=== PATIENT | male | born 1955 | race Caucasian/White ===

== ENCOUNTER → 2016-09-19 | Outpatient (CLI) | payer OTHER ==
[~2016-09-19] MED LIST: CLR10 PO; DOCU100C31 PO; MELO7.5T5 PO; OXYC1TAB3 PO
--- NOTE | 2016-09-19 12:51 | DIAGNOSTIC IMAGING REPORT ---
(CHEST) THORAX WITHOUT CLINICAL HISTORY: LUNG NODULE COMPARISON STUDY: 09/04/2015 CT DOSE: 308.30 mGycm TECHNIQUE: CT of the thorax was performed from the thoracic inlet to the lung bases. Images are reviewed in the axial, sagittal, and coronal planes. IV contrast was not administered for this examination. FINDINGS: Thyroid: Imaged portions of the thyroid gland are normal in appearance. Thoracic aorta: There is mild dilatation of the a sitting thoracic aorta which measures 4 cm. Heart: The heart is normal in size. There is no significant pericardial effusion. There are mild coronary artery calcifications. Lungs and pleural spaces: There is pulmonary emphysema. There are no pleural effusions. There is a stable solid 5.5 mm right upper lobe pulmonary nodule as visualized in image #[id number]. There is a stable solid 4 mm right upper lobe pulmonary nodule as visualized in image #[id number]. There is a stable solid 3 mm right upper lobe perifissural nodule as visualized in image #[id number]. Mediastinum: There are mildly enlarged mediastinal lymph nodes measuring up to 12 mm in short axis. These remain similar to the preceding study. Linda: Borderline enlarged hilar lymph nodes remain stable. Axilla: There is no evidence of pathologic axillary lymphadenopathy Upper abdomen: There is a very small hiatal hernia Skeletal structures: There are no lytic or blastic osseous lesions. IMPRESSION: 1. The 3 solid subcentimeter right upper lobe pulmonary nodules remain stable. The largest measures 5.5 mm. In an average risk patient, no further follow-up is considered necessary. 2. Mildly enlarged mediastinal lymph nodes remain stable. Electronically signed by: Robin Sargent M.D. 09/19/2016 12:49 PM Dictated Date/Time: 09/19/2016 12:38 PM
== END | disposition home or self-care (01) ==
LOC: C.CTS 12:24
PROVIDERS: ATTEND Internal Medicine
DX: R91.1 Solitary pulmonary nodule (principal)

== ENCOUNTER 2022-04-21 01:06 | Observation (INO) ==
[2022-04-21] MEDS ORDERED: ALBUT/IPRATROP 3MG/0.5MG NEB 3 ML VIAL ONE (01:12)
[2022-04-21] MEDS ORDERED: methylPREDNISolone 125 MG/2 ML VIAL IV STA (01:23)
--- NOTE | 2022-04-21 01:30 | Emergency Department Note ---
History of Present Illness General Chief complaint: Shortness of Breath/Dyspnea Stated complaint: SOB Time Seen by Provider: 04/21/22 01:07 History of Present Illness 66-year-old smoker complains of shortness of breath that started approximately 2 hours ago. Patient denies cough cold congestion symptoms. Patient states he was at rest and had shortness of breath. Patient denies pleuritic chest pain denies substernal chest pressure denies fever. Patient was given a DuoNeb by EMS and states much improvement. Patient has no other current complaints. No other mitigating or alleviating factors Home Medications Medication Instructions Recorded Confirmed Type buprenorphine 8 mg-naloxone 2 mg 1 tab sublingual TID 04/21/22 04/21/22 History sublingual tablet naproxen 500 mg tablet 500 mg PO BID PRN Pain 04/21/22 04/21/22 History Allergies Allergy/AdvReac Type Severity Reaction Status Date / Time No Known Allergies Allergy Unknown Verified 04/21/22 01:45 Past Med/Surg History Medical History (Updated 04/21/22 @ 02:56 by Yovanny Rodriguez DO) Multiple rib fractures Surgical History H/O rotator cuff surgery Hx of lumbosacral spine surgery Social History Smoking Status: Current every day smoker Tobacco Type: Cigarettes Preferred Language: [place] Feels Safe at Home: Yes Review of Systems A total of 10 systems reviewed and were otherwise negative Respiratory: + dyspnea Physical Exam Vital Signs Vital Signs - 24 hr 04/21/22 01:57 04/21/22 01:57 04/21/22 02:13 Temperature 36.7 C Temperature Source Oral Pulse Rate 86 Pulse Rhythm Respiratory Rate 24 Respiratory Effort / Characteristics Short of Breath Spontaneous Labored Respiratory Depth Normal Respiratory Pattern Regular Blood Pressure 154/75 H Blood Pressure Mean 101 Pulse Oximetry 96 95 Oxygen Delivery Method Nasal Cannula Nasal Cannula Nasal Cannula Oxygen Flow Rate 2 2 2 Sepsis Recent Fever Within 48 Hours No Sepsis New/Unexplained Change in Mental Status N/A Sepsis Action Taken by Nursing No Action Required 04/21/22 02:13 Temperature Temperature Source Pulse Rate 101 H Pulse Rhythm Regular Respiratory Rate Respiratory Effort / Characteristics Respiratory Depth Respiratory Pattern Blood Pressure Blood Pressure Mean Pulse Oximetry 95 Oxygen Delivery Method Nasal Cannula Oxygen Flow Rate 2 Sepsis Recent Fever Within 48 Hours Sepsis New/Unexplained Change in Mental Status Sepsis Action Taken by Nursing GENERAL: Patient is awake alert in no acute distress patient is resting comfortably and showing no signs of anxiety EYES: The conjunctivae are clear. The pupils are round and reactive. EARS, NOSE, MOUTH AND THROAT: The nose is without any evidence of any deformity. Mucous membranes are moist. Tongue is midline. NECK: The neck is nontender and supple. RESPIRATORY: Normal respiratory effort is noted there is no evidence of wheezing rhonchi or rales CARDIOVASCULAR: Regular rate and rhythm noted there no murmurs rubs or gallops normal S1 normal S2. GASTROINTESTINAL: The abdomen is soft. Abdomen is nontender. BACK: No midline tenderness or or step-off noted range of motion in flexion extension as well as rotation no signs of muscle spasm noted MUSCULOSKELETAL/EXTREMITIES: There is no evidence of gross deformity full range of motion is noted in the hips and shoulders. Calves are nontender or swollen bilaterally SKIN: There is no obvious evidence of any rash. There are no petechiae, pallor or cyanosis noted. NEUROLOGIC: Patient is awake alert and oriented x3 strength is symmetric PSYCH: Normal affect Course Reevaluation(s) Reevaluation #1: Patient resting in no distress on repeat examination Time: 02:55 Consultations Consultation #1: The case was discussed with the [facility] hospitalist for admission. Patient will be admitted for COPD and dyspnea Time: 03:10 Administered Medications Discontinued Medications Methylprednisolone (Methylprednisolone 125 Mg/2 Ml Vial) 125 mg IV NOW STA Stop: 04/21/22 01:24 Last Admin: 04/21/22 01:50 Dose: 125 mg Documented By: Medical Decision Making Medical Records Attestation: I reviewed the patient's medical records. Home Medications Current Medication List: was personally reviewed by me Laboratory Data Attestation: I reviewed the patient's lab results. Patient's lab work is unremarkable 04/21/22 01:20 04/21/22 01:20 Lab Results 04/21/22 04/21/22 04/21/22 Range/Units 01:20 01:20 01:54 WBC 11.92 H (4.8-10.8) K/ul RBC 5.24 (4.70-6.10) M/uL Hgb 15.5 (14.0-18.0) g/dl Hct 46.5 (42.0-52.0) % MCV 88.7 (80.0-100.0) fL MCH 29.6 (25.0-34.0) pg MCHC 33.3 (32.0-36.0) g/dL RDW Std Deviation 48.9 H (36.4-46.3) fL RDW Coeff of Ml 15.0 H (11.5-14.5) % Plt Count 227 (130-400) K/uL MPV 11.0 (9.4-12.4) fL Immature Gran % (Auto) 0.3 % Neut % (Auto) 61.6 % Lymph % (Auto) 27.1 % [place] % (Auto) 9.4 % Eos % (Auto) 1.2 % Baso % (Auto) 0.4 % Neut # (Auto) 7.35 H (1.40-6.50) K/uL Lymph # (Auto) 3.23 (1.2-3.4) K/uL [place] # (Auto) 1.12 H (0.11-0.59) K/uL Eos # (Auto) 0.14 (0-0.50) K/uL Baso # (Auto) 0.05 (0-0.2) K/uL Immature Gran # (Auto) 0.03 (0.01-0.20) K/uL Sodium 141 (136-145) mmol/L Potassium 4.4 (3.5-5.1) mmol/L Chloride 105 (98-107) mmol/L Carbon Dioxide 30 (21-32) mmol/L Anion Gap 6 (3-11) BUN 13 (6-23) mg/dl Creatinine 0.80 (0.6-1.4) mg/dl Est Cr Clr Drug Dosing Not Reportable Est GFR ( Amer) 107.1 ml/min Est GFR (Non-Af Amer) 92.4 ml/min BUN/Creatinine Ratio 16.3 (10-20) Glucose 114 H (70-99(Fasting)) mg/dl Calcium 9.6 (8.5-10.1) mg/dl Total Bilirubin 0.5 (0.2-1.0) mg/dl AST 21 (13-39) U/L ALT 18 (7-52) U/L Alkaline Phosphatase 106 H (34-104) U/L Troponin I High Sens 7.8 (0-20) pg/ml Total Protein 8.4 H (6.0-8.3) gm/dl Albumin 4.6 (3.4-5.0) gm/dl Globulin 3.8 (2.5-4.0) gm/dl Albumin/Globulin Ratio 1.2 (0.9-2) SARS-CoV-2, RNA, NAAT NEGATIVE (NEGATIVE) Imaging Data Attestation: I personally reviewed and interpreted this imaging study as follows: My Impression: Chest x-ray interpreted by me COPD changes no obvious effusion no obvious infiltrate no pneumothorax ECG Data Attestation: I personally reviewed and interpreted this ECG as follows: Additional Comments: EKG interpreted by me sinus rhythm rate of 98 poor baseline no obvious ST segment elevation or depression normal intervals normal axis MDM Narrative Medical decision making differential diagnosis includes COPD exacerbation, pneumonia, CHF, anemia, cardiac dysrhythmia Plan is to check labs, EKG, chest x-ray, give IV Solu-Medrol, observe EMS records were reviewed by me Patient's chest x-ray shows COPD, no obvious pneumonia, patient's COVID testing is negative. Patient was improved after DuoNeb and Solu-Medrol I suspect the patient has a COPD exacerbation Impression & Plan Acute exacerbation of chronic obstructive airways disease Discharge Plan Visit Data Chief Complaint: Shortness of Breath/Dyspnea Stated Complaint: SOB ED Provider: Yovanny Rodriguez Discharge Problem: Acute exacerbation of chronic obstructive airways disease Patient Disposition: Admitted As Inpatient Forms Stand Alone Forms: [facility] Prescriptions Prescriptions: No Action naproxen 500 mg Tablet 500 mg PO BID PRN (Reason: Pain) buprenorphine-naloxone 8-2 mg tablet, sublingual 1 tab SUBLINGUAL TID Referrals Referrals: Nelly Pinzon DO [Primary Care Provider] -
[2022-04-21 01:39] LABS: Basophils # (auto) 0.05 K/uL (0-0.2); Basophils % (auto) 0.4 %; Eosinophils # (auto) 0.14 K/uL (0-0.50); Eosinophils % (auto) 1.2 %; Hematocrit (blood only) 46.5 % (42.0-52.0); Hemoglobin 15.5 g/dl (14.0-18.0); Immature Granulocytes # (auto) 0.03 K/uL (0.01-0.20); Immature Granulocytes % (auto) 0.3 %; Lymphocytes # (auto) 3.23 K/uL (1.2-3.4); Lymphocytes % (auto) 27.1 %; Mean Corpuscular Hemoglobin 29.6 pg (25.0-34.0); Mean Corpuscular Hgb Conc 33.3 g/dL (32.0-36.0); Mean Corpuscular Volume 88.7 fL (80.0-100.0); Monocytes # (auto) 1.12 K/uL (0.11-0.59); Monocytes % (auto) 9.4 %; Neutrophils # (auto) 7.35 K/uL (1.40-6.50); Neutrophils % (auto) 61.6 %; Platelet Count 227 K/uL (130-400); RDW Standard Deviation 48.9 fL (36.4-46.3); Red Blood Count 5.24 M/uL (4.70-6.10); White Blood Count 11.92 K/ul (4.8-10.8)
[2022-04-21 02:01] LABS: Alanine Aminotransferase 18 U/L (7-52); Albumin Globulin Ratio 1.2 (0.9-2); Albumin Level 4.6 gm/dl (3.4-5.0); Alkaline Phosphatase 106 U/L (34-104); Anion Gap 6 (3-11); Aspartate Aminotransferase 21 U/L (13-39); BUN Creatinine Ratio 16.3 (10-20); Bilirubin,Total 0.5 mg/dl (0.2-1.0); Blood Urea Nitrogen 13 mg/dl (6-23); Calcium 9.6 mg/dl (8.5-10.1); Carbon Dioxide 30 mmol/L (21-32); Chloride 105 mmol/L (98-107); Est GFR (African American) 107.1 ml/min; Est GFR (Non-African American) 92.4 ml/min; Globulin 3.8 gm/dl (2.5-4.0); Glucose 114 mg/dl (70-99(Fasting)); Potassium 4.4 mmol/L (3.5-5.1); Sodium 141 mmol/L (136-145); Total Protein 8.4 gm/dl (6.0-8.3)
[2022-04-21 02:08] LABS: Troponin I High Sensitivity 7.8 pg/ml (0-20)
[2022-04-21 02:49] LABS: Partial Thromboplastin Ratio 0.8; Partial Thromboplastin Time 22.2 Seconds (21.0-31.0); Prothrombin Time 10.2 Seconds (9.0-12.0)
[2022-04-21 02:51] LABS: D Dimer 990 ug/L FEU (0-500)
[2022-04-21] MEDS ORDERED: OPTIRAY 320 500ml IV ONE (04:03)
--- NOTE | 2022-04-21 04:06 | History & Physical Report ---
Date of Service April 21, 2022 Assessment & Plan (1) SOB (shortness of breath): Plan: Secondary to viral bronchitis Rule out PE given abnormal D-dimer chronic back pain on Suboxone history of opioid abuse as per records Hyperglycemia, likely from prediabetes with note of outpatient hemoglobin A1c of 5.9 from 2018 ongoing tobacco abuse OBS Medical telemetry Nebs RTC, prednisone course No indication for antibiotics for now Follow CT chest PE study result Update hemoglobin A1c Nicotine patch DVT prophylaxis. Lovenox subcu Full code Text document was generated using [employer] voice recognition software. It may contain grammatical or spelling errors. Kindly contact undersigned for clarification of any documentation item in question. History of Present Illness Chief Complaint: Cough, shortness of breath Primary Care Provider: Dr. Tobi Villanueva History obtained from patient and records. Medical history significant for chronic back pain status post surgery on Suboxone, history of opioid abuse as per records, hyperlipidemia as per records, ongoing tobacco abuse. Patient noted cough symptoms productive of clear sputum with increasing shortness of breath last night. No chest pain. Not sure about recent sick contacts. Was at PCPs office 2 weeks ago for routine visit. Has received COVID-19 vaccination. EMS called to patient's home. Improved symptoms with neb treatment. Solu-Medrol administered at the ER. 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 Allergies Allergy/AdvReac Type Severity Reaction Status Date / Time No Known Allergies Allergy Unknown Verified 04/21/22 01:45 Home Medications Medication Instructions Recorded Confirmed Type buprenorphine 8 mg-naloxone 2 mg 1 tab sublingual TID 04/21/22 04/21/22 History sublingual tablet naproxen 500 mg tablet 500 mg PO BID PRN Pain 04/21/22 04/21/22 History Past Med/Surg History Medical History (Updated 04/21/22 @ 09:53 by Shashank Morales MD) Multiple rib fractures Surgical History H/O rotator cuff surgery Hx of lumbosacral spine surgery Social History Smoking Status: Current every day smoker Tobacco Type: Cigarettes Second Hand Exposure: No; Do You Dip or Chew Tobacco: No; Tobacco Cessation Education Requested by Patient: Yes Hx Alcohol Use: No Hx Substance Use: No Preferred Language: [place] Communication Ability: Effective Mental Health Aides Teacher Required: No Beliefs That Will Affect Care: None Current Living Situation: Alone Other Information That Helps Us Care for You: No Feels Safe at Home: Yes Safety Concerns: Feels Safe At This Time Review of Systems Review of Systems: As per HPI, all other systems reviewed and negative Physical Exam Physical Exam: GENERAL: Comfortable, pleasant, no respiratory distress SKIN: Normal color, warm HEENT: Partial alopecia, [place] palpebral conjunctivae, no ptosis, dry buccal mucosa NECK : Supple, no tenderness CHEST : Decreased breath sounds, no tenderness HEART : RRR, no obvious murmurs ABDOMEN: Some distention, nontender EXTREMITIES : No LE swelling/tenderness, left wrist tenderness, no other conspicuous deformities noted NEUROLOGIC : Coherent, no facial asymmetry, no other gross focality Results & Data Results & Data ([facility]) Vital Signs (Past 12 Hours) Vital Signs Temp Pulse Resp BP Pulse Ox O2 Del Method O2 Flow Rate 04/21/22 02:30 79 18 96 Nasal Cannula 2 04/21/22 02:30 117/67 04/21/22 02:13 101 H 95 Nasal Cannula 2 04/21/22 02:13 95 Nasal Cannula 2 04/21/22 01:57 Nasal Cannula 2 04/21/22 01:57 36.7 C 86 24 154/75 H 96 Nasal Cannula 2 Laboratory Results Laboratory Results WBC 11.92 K/ul (4.8-10.8) H 04/21/22 01:20 RBC 5.24 M/uL (4.70-6.10) 04/21/22 01:20 Hgb 15.5 g/dl (14.0-18.0) 04/21/22 01:20 Hct 46.5 % (42.0-52.0) 04/21/22 01:20 MCV 88.7 fL (80.0-100.0) 04/21/22 01:20 MCH 29.6 pg (25.0-34.0) 04/21/22 01:20 MCHC 33.3 g/dL (32.0-36.0) 04/21/22 01:20 RDW Std Deviation 48.9 fL (36.4-46.3) H 04/21/22 01:20 RDW Coeff of Ml 15.0 % (11.5-14.5) H 04/21/22 01:20 Plt Count 227 K/uL (130-400) 04/21/22 01:20 MPV 11.0 fL (9.4-12.4) 04/21/22 01:20 Immature Gran % (Auto) 0.3 % 04/21/22 01:20 Neut % (Auto) 61.6 % 04/21/22 01:20 Lymph % (Auto) 27.1 % 04/21/22 01:20 [place] % (Auto) 9.4 % 04/21/22 01:20 Eos % (Auto) 1.2 % 04/21/22 01:20 Baso % (Auto) 0.4 % 04/21/22 01:20 Neut # (Auto) 7.35 K/uL (1.40-6.50) H 04/21/22 01:20 Lymph # (Auto) 3.23 K/uL (1.2-3.4) 04/21/22 01:20 [place] # (Auto) 1.12 K/uL (0.11-0.59) H 04/21/22 01:20 Eos # (Auto) 0.14 K/uL (0-0.50) 04/21/22 01:20 Baso # (Auto) 0.05 K/uL (0-0.2) 04/21/22 01:20 Immature Gran # (Auto) 0.03 K/uL (0.01-0.20) 04/21/22 01:20 PT 10.2 Seconds (9.0-12.0) 04/21/22 01:20 INR 1.0 (0.9-1.1) 04/21/22 01:20 APTT 22.2 Seconds (21.0-31.0) 04/21/22 01:20 PTT Ratio 0.8 04/21/22 01:20 D-Dimer 990 ug/L FEU (0-500) H* 04/21/22 01:20 Sodium 141 mmol/L (136-145) 04/21/22 01:20 Potassium 4.4 mmol/L (3.5-5.1) 04/21/22 01:20 Chloride 105 mmol/L (98-107) 04/21/22 01:20 Carbon Dioxide 30 mmol/L (21-32) 04/21/22 01:20 Anion Gap 6 (3-11) 04/21/22 01:20 BUN 13 mg/dl (6-23) 04/21/22 01:20 Creatinine 0.80 mg/dl (0.6-1.4) 04/21/22 01:20 Est Cr Clr Drug Dosing Not Reportable 04/21/22 01:20 Est GFR ( Amer) 107.1 ml/min 04/21/22 01:20 Est GFR (Non-Af Amer) 92.4 ml/min 04/21/22 01:20 BUN/Creatinine Ratio 16.3 (10-20) 04/21/22 01:20 Glucose 114 mg/dl (70-99(Fasting)) H 04/21/22 01:20 Calcium 9.6 mg/dl (8.5-10.1) 04/21/22 01:20 Total Bilirubin 0.5 mg/dl (0.2-1.0) 04/21/22 01:20 AST 21 U/L (13-39) 04/21/22 01:20 ALT 18 U/L (7-52) 04/21/22 01:20 Alkaline Phosphatase 106 U/L (34-104) H 04/21/22 01:20 Troponin I High Sens 7.8 pg/ml (0-20) 04/21/22 01:20 Total Protein 8.4 gm/dl (6.0-8.3) H 04/21/22 01:20 Albumin 4.6 gm/dl (3.4-5.0) 04/21/22 01:20 Globulin 3.8 gm/dl (2.5-4.0) 04/21/22 01:20 Albumin/Globulin Ratio 1.2 (0.9-2) 04/21/22 01:20 Procalcitonin < 0.05 ng/ml (0-0.5) 04/21/22 01:20 SARS-CoV-2, RNA, NAAT NEGATIVE (NEGATIVE) 04/21/22 01:54 Diagnostic Findings Chest x-ray as per my interpretation hyperinflation EKG as per my interpretation : Rate 90, NSR, normal axis, no ischemia Code Status & VTE Plan VTE Prophylaxis Plan VTE Prophylaxis will be ordered: Yes
[2022-04-21] MEDS ORDERED: SODIUM CHLORIDE 0.9% 1000ML 1,000 ML IV STA (04:11)
[2022-04-21] MEDS ORDERED: NICOTINE 21 MG/24 HR TDSY TD STA (04:11)
[2022-04-21 04:23] LABS: Magnesium 2.1 mg/dl (1.7-2.4)
[2022-04-21] MEDS ORDERED: NAPROXEN 250 MG TAB PO PRN (05:57)
[2022-04-21] MEDS ORDERED: ACETAMINOPHEN 325 MG TAB PO PRN (05:57)
[2022-04-21] MEDS ORDERED: PROMETHAZINE HCL 12.5 MG in SODIUM CHLORIDE 0.9% 50 ML IV PRN (05:57)
[2022-04-21] MEDS ORDERED: XOPENEX/ATROVENT 1.25mg/0.5MG NEB COMBO NEB SCH (07:00)
--- NOTE | 2022-04-21 07:00 | XRay Report ---
XR chest 1V portable HISTORY: Chest pain, nonspecific COMPARISON: Chest and left rib series 09/15/2019. FINDINGS: The lungs are hyperexpanded with apical predominant emphysematous changes. The heart is nor mal in size. No focal lung consolidations to suggest a pneumonia. No evidence for pulmonary edema. Th ere are old, healed left-sided rib fractures. IMPRESSION: Emphysema. Otherwise, no acute process within the chest. ACT 112: Negative or not required by law. Electronically signed by: Alex Dumas M.D. 04/21/2022 6:59 AM
[2022-04-21] MEDS: LEVALBUTEROL 1.25MG/0.5ML NEB INH SCH ×3 (07:36→18:54)
[2022-04-21] MEDS: IPRATROPIUM BROMIDE NEB SOLN 0.02% 2.5 ML VIAL INH SCH ×3 (07:36→18:54)
--- NOTE | 2022-04-21 08:05 | CT Scan Report ---
CT ANGIOGRAPHY OF THE CHEST, PULMONARY EMBOLUS PROTOCOL CLINICAL HISTORY: Respiratory difficulty. Evaluate for pulmonary embolus. COMPARISON STUDY: Chest CT September 19, 2016 and chest radiograph April 21, 2022. TECHNIQUE: Following IV administration of 113 mL of Optiray, helical axial images of the chest were o btained utilizing the pulmonary embolus protocol. Maximal intensity projections and sagittal and cor onal reformats were viewed on an independent 3D workstation. IV contrast was administered without co mplication. Automated exposure control was utilized for the study. A dose lowering technique was ut ilized adhering to the principles of ALARA. CT DOSE: 366.18 mGy.cm FINDINGS: No pulmonary emboli identified. There is no thoracic aortic dissection. The size of the he art is normal. There is no pericardial effusion. Prominent mediastinal and bilateral hilar lymph node s are unchanged since CT of September 04, 2015. Severe emphysema is present. There is no consolidation to suggest pneumonia. There is a small amount of mucus within the trachea. No central obstructing mass i s present. Several small right upper lobe pulmonary nodules measuring up to 4 mm are unchanged since CT of September 04, 2015. There are no new pulmonary nodules. There are no fractures within the bony thora x. No suspicious osseous lesions are identified within the bony thorax. Visualized portions of the up per abdomen are unremarkable. IMPRESSION: 1. No pulmonary emboli identified. 2. No acute intrathoracic findings. 3. Severe emphysema. 4. No change in multiple pulmonary nodules since chest CT of September 04, 2015. These are benign given st ability. 5. Stable prominent mediastinal and bilateral hilar lymph nodes which also benign. ACT 112: Negative or not required by law. Electronically signed by: Taiwo Carl M.D. 04/21/2022 8:04 AM
[2022-04-21] MEDS ORDERED: PNEUMOCOCCAL POLYSACCHARIDES 25 MCG/0.5 ML VIAL/SYR IM ONE (09:00)
[2022-04-21 09:52] LABS: Estimated Average Glucose 126 mg/dl
[2022-04-21] MEDS: BUPRENORPHINE/NALOXONE 8/2 MG TAB SL SCH ×3 (10:01→19:52)
[2022-04-21] MEDS: ENOXAPARIN INJ 40 MG/0.4 ML SYR SQ SCH (10:01)
[2022-04-21] MEDS: NICOTINE 21 MG/24 HR TDSY TD SCH (10:02)
--- NOTE | 2022-04-21 14:08 | Communication Note ---
Date of Service: April 21, 2022 66-year-old gentleman with PMH of chronic back pain status post surgery on Suboxone, opiate abuse, HLD, ongoing tobacco abuse was seen and evaluated at bedside for acute shortness of breath likely secondary to viral bronchitis. Given elevated D-dimer, CTA chest was done which was negative for PE. Patient was lying in bed, on room air, heart/lung/abdomen examination fairly WNL. Patient does not have any shortness of breath now. Patient has minimal cough. For detailed information on the patient, refer to today's H&P note. Patient is being monitored off antibiotic and with prednisone course and nebs. Patient would like to see how his breathing does today and would like to go home tomorrow.
[2022-04-22] MEDS: LEVALBUTEROL 1.25MG/0.5ML NEB INH SCH ×3 (00:20→13:56)
[2022-04-22] MEDS: IPRATROPIUM BROMIDE NEB SOLN 0.02% 2.5 ML VIAL INH SCH ×3 (00:20→13:56)
--- NOTE | 2022-04-22 06:03 | Electrocardiogram Report ---
Test Reason : Blood Pressure : / mmHG Vent. Rate : 090 BPM Atrial Rate : 090 BPM P-R Int : 142 ms QRS Dur : 100 ms QT Int : 360 ms P-R-T Axes : 087 050 069 degrees QTc Int : 440 ms Poor data quality, interpretation may be adversely affected Sinus rhythm with Premature supraventricular complexes When compared with ECG of 02-JAN-2004 17:38, Premature supraventricular complexes are now Present Vent. rate has increased BY 30 BPM Confirmed by Siddhartha Goode ([id number]) on 04/22/2022 6:03:03 AM Referred By: REFERRED SELF Confirmed By:Siddhartha Goode
[2022-04-22 06:28] LABS: Basophils # (auto) 0.03 K/uL (0-0.2); Basophils % (auto) 0.2 %; Eosinophils # (auto) 0.05 K/uL (0-0.50); Eosinophils % (auto) 0.4 %; Hematocrit (blood only) 39.7 % (42.0-52.0); Hemoglobin 13.5 g/dl (14.0-18.0); Immature Granulocytes # (auto) 0.04 K/uL (0.01-0.20); Immature Granulocytes % (auto) 0.3 %; Lymphocytes # (auto) 2.46 K/uL (1.2-3.4); Lymphocytes % (auto) 17.3 %; Mean Corpuscular Hemoglobin 29.6 pg (25.0-34.0); Mean Corpuscular Volume 87.1 fL (80.0-100.0); Mean Platelet Volume 11.2 fL (9.4-12.4); Monocytes # (auto) 1.19 K/uL (0.11-0.59); Monocytes % (auto) 8.4 %; Neutrophils # (auto) 10.44 K/uL (1.40-6.50); Neutrophils % (auto) 73.4 %; Platelet Count 227 K/uL (130-400); RDW Coefficient of Variation 15.2 % (11.5-14.5); RDW Standard Deviation 48.7 fL (36.4-46.3); Red Blood Count 4.56 M/uL (4.70-6.10); White Blood Count 14.21 K/ul (4.8-10.8)
[2022-04-22 06:41] LABS: BUN Creatinine Ratio 20.8 (10-20); Calcium 9.1 mg/dl (8.5-10.1); Creatinine Clr Calc Pharmacy 99.6 ml/min; Est GFR (African American) 111.9 ml/min; Est GFR (Non-African American) 96.5 ml/min; Potassium 3.9 mmol/L (3.5-5.1)
[2022-04-22] MEDS ORDERED: predniSONE 20 MG TAB PO SCH (09:00)
[2022-04-22] MEDS: ENOXAPARIN INJ 40 MG/0.4 ML SYR SQ SCH (09:09)
[2022-04-22] MEDS: NICOTINE 21 MG/24 HR TDSY TD SCH (09:09)
[2022-04-22] MEDS: BUPRENORPHINE/NALOXONE 8/2 MG TAB SL SCH ×2 (09:11→13:01)
[2022-04-22] MEDS ORDERED: IPRATROPIUM BROMIDE/ALBUTEROL respimat INH INH PRN (10:30)
--- NOTE | 2022-04-22 10:51 | Hospitalist Progress Note ---
Date of Service April 22, 2022 Assessment & Plan (1) SOB (shortness of breath): Plan: Secondary to viral bronchitis Rule out PE given abnormal D-dimer-CAT scan is negative for any pulmonary embolism Remains stable and has been ambulating without any difficulties Will be discharged home this afternoon (2) Acute exacerbation of chronic obstructive airways disease: Plan: Likely secondary to viral infection Is been on and oral prednisone Will need inhalers and nebulizers as an outpatient Clinically much better to be discharged today (3) Emphysema lung: Plan: Ongoing tobacco abuse We will continue nicotine patch (4) Hx of lumbosacral spine surgery: Plan: history of opioid abuse as per records chronic back pain on Suboxone Plan Hyperglycemia, likely from prediabetes with note of outpatient hemoglobin A1c of 5.9 from 2018 Admission and Anticipated Discharge Date Admission Date: April 21, 2022 Subjective 04/22/2022 The patient was seen and examined in telemetry unit He has significant emphysema and has been smoking Had not been on any inhalers as an outpatient Admitted with viral bronchitis and has been feeling much better to be discharged He definitely wants to go home Review of Systems Review of Systems: All systems reviewed and are unremarkable except as noted below Respiratory: No shortness of breath at rest Physical Exam Physical Exam: Lying in bed comfortably Constitutional: average body habitus; not ill appearing Eyes: PERRL, conjunctivae normal, anicteric sclerae ENMT: external ear and nose normal, oropharynx normal Neck: trachea midline, no thyromegaly Respiratory: no respiratory distress Auscultation: + diminished lung sound s; no crackles and no wheezes Cardiovascular: Rate/Rhythm: regular rate and regular rhythm; not tachycardic Heart Sounds: normal S1 and normal S2; no murmur Extremities: no edema Gastrointestinal (Abdomen): Inspection/Auscultation: normal bowel sounds; abdomen not distended Percussion/Palpation: abdomen soft; abdomen nontender Musculoskeletal: No acute arthritis involving any joint Neurologic: Alert, awake and oriented x3. No focal sensory or motor deficit appreciated Psychiatric: A+Ox3, euthymic affect Lymphatic: no cervical or axillary lymphadenopathy Results & Data Results & Data ([facility]) Vital Signs (Past 12 Hours) Vital Signs Temp Pulse Pulse Resp BP Pulse Ox O2 Del Method 04/22/22 07:15 36.4 C L 69 99/65 L 99 Room Air 04/22/22 07:00 74 18 93 Room Air 04/22/22 00:00 81 04/22/22 03:49 36.3 C L 64 18 99/61 L 92 Room Air 04/22/22 00:23 70 18 93 Room Air 04/21/22 23:32 36.4 C L 73 18 142/78 H 95 Room Air Laboratory Results Short CBC 04/22/22 Range/Units 05:35 WBC 14.21 H (4.8-10.8) K/ul Hgb 13.5 L (14.0-18.0) g/dl Hct 39.7 L (42.0-52.0) % Plt Count 227 (130-400) K/uL BMP 04/22/22 05:35 Sodium 138 Potassium 3.9 Chloride 103 Carbon Dioxide 29 BUN 15 Creatinine 0.72 Glucose 109 H Calcium 9.1 Medications Administered Current Inpatient Medications Acetaminophen (Acetaminophen 325 Mg Tab) 650 mg PO Q4H PRN PRN Reason: Pain or Fever Stop: 05/21/22 05:56 Albuterol (Albuterol Hfa 8 Gm Inhaler (Combivent Respimat P&T Subs)) 1 puffs INH QIDR FABIOLA; Protocol Stop: 05/22/22 10:59 Buprenorphine/Naloxone (Buprenorphine/Naloxone 8/2 Mg Tab) 1 tab SL TID [facility] Stop: 05/21/22 08:59 Last Admin: 04/22/22 09:11 Dose: 1 tab Enoxaparin Sodium (Enoxaparin Inj 40 Mg/0.4 Ml Syr) 40 mg SQ QAM FABIOLA Stop: 05/21/22 08:59 Last Admin: 04/22/22 09:09 Dose: 40 mg Promethazine HCl 12.5 mg/ (Sodium Chloride) 50.5 mls @ 202 mls/hr IV Q6H PRN PRN Reason: Nausea And Vomiting Stop: 05/21/22 05:56 Ipratropium [place] (Ipratropium [place] Neb Soln 0.02% 2.5 Ml Vial) 0.5 mg INH Q6R FABIOLA Stop: 05/21/22 06:59 Last Admin: 04/22/22 06:59 Dose: 0.5 mg Ipratropium [place] (Ipratropium Hfa Inhaler (Combivent Respimat P&T Subs)) 1 puffs INH QIDR FABIOLA; Protocol Stop: 05/22/22 10:59 Levalbuterol HCl (Levalbuterol 1.25mg/0.5ml Neb) 1.25 mg INH Q6R [facility] Stop: 05/21/22 06:59 Last Admin: 04/22/22 06:59 Dose: 1.25 mg Miscellaneous (Remove Nicoderm Patch) 1 each N/A DAILY@0859 [facility] Stop: 05/21/22 08:58 Last Admin: 04/22/22 09:09 Dose: 1 each Naproxen (Naproxen 250 Mg Tab) 500 mg PO BID PRN PRN Reason: Pain Stop: 05/21/22 05:56 Last Admin: 04/21/22 10:02 Dose: 500 mg Nicotine (Nicotine 21 Mg/24 Hr Tdsy) 21 mg TD QAM [facility] Stop: 05/21/22 08:59 Last Admin: 04/22/22 09:09 Dose: 21 mg Prednisone (Prednisone 20 Mg Tab) 40 mg PO DAILY [facility] Stop: 04/26/22 08:59 Last Admin: 04/22/22 09:09 Dose: 40 mg
[2022-04-22] MEDS ORDERED: Ipratropium HFA Inhaler (Combivent Respimat P&T Subs) INH SCH (11:00)
[2022-04-22] MEDS ORDERED: Albuterol HFA 8 GM Inhaler (Combivent Respimat P&T Subs) INH SCH (11:00)
[2022-04-22] MEDS ORDERED: IPRATROPIUM BROMIDE NEB SOLN 0.02% 2.5 ML VIAL INH PRN (13:01)
[2022-04-22] MEDS ORDERED: LEVALBUTEROL 1.25MG/0.5ML NEB INH PRN (13:02)
--- NOTE | 2022-04-23 07:24 | Discharge Summary ---
Date of Service April 22, 2022 Admission HPI Per Admitting Provider History obtained from patient and records. Medical history significant for chronic back pain status post surgery on Suboxone, history of opioid abuse as per records, hyperlipidemia as per records, ongoing tobacco abuse. Patient noted cough symptoms productive of clear sputum with increasing shortness of breath last night. No chest pain. Not sure about recent sick contacts. Was at PCPs office 2 weeks ago for routine visit. Has received COVID-19 vaccination. EMS called to patient's home. Improved symptoms with neb treatment. Solu-Medrol administered at the ER. 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 Admission Exam Per Admitting Provider Physical Exam: GENERAL: Comfortable, pleasant, no respiratory distress SKIN: Normal color, warm HEENT: Partial alopecia, [place] palpebral conjunctivae, no ptosis, dry buccal mucosa NECK : Supple, no tenderness CHEST : Decreased breath sounds, no tenderness HEART : RRR, no obvious murmurs ABDOMEN: Some distention, nontender EXTREMITIES : No LE swelling/tenderness, left wrist tenderness, no other conspicuous deformities noted NEUROLOGIC : Coherent, no facial asymmetry, no other gross focality Principal Diagnosis COPD exacerbation likely viral, emphysema, chronic back pain Discharge Exam Lying in bed comfortably Constitutional average body habitus; not ill appearing Eyes PERRL, conjunctivae normal, anicteric sclerae ENMT external ear and nose normal, oropharynx normal Neck trachea midline, no thyromegaly Respiratory no respiratory distress Auscultation: + diminished lung sounds; no crackles and no wheezes Cardiovascular Rate/Rhythm: regular rate and regular rhythm; not tachycardic Heart Sounds: normal S1 and normal S2; no murmur Extremities: no edema Gastrointestinal (Abdomen) Inspection/Auscultation: normal bowel sounds; abdomen not distended Percussion/Palpation: abdomen soft; abdomen nontender Psychiatric A+Ox3, euthymic affect Lymphatic no cervical or axillary lymphadenopathy Discharge Data Allergies Allergy/AdvReac Type Severity Reaction Status Date / Time No Known Allergies Allergy Unknown Verified 04/21/22 01:45 Consultations 04/21/22 03:10 ED Decision to Admit Stat Ordered Studies 04/21/22 03:32 CT angio chest PE protocol Urgent Hospital Course (1) SOB (shortness of breath): Secondary to viral bronchitis Rule out PE given abnormal D-dimer-CAT scan is negative for any pulmonary embolism Remains stable and has been ambulating without any difficulties Will be discharged home this afternoon (2) Acute exacerbation of chronic obstructive airways disease: Likely secondary to viral infection Is been on and oral prednisone Will need inhalers and nebulizers as an outpatient Clinically much better to be discharged today (3) Emphysema lung: Ongoing tobacco abuse We will continue nicotine patch (4) Hx of lumbosacral spine surgery: history of opioid abuse as per records chronic back pain on Suboxone Plan Hyperglycemia, likely from prediabetes with note of outpatient hemoglobin A1c of 5.9 from 2018 Total Time Total Time Spent Total Time Spent (In Minutes): 35 minutes Discharge Plan Discharge Items Patient Disposition: Home - Self-Care Reason For Visit: SOB Discharge Diagnosis: COPD exacerbation likely viral, emphysema, chronic back pain Condition on Discharge: Good Activity: Resume your previous activity Non-emergency contact: Primary Care Provider Call non-emergency contact if: you have any medication questions and your symptoms worsen Follow-up/Referrals: Tobi Villanueva MD [Outside Practitioners] - (Date & Time 04/26/2022 8:40 AM Provider Tobi Villanueva MD Department [facility] ) Diet: Regular Addtl Attending Provider Instructions: Please take precautions to avoid falls Take your medications as advised Quit smoking Please give appointments with your healthcare provider Pending Studies at Discharge: No Stand-Alone Forms: My [facility] [employer], Smoking Cessation Medications and DC Order Prescriptions: New albuterol sulfate [Ventolin HFA] 90 mcg/actuation Hfa Aerosol Inhaler 2 puff inhalation QIDR PRN (Reason: shortness of breath or wheezing) Qty: 8.5 0RF levalbuterol HCl 1.25 mg/0.5 mL Solution For Nebulization 1.25 mg inhalation Q8H PRN (Reason: shortness of breath or wheezing) Qty: 30 0RF Rx Instructions: For moderate to severe shortness of breath and wheezing nicotine [Nicoderm CQ] 21 mg/24 hr Patch 24 Hour 21 mg transdermal QAM Qty: 28 0RF prednisone 20 mg Tablet 40 mg PO DAILY 4 Days Qty: 8 0RF Continued naproxen 500 mg Tablet 500 mg PO BID PRN (Reason: Pain) buprenorphine-naloxone 8-2 mg tablet, sublingual 1 tab SUBLINGUAL TID Discharge Orders: Discharge Order (Routine); Ordered 04/22/22 Ordered By: German Allen/Other Patient Handouts: Prediabetes Admission Data Admit Date/Time: 04/21/22 04:02 Attending Provider: German White Admit Provider: Shashank Morales Primary Care Provider: Nelly Pinzon Other Providers: Shashank Morales ; Phil Chery Other Interventions: Discharge Summary Assessment (RN) Last Done: 04/22/22 13:11
== END 2022-04-22 14:42 | disposition home or self-care (01) ==
LOC: 4W 01:06 → ED 01:06 → SUATTDRO 04:02 → 4W 05:30

== ENCOUNTER 2023-09-29 15:46 | Inpatient (IN) ==
[2023-09-29] MEDS: KETOROLAC TROMETHAMINE 15 MG/ML VIAL IV ONE (16:26)
--- NOTE | 2023-09-29 16:39 | XRay Report ---
XR hip LT 2V w pelvis HISTORY: 68 years-old Male Left hip pain after fall acute left hip pain status post fall COMPARISON: 07/31/2015 TECHNIQUE: AP view of the pelvis with 2 views of the left hip FINDINGS: Mild osteoarthritis of the hips. No acute fracture or dislocation. Unremarkable soft tissues. IMPRESSION: No acute fracture or dislocation ACT 112: Negative or not required by law. The above report was generated using voice recognition software. It may contain grammatical, syntax o r spelling errors. Electronically signed by: Robin Salas M.D. 09/29/2023 4:37 PM
[2023-09-29 16:47] LABS: Basophils # (auto) 0.04 K/uL (0.00-0.20); Basophils % (auto) 0.4 %; Eosinophils % (auto) 1.1 %; Hematocrit (blood only) 47.3 % (42.0-52.0); Hemoglobin 15.3 g/dl (14.0-18.0); Immature Granulocytes # (auto) 0.03 K/uL (0.01-0.20); Immature Granulocytes % (auto) 0.3 %; Lymphocytes # (auto) 2.17 K/uL (1.20-3.40); Mean Corpuscular Hgb Conc 32.3 g/dL (32.0-36.0); Mean Corpuscular Volume 86.6 fL (80.0-100.0); Mean Platelet Volume 11.1 fL (9.4-12.4); Monocytes # (auto) 0.85 K/uL (0.11-0.59); Monocytes % (auto) 9.4 %; Neutrophils # (auto) 5.84 K/uL (1.40-6.50); Neutrophils % (auto) 64.8 %; Platelet Count 247 K/uL (130-400); RDW Coefficient of Variation 14.4 % (11.5-14.5); RDW Standard Deviation 45.1 fL (36.4-46.3); Red Blood Count 5.46 M/uL (4.70-6.10); White Blood Count 9.03 K/ul (4.8-10.8)
--- NOTE | 2023-09-29 16:54 | Emergency Department Note ---
Impression & Plan Closed left hip fracture, Fall ED Provider Note NAME: KAVITHA HUDSON AGE: 68 SEX: M : 1955 ARRIVES VIA: Walk-In INFORMANT: Patient, ED PROVIDER(S): Gary Birmingham MD CHIEF COMPLAINT: Fall, left hip pain HPI: This is a 68-year-old male presenting for left hip pain. Patient states that he was pulling a crispin down the driveway. He fell on the pavement and fell down. He notes significant left-sided hip pain. He is unable to move the left hip due to significant pain. He notes pain is left groin/hip. 735 to 40 minutes ago. No current nausea, vomiting. Denies any LOC or head trauma. ROS: See above HPI for pertinent positives & negatives. A total of 10 systems reviewed and were otherwise negative. PHYSICAL EXAMINATION: General: resting comfortably in no acute distress Head: Normocephalic and atraumatic Eyes: Normal inspection, extraocular muscles intact Ear, nose, throat: Normal external exam Neck: Normal range of motion Respiratory: lungs clear to auscultation bilaterally Cardiovascular: Regular rate/rhythm, no murmur GI: soft, nontender, no guarding or rebound Extremities: Left hip pain without obvious deformity, unable to range hip due to pain, 2+ pulses Neuro: The patient awake and alert, appropriately conversive, no focal deficits, symmetric faces Skin: Warm, dry, and intact MEDICAL DECISION MAKING: This is a 68-year-old male presents for left hip pain. X-ray as implanter by me reveals no osseous fracture or dislocation. Patient is extremely tender to palpation and with range of motion. Will do CT of the pelvis to help elucidate underlying hip fracture such as hip versus pubic rami fracture. -CT of the pelvis does reveal a left femoral neck transcervical fracture. 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 Macedo, who states that this is nonemergent and can get current orthopedic care as necessary. -Discussed with orthopedic surgery, Dr. Barnes who states that they will see the patient tomorrow for likely operative repair -Patient is excepted to hospitalist service under Dr. Ojewve Differential diagnosis: Hip fracture, knee fracture pelvic fracture ER treatment provided: See below Diagnostics interpreted by me: ECG: ECG independently interpreted by me with normal sinus rhythm, rate of 71, normal axis, normal MT, normal QRS, normal QTc, no ST segment elevations consistent with STEMI criteria Cardiac Monitoring: An order was placed for continuous cardiac monitoring. The monitor shows a rate of 73 with sinus rhythm Laboratory studies: As stated above and show below. Imaging studies: See below. Past Med/Surg History Problem List (Updated 09/29/23 @ 22:31 by Gary Birmingham MD) Tobacco use Fall (Acute) Closed left hip fracture (Acute) Medical History Opioid dependence COPD (chronic obstructive pulmonary disease) Multiple rib fractures Surgical History Hx of lumbosacral spine surgery H/O rotator cuff surgery Family History (Updated 09/29/23 @ 19:30 by Jessica Denise PA-C) Other Diabetes Heart disease Social History Smoking Status: Current every day smoker Tobacco Type: Cigarettes Second Hand Exposure: No; Do You Dip or Chew Tobacco: No; Hx Alcohol Use: No Hx Substance Use: No Preferred Language: Icelandic Communication Ability: Effective [employer] Paralegal Required: No Beliefs That Will Affect Care: None Current Living Situation: Alone Feels Safe at Home: Yes Assistive Devices: None Allergies Allergies Allergy/AdvReac Type Severity Reaction Status Date / Time No Known Allergies Allergy Unknown Verified 04/21/22 01:45 Home Meds Home Medications Medication Instructions Recorded Confirmed buprenorphine 8 mg-naloxone 2 mg 1 tab sublingual TID 04/21/22 09/29/23 sublingual tablet naproxen 500 mg tablet 500 mg PO BID PRN Pain 04/21/22 09/29/23 fluticasone fur. 200 mcg-umeclid 1 inh inhalation QAM 09/29/23 09/29/23 62.5 mcg-vilant 25 mcg inhalat.powder (Trelegy Ellipta) Previous Rx's Medication Instructions Recorded albuterol sulfate 90 mcg/actuation 2 puff inhalation QIDR PRN 04/22/22 aerosol inhaler (Ventolin HFA) shortness of breath or wheezing #8.5 grams levalbuterol HCl 1.25 mg/0.5 mL 1.25 mg (0.5 mL) inhalation Q8H 04/22/22 solution for nebulization PRN shortness of breath or wheezing #30 ea Results & Data (ED) Vital Signs Vital Signs - 24 hr 09/29/23 15:50 09/29/23 16:04 09/29/23 16:20 Temperature 36.9 C Temperature Source Temporal Artery Scan Pulse Rate 79 79 Pulse Rate [Apical] 78 Pulse Rhythm Regular Pulse Strength Normal Respiratory Rate 18 15 Respiratory Effort / Characteristics Non-Labored Respiratory Depth Normal Respiratory Pattern Regular Blood Pressure 150/92 H Blood Pressure [Left Arm] 132/76 Blood Pressure Mean 111 Blood Pressure Mean [Left Arm] 94 Blood Pressure Position Sitting Pulse Oximetry 94 96 Oxygen Delivery Method Room Air Room Air Sepsis Recent Fever Within 48 Hours No Sepsis New/Unexplained Change in Mental Status No Sepsis Action Taken by Nursing No Action Required 09/29/23 18:03 Temperature Temperature Source Pulse Rate Pulse Rate [Apical] 63 Pulse Rhythm Pulse Strength Respiratory Rate 23 Respiratory Effort / Characteristics Respiratory Depth Respiratory Pattern Blood Pressure Blood Pressure [Left Arm] 137/103 H Blood Pressure Mean Blood Pressure Mean [Left Arm] 114 Blood Pressure Position Pulse Oximetry 95 Oxygen Delivery Method Room Air Sepsis Recent Fever Within 48 Hours Sepsis New/Unexplained Change in Mental Status Sepsis Action Taken by Nursing Laboratory Data 09/29/23 16:05 09/29/23 16:05 Lab Results 09/29/23 Range/Units 16:05 WBC 9.03 (4.8-10.8) K/ul RBC 5.46 (4.70-6.10) M/uL Hgb 15.3 (14.0-18.0) g/dl Hct 47.3 (42.0-52.0) % MCV 86.6 (80.0-100.0) fL MCH 28.0 (25.0-34.0) pg MCHC 32.3 (32.0-36.0) g/dL RDW Std Deviation 45.1 (36.4-46.3) fL RDW Coeff of Ml 14.4 (11.5-14.5) % Plt Count 247 (130-400) K/uL MPV 11.1 (9.4-12.4) fL Immature Gran % (Auto) 0.3 % Neut % (Auto) 64.8 % Lymph % (Auto) 24.0 % Gates % (Auto) 9.4 % Eos % (Auto) 1.1 % Baso % (Auto) 0.4 % Neut # (Auto) 5.84 (1.40-6.50) K/uL Lymph # (Auto) 2.17 (1.20-3.40) K/uL Gates # (Auto) 0.85 H (0.11-0.59) K/uL Eos # (Auto) 0.10 (0.00-0.50) K/uL Baso # (Auto) 0.04 (0.00-0.20) K/uL Immature Gran # (Auto) 0.03 (0.01-0.20) K/uL Sodium 136 (136-145) mmol/L Potassium 4.0 (3.5-5.1) mmol/L Chloride 101 (98-107) mmol/L Carbon Dioxide 27 (21-32) mmol/L Anion Gap 8 (3-11) BUN 13 (6-23) mg/dl Creatinine 0.93 (0.6-1.4) mg/dl Est Cr Clr Drug Dosing 75.0 ml/min Est GFR ( Amer) 96.7 ml/min Est GFR (Non-Af Amer) 83.5 ml/min BUN/Creatinine Ratio 14.0 (10-20) Glucose 119 H (70-99(Fasting)) mg/dl Calcium 10.0 (8.6-10.3) mg/dl Administered Medications Acetaminophen (Acetaminophen 500 Mg Tab) 1,000 mg PO Q8 [facility] Stop: 10/29/23 21:59 Last Admin: 09/29/23 22:01 Dose: 1,000 mg Documented By: JAZMIN Buprenorphine/Naloxone (Buprenorphine/Naloxone 8/2 Mg Tab) 1 tab SL TID [facility] Stop: 10/29/23 21:16 Last Admin: 09/29/23 21:55 Dose: Not Given Documented By: JAZMIN Hydromorphone HCl (Hydromorphone Inj 0.5 Mg/0.5 Ml Syr) 0.5 mg IV Q3H PRN PRN Reason: Severe Pain (Scale 7, 8, 9,10) Stop: 10/13/23 21:38 Last Admin: 09/29/23 22:01 Dose: 0.5 mg Documented By: JAZMIN Sodium Chloride (Nss) 1,000 mls @ 80 mls/hr IV .[id number] [facility] Stop: 10/29/23 21:16 Last Admin: 09/29/23 22:04 Dose: 80 mls/hr Documented By: JAZMIN Discontinued Medications Buprenorphine/Naloxone (Buprenorphine/Naloxone 8/2 Mg Tab) 1 tab SL TID FABIOLA Stop: 10/29/23 20:59 Last Admin: 09/29/23 20:48 Dose: 1 tab Documented By: LORENZO Hydromorphone HCl (Hydromorphone Inj 0.5 Mg/0.5 Ml Syr) 0.5 mg IV NOW STA Stop: 09/29/23 18:42 Last Admin: 09/29/23 18:45 Dose: 0.5 mg Documented By: LORENZO Ioversol (Optiray 320 100ml) 93 ml IV ONCE ONE Stop: 09/29/23 17:39 Last Admin: 09/29/23 17:38 Dose: 93 ml Documented By: BOOM Ketorolac Tromethamine (Ketorolac Tromethamine 15 Mg/Ml Vial) 15 mg IV NOW ONE Stop: 09/29/23 16:22 Last Admin: 09/29/23 16:26 Dose: 15 mg Documented By: LORENZO Imaging Data Radiologist's Impression: Hip/Pelvis X-Ray 09/29/23 15:56 XR hip LT 2V w pelvis HISTORY: 68 years-old Male Left hip pain after fall acute left hip pain status post fall COMPARISON: 07/31/2015 TECHNIQUE: AP view of the pelvis with 2 views of the left hip FINDINGS: Mild osteoarthritis of the hips. No acute fracture or dislocation. Unremarkable soft tissues. IMPRESSION: No acute fracture or dislocation ACT 112: Negative or not required by law. The above report was generated using voice recognition software. It may contain grammatical, syntax or spelling errors. Electronically signed by: Robin Salas M.D. 09/29/2023 4:[address] 09/29/23 16:21 CT pelvis w/IV con only HISTORY: 68 years-old Male Hip/pubic rami fx, L hip pain acute left-sided hip pain COMPARISON: Radiographs of same day, pelvis radiographs 07/31/2015 TECHNIQUE: Multiple axial CT images of the pelvis were obtained with IV contrast. A dose lowering technique was used consistent with the principals of KARINA. . FINDINGS: There is severe atherosclerosis of the aorta and iliac arteries. There is a 3 cm segment of high-grade stenosis/occlusion involving the proximal to mid aspect of the right common iliac artery which demonstrates fusiform dilation measuring up to 1.8 cm. There is distal reconstitution of flow within the iliac bifurcation. Prostatomegaly. Urinary bladder wall thickening with partial distention. Colonic diverticulosis. Moderate fecal retention. Normal appendix. No free fluid. Demineralized appearance of the bones. Moderate to severe lower lumbar facet arthrosis. Mild to moderate degeneration of the SI joints. Mild osteoarthritis of the femoral acetabular joints. No acute displaced fracture, dislocation or avascular necrosis. There is however acute nondisplaced left femoral neck fracture remaining which is predominantly transcervical and best seen on the coronal images. IMPRESSION: 1. Radiographically occult subtle acute nondisplaced transcervical left femoral fracture. 2. No additional acute fracture or dislocation. 3. 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 ACT 112: Negative or not required by law. The above report was generated using voice recognition software. It may contain grammatical, syntax or spelling errors. Electronically signed by: Robin Salas M.D. 09/29/2023 5:50 PM Discharge Plan Visit Data Chief Complaint: Hip Pain Stated Complaint: BROKEN HIP ED Provider: Gary Birmingham Discharge Problem: Closed left hip fracture, Fall Patient Disposition: Admitted As Inpatient Discharge Instructions Interventions: ED Discharge Assessment Last Done: 09/29/23 20:55
[2023-09-29 17:05] LABS: Est GFR (African American) 96.7 ml/min; Est GFR (Non-African American) 83.5 ml/min
[2023-09-29] MEDS: OPTIRAY 320 100ml IV ONE (17:38)
--- NOTE | 2023-09-29 17:52 | CT Scan Report ---
CT pelvis w/IV con only HISTORY: 68 years-old Male Hip/pubic rami fx, L hip pain acute left-sided hip pain COMPARISON: Radiographs of same day, pelvis radiographs 07/31/2015 TECHNIQUE: Multiple axial CT images of the pelvis were obtained with IV contrast. A dose lowering crystal hnique was used consistent with the principals of KARINA. . FINDINGS: There is severe atherosclerosis of the aorta and iliac arteries. There is a 3 cm segment of high-grad e stenosis/occlusion involving the proximal to mid aspect of the right common iliac artery which demo nstrates fusiform dilation measuring up to 1.8 cm. There is distal reconstitution of flow within the iliac bifurcation. Prostatomegaly. Urinary bladder wall thickening with partial distention. Colonic d iverticulosis. Moderate fecal retention. Normal appendix. No free fluid. Demineralized appearance of the bones. Moderate to severe lower lumbar facet arthrosis. Mild to moder ate degeneration of the SI joints. Mild osteoarthritis of the femoral acetabular joints. No acute dis placed fracture, dislocation or avascular necrosis. There is however acute nondisplaced left femoral neck fracture remaining which is predominantly transcervical and best seen on the coronal images. IMPRESSION: 1. Radiographically occult subtle acute nondisplaced transcervical left femoral fracture. 2. No additional acute fracture or dislocation. 3. Fusiform aneurysmal dilation of the right common iliac artery measures 1.8 cm with associated high -grade stenosis/occlusion with distal reconstitution of flow at the iliac bifurcation. ACT 112: Negative or not required by law. The above report was generated using voice recognition software. It may contain grammatical, syntax o r spelling errors. Electronically signed by: Robin Salas M.D. 09/29/2023 5:50 PM
[2023-09-29] MEDS: HYDROmorphone INJ 0.5 MG/0.5 ML SYR IV STA (18:45)
--- NOTE | 2023-09-29 19:32 | History & Physical Report ---
Date of Service September 29, 2023 Assessment & Plan (1) Fall: (2) Closed left hip fracture: Plan: This is a 68-year-old male with PMH of COPD, ongoing tobacco use, history of opioid dependence on Suboxone and other medical problems listed below who presents to ED for left hip pain after fall and found to have left hip fracture. Pelvis CT with : 1. Radiographically occult subtle acute nondisplaced transcervical left femoral fracture. 2. No additional acute fracture or dislocation. 3. 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 Discussed case with Dr. Macedo and Dr. Barnes given incidental vascular abnormality -okay with proceeding to OR here Admitted with geriatric hip fracture protocol - abx, IV fluids, NWB LLE, SCD/teds RLE per Dr. Barnes Scheduled tylenol, continue home Suboxone regimen of 8.2 tab TID Pre-op CXR and EKG added NPO @ [place] (3) Opioid dependence: Plan: Continue Suboxone as above, limit narcotics as able (4) COPD (chronic obstructive pulmonary disease): Plan: At baseline. Continue Trelegy inhaler, albuterol PRN SOB or wheezing. O2 saturation 95% on room air (5) Tobacco use: Plan: Smokes 8-10 cigarettes daily. Declined nicotine patch DVT Ppx: SCDs/teds Code status: FULL PCP: Dr. Villanueva Dispo: admitted to med/surg Patient seen in collaboration with Dr. Floyd. Please see addendum. I spent a total of 75 minutes coordinating, documenting, and providing care for this patient excluding time spent in the performance of separately billed services. History of Present Illness Chief Complaint: Hip pain Primary Care Provider: NO PCP This is a 68-year-old male with PMH of COPD, ongoing tobacco use, history of opioid dependence on Suboxone and other medical problems listed below who presents to ED for left hip pain after fall. Was helping a friend do outdoor work and was walking down her driveway with a steep incline and tripped when he got to the bottom, landing on his left side. Denies any head trauma or loss of consciousness. Persistent left-sided hip pain on the anterior side. History of opioid abuse years ago but has been maintained on Suboxone. Follows with [facility] for this. Denies any recent illness. No fever, chills, lightheadedness, chest pain, shortness of breath, nausea, vomiting, abdominal pain, dysuria, diarrhea or constipation. Allergies Allergy/AdvReac Type Severity Reaction Status Date / Time No Known Allergies Allergy Unknown Verified 04/21/22 01:45 Home Medications Medication Instructions Recorded Confirmed Type buprenorphine 8 mg-naloxone 2 mg 1 tab sublingual TID 04/21/22 09/29/23 History sublingual tablet naproxen 500 mg tablet 500 mg PO BID PRN Pain 04/21/22 09/29/23 History albuterol sulfate 90 mcg/actuation 2 puff inhalation QIDR PRN 04/22/22 09/29/23 Rx aerosol inhaler (Ventolin HFA) shortness of breath or wheezing #8.5 grams levalbuterol HCl 1.25 mg/0.5 mL 1.25 mg (0.5 mL) inhalation Q8H 04/22/22 09/29/23 Rx solution for nebulization PRN shortness of breath or wheezing #30 ea fluticasone fur. 200 mcg-umeclid 1 inh inhalation QAM 09/29/23 09/29/23 History 62.5 mcg-vilant 25 mcg inhalat.powder (Trelegy Ellipta) Past Med/Surg History Problem List (Updated 09/29/23 @ 22:31 by Gary Birmingham MD) Tobacco use Fall (Acute) Closed left hip fracture (Acute) Medical History Opioid dependence COPD (chronic obstructive pulmonary disease) Multiple rib fractures Surgical History Hx of lumbosacral spine surgery H/O rotator cuff surgery Family History (Updated 09/29/23 @ 19:30 by Jessica Denise PA-C) Other Diabetes Heart disease Social History Smoking Status: Current every day smoker Tobacco Type: Cigarettes Second Hand Exposure: No; Do You Dip or Chew Tobacco: No; Hx Alcohol Use: No Hx Substance Use: No Preferred Language: Amharic Communication Ability: Effective Belt Operator Required: No Beliefs That Will Affect Care: None Current Living Situation: Alone Feels Safe at Home: Yes Safety Concerns: Feels Safe At This Time Assistive Devices: Denture - Upper, Denture - Lower and Glasses Review of Systems Review of Systems: At least ten systems reviewed and negative except as noted in the HPI. Physical Exam Physical Exam: General Appearance: WD/WN, vitals as above, NAD, sitting up in bed, pleasant, conversing easily Head: normocephalic, atraumatic Eyes: normal inspection, PERRL, conjunctivae normal, anicteric sclerae ENT: external ear and nose normal, oropharynx normal Neck: normal visual inspection, trachea midline, no thyromegaly Respiratory: normal respiratory effort, lungs clear to auscultation, no wheeze, rales, rhonchi. No accessory muscle use Cardiovascular: regular rate, rhythm, normal peripheral pulses, no BLE edema. Vessels: no JVD Chest: normal inspection of chest Abdomen/GI: normal bowel sounds, soft, nontender, no hepatosplenomegaly Extremities/Musculoskeletal: LLE shortened. TTP on anterior aspect of L hip extending laterally. NVI distally on LLE. No cyanosis or clubbing, extremities motor strength 5/5 Neurologic: PERRL, EOMI, accommodation nl, no face palsy, no dysarthria, CN's II-XI intact bilaterally and moves all extremities Psychiatric: A+Ox3, euthymic affect Skin: no rashes, normal color, warm/dry Results & Data Results & Data Vital Signs (Past 12 Hours) Vital Signs Temp Pulse Pulse Resp BP BP Pulse Ox 09/29/23 18:03 63 23 137/103 H 95 09/29/23 16:20 79 09/29/23 16:04 78 15 132/76 96 09/29/23 15:50 36.9 C 79 18 150/92 H 94 O2 Del Method 09/29/23 18:03 Room Air 09/29/23 16:20 09/29/23 16:04 Room Air 09/29/23 15:50 Room Air Laboratory Results Short CBC 09/29/23 Range/Units 16:05 WBC 9.03 (4.8-10.8) K/ul Hgb 15.3 (14.0-18.0) g/dl Hct 47.3 (42.0-52.0) % Plt Count 247 (130-400) K/uL BMP 09/29/23 16:05 Sodium 136 Potassium 4.0 Chloride 101 Carbon Dioxide 27 BUN 13 Creatinine 0.93 Glucose 119 H Calcium 10.0 Diagnostic Findings Hip/Pelvis X-Ray 09/29/23 15:56 XR hip LT 2V w pelvis HISTORY: 68 years-old Male Left hip pain after fall acute left hip pain status post fall COMPARISON: 07/31/2015 TECHNIQUE: AP view of the pelvis with 2 views of the left hip FINDINGS: Mild osteoarthritis of the hips. No acute fracture or dislocation. Unremarkable soft tissues. IMPRESSION: No acute fracture or dislocation ACT 112: Negative or not required by law. The above report was generated using voice recognition software. It may contain grammatical, syntax or spelling errors. Electronically signed by: Robin Salas M.D. 09/29/2023 4:[address] 09/29/23 16:21 CT pelvis w/IV con only HISTORY: 68 years-old Male Hip/pubic rami fx, L hip pain acute left-sided hip pain COMPARISON: Radiographs of same day, pelvis radiographs 07/31/2015 TECHNIQUE: Multiple axial CT images of the pelvis were obtained with IV contrast. A dose lowering technique was used consistent with the principals of KARINA. . FINDINGS: There is severe atherosclerosis of the aorta and iliac arteries. There is a 3 cm segment of high-grade stenosis/occlusion involving the proximal to mid aspect of the right common iliac artery which demonstrates fusiform dilation measuring up to 1.8 cm. There is distal reconstitution of flow within the iliac bifurcation. Prostatomegaly. Urinary bladder wall thickening with partial distention. Colonic diverticulosis. Moderate fecal retention. Normal appendix. No free fluid. Demineralized appearance of the bones. Moderate to severe lower lumbar facet arthrosis. Mild to moderate degeneration of the SI joints. Mild osteoarthritis of the femoral acetabular joints. No acute displaced fracture, dislocation or avascular necrosis. There is however acute nondisplaced left femoral neck fracture remaining which is predominantly transcervical and best seen on the coronal images. IMPRESSION: 1. Radiographically occult subtle acute nondisplaced transcervical left femoral fracture. 2. No additional acute fracture or dislocation. 3. 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 ACT 112: Negative or not required by law. The above report was generated using voice recognition software. It may contain grammatical, syntax or spelling errors. Electronically signed by: Robin Salas M.D. 09/29/2023 5:50 PM Code Status & VTE Plan VTE Prophylaxis Plan VTE Prophylaxis will be ordered: Yes Supervising Physician Co-Signing Physician Notes Pt was seen and examined by myself, Allison Floyd MD on the day of service. Care was coordinated with Jessica Denise PA-C. 68yo with left femoral fracture with incidental aneurysm on right iliac. Ortho consult, Vascular also reviewed case- both ok to proceed at ID. Pain control- noted pt also on suboxone. Otherwise as above. I spent a total [id number] coordinating, documenting, and providing care for this patient excluding time spent in the performance of separately billed services
[2023-09-29] MEDS: BUPRENORPHINE/NALOXONE 8/2 MG TAB SL SCH ×2 (20:48→21:55)
[2023-09-29] MEDS ORDERED: bisacodyL 10 MG SUPP PR PRN (21:17)
[2023-09-29] MEDS ORDERED: NALOXONE HCL 0.4 MG/1 ML VIAL/CARP IV PRN (21:17)
[2023-09-29] MEDS ORDERED: MAGNESIUM HYDROXIDE SUSP 30 ML UDC PO PRN (21:17)
[2023-09-29] MEDS ORDERED: POLYETHYLENE (MIRALAX) 17 GM PACK PO PRN (21:17)
[2023-09-29] MEDS ORDERED: ONDANSETRON INJ 2 MG/ML 2 ML VIAL IV PRN (21:17)
[2023-09-29] MEDS ORDERED: LEVALBUTEROL 1.25 MG/3 ML NEB INH PRN (21:20)
[2023-09-29] MEDS: HYDROmorphone INJ 0.5 MG/0.5 ML SYR IV PRN (22:01)
[2023-09-29] MEDS: ACETAMINOPHEN 500 MG TAB PO SCH (22:01)
[2023-09-29] MEDS: SODIUM CHLORIDE 0.9% 1,000 ML IV SCH (22:04)
--- OUTSIDE RECORDS SUMMARY | 2023-09-30 03:17 | External Medical Summary | Summary of Care ---
Author Name Unknown Organization [facility] Address [address] [place] [address] Phone [phone] Care Team Providers Care Barrel Dedenting Machine Operator Name Role Phone Tobi Villanueva MD Primary Care Provider [phone] Reason for Visit * Reason Comments eRx-Medication Refill Encounter Details Date Type Department Care Team ([facility] st Contact Info) Description 09/15/2023 Refill [facility] [address] [place] [address] Tobi Villanueva MD [address], [place] [id number] Allergies No known active allergiesdocumented as of this encounter (statuses as of 09/16/2023) Medications Medication Sig Dispensed Refills Start Date End Date Status Vitamin D (Cholecalciferol) 25 MCG (1000 UT) Oral Tablet Take by mouth. 4 tablets daily Active Vitamin C 500 MG Oral Capsule Take by mouth 2 times a day. Active Hair Skin & Nails Advanced Oral Tablet Take by mouth. Active Buprenorphine HCl-Naloxone HCl 8-2 MG Sublingual Film (Suboxone) Place under the tongue 8.2 Film in the morning. Active Trelegy Ellipta 200-62.5-25 MCG/ACT Aerosol Powder Breath Activated (Fluticasone-Umecli dinium-Vilanterol) Inhale 1 Puff by mouth in the morning. 60 Blister Dosing Unit 5 11/02/2022 Active Levalbuterol HCl 1.25 MG/3ML Inhalation Nebulization Solution (Xopenex) Inhale 1 Ampule via nebulizer every 6 hours as needed for Wheezing. 90 mL 11 01/03/2023 Active Albuterol Sulfate HFA 108 (90 Base) MCG/ACT Inhalation Aerosol Solution INHALE 2 PUFFS BY MOUTH EVERY 6 HOURS NEEDED FOR SHORTNESS OF BREATH, COUGH 54 g 3 08/30/2023 Active Varenicline Tartrate(Continue) 1 MG Oral Tablet Take 1 mg by mouth in the morning and 1 mg in the evening. Take as directed on continue pacl=k. 180 Tablet 1 09/09/2023 Active documented as of this encounter (statuses as of 09/16/2023) Active Problems Problem Noted Date Diagnosed Date Smoking 01/03/2023 COPD, group A, by GOLD 2017 classification 05/20 Overview: Per COPD GOLD Classification Opioid dependence with opioid-induced disorder 0 03/29/2022 Degeneration of lumbar intervertebral disc 09/15 Lumbar canal stenosis 09/15/2017 Chronic seasonal allergic rhinitis due to pollen 06/04/2017 GENERAL OSTEOARTHROSIS 09/23/2001 Lumbar herniated disc documented as of this encounter (statuses as of 09/16/2023) Resolved Problems Problem Noted Date Diagnosed Date Resolved Date Hyperlipidemia 05/06/2022 05/06/2022 Chronic obstructive pulmonar y disease with (acute) exacerbation 05/06/2022 07/03/2023 Overview: acute Food insecurity 04/22/2022 02/20/2023 Overview: Per [facility] Protocol Opioid abuse 06/28/2020 03/29/2022 Chronic rhinitis 09/23/2001 06/04/2017 documented as of this encounter (statuses as of 09/16/2023) Immunizations Name Administration Dates Next Due COVID-19 mRNA, LNP-s, No Pre serve, 2-Dose Series (Moderna) 08/05/2020,07/08/2020 COVID-19, mRNA, LNP-s, PF, B ooster, 100mcg/0.5mg (Moderna) 02/23/2021 Pneumococcal Conjugate Vacc, 13 Valent (Prevnar) 09/21/2019 Pneumococcal Conjugate Vaccine, 20-valent (Prevn ar20) 12/05/2022 Pneumococcal Polysaccharide PPV23 (Pneumovax) Seasonal Influenza, PF, 6 M & above, IM , (FluLaval or Fluzone) 01/01/2018 Seasonal Influenza, Quadrivalent Hd (Fluzone Hd) 12/05/2022,12/23/2021 Seasonal Influenza, Quadrivalent, No Preserve, I M 12/17/2019,12/26/2018 TDAP (age 10 and older)(Boostrix) 08/07/2017 Zoster Vaccine Recombinant (Shingrix) 05/08/2020 ,03/13/2020 documented as of this encounter Social History Tobacco Use Types Packs/Day Years Used Date Smoking Tobacco: Some Days Cigarettes 0.3 40 Passive Smoke Exposure: Past Smokeless Tobacco: Never Comments:Now only 3 cigarett es per day Alcohol Use Standard Drinks/Week Comments No 0 (1 standard drink = 0.6 oz pur e alcohol) PHQ-2 Answer Date Recorded PHQ Adult Total Score 0 05/08/2023 Hunger Vital Sign Answer Date Recorded Within the past 12 months, y ou worried that your food would run out before you got the money to buy more. Patient declined Within the past 12 months, t he food you bought just didn't last and you didn't have money to get more. Patient declined Childcare Answer Date Recorded Do you feel overwhelmed with taking care of a child, family member or friend? No 05/08/2023 Does your family need help f inding childcare? (Household - for ages 0-17 years) Not on file 05/08/2023 Clothing Answer Date Recorded Have you been unable to get clothing when it was really needed? No 05/08/2023 Is your family able to get c lothes or diapers when needed? (Household - for ages 0-17 years) Not on file 05/08/2023 Personal Safety Answer Date Recorded Do you feel unsafe or have concerns for your saf ety? No 05/08/2023 Do you have concerns for you r family's safety? (Household - for ages 0-17 years) Not on file 05/08/2023 Utilities Answer Date Recorded Do you have trouble paying y our heating, water, or electric bill? No 05/08/2023 Is your family able to pay t he heat, water, or electric bill? (Household - for ages 0-17 years) Not on file 05/08/2023 Does your family have access to good internet? (Household - for ages 0-17 years) Not on file 05/08/2023 Employment Status Answer Date Recorded Are you unemployed or without regular income? No 05/08/2023 Does the household have a re gular source of income? (Household - for ages 0-17 years) Not on file 05/08/2023 Social Connections Answer Date Recorded How often do you feel lonely or isolated from th ose around you? Never 05/08/2023 Financial Resource Strain Answer Date R ecorded Do you have any trouble payi ng for your medications, or do you think you might in the future? No 05/08/2023 Does your family have troubl e paying for medicine? (Household - for ages 0-17 years) Not on file 05/08/2023 Transportation Needs Answer Date Record ed READ ONLY Do you have troubl e getting a ride to medical visits or work? Never True 05/08/2023 Does your family have a hard time getting a ride to doctors visits? (Household - for ages 0-17 years) Not on file 05/08/2023 Has lack of transportation k ept you from medical appointments, meetings, work, or from getting things needed for daily living? Check all that apply. (Adult - for ages 18 years and over) Not on file 05/08/2023 Do you (or your family) have trouble finding or paying for a ride (transportation)? (Household - for ages 0-17 years) Not on file 05/08/2023 Housing Stability Answer Date Recorded Do you currently live in a s helter or have no steady place to sleep at night? No 05/08/2023 READ ONLY Do you think you a re at risk of becoming homeless? No 05/08/2023 Does your family worry about paying for your home or becoming homeless? (Household - for ages 0-17 years) Not on file 0 05/08/2023 Are you homeless or worried that you might be in the future? (Adult - for ages 18 years and over) Not on file Are you (or your family) melonie eless or worried that you might be in the future? (Household - for ages 0-17 years) Not on file Food Insecurity Answer Date Recorded Do you need food for this week? No 05/08/2023 Are you able to get enough f ood for your family? (Household - for ages 0-17 years) Not on file 05/08/2023 Does your family need food t his week? (Household - for ages 0-17 years) Not on file 05/08/2023 Do you always have enough fo od for your family? (Household - for ages 0-17 years) Not on file 05/08/2023 Sex and Gender Information Value Date Recorded Sex Assigned at Male 10/20/2018 12:28 PM EDT Gender Identity Male 10/20/2018 12:28 PM EDT Sexual Orientation Straight 10/20/2018 12 :28 PM EDT Job Start Date Occupation Industry Not on file Not on file Not on file documented as of this encounter Miscellaneous Notes * Telephone Encounter - Mehreen Tierney [facility] - 09/16/2023 4:21 PM EDTRefused Prescriptions: Disp Refills Varenicline Tartrate 0.5 MG Oral Tablet (C*49 Tab*0 Sig: TAKE 1TABLET BY MOUTH DAILY FOR 7 DAYS, THEN 1 TABLET 2 TIMES A DAY FOR 21 DAYS.Refused By: MEHREEN TIERNEY for Refusal: Refill Not Appropriate documented in this encounter Plan of Treatment Upcoming Encounters Date Type Department Care Team (Late st Contact Info) Description 01/06/2024 2:40 PM EDT Office Visit [facility] [address] [place] [id number] Tobi Villanueva MD [address] [facility] [place] [address] 05/12/2024 1:00 PM EST Nurse Only Ancillary Department, [place] [address] [place] [address] [place], Nurse [facility] [address] [place] [address] Scheduled Procedures Name Priority Associated Diagnoses Date/Ti me COLONOSCOPY FLEXIBLE PROXIMA L DIAGNOSTIC Recall Special screening for malignant neoplasms, colon Health Maintenance Due Date Last Done Comments DISCUSS TOBACCO CESSATION (REFER TO SMARTSET #8125) 1955 Alpha-1 Antitrypsin 1972 Hepatitis C Screening 1972 Fecal Occult Blood Test 07/06/1999 Sigmoidoscopy 07/06/1999 *COPD SEVERITY VERIFIED BY PFT 05/09/2022 COVID-19 Vaccine ( season) 2022 02/23/2021, 08/05/2020, 07/08/2020 Colonoscopy 07/29/2023 07/28/2013, 07/28/2013 Influenza Vaccine (FLU shot) (#1) 2023 12/05/2022, 12/23/2021, 12/17/2019, Additional history exists Depression Screening 05/07/2024 05/08/2023 O2 ASSESSMENT COMPLETED IN PAST YEAR FOR COPD 07/06/2024 07/07/2023 Cologuard 07/22/2026 07/23/2023, 05/0 10/2023, 07/16/2023 Colorectal Cancer Screening 07/22/2026 Lipid Panel 04/23/2027 04/23/2022, 09/08/2017 DTaP,Tdap,and Td Vaccines (2 - Td or Tdap) 08/08/2027 08/07/2017 Zoster Vaccines Completed 05/08/2020, 03/13/2020 AAA Screening Completed 04/23/2022 Pneumococcal Vaccine: 65+ Years Completed 12/05/2022, 04/21/2022, 09/21/2019 HPV (Gardasil) Vaccine Aged Out No lo nger eligible based on patient's age to complete this topic Hepatitis B Vaccine Aged Out No longe r eligible based on patient's age to complete this topic MENINGOCOCCAL (MENACTRA/MENVEO) Aged Out No longer eligible based on patient's age to complete this topic documented as of this encounter Medical Devices Implanted Type Area Able Bodied Seaman Device Identifier Shelf Expiration Date Model / Serial / Lot [employer] Biocomposite Swivelocl Suture Oolitic Double Loaded Implanted:Qty: 1 on 09/14/2018 by Nisha Delgado DO at OR [facility] Right: Shoulder [employer] 07/07/2020 [id number] / / [id number] Prox Tenodesis Implant Syst - [id number] Implanted:Qty: 1 on 09/14/2018 by Nisha Delgado DO at OR [facility] Right: Shoulder [employer] 05/08/2023 [id number] / / [id number] Lens Intraoc 19.5 - [id number] - [id number] Implanted:Qty: 1 on 11/16/2020 by Papito Barrera MD at OR [facility] Right: Eye [employer] 06/07/2025 [id number] / [id number] / [id number] Lens Intraoc 19.5 - [id number] - [id number] Implanted:Qty: 1 on 11/30/2020 by Papito Barrera MD at OR [facility] Left: Eye [employer] 07/07/2025 [id number] / [id number] / [id number] documented as of this encounter Advance Directives * Full Code (Latest Code Status on File) Date Activated Date Inactivated Comments 09/14/2018 3:09 PM 09/14/2018 9:08 PM This order ref lects the patients wishes and were consensually agreed upon. * Full Code Date Activated Date Inactivated Comments 09/23/2017 9:51 AM 09/24/2017 7:08 PM This order r eflects the patients wishes and were consensually agreed upon. Care Teams Barrel Dedenting Machine Operator Relationship Specialty Start Date End Date Tobi Villanueva MD [address] [place] [address] PCP - General Internal Medicine 03/29/22 documented as of this encounter
--- OUTSIDE RECORDS SUMMARY | 2023-09-30 03:18 | External Medical Summary | Summary of Care ---
Author Name Unknown Organization [facility] Address [address] [place] [address] Phone [phone] Care Team Providers Care Hammer Mill Operator Name Role Phone Tobi Villanueva MD Primary Care Provider [phone] Reason for Visit * Reason Onset Date Comments Referral 05/09/2023 Encounter Details Date Type Department Care Team (Late st Contact Info) Description 05/09/2023 Telephone [facility] [address] [place] [address] Tobi Villanueva MD [address] [place] [address] Referral Allergies No known active allergiesdocumented as of this encounter (statuses as of 05/13/2023) Medications Medication Sig Dispensed Refills Start Date End Date Status Vitamin D (Cholecalciferol) 25 MCG (1000 UT) Oral Tablet Take by mouth. 4 tablets daily 0 Active Vitamin C 500 MG Oral Capsule Take by mouth 2 times a day. 0 Active Hair Skin & Nails Advanced Oral Tablet Take by mouth. 0 Active Buprenorphine HCl-Naloxone HCl 8-2 MG Sublingual Film (Suboxone) Place under the tongue 8.2 Film in the morning. 0 Active Trelegy Ellipta 200-62.5-25 MCG/ACT Aerosol Powder Breath Activated (Fluticasone-Umecl idinium-Vilanterol ) Inhale 1 Puff by mouth in the morning. 60 Blister Dosing Unit 5 11/02/2022 Active Nicotine 14 MG/24HR Transdermal Patch 24 Hour (Nicoderm CQ) Place 1 Patch over 24 hours topically on the skin in the morning. On upper body/outer arm, change once a day for two weeks.. 28 Patch 3 01/03/2023 Active Additional Information Patient not taking.Reported on 05/08/2023 Levalbuterol HCl 1.25 MG/3ML Inhalation Nebulization Solution (Xopenex) Inhale 1 Ampule via nebulizer every 6 hours as needed for Wheezing. 90 mL 11 01/03/2023 Active Albuterol Sulfate HFA 108 (90 Base) MCG/ACT Inhalation Aerosol Solution INHALE 2 PUFFS BY MOUTH EVERY 6 HOURS NEEDED FOR SHORTNESS OF BREATH, COUGH 18 g 3 05/05/2023 Active documented as of this encounter (statuses as of 05/13/2023) Active Problems Problem Noted Date Diagnosed Date Smoking 01/03/2023 COPD, group A, by GOLD 2017 classification 05/20 Overview: Per COPD GOLD Classification Chronic obstructive pulmonar y disease with (acute) exacerbation 05/06/2022 Opioid dependence with opioid-induced disorder 0 03/29/2022 Degeneration of lumbar intervertebral disc 09/15 Lumbar canal stenosis 09/15/2017 Chronic seasonal allergic rhinitis due to pollen 06/04/2017 GENERAL OSTEOARTHROSIS 09/23/2001 Lumbar herniated disc documented as of this encounter (statuses as of 05/13/2023) Resolved Problems Problem Noted Date Diagnosed Date Resolved Date Hyperlipidemia 05/06/2022 05/06/2022 Food insecurity 04/22/2022 02/20/2023 Overview: Per [facility] Protocol Opioid abuse 06/28/2020 03/29/2022 Chronic rhinitis 09/23/2001 06/04/2017 documented as of this encounter (statuses as of 05/13/2023) Immunizations Name Administration Dates Next Due COVID-19 [...] have money to get more. Patient declined Sex and Gender Information Value Date Recorded Sex Assigned at Male 10/20/2018 12:28 PM EDT Gender Identity Male 10/20/2018 12:28 PM EDT Sexual Orientation Straight 10/20/2018 12 :28 PM EDT Job Start Date Occupation Industry Not on file Not on file Not on file documented as of this encounter Miscellaneous Notes * Telephone Encounter - Dee Hubbard LPN - 05/13/2023 10:52 AM EST DME sent to [facility] in [employer] * Telephone Encounter - Tobi Villanueva MD - 05/09/2023 9:41 AM EST Noted * Telephone Encounter - Yue Gramajo, RN - 05/09/2023 9:22 AM EST Reason for Call: Patient seen for AWV 05/08/2023. Requesting more tubing for nebulizer. He uses [facility]. Referral for DME placed Contact: In Clinic Contact Type: Referral(s) Placed Outcome: See above Face to face time spent with Patient (minutes): 10 Total Time including non face to face (minutes): 10 documented in this encounter Plan of Treatment Upcoming Encounters Date Type Department Care Team (Late st Contact Info) Description 07/07/2023 1:20 PM EDT Office Visit [facility], [place] [address] [place] [address] Tobi Villanueva MD [address] [place] [address] 05/12/2024 1:00 PM EST Nurse Only Ancillary Department, [place] [address] [place] [address] [place], Nurse [facility] [address] [place] [address] Scheduled Procedures Name Priority Associated Diagnoses Date/Ti me COLONOSCOPY FLEXIBLE PROXIMA L DIAGNOSTIC Recall Special screening for malignant neoplasms, colon Health Maintenance Due Date Last Done Comments DISCUSS TOBACCO CESSATION (REFER TO SMARTSET #8839) 1955 Alpha-1 Antitrypsin 1972 Hepatitis C Screening 1972 Cologuard 07/06/1999 Fecal Occult Blood Test 07/06/1999 Sigmoidoscopy 07/06/1999 *COPD SEVERITY VERIFIED BY PFT 05/09/2022 COVID-19 Vaccine ( season) 2022 02/23/2021, 08/05/2020, 07/08/2020 Colonoscopy 07/29/2023 07/28/2013, 07/28/2013 Colorectal Cancer Screening 07/29/2023 Depression Screening 05/07/2024 05/08/2023 O2 ASSESSMENT COMPLETED IN PAST YEAR FOR COPD 05/07/2024 05/08/2023 Lipid Panel 04/23/2027 04/23/2022, 09/08/2017 DTaP,Tdap,and Td Vaccines (2 - Td or Tdap) 08/08/2027 08/07/2017 Zoster Vaccines Completed 05/08/2020, 03/13/2020 AAA Screening Completed 04/23/2022 Influenza Vaccine (FLU shot) Completed , 12/23/2021, 12/17/2019, Additional history exists Pneumococcal Vaccine: 65+ Years Completed 12/05/2022, 04/21/2022, 09/21/2019 GARDASIL-HPV IMMUNIZATION SERIES Aged Out No longer eligible based on patient's age to complete this topic Hepatitis B Aged Out No longer eligi ble based on patient's age to complete this topic MENINGOCOCCAL (MENACTRA/MENVEO) Aged Out No longer eligible based on patient's age to complete this topic documented as of this encounter Medical Devices Implanted Type Area Pony Edger Device Identifier Shelf Expiration Date Model / Serial / Lot Arthrex Biocomposite Swivelocl Suture [place] Double Loaded Implanted:Qty: 1 on 09/14/2018 by Nisha Delgado DO at OR [facility] Right: Shoulder [employer] 07/07/2020 AR-2324BCT -2 / / [id number] Prox Tenodesis Implant Syst - [id number] Implanted:Qty: 1 on 09/14/2018 by Nisha Delgado DO at OR [facility] Right: Shoulder [employer] 05/08/2023 [id number] / / [id number] Lens Intraoc 19.5 - [id number] - [id number] Implanted:Qty: 1 on 11/16/2020 by Papito Barrera MD at OR [facility] Right: Eye [employer] 06/07/2025 [id number] / [id number] / [id number] Lens Intraoc 19.5 - [id number] - [id number] Implanted:Qty: 1 on 11/30/2020 by Papito Barrera MD at OR [facility] Left: Eye BAUSCH [employer] LOMB 07/07/2025 [id number] / [id number] / [id number] documented as of this encounter Visit Diagnoses Diagnosis COPD, group A, by GOLD 2017 classification (HCC)- Primary documented in this encounter Advance Directives Latest Code Status on File Code Status Date Activated Date Inactivated Comments Full Code 09/14/2018 3:09 PM 09/14/2018 9:08 PM This or raj reflects the patients wishes and were consensually agreed upon. Code Status History Code Status Date Activated Date Inactivated Comments Full Code 09/23/2017 9:51 AM 09/24/2017 7:08 PM This order reflects the patients wishes and were consensually agreed upon. Care Teams Hammer Mill Operator Relationship Specialty Start Date End Date Tobi Villanueva MD [address] [place] [facility] [place] [id number] PCP - General Internal Medicine 03/29/22 documented as of this encounter
--- OUTSIDE RECORDS SUMMARY | 2023-09-30 03:18 | External Medical Summary | Summary of Care ---
Author Name Unknown Organization [facility] Address [address] [place] [address] Phone [phone] Care Team Providers Care Contracting Engineer Name Role Phone Tobi Villanueva MD Primary Care Provider [phone] Encounter Details Date Type Department Care Team (Late st Contact Info) Description 07/24/2023 Telephone [facility] [address] [place] [address] Tobi Villanueva MD [address] [place] [address] Allergies No known active allergiesdocumented as of this encounter (statuses as of 07/24/2023) Medications Medication Sig Dispensed Refills Start Date [...] BREATH, COUGH 18 g 3 05/05/2023 Active Varenicline Tartrate 0.5 MG Oral Tablet (Chantix) Take 1 Tablet by mouth daily for 7 days, THEN 1 Tablet 2 times a day for 21 days. 49 Tablet 0 07/07/2023 08/04/2023 Active documented as of this encounter (statuses as of 07/24/2023) Active Problems Problem Noted Date Diagnosed Date Smoking 01/03/2023 COPD, group A, by GOLD 2017 classification 05/20 Overview: Per COPD GOLD Classification Opioid dependence with opioid-induced disorder 0 03/29/2022 Degeneration of lumbar intervertebral disc 09/15 Lumbar canal stenosis 09/15/2017 Chronic seasonal allergic rhinitis due to pollen 06/04/2017 GENERAL OSTEOARTHROSIS 09/23/2001 Lumbar herniated disc documented as of this encounter (statuses as of 07/24/2023) Resolved Problems Problem Noted Date Diagnosed Date Resolved Date Hyperlipidemia 05/06/2022 05/06/2022 Chronic obstructive pulmonar y disease with (acute) exacerbation 05/06/2022 07/03/2023 Overview: acute Food insecurity 04/22/2022 02/20/2023 Overview: Per [facility] Protocol Opioid abuse 06/28/2020 03/29/2022 Chronic rhinitis 09/23/2001 06/04/2017 documented as of this encounter (statuses as of 07/24/2023) Immunizations Name Administration Dates Next Due COVID-19 [...] encounter Miscellaneous Notes * Telephone Encounter - Tobi Villanueva MD - 07/24/2023 12:18 PM EDT Negative cologuard test 3 yrs f/u please documented in this encounter Plan of Treatment Upcoming Encounters Date Type Department Care Team ([facility] st Contact Info) Description 01/06/2024 2:40 PM EDT Office Visit [address] [address] Tobi Villanueva MD [address] [place] [address] 05/12/2024 1:00 PM EST Nurse Only Ancillary Department, [place] [address] [facility] [place] [id number] [place], Nurse [facility] [address] [place] [address] Scheduled Procedures Name Priority Associated Diagnoses Date/Ti me COLONOSCOPY FLEXIBLE PROXIMA L DIAGNOSTIC Recall Special screening for malignant neoplasms, colon Health Maintenance Due Date Last Done Comments DISCUSS TOBACCO CESSATION (REFER TO SMARTSET #6211) 1955 Alpha-1 Antitrypsin 1972 Hepatitis C Screening 1972 Fecal Occult Blood Test 07/06/1999 Sigmoidoscopy 07/06/1999 *COPD SEVERITY VERIFIED BY PFT 05/09/2022 COVID-19 Vaccine ( season) 2022 02/23/2021, 08/05/2020, 07/08/2020 Colonoscopy 07/29/2023 07/28/2013, 07/28/2013 Depression Screening 05/07/2024 05/08/2023 O2 ASSESSMENT COMPLETED IN PAST YEAR FOR COPD 07/06/2024 07/07/2023 Cologuard 07/15/2026 07/16/2023 Colorectal Cancer Screening 07/15/2026 Lipid Panel 04/23/2027 04/23/2022, 09/08/2017 DTaP,Tdap,and Td [...] this encounter Medical Devices Implanted Type Area Heater Room Helper Device Identifier Shelf Expiration Date Model / Serial / Lot Arthrex Biocomposite Swivelocl Suture [place] Double Loaded Implanted:Qty: 1 on 09/14/2018 by Nisha Delgado DO at OR [facility] Right: Shoulder [employer] 07/07/2020 AR-2324BCT -2 / / [id number] Prox Tenodesis Implant Syst - [id number] Implanted:Qty: 1 on 09/14/2018 by Nisha Delgado DO at OR [facility] Right: Shoulder [employer] 05/08/2023 AR-2290 / / [id number] Lens Intraoc 19.5 - [id number] - [id number] Implanted:Qty: 1 on 11/16/2020 by Papito Barrera MD at OR [facility] Right: Eye [employer]OM[employer] 06/07/2025 [id number] / [id number] / [id number] Lens Intraoc 19.5 - [id number] - [id number] Implanted:Qty: 1 on 11/30/2020 by Papito Barrera MD at OR [facility] Left: Eye [employer]CH [employer]OMB 07/07/2025 [id number] / [id number] / [id number] documented as of this encounter Advance Directives Latest Code Status [...] and were consensually agreed upon. Care Teams Contracting Engineer Relationship Specialty Start Date End Date Tobi Villanueva MD [address] [place] [id number] PCP - General Internal Medicine 03/29/22 documented as of this encounter
--- OUTSIDE RECORDS SUMMARY | 2023-09-30 03:18 | External Medical Summary | Summary of Care ---
Author Name Unknown Organization [facility] Address [address] [place] [address] Phone [phone] Care Team Providers Care Senior Tech Manufacturing Engineering Name Role Phone Tobi Villanueva MD Primary Care Provider [phone] Encounter Details Date Type Department Care Team (Late st Contact Info) Description 09/09/2023 Telephone [facility] [address] [place] [address] Tobi Villanueva MD [address] [place] [address] Allergies No known active allergiesdocumented as of this encounter (statuses as of 09/09/2023) Medications Medication Sig Dispensed Refills Start Date [...] continue pacl=k. 180 Tablet 1 09/09/2023 Active Varenicline Tartrate(Continue) 1 MG Oral Tablet Take as directed on continue pacl=k 180 Tablet 1 09/05/2023 Discontinue d(Refill) documented as of this encounter (statuses as of 09/09/2023) Active Problems Problem Noted Date Diagnosed Date Smoking 01/03/2023 COPD, group A, by GOLD 2017 classification 05/20 Overview: Per COPD GOLD Classification Opioid dependence with opioid-induced disorder 0 03/29/2022 Degeneration of lumbar intervertebral disc 09/15 Lumbar canal stenosis 09/15/2017 Chronic seasonal allergic rhinitis due to pollen 06/04/2017 GENERAL OSTEOARTHROSIS 09/23/2001 Lumbar herniated disc documented as of this encounter (statuses as of 09/09/2023) Resolved Problems Problem Noted Date Diagnosed Date Resolved Date Hyperlipidemia 05/06/2022 05/06/2022 Chronic obstructive pulmonar y disease with (acute) exacerbation 05/06/2022 07/03/2023 Overview: acute Food insecurity 04/22/2022 02/20/2023 Overview: Per [facility] Protocol Opioid abuse 06/28/2020 03/29/2022 Chronic rhinitis 09/23/2001 06/04/2017 documented as of this encounter (statuses as of 09/09/2023) Immunizations Name Administration Dates Next Due COVID-19 [...] Telephone Encounter - Tobi Villanueva MD - 09/09/2023 8:00 AM EDT Resent * Telephone Encounter - Jeanne Alonzo LPN - 09/09/2023 7:10 AM EDT Pharmacy needs clarification on Varenicline tartrate. The starter pack is 56 tablets. The 1 mg are stock bottles no pack instructions. Please send new RX for varenicline with Sig on how to take. Thanks documented in this encounter Plan of Treatment Upcoming Encounters Date Type Department Care Team (Late st Contact Info) Description 01/06/2024 2:40 PM EDT [facility] [address] [facility] [address] Tobi Villanueva MD [address] [place] [facility] [place] [address] 05/12/2024 1:00 PM EST Nurse Only Ancillary Department, [place] [address] [place] [address] [place], Nurse [facility] [address] [place] [address] Scheduled Procedures Name Priority Associated Diagnoses Date/Ti me COLONOSCOPY FLEXIBLE PROXIMA L DIAGNOSTIC Recall Special screening for malignant neoplasms, colon Health Maintenance Due Date Last Done Comments DISCUSS TOBACCO CESSATION (REFER TO SMARTSET #2324) 1955 Alpha-1 Antitrypsin 1972 Hepatitis C Screening [...] this encounter Medical Devices Implanted Type Area Dressmaker Garment Fitter Device Identifier Shelf Expiration Date Model / Serial / Lot Arthrex Biocomposite Swivelocl Suture [place] Double Loaded Implanted:Qty: 1 on 09/14/2018 by Nisha Delgado DO at OR [facility] Right: Shoulder [employer] 07/07/2020 AR-2324BCT -2 / / [id number] Prox Tenodesis Implant Syst - [id number] Implanted:Qty: 1 on 09/14/2018 by Nisha Delgado DO at OR [facility] Right: Shoulder [employer] 05/08/2023 AR-2290 / / [id number] Lens Intraoc 19.5 - [id number] - [id number] Implanted:Qty: 1 on 11/16/2020 by Papito Barrera MD at OR [facility] Right: Eye [employer]CH [employer]OMB 06/07/2025 [id number] / [id number] / [id number] Lens Intraoc 19.5 - [id number] - [id number] Implanted:Qty: 1 on 11/30/2020 by Papito Barrera MD at OR [facility] Left: Eye [employer]CH [employer]OMB 07/07/2025 [id number] / [id number] / [id number] documented as of this encounter Advance Directives [...] and were consensually agreed upon. Care Teams Senior Tech Manufacturing Engineering Relationship Specialty Start Date End Date Tobi Villanueva MD [address] [place] [address] PCP - General Internal Medicine 03/29/22 documented as of this encounter
--- OUTSIDE RECORDS SUMMARY | 2023-09-30 03:18 | External Medical Summary | Summary of Care ---
Author Name Unknown Organization [facility] Address [address] [place] [address] Phone [phone] Care Team Providers Care Automotive Service Assistant Name Role Phone Tobi Villanueva MD Primary Care Provider [phone] Reason for Visit * Reason Comments Adult Annual Wellness Visit, Subsequent Visit Encounter Details Date Type Department Care Team ([facility] st Contact Info) Description 05/08/2023 2:00 PM EST Nurse Only Ancillary Department, [place] [address] [place] [address] [place], Nurse Annual Wellness [address] [place] [address] Adult Annual Wellness Visit, Subsequent Visit Allergies No known active allergiesdocumented as of this encounter (statuses as of 05/08/2023) Medications Medication Sig Dispensed Refills Start Date [...] as of this encounter (statuses as of 05/08/2023) Active Problems Problem Noted Date Diagnosed Date [...] as of this encounter (statuses as of 05/08/2023) Resolved Problems Problem Noted Date Diagnosed Date Resolved Date Hyperlipidemia 05/06/2022 05/06/2022 Food insecurity 04/22/2022 02/20/2023 Overview: Per [facility] Protocol Opioid abuse 06/28/2020 03/29/2022 Chronic rhinitis 09/23/2001 06/04/2017 documented as of this encounter (statuses as of 05/08/2023) Immunizations Name Administration Dates Next Due COVID-19 [...] Passive Smoke Exposure: Past Smokeless Tobacco: Never Tobacco Cessation:Ready to Q uit: Not Asked; Counseling Given: Not Answered Comments:Now only 3 cigarettes per day Alcohol Use Standard Drinks/Week Comments No 0 (1 standard drink = 0.6 oz pur e alcohol) PHQ-2 Answer Date Recorded PHQ Adult Total Score 0 04/10/2023 Hunger Vital Sign Answer Date Recorded Within the past 12 months, y ou worried that your food would run out before you got the money to buy more. Never true 04/10/19 24 Within the past 12 months, t he food you bought just didn't last and you didn't have money to get more. Never true 04/10/2023 Sex and Gender Information Value Date Recorded Sex Assigned at Male 10/20/2018 12:28 PM EDT Gender Identity Male 10/20/2018 12:28 PM EDT Sexual Orientation Straight 10/20/2018 12 :28 PM EDT Job Start Date Occupation Industry Not on file Not on file Not on file documented as of this encounter Last Filed Vital Signs Vital Sign Reading Time Taken Comments Blood Pressure 110/60 05/08/2023 2:06 PM EST Pulse 73 05/08/2023 2:06 PM EST Temperature 36.2 C (97.1 F) 05/08/2023 2:06 PM ES T Respiratory Rate - - Oxygen Saturation 94% 05/08/2023 2:06 PM EST Inhaled Oxygen Concentration - - Weight 73.2 kg (161 lb 6.4 oz) 05/08/2023 2:06 P M EST Height 174 cm (5' 8.5") 05/08/2023 2:06 PM EST Body Mass Index 24.18 05/08/2023 2:06 PM EST documented in this encounter Patient Instructions * Patient Instructions* Yue Gramajo RN - 05/08/2023 2:30 PM EST Patient Instructions - Fall Prevention (This education is for all patients over 65 regardless of symptoms) Remember to take your current medications as prescribed. In order to prevent falls, you are encouraged to: Exercise Utilize assistive/adaptive devices Avoid multifocal lenses when walking Avoid hazards in home Maintain a regular toileting schedule Any questions please contact our office. Preventing Falls in the Home (This education is for all patients over 65 regardless of symptoms) As you get older, falls are more likely. Thats because your reaction time slows. Your muscles and joints may also get stiffer, making them less flexible. Illness, medications, and vision changes can also affect your balance. A fall could leave you unable to live on your own. To make your home safer, follow these tips: Floors Put nonskid pads under area rugs Remove throw rugs Replace worn floor coverings Tack carpets firmly to each step on carpeted stairs. Put nonskid strips on the edges of uncarpeted stairs Keep floors and stairs free of clutter and cords Arrange furniture so there are clear pathways Clean up any spills right away Bathrooms Install grab bars in the tub or shower Apply nonskid strips or put a nonskid rubber mat in the tub or shower Sit on a bath chair to bathe Use bathmats with nonskid backing Lighting Keep a flashlight in each room Put a nightlight along the pathway between the bedroom and the bathroom [employer] Patient Education Copyright 2008 - 2010 [employer] except where otherwise noted Preventing Falls: Exercises to Improve Balance, Flexibility, Strength, and Staying Power (This education is for all patients over 65 regardless of symptoms) Certain types of exercises may help make you less likely to fall. Try the ones below. Or do other exercises that your healthcare provider suggests. Depending on your health, you may need to start slowly. Dont let that stop you. Even small amounts of exercise can help you. Be sure to talk to yourhealthcare provider before starting any exercise program. Improve Balance Many types of exercise can help improve balance. Jm chi and yoga are good examples. Heres another one to try. You can do it anytime and almost anywhere. Stand next to a counter or solid support. Push yourself up onto your tiptoes. Hold for 5 seconds. If you start to lose your balance, hold on to the counter. Rest and repeat 5 times. Work up to holding for 20 to 30 seconds, if you can. Increase Flexibility Being more flexible makes it easier for you to move around safely. Try exercises like the seated hamstring stretch. Sit in a chair and put one foot on a stool. Straighten your leg and reach with both hands down either side of your leg. Reach as far down your leg as you can. Hold for about 20 seconds. Go back to the starting position. Then repeat 5 times. Switch legs. Build Strength Resistance exercises help build strength. You can do them without equipment. Or you can use weights, elastic bands, or special machines. One such exercise is called the biceps curl. You can hold a 1 pound weight or even a can of soup. Do this exercise at least 3 times a week. Strive for everyday. Sit up straight in a chair. Keep your elbow close to your body and your wrist straight. Bend your arm, moving your hand up to your shoulder. Then slowly lower your arm. Repeat 5 times. Switch to the other arm. Build Your Staying Power Aerobic exercises make your heart and lungs stronger so you can keep moving longer. Walking and swimming are two of the best types of exercises you can do. Using a stationary bike is great, too. Find an aerobic exercise that you enjoy. Start slowly and build up. Even 5 minutes is helpful. Aimfor a goal of 30 minutes, at least 3 times a week. You dont have to do 30 minutes in one session. Break it up and walk a little throughout the day. More Helpful Tips Start easy. Slowly work up to doing more. Talk with your healthcare provider about the best exercises for you. Call senior centers or health clubs about exercise programs. If needed, have a family member watch you walk every so often to check your stability. Exercise with a friend. Choose an activity you both enjoy. Try exercises that you can do anytime, anywhere. Here are two examples. Have someone with you when you first try these: Practice walking by placing one foot right in front of the other. Stand up and sit down 10 times. Repeat this throughout the day. [employer] Patient Education Copyright 2008 [employer] except where otherwise noted. Preventing Falls: Moving Safely Using a Cane or Walker (This education is for all patients over 65 regardless of symptoms) Keep the cane away from your feet so you dont trip. A walking aid, such as a cane or walker, can help you stay more independent and avoid falls. Remember to keep your walking aid within easy reach when youre in a chair or in bed. And learn how to use it safely so you dont injure yourself. Using a Cane If you have a stronger side, hold the cane on that side. Get your balance. Move the cane and your weaker leg forward. Support your weight on both the cane and your weaker side. Step with your stronger leg. Start again from step 1. If youre using a folding walker, be sure you know how to lock it open. Check that its locked open before each use. Using a Walker Roll the walker (or lift it, if youre using one without wheels) forward about 12 inches. Step forward with your weaker leg first. Use the walker to help keep your balance. Bring your other foot forward to the center of the walker. Start again from step 1. Helpful Tips Check with your healthcare provider about the right walking aid to use. Ask about a walker with a seat attached. Check the tips of your cane or walker to make sure they have nonskid covers. Move slowly from room to room. Dont [place]. Sit down to get dressed. Use a sd pack or backpack to keep your hands free. Get help for jobs that mean climbing, even on a stepstool. [employer] Patient Education Copyright 2008 - 2010 [employer] except where otherwise noted. Treating Urinary Incontinence in Men (This education is for all patients over 65 regardless of symptoms) You can't always control the release of urine. You may leak urine. Or you may not be able to hold your urine until you can get to a bathroom. This is called urinary incontinence. The problem can be managed. Talk to your doctor about your treatment options. Taking Medications Prescription medications may help you. They may: Help the sphincter to work better. (This is the muscle that closes to keep urine from leaking out of the bladder.) Help stop the bladder from gracie too often to push urine out. Help the bladder muscles contract with more force. Help relax the sphincter muscle and allow urine to flow more freely. Making Changes to Your Routine Certain changes in your daily routine may help. These include: Avoiding caffeine and alcohol. Using timed voiding. This is following a schedule for drinking fluids and urinating. Doing Kegel exercises daily. These exercises involve tightening the muscles in your sphincter and around your bladder to help strengthen them. Your doctor can explain how to do them. Using a Catheter A catheter is a narrow tube that is inserted through the urethra into the bladder. It drains urine.A condom catheter covers the penis. It channels urine into a collection bag. It is worn most of thetime. Intermittent catheterization means inserting a catheter to drain the bladder, then removing it. This is done on a regular schedule. Having Surgery If other options don't work, surgery may be recommended. If surgery is an option, your healthcare provider can discuss it with you and explain its risks and benefits. Healing After Prostate Surgery Surgery on the prostate gland can cause incontinence. Most often, the incontinence is only for a short time. It clears up when healing is complete. Very rarely, prostate surgery can result in permanent incontinence. Hi Mr. Presotn, As your primary care physician, I know that regular visits with my patients who have several chronic conditions can go a long way in helping you stay healthy. Many times, the clinic team and I are in touch with you and/or other care team members between office visits to adjust medications, discuss any changes in your health, and review our care plan to make sure it is still meeting your needs. I am dedicated to helping you take a more active role in your overall care. It is important that there are resources available to you, so I created a personalized plan of care with a Health Calendar for you, which is included on the next page of this letter. Below is a list that summarizes your electronic health record: Health Maintenance Due: Health Maintenance Due Topic Date Due DISCUSS TOBACCO CESSATION (REFER TO SMARTSET #2748) Never done Alpha-1 Antitrypsin Never done Hepatitis C Screening Never done *COPD SEVERITY VERIFIED BY PFT Never done Influenza Vaccine (FLU shot) (1) 11/08/2022 COVID-19 Vaccine ( season) 2022 Colorectal Cancer Screening 07/29/2023 Current Medication List: (as of Visit date not found (in office), Visit date not found (telemedicine) ) Current Outpatient Medications Medication Sig Dispense Refill Vitamin D (Cholecalciferol) 25 MCG (1000 UT) Oral Tablet Take by mouth. 4 tablets daily Vitamin C 500 MG Oral Capsule Take by mouth 2 times a day. Hair Skin & Nails Advanced Oral Tablet Take by mouth. Buprenorphine HCl-Naloxone HCl 8-2 MG Sublingual Film (Suboxone) Place under the tongue 8.2 Film in the morning. Trelegy Ellipta 200-62.5-25 MCG/ACT Aerosol Powder Breath Activated (Lytxuswyntq-Jqiihlgfjwoy-Bvhqnmiazo) Inhale 1 Puff by mouth in the morning. 60 Blister Dosing Unit 5 Levalbuterol HCl 1.25 MG/3ML Inhalation Nebulization Solution (Xopenex) Inhale 1 Ampule via nebulizer every 6 hours as needed for Wheezing. 90 mL 11 Albuterol Sulfate HFA 108 (90 Base) MCG/ACT Inhalation Aerosol Solution INHALE 2 PUFFS BY MOUTHEVERY 6 HOURS NEEDED FOR SHORTNESS OF BREATH, COUGH 18 g 3 Nicotine 14 MG/24HR Transdermal Patch 24 Hour (Nicoderm CQ) Place 1 Patch over 24 hours topically on the skin in the morning. On upper body/outer arm, change once a day for two weeks.. (Patient not taking: Reported on 05/08/2023) 28 Patch 3 No current facility-administered medications for this visit. Current List of Allergies: (as of Visit date not found (in office), Visit date not found (telemedicine) ) Review of patient's allergies indicates: No Known Allergies Most Recent Lab Results: Results for orders placed or performed in visit on 04/23/22 LIPID PANEL WITH DIRECT LDL IF TG IS HIGH Result Value Ref Range Triglycerides 103 <=174 mg/dL Cholesterol 190 <200 mg/dL HDL Cholesterol 57 >39 mg/dL Non-HDL Cholesterol 133 <=159 mg/dL LDL Cholesterol 112 <=129 mg/dL BASIC METABOLIC PANEL Result Value Ref Range BUN 16 6 - 20 mg/dL Creatinine 0.8 0.6 - 1.2 mg/dL Estimated Glomerular Filtration Rate >90 >=60 mL/min Sodium 140 135 - 146 mmol/L Potassium 4.0 3.5 - 5.1 mmol/L Chloride 102 98 - 107 mmol/L CO2 30 22 - 32 mmol/L Anion Gap 8 7 - 15 mmol/L Glucose 87 70 - 120 mg/dL Calcium 9.1 8.4 - 10.2 mg/dL HEPATIC FUNCTION PANEL Result Value Ref Range Albumin 4.1 3.8 - 5.0 g/dL AST 15 10 - 50 U/L Alkaline Phosphatase 106 35 - 130 U/L ALT 19 10 - 50 U/L Bilirubin, Total 0.3 <=1.2 mg/dL Bilirubin, Direct <0.2 0.0 - 0.3 mg/dL Protein 6.8 6.0 - 8.3 g/dL Sincerely, Tobi Villanueva MD 05/08/2023 [facility] Calendar (as of Visit date not found (in office), Visit date not found (telemedicine) ) Care needs Care needs Last completed Due next Discuss quitting tobacco use --- Never done Alpha-1 Antitrypsin --- Never done Hepatitis C screening --- Never done COPD breathing assessment --- Never done Flu vaccine (recommended) (1) 12/23/2021 11/08/2022 COVID-19 Vaccine ( season) 2021 11/08/2022 Colorectal cancer screening (colonoscopy 10 years, sigmoidoscopy 5 years, Cologuard 3 years, stool sample 1 year) 07/28/2013 07/29/2023 Yearly COPD oxygen test 05/08/2023 05/07/2024 Lipid (cholesterol) disorder screening 04/23/2022 04/23/2027 Diphtheria, tetanus & pertussis vaccines (2 - Td or Tdap) 08/07/2017 08/08/2027 As you look over the recommended services, be sure to check with your insurance company to determine what's covered. [facility] is a great tool that helps you review your medical record online, including test results, doctor notes and your health summary. You can also schedule appointments with me and other members of your care team, request prescription refills and ask for advice related to your medical conditions at [email or web address]. documented in this encounter Progress Notes * Yue Gramajo RN - 05/08/2023 2:11 PM EST AD8 Dementia Screening Interview Person answering questions: patient Remember, "Yes, a change" indicates that there has been a change in the last several years caused by cognitive (thinking and memory) problems 1. Problems with judgement (eg: problems making decisions, bad financial decisions, problems with thinking). No (0) 2. Less interest in hobbies/activities. No (0) 3. Repeats the same things over and over (questions, stories, or statements). No (0) 4. Trouble learning how to use a tool, appliance, or gadget (eg: VCR, computer, microwave, remote control). No (0) 5. Forgets correct month or year. No (0) 6. Trouble handling complicated financial affairs (eg: balancing checkbook, income taxes, paying bills). No (0) 7. Trouble remembering appointments. No (0) 8. Daily problems with thinking and/or memory. No (0) TOTAL AD8: 0 - AD8 Dementia Screening Score The final score is a sum of the number items marked "Yes, A Change". 0 - 1: Normal cognition; 2 or greater: Cognitive impairments is likely to be present - further testing required Adult Annual Wellness Visit: Dean Preston is a 67 year old male who presents for an Adult Annual Wellness Visit. Depression Screening: Did the patient complete the screening questionnaire for Depression? Yes Is the patient's total score for Depression 15 or greater? No, no further intervention needed, unless requested by patient. Did the patient answer positively to the suicide question? No, no further intervention needed, unless requested by patient. In general, compared to other people your age, what would you say that your health is? Very Good Ht Readings from Last 1 Encounters: 05/08/23 1.74 m (5' 8.5") Wt Readings from Last 1 Encounters: 05/08/23 73.2 kg (161 lb 6.4 oz) Body Mass Index: BMI Less than 30 Body mass index is 24.18 kg/m. BP Readings from Last 1 Encounters: 05/08/23 110/60 Medical/Surgical/Family History Reviewed: Yes Past Medical History: Diagnosis Date HLD (hyperlipidemia) Lumbar herniated disc Past Surgical History: Procedure Laterality Date ARTHO,SHOUL,W/ROTATOR CUFF Right 09/14/2018 ARTHROSCOPY SHOULDER ROTATOR CUFF performed by Nisha Delgado DO at OR [facility] COLONOSCOPY, DIAGNOSTIC (RECTUM) 07/28/2013 normal, repeat 10 yr recall/COLONOSCOPY FLEXIBLE PROXIMAL DIAGNOSTIC performed by Yanni Stewart DO at ENDOSCOPY [facility] L-/S-SPINE PARAVERTEBRAL FACET INJ,1 LEVEL 03/26/2018 L-/S-SPINE PARAVERTEBRAL FACET INJ, 1 LEVEL performed by Rashad Akhtar DO at OR [facility] L-/S-SPINE PARAVERTEBRL FACET INJ,2 LEVELS 03/26/2018 L-/S-SPINE PARAVERTEBRAL FACET INJ, 2 LEVELS performed by Rashad Akhtar DO at OR [facility] LUMBAR HEMILAMINECTOMY Right 09/23/2017 LAMINOTOMY DECOMPRESSION NERVE ROOT LUMBAR performed by Danish Santos MD at OR [facility] REMOVE CATARACT, INSERT LENS PROSTH Right 11/16/2020 right EXTRACAPSULAR CATARACT REMOVAL WITH INTRAOCULAR LENS performed by Papito Barrera MD at OR [facility] REMOVE CATARACT, INSERT LENS PROSTH Left 11/30/2020 left EXTRACAPSULAR CATARACT REMOVAL WITH INTRAOCULAR LENS performed by Papito Barrera MD at OR [facility] SACROILIAC JOINT INJECT W/GUIDANCE 02/09/2018 INJECTION SACROILIAC JOINT performed by Rashad Akhtar DO at OR [facility] SHOULDER ARTHROSCOPY, BICEPS TENODESIS Right 09/14/2018 ARTHROSCOPY SHOULDER BICEP TENODESIS performed by Nisha Delgado DO at OR [facility] SHOULDER ARTHROSCOPY/DECOMPRESSION Right 09/14/2018 ARTHROSCOPY SHOULDER SUBACROMIAL DECOMPRESSION performed by Nisha Delgado DO at OR [facility] SHOULDER SURGERY PROCEDURE NEC Bilateral No family history on file. Has patient ever had cancer? No Social History Tobacco Use Smoking status: Some Days Current packs/day: 0.25 Average packs/day: 0.3 packs/day for 40.0 years (10.0 ttl pk-yrs) Types: Cigarettes Passive exposure: Past Smokeless tobacco: Never Tobacco comments: Now only 3 cigarettes per day Substance Use Topics Alcohol use: No Vaping/E-Cigarette Use Vaping/E-Cigarette Use Never User Vaping/E-Cigarette Substances Vaping/E-Cigarette Devices Tobacco/Alcohol screening completed today? Yes Hospital Care: Admissions (within the last year): Hospital, Location: [facility], 04/2022 ER within 30 days: No Does the patient have an Advance Directives/Living Will? Yes Advance Care Planning is important for all adults. Discussed the process of thinking and talking about future healthcare decisions. Asked patient to bring in a copy of his Living Will so we can scan it into his chart. Last Physical Exam: Last physical exam: 12/2022 Does patient see primary provider regularly? Yes Does patient see other providers? Yes, Specialist Patient Care Team updated? Yes Review of patient's allergies indicates: No Known Allergies Immunization History Administered Date(s) Administered COVID-19 mRNA, LNP-s, No Preserve, 2-Dose Series (Moderna) 07/08/2020, 08/05/2020 COVID-19, mRNA, LNP-s, PF, Booster, 100mcg/0.5mg (Moderna) 02/23/2021 Pneumococcal Conjugate Vacc, 13 Valent (Prevnar) 09/21/2019 Pneumococcal Conjugate Vaccine, 20-valent (Fgdathu23) 12/05/2022 Pneumococcal Polysaccharide PPV23 (Pneumovax) 04/21/2022 Seasonal Influenza, PF, 6 M & above, IM , (FluLaval or Fluzone) 01/01/2018 Seasonal Influenza, Quadrivalent Hd (Fluzone Hd) 12/23/2021, 12/05/2022 Seasonal Influenza, Quadrivalent, No Preserve, IM 12/26/2018, 12/17/2019 TDAP (age 10 and older)(Boostrix) 08/07/2017 Zoster Vaccine Recombinant (Shingrix) 03/13/2020, 05/08/2020 Current Outpatient Medications Medication Sig Dispense Refill Vitamin D (Cholecalciferol) 25 MCG (1000 UT) Oral Tablet Take by mouth. 4 tablets daily Vitamin C 500 MG Oral Capsule Take by mouth 2 times a day. Hair Skin & Nails Advanced Oral Tablet Take by mouth. Buprenorphine HCl-Naloxone HCl 8-2 MG Sublingual Film (Suboxone) Place under the tongue 8.2 Film inthe morning. Trelegy Ellipta 200-62.5-25 MCG/ACT Aerosol Powder Breath Activated (Sypmvthretc-Cdugqbjtclcj-Uyoedyrnqu) Inhale 1 Puff by mouth in the morning. 60 Blister Dosing Unit 5 Levalbuterol HCl 1.25 MG/3ML Inhalation Nebulization Solution (Xopenex) Inhale 1 Ampule via nebulizer every 6 hours as needed for Wheezing. 90 mL 11 Albuterol Sulfate HFA 108 (90 Base) MCG/ACT Inhalation Aerosol Solution INHALE 2 PUFFS BY MOUTH EVERY 6 HOURS NEEDED FOR SHORTNESS OF BREATH, COUGH 18 g 3 Nicotine 14 MG/24HR Transdermal Patch 24 Hour (Nicoderm CQ) Place 1 Patch over 24 hours topically on the skin in the morning. On upper body/outer arm, change once a day for two weeks.. (Patient not taking: Reported on 05/08/2023) 28 Patch 3 No current facility-administered medications for this visit. Patient Active Problem List Diagnosis Code GENERAL OSTEOARTHROSIS M15.9 Lumbar herniated disc M51.26 Chronic seasonal allergic rhinitis due to pollen J30.1 Degeneration of lumbar intervertebral disc M51.36 Lumbar canal stenosis M48.061 Opioid dependence with opioid-induced disorder (HCC) F11.29 Chronic obstructive pulmonary disease with (acute) exacerbation ([facility]) J44.1 COPD, group A, by GOLD 2017 classification (HCC) J44.9 Smoking F17.200 Medication Compliance: Patient is able to obtain all of his medications? Yes Patient takes medications as prescribed? Yes Patient manages own medications: Yes Patient uses a pill box? No Dental Exam: No Dentures Eye Screening: Yes: Every year Are you having trouble with hearing? No Do you use an assistive device to help your hearing? No Exercise Screening: does not exercise regularly Nutrition Assessment: Eats a balanced diet and Eats three meals a day Pain Screening: Are you having any pain? Yes. Pain Scale: 5 out of 10; Location: low back, When: years, Duration: constant, Aggravating Factors: sitting too long, walking, Relieved by: Medicine Sleep Screening Tool 'STOP': Do you snore? No Do you feel fatigued during the day? No Do you wake up feeling like you haven't slept? No Have you been told you stop breathing at night? No Do you gasp for air or choke while sleeping? No Have you been told you have Sleep Apnea? No Do you have high blood pressure or are on medication(s) to control high blood pressure? No SCORE: If you check YES to two or more questions, make a referral for Obstructive Sleep Apnea Patient and Caregiver Support System: Patient lives alone Means of Transportation: [facility] transportation Patient lives in [place] Resources: Not Applicable Functional Status and ADL Skills: Has patient ever had an amputation? No Functional Assessment: 100- Normal, no complaints, no evidence of disease Ambulation: Patient ambulates without assistive device. Independent Dressing: Gets clothes and dresses without any assistance: Independent Able to move freely in chair or bed including turning over: Independent Repositioning (bed or chair): Not applicable Transfers: Independent Toileting: Goes to bathroom, uses toilet, arranges clothes and returns without any assistance: Independent Toileting: continent of bladder and continent of bowel Feeding: Self Bathing: Self; tub, grab bars no, mat to step out onto Requires none assistance with ADLs. Instrumental ADL's: Shopping: Independent Housekeeping: Independent Handling Finances: Independent DME Vendor Name: [email or web address] Fall Risk Assessment: Can the patient demonstrate that he can stand from a sitting position? Yes Has the patient had a fall within the last 6 months? No Does the patient have a problem with his gait or balance? No Does the patient take 4 or more prescription medicines? Yes Does the patient use sedatives or narcotics? Yes Fall Risk Factors Present: Uses more than 4 medications, Uses sedatives or narcotics Bcz-Ov-yzu-Go Test: Time began at 1400. Patient stood from sitting position and walked approximately 10 feet, returned and sat down. Total time for txi-ej-fid-go test was 13 seconds. Ych-Pn-ihf-Go Test completed? Yes Gender Specific Preventative Plan: Health Maintenance Topic Date Due DISCUSS TOBACCO CESSATION (REFER TO SMARTSET #7894) Never done Alpha-1 Antitrypsin Never done Hepatitis C Screening Never done *COPD SEVERITY VERIFIED BY PFT Never done COVID-19 Vaccine ( season) 2022 Colorectal Cancer Screening 07/29/2023 Depression Screening 05/07/2024 O2 ASSESSMENT COMPLETED IN PAST YEAR FOR COPD 05/07/2024 Lipid Panel 04/23/2027 DTaP,Tdap,and Td Vaccines (2 - Td or Tdap) 08/08/2027 Influenza Vaccine (FLU shot) Completed AAA Screening Completed Zoster Vaccines Completed Pneumococcal Vaccine: 65+ Years Completed Hepatitis B Aged Out MENINGOCOCCAL (MENACTRA/MENVEO) Aged Out GARDASIL-HPV IMMUNIZATION SERIES Aged Out Follow Up/ Referrals/Handouts: Depression screening - Completed Functional assessment - Completed Falls Risk screening - Completed, handout given Exercise screening - Encouraged to be as active as able Nutrition assessment -. Education Provided and Handouts Provided Pain screening - Chronic back pain, no new concerns Incontinence screening - No concerns Routine general medical examination at a health care facility (Primary) Risk and functional assessment COPD, group A, by GOLD 2017 classification (HCC) -Med reconciliation completed and compliance discussed. - pt to continue present medications. Continue to monitor and follow with PCP Lumbar herniated disc Continue to monitor and follow with PCP Smoking Encouraged to stop smoking Smoking Quitline number given to patient Opioid dependence with opioid-induced disorder (HCC) Continue to monitor and follow with PCP Patient has been verbally educated on the need or importance of Hepatitis C and Immunizations: Influenza Patient has received Influenza vaccine. Pharmacy called and date verified. Immunization record updated. Hepatitis C - defer to PCP Discussed importance of Covid Vaccine: pt has received the vaccine Yes, Patient has received Covid vaccine. He does not want further doses of vaccine. Follow Up: Return in 1 year (on 05/07/2024) for 12 month Subsequent Adult Wellness Visit. | For: 12 month Subsequent Adult Wellness Visit | Check-out note: 12 month Subsequent Adult Wellness Visit Would patient like to schedule next AWV visit? Yes Yue Gramajo RN documented in this encounter Miscellaneous Notes * Pt Handout (not on AVS) - Yue Gramajo RN - 05/08/2023 2:34 PM EST [id number] Fall Prevention Falls often take place due to slipping, tripping, or losing your balance. Millions of people fall every year and injure themselves. Among older adults in the [place] falls are the most common cause of traumatic brain injuries. Every 20 minutes, an older adult dies from a fall. Here are ways to reduceyour risk of falling again: Think about your fall. Was there anything that caused your fall that can be fixed, removed, or replaced? Make your home safe by keeping walkways clear of objects you may trip over, such as electrical cords. Use nonslip pads under rugs. Don't use area rugs or small throw rugs. Use nonslip mats in bathtubs and showers. Hang grab rails by the toilet and inside and outside the shower. Install handrails and lights on staircases. The handrails should be on both sides of the stairs. Use night lights. Don't walk in poorly lit areas. Don't stand on chairs or wobbly ladders. Use care when reaching overhead or looking up. This position can cause a loss of balance. Be sure your shoes fit well, are in good condition, and have nonslip bottoms. Wear shoes both inside and outside of your home. Don't go barefoot or wear slippers. Be cautious when going up and down stairs, curbs, and when walking on uneven sidewalks. If your balance is poor, consider using a cane or walker. Talk with your healthcare provider about having a balance assessment. If your fall was related to alcohol use, stop or limit alcohol intake. Ask your provider for help if you think you may overuse alcohol and can't stop. If your fall was related to use of sleeping medicines, talk with your provider about this. You may need to reduce your dosage at bedtime if you wake up during the night to go to the bathroom. To reduce the need for nighttime bathroom trips: o Don't drink fluids for several hours before going to bed o Empty your bladder before going to bed o Men can keep a urinal at the bedside Stay as active as you can. Balance, flexibility, strength, and endurance all come from exercise.They all play a role in preventing falls. Ask your provider which types of activity are right for you. Try to do some type of exercise every day. Get your eyes checked once a year or more often if your vision changes If you have pets, know where they are before you stand up or walk so you don't trip over them. Go over all your medicines with a pharmacist or other provider. This is to see if any of them could make you more likely to fall. Have this type of medicine review at least once every year. If your provider advises a new medicine, ask if the side effects will affect your balance. Don't move quickly from one position to another. For instance, don't stand up fast from sitting.This can cause dizziness and may lead to a fall. Sit down when putting on pants, socks, and shoes. This will make you less likely to lose your balance and fall. Always let your provider know if you have fallen since your last visit. Contact your provider right away if you're having balance problems or falling more often. Last Reviewed Date: 03/10/202119996684-3870 [employer]. All rights reserved. This information is not intended as a substitute for professional medical care. Always follow your healthcare professional's instructions. * Pt Handout (not on AVS) - Yue Gramajo RN - 05/08/2023 2:34 PM EST Images from the original note were not included. [id number] Steps for Eating Healthier Changing the way you eat can improve your health. It can lower your cholesterol and blood pressure,and help you stay at a healthy weight. Your diet doesn?t have to be bland and boring to be healthy.Just watch your calories and follow these steps: Step 1. Eat fewer unhealthy fats Choose more fish and lean meats instead of fatty cuts of meat. Skip butter and lard, and use less margarine. Replace these with healthier fats, such as olive, canola, or avocado oils. Pass on foods that have palm, coconut, or partially hydrogenated oils. Eat fewer high-fat dairy foods like cheese, ice cream, and whole milk. Get a heart-healthy cookbook and try some new recipes. Step 2. Go light on salt Keep the saltshaker off the table. Limit high-salt ingredients, such as soy sauce, bouillon, and garlic salt. Instead of adding salt when cooking, season your food with herbs, spices, and other flavorings. Try lemon, garlic, onion, vinegar, or salt-free herb seasonings. Limit convenience foods, such as boxed or canned foods and restaurant food. Read food labels and choose lower-sodium options. Buy fresh, frozen, or canned vegetables that don't have added salt. Step 3. Limit sugar Pause before you add sugars to pancakes, cereal, coffee, or tea. This includes white and brown table sugar, syrup, honey, and molasses. Cut your usual amount by half. Swap out sugar-filled soda and other drinks. Buy sugar-free or low-calorie beverages. Remember, water is always the best choice. Try adding lemon juice to water for extra flavor. Read labels and choose foods with less added sugar. Keep in mind that dairy foods and foods withfruit will have some natural sugar. Cut the sugar in recipes by 1/3 to 1/2. Boost the flavor with extracts like almond, vanilla, or orange. Or add spices such as cinnamon or nutmeg. Step 4. Eat more fiber Eat fresh fruits and vegetables every day. Boost your diet with whole grains. Go for oats, whole-grain rice, and bran. Add beans and lentils to your meals. Drink more water to match your fiber increase to help prevent constipation. Step 5. Pay attention to serving sizes Remember that a serving size is a standard measurement. It will let you track the amount of fat,calories, and other nutrients in the food you eat. Read the Nutrition Facts label on packaged foods to learn their serving sizes. Use serving sizes to assess how much food you put on your plate. Pay attention to your portions.How many servings are you eating? Keep in mind that your needs may change if you?re more active or less active, or if you have other factors that change your calorie needs. Use your hand to help you measure serving sizes. For example: o 1 teaspoon: This is about the size of the first joint of your thumb. o 1 tablespoon: This is about the size of the first 2 joints of your thumb. o 1 ounce: This is about what you can fit in your cupped hand. o 2 to 3 ounces: This is about the size of the palm of your hand. o cup: This is also about what you can fit in your cupped hand. o 1 cup: This is about the size of your fist. Last Reviewed Date: 02/07/202219990061-7153 [employer]. All rights reserved. This information is not intended as a substitute for professional medical care. Always follow your healthcare professional's instructions. documented in this encounter Plan of Treatment Upcoming Encounters Date Type Department Care Team (Late st Contact Info) Description 07/07/2023 1:20 PM EDT [facility] [place] [address] [facility] [phone] Tobi Villanueva MD [address] [place] [place] [address] 05/12/2024 1:00 PM EST Nurse Only [facility]illary Department, [place] [address] [facility] [id number] [place], Nurse Annual Wellness [address] [facility] [place] [id number] Scheduled Procedures Name Priority Associated Diagnoses Date/Ti me COLONOSCOPY FLEXIBLE PROXIMA L DIAGNOSTIC Recall Special screening for malignant neoplasms, colon Health Maintenance Due Date Last Done Comments DISCUSS TOBACCO CESSATION (REFER TO SMARTSET #8301) 1955 Alpha-1 Antitrypsin 1972 Hepatitis C Screening [...] this encounter Medical Devices Implanted Type Area Offset Printing Pressmen Device Identifier Shelf Expiration Date Model / Serial / Lot Arthrex Biocomposite Swivelocl Suture [place] Double Loaded Implanted:Qty: 1 on 09/14/2018 by Nisha Delgado DO at OR [facility] Right: Shoulder [employer] 07/07/2020 AR-2324BCT -2 / / [id number] Prox Tenodesis Implant Syst - [id number] Implanted:Qty: 1 on 09/14/2018 by Nisha Delgado DO at OR [facility] Right: Shoulder [employer] 05/08/2023 [id number] / / [id number] Lens Intraoc 19.5 - [id number] - [id number] Implanted:Qty: 1 on 11/16/2020 by Papito Barrera MD at OR [facility] Right: Eye [employer] 06/07/2025 [id number] / [id number] / [id number] Lens Intraoc 19.5 - [id number] - [id number] Implanted:Qty: 1 on 11/30/2020 by Papito Barrera MD at OR [facility] Left: Eye [employer]OM[employer] 07/07/2025 [id number] / [id number] / [id number] documented as of this encounter Visit Diagnoses Diagnosis Routine general medical examination at a health care facility- Primary Risk and functional assessment Screening for unspecified condition COPD, group A, by GOLD 2017 classification (HCC) Lumbar herniated disc Displacement of lumbar intervertebral disc without myelopathy Smoking Tobacco use disorder documented in this encounter Advance Directives Latest [...] and were consensually agreed upon. Care Teams Automotive Service Assistant Relationship Specialty Start Date End Date Tobi Villanueva MD [address] [place] [address] PCP - General Internal Medicine 03/29/22 documented as of this encounter
--- OUTSIDE RECORDS SUMMARY | 2023-09-30 03:18 | External Medical Summary | Summary of Care ---
Author Name Unknown Organization [facility] Address [address] [place] [address] Phone [phone] Care Team Providers Care Operations Welder Name Role Phone Tobi Villanueva MD Primary Care Provider Reason for Visit * Reason Comments eRx-Medication Refill Encounter Details Date Type Department Care Team ([facility] st Contact Info) Description 08/30/2023 Refill [facility] [address] [place] [address] Tobi Villanueva MD [address] [place] [address], [place] [id number] Allergies No known active allergiesdocumented as of this encounter (statuses as of 08/30/2023) Medications Medication Sig Dispensed Refills Start Date [...] Ellipta 200-62.5-25 MCG/ACT Aerosol Powder Breath Activated (Fluticasone-Umec lidinium-Vilanter ol) Inhale 1 Puff by mouth in the morning. 60 Blister Dosing Unit 5 11/02/2022 Active Levalbuterol HCl 1.25 MG/3ML Inhalation Nebulization Solution (Xopenex) Inhale 1 Ampule via nebulizer every 6 hours as needed for Wheezing. 90 mL 11 01/03/2023 Active Varenicline Tartrate(Continue ) 1 MG Oral Tablet Take as directed on continue pacl=k 60 Tablet 2 07/31/2023 Active Albuterol Sulfate HFA 108 (90 Base) MCG/ACT Inhalation Aerosol Solution INHALE 2 PUFFS BY MOUTH EVERY 6 HOURS NEEDED FOR SHORTNESS OF BREATH, COUGH 54 g 3 08/30/2023 Active Albuterol Sulfate HFA 108 (90 Base) MCG/ACT Inhalation Aerosol Solution INHALE 2 PUFFS BY MOUTH EVERY 6 HOURS NEEDED FOR SHORTNESS OF BREATH, COUGH 18 g 3 05/05/2023 Discontinued documented as of this encounter (statuses as of 08/30/2023) Active Problems Problem Noted Date Diagnosed Date Smoking 01/03/2023 COPD, group A, by GOLD 2017 classification 05/20 Overview: Per COPD GOLD Classification Opioid dependence with opioid-induced disorder 0 03/29/2022 Degeneration of lumbar intervertebral disc 09/15 Lumbar canal stenosis 09/15/2017 Chronic seasonal allergic rhinitis due to pollen 06/04/2017 GENERAL OSTEOARTHROSIS 09/23/2001 Lumbar herniated disc documented as of this encounter (statuses as of 08/30/2023) Resolved Problems Problem Noted Date Diagnosed Date Resolved Date Hyperlipidemia 05/06/2022 05/06/2022 Chronic obstructive pulmonar y disease with (acute) exacerbation 05/06/2022 07/03/2023 Overview: acute Food insecurity 04/22/2022 02/20/2023 Overview: Per [facility] Protocol Opioid abuse 06/28/2020 03/29/2022 Chronic rhinitis 09/23/2001 06/04/2017 documented as of this encounter (statuses as of 08/30/2023) Immunizations Name Administration Dates Next Due COVID-19 [...] 18 years and over) Not on file 4 Are you (or your family) melonie eless [...] encounter Miscellaneous Notes * Telephone Encounter - Brandon Simon RPh - 08/30/2023 2:48 PM EDT Signed Prescriptions: Disp Refills Albuterol Sulfate HFA 108 (90 Base) MCG/AC*54 g 3 Sig: INHALE 2 PUFFS BY MOUTH EVERY 6 HOURS NEEDED FOR SHORTNESS OF BREATH, COUGHAuthorizing Provider: Jez VILLANUEVA User: BRANDON SIMON documented in this encounter Plan of Treatment Upcoming Encounters Date Type Department Care Team (Late st Contact Info) Description 01/06/2024 2:40 PM EDT Office Visit [address] [address] Tobi Villanueva MD [address] [place] [facility] [place] [address] 05/12/2024 1:00 PM EST Nurse Only Ancillary Department, [place] [address] [place] [facility] [place] [address] [place], Nurse [facility] [address] [place] [facility] [place] [address] Scheduled Procedures Name Priority Associated Diagnoses Date/Ti me COLONOSCOPY FLEXIBLE PROXIMA L DIAGNOSTIC Recall Special screening for malignant neoplasms, colon Health Maintenance Due Date Last Done Comments DISCUSS TOBACCO CESSATION (REFER TO SMARTSET #6950) 1955 Alpha-1 Antitrypsin 1972 Hepatitis C Screening 1972 Fecal Occult Blood Test 07/06/1999 Sigmoidoscopy 07/06/1999 *COPD SEVERITY VERIFIED BY PFT 05/09/2022 COVID-19 Vaccine ( season) 2022 02/23/2021, 08/05/2020, 07/08/2020 Colonoscopy 07/29/2023 07/28/2013, 07/28/2013 Depression Screening 05/07/2024 05/08/2023 O2 ASSESSMENT COMPLETED IN PAST YEAR FOR COPD 07/06/2024 07/07/2023 Cologuard 07/22/2026 07/23/2023, 0510/2023, 07/16/2023 Colorectal Cancer Screening 07/22/2026 Lipid Panel [...] this encounter Medical Devices Implanted Type Area Talent Sourcer Device Identifier Shelf Expiration Date Model / Serial / Lot Arthrex Biocomposite Swivelocl Suture [place] Double Loaded Implanted:Qty: 1 on 09/14/2018 by Nisha Delgado DO at OR [facility] Right: Shoulder [employer] 07/07/2020 AR-2324BCT -2 / / [id number] Prox Tenodesis Implant Syst - [id number] Implanted:Qty: 1 on 09/14/2018 by Nisha Delgado DO at OR [facility] Right: Shoulder [employer] 05/08/2023 AR-2290 / / [id number] Lens Intraoc 19.5 - [id number] - [id number] Implanted:Qty: 1 on 11/16/2020 by Papito Barrera MD at OR [facility] Right: Eye [employer]OM[employer] 06/07/2025 [id number] / [id number] / [id number] Lens Intraoc 19.5 - [id number] - [id number] Implanted:Qty: 1 on 11/30/2020 by Papito Barrera MD at OR [facility] Left: Eye [employer]CH [employer] LOMB 07/07/2025 [id number] / [id number] / [id number] documented as of this encounter Advance Directives [...] and were consensually agreed upon. Care Teams Operations Welder Relationship Specialty Start Date End Date Tobi Villanueva MD [address] [place] [id number] PCP - General Internal Medicine 03/29/22 documented as of this encounter
--- OUTSIDE RECORDS SUMMARY | 2023-09-30 03:18 | External Medical Summary | Summary of Care ---
Author Name Unknown Organization [facility] Address [address] [place] [address] Phone [phone] Care Team Providers Care Ends Down Checker Name Role Phone Tobi Villanueva MD Primary Care Provider [phone] Reason for Visit * Reason Onset Date Comments Referral 05/09/2023 Encounter Details Date Type Department Care Team (Late st Contact Info) Description 05/09/2023 Telephone [facility] [address] [place] [address] Tobi Villanueva MD [address] [place] [address] Referral Allergies No known active allergiesdocumented as of this encounter (statuses as of 05/26/2023) Medications Medication Sig Dispensed Refills Start Date [...] as of this encounter (statuses as of 05/26/2023) Active Problems Problem Noted Date Diagnosed Date [...] as of this encounter (statuses as of 05/26/2023) Resolved Problems Problem Noted Date Diagnosed Date Resolved Date Hyperlipidemia 05/06/2022 05/06/2022 Food insecurity 04/22/2022 02/20/2023 Overview: Per [facility] Protocol Opioid abuse 06/28/2020 03/29/2022 Chronic rhinitis 09/23/2001 06/04/2017 documented as of this encounter (statuses as of 05/26/2023) Immunizations Name Administration Dates Next Due COVID-19 [...] encounter Miscellaneous Notes * Telephone Encounter - Zora Mojica CPhT - 05/26/2023 8:56 AM EDT Pt calling to request tubing for Nebulizer. Informed pt that RX is available at their pharmacy. Pt verbalized understanding and stated they will check with their pharmacy regarding this medication. Thank you, Zora Mojica, Fermentologist [facility] 05/26/2023, 8:56 AM * Telephone Encounter - Dee Hubbard LPN - 05/13/2023 10:52 AM EST DME sent to [facility] [place] * Telephone Encounter - Tobi Villanueva MD - 05/09/2023 9:41 AM EST Noted * Telephone Encounter - Yue Gramajo, JENNIFER - 05/09/2023 9:22 AM EST Reason for [...] Description 07/07/2023 1:20 PM EDT Office Visit [facility] [place] [address] [place] [address] Tobi Villanueva MD [address] [place] [address] 05/12/2024 1:00 PM EST Nurse Only Ancillary Department, [place] [address] [place] [address] [place] Nurse [facility] [address] [place] [facility] [place] [address] Scheduled Procedures Name Priority Associated Diagnoses Date/Ti me COLONOSCOPY FLEXIBLE PROXIMA L DIAGNOSTIC Recall Special screening for malignant neoplasms, colon Health Maintenance Due Date Last Done Comments DISCUSS TOBACCO CESSATION (REFER TO SMARTSET #3928) 1955 Alpha-1 Antitrypsin 1972 Hepatitis C Screening [...] this encounter Medical Devices Implanted Type Area Forestry Hunter Device Identifier Shelf Expiration Date Model / Serial / Lot Arthrex Biocomposite Swivelocl Suture [place] Double Loaded Implanted:Qty: 1 on 09/14/2018 by Nisha Delgado DO at OR [facility] Right: Shoulder [employer] 07/07/2020 AR-2324BCT -2 / / [id number] Prox Tenodesis Implant Syst - [id number] Implanted:Qty: 1 on 09/14/2018 by Nisha Delgado DO at OR [facility] Right: Shoulder [employer] 05/08/2023 AR-2290 / / [id number] Lens Intraoc 19.5 - [id number] - [id number] Implanted:Qty: 1 on 11/16/2020 by Papito Barrera MD at OR [facility] Right: Eye [employer]OM[employer] 06/07/2025 [id number] / [id number] / [id number] Lens Intraoc 19.5 - [id number] - [id number] Implanted:Qty: 1 on 11/30/2020 by Papito Barrera MD at OR [facility] Left: Eye [employer]CH [employer] LOMB 07/07/2025 [id number] / [id number] / [id number] documented as of this encounter Visit Diagnoses [...] and were consensually agreed upon. Care Teams Ends Down Checker Relationship Specialty Start Date End Date Tobi Villanueva MD [address] [place] [address] PCP - General Internal Medicine 03/29/22 documented as of this encounter
--- OUTSIDE RECORDS SUMMARY | 2023-09-30 03:18 | External Medical Summary | Summary of Care ---
Author Name Unknown Organization [facility] Address [address] [place] [address] Phone [phone] Care Team Providers Care Specialty Transformer Assembler Name Role Phone Tobi Villanueva MD Primary Care Provider [phone] Reason for Visit * Reason Comments eRx-Medication Refill Encounter Details Date Type Department Care Team ([facility] st Contact Info) Description 07/28/2023 Refill [facility] [address] [place] [address] Tobi Villanueva MD [address], [place] [id number] Allergies No known active allergiesdocumented as of this encounter (statuses as of 07/31/2023) Medications Medication Sig Dispensed Refills Start Date [...] a day for 21 days. 49 Tablet 07/07/2023 08/04/2023 Active Varenicline Tartrate(Continue) 1 MG Oral Tablet Take as directed on continue pacl=k 60 Tablet 2 07/31/2023 Active documented as of this encounter (statuses as of 07/31/2023) Active Problems Problem Noted Date Diagnosed Date Smoking 01/03/2023 COPD, group A, by GOLD 2017 classification 05/20 Overview: Per COPD GOLD Classification Opioid dependence with opioid-induced disorder 0 03/29/2022 Degeneration of lumbar intervertebral disc 09/15 Lumbar canal stenosis 09/15/2017 Chronic seasonal allergic rhinitis due to pollen 06/04/2017 GENERAL OSTEOARTHROSIS 09/23/2001 Lumbar herniated disc documented as of this encounter (statuses as of 07/31/2023) Resolved Problems Problem Noted Date Diagnosed Date Resolved Date Hyperlipidemia 05/06/2022 05/06/2022 Chronic obstructive pulmonar y disease with (acute) exacerbation 05/06/2022 07/03/2023 Overview: acute Food insecurity 04/22/2022 02/20/2023 Overview: Per [facility] Protocol Opioid abuse 06/28/2020 03/29/2022 Chronic rhinitis 09/23/2001 06/04/2017 documented as of this encounter (statuses as of 07/31/2023) Immunizations Name Administration Dates Next Due COVID-19 [...] Telephone Encounter - Tobi Villanueva MD - 07/31/2023 9:15 AM EDTSigned Prescriptions: Disp Refills Varenicline Tartrate(Continue) 1 MG Oral T*60 Tab*2 Sig: Take as directed on continue pacl=k Authorizing Provider: TOBI VILLANUEVA Refused Prescriptions: Disp Refills Varenicline Tartrate 0.5 MG Oral Tablet (C*49 Tab*0 Sig: TAKE 1 TABLET BY MOUTH DAILY FOR 7 DAYS, THEN 1 TABLET 2 TIMES A DAY FOR 21 DAYS. R efused By: ALEKSANDRA LIVE Reason for Refusal: Course of treatment complete * Telephone Encounter - Aleksandra Live [facility] - 07/29/2023 9:46 PM EDTPending Prescriptions: Disp Refills Varenicline Tartrate(Continue) 1 MG Oral T*60 Tab*2 Sig: Take as directed on continue pacl=k Refused Prescriptions: Disp Refills Varenicline Tartrate 0.5 MG Oral Tablet (C*49 Tab*0 Sig: TAKE 1 TABLET BY MOUTH DAILY FOR 7 DAYS, THEN 1 TABLET 2 TIMES A DAY FOR 21 DAYS. Refused By: ALEKSANDRA LIVE Reason for Refusal: Course of treatment complete * Telephone Encounter - Aleksandra Live [facility] - 07/29/2023 9:42 PM EDT Patient completed started pack and would start continuing pack next. Pending Prescriptions: Disp Refills Varenicline Tartrate(Continue) 1 MG Oral *60 Tab*2 Sig: Take as directed on continue pacl=k Refused Prescriptions: Disp Refills Varenicline Tartrate 0.5 MG Oral Tablet [P*49 Tab*0 Sig: Take 1 Tablet by mouth daily for 7 days, THEN 1 Tablet 2 times a day for 21 days. Thank you, Aleksandra Live [facility] Clinical Pharmacist [facility] ([facility] (formerly Telepharmacy) 07/29/23 9:46 PM [phone]\ documented in this encounter Plan of Treatment Upcoming Encounters Date Type Department Care Team (Late st Contact Info) Description 01/06/2024 2:40 PM EDT Office Visit Family [facility], [place] [address] [place] [facility] [place] [address] Tobi Villanueva MD [address] [place] [address] 05/12/2024 1:00 PM EST Nurse Only Ancillary Department, [place] [address] [place] [facility] [place] [facility] [place] [address] [place], Nurse [facility] [address] [place] [address] Scheduled Procedures Name Priority Associated Diagnoses Date/Ti me COLONOSCOPY FLEXIBLE PROXIMA L DIAGNOSTIC Recall Special screening for malignant neoplasms, colon Health Maintenance Due Date Last Done Comments DISCUSS TOBACCO CESSATION (REFER TO SMARTSET #6330) 1955 Alpha-1 Antitrypsin 1972 Hepatitis C Screening [...] this encounter Medical Devices Implanted Type Area Classroom Instructional Aide Device Identifier Shelf Expiration Date Model / Serial / Lot Arthrex Biocomposite Swivelocl Suture [place] Double Loaded Implanted:Qty: 1 on 09/14/2018 by Nisha Delgado DO at OR [facility] Right: Shoulder [employer] 07/07/2020 AR-2324BCT -2 / / [id number] Prox Tenodesis Implant Syst - [id number] Implanted:Qty: 1 on 09/14/2018 by Nisha Delgado DO at OR [facility] Right: Shoulder [employer] 05/08/2023 [id number] / / [id number] Lens Intraoc 19.5 - [id number] - [id number] Implanted:Qty: 1 on 11/16/2020 by Papito Barrera MD at OR [facility] Right: Eye [employer]OM[employer] 06/07/2025 [id number] / [id number] / [id number] Lens Intraoc 19.5 - [id number] - [id number] Implanted:Qty: 1 on 11/30/2020 by Papito Barrera MD at OR [facility] Left: Eye [employer] LOMB 07/07/2025 [id number] / [id number] / [id number] documented as of this encounter Advance Directives [...] and were consensually agreed upon. Care Teams Specialty Transformer Assembler Relationship Specialty Start Date End Date Tobi Villanueva MD [address] [place] [facility] [place] [address] PCP - General Internal Medicine 03/29/22 documented as of this encounter
--- OUTSIDE RECORDS SUMMARY | 2023-09-30 03:18 | External Medical Summary | Summary of Care ---
Author Name Unknown Organization [facility] Address [address] [place] [address] Phone [phone] Care Team Providers Care Basket Sorter Name Role Phone Unavailable Primary Care Provider Unavailabl e Encounter Details Date Type Department Care Team (Latest Contact Info) Description 08/12/2012 3:40 PM EDT - 08/12/2012 11:59 PM EDT Hospital Encounter Radiology Film File [address] [place] [address] Discharge Disposition: Home - Self Care Allergies No known active allergiesdocumented as of this encounter (statuses as of 05/09/2023) Medications No known medicationsdocumented as of this encounter (statuses as of 05/09/2023) Active Problems Problem Noted Date Diagnosed Date [...] as of this encounter (statuses as of 05/09/2023) Resolved Problems Problem Noted Date Diagnosed Date Resolved Date Hyperlipidemia 05/06/2022 05/06/2022 Food insecurity 04/22/2022 02/20/2023 Overview: Per [facility] Protocol Opioid abuse 06/28/2020 03/29/2022 Chronic rhinitis 09/23/2001 06/04/2017 documented as of this encounter (statuses as of 05/09/2023) Immunizations No known immunizationsdocumented as of this encounter Social History Tobacco Use Types Packs/Day Years Used Date Smoking Tobacco: Every Day Alcohol Use Standard Drinks/Week Comments Not Asked 0 (1 standard drink = 0.6 oz [...] file Not on file Not on file COVID-19 Exposure Response Date Recorded In the last month, have you been in contact with someone who was confirmed or suspected to have Coronavirus / COVID-19? No / Unsure 09/21/2019 2:16 PM EDT documented as of this encounter Plan of Treatment Upcoming Encounters Date Type Department Care Team (Late st Contact Info) Description 07/07/2023 1:20 PM EDT Office Visit [facility], [place] [address] [facility] [address] Tobi Villanueva MD [address] [facility] [address] 05/12/2024 1:00 PM EST Nurse Only Ancillary [facility] [place] [address] [facility] [address] [place] Nurse [facility] [address] [place] [facility] [place] [address] Scheduled Procedures Name Priority Associated Diagnoses Date/Ti me COLONOSCOPY FLEXIBLE PROXIMA L DIAGNOSTIC Recall Special screening for malignant neoplasms, colon Health Maintenance Due Date Last Done Comments DISCUSS TOBACCO CESSATION (REFER TO SMARTSET #4581) 1955 Alpha-1 Antitrypsin 1972 Hepatitis C Screening [...] this encounter Medical Devices Implanted Type Area Intervention Specialist Device Identifier Shelf Expiration Date Model / Serial / Lot Arthrex Biocomposite Swivelocl Suture [place] Double Loaded Implanted:Qty: 1 on 09/14/2018 by Nisha Delgado DO at OR [facility] Right: Shoulder [employer] 07/07/2020 AR-2324BCT -2 / / [id number] Prox Tenodesis Implant Syst - [id number] Implanted:Qty: 1 on 09/14/2018 by Nisha Delgado DO at OR [facility] Right: Shoulder [employer] 05/08/2023 AR-2290 / / [id number] Lens Intraoc 19.5 - [id number] - [id number] Implanted:Qty: 1 on 11/16/2020 by Papito Barrera MD at OR [facility] Right: Eye [employer] LOMB 06/07/2025 [id number] / [id number] / [id number] Lens Intraoc 19.5 - [id number] - [id number] Implanted:Qty: 1 on 11/30/2020 by Papito Barrera MD at OR [facility] Left: Eye [employer] LOMB 07/07/2025 [id number] / [id number] / [id number] documented as of this encounter Procedures Procedure Name Priority Date/Time Associated Diagnosis Comments RADIOLOGY EXAM - MRI (IMAGES ONLY, NO REPORT) Routine 08/12/2012 3:40 PM EDT documented in this encounter Results * RADIOLOGY EXAM - MRI (IMAGES ONLY, NO REPORT) (08/12/2012 3:40 PM EDT) 08/12/2012 3:40 PM EDT Narrative Scheduling, Silent - 05/08/2023 12:48 PM EST This is an imaging study not interpreted or resulted by a [facility] or [facility] contracted radiologist. Miguel Massey MD RAD MRI-MRA documented in this encounter Advance Directives Latest [...]
--- OUTSIDE RECORDS SUMMARY | 2023-09-30 03:18 | External Medical Summary | Summary of Care ---
Author Name Unknown Organization [facility] Address [address] [place] [address] Phone [phone] Care Team Providers Care Road Boss Name Role Phone Tobi Villanueva MD Primary Care Provider [phone] Encounter Details Date Type Department Care Team (Late st Contact Info) Description 07/24/2023 Telephone [facility] [address] [place] [address] Tobi Villanueva MD [address] [place] [address] Allergies No known active allergiesdocumented [...] acute Food insecurity 04/22/2022 02/20/2023 Overview: Per [facility] Protocol Opioid abuse 06/28/2020 03/29/2022 [...] encounter Miscellaneous Notes * Telephone Encounter - Hyacinth Rueda LPN - 07/24/2023 2:17 PM EDT Called patient. Left message on answering machine that cologuard test was negative and to schedule for 3 years f/u, and to call back with any questions, * Telephone Encounter - Tobi Villanueva MD - 07/24/2023 12:18 PM EDT Negative cologuard test 3 yrs f/u please documented in this encounter Plan of Treatment Upcoming Encounters Date Type Department Care Team (Late st Contact Info) Description 01/06/2024 2:40 PM EDT Office Visit [facility], [place] [address] [place] [id number] Tobi Villanueva MD [address] [place] [address] 05/12/2024 1:00 PM EST Nurse Only Ancillary Department, [place] [address] [facility] [place] [id number] [facility] [address] [place] [address] Scheduled Procedures Name Priority Associated Diagnoses Date/Ti me COLONOSCOPY FLEXIBLE PROXIMA L DIAGNOSTIC Recall Special screening for malignant neoplasms, colon Health Maintenance Due Date Last Done Comments DISCUSS TOBACCO CESSATION (REFER TO SMARTSET #0821) 1955 Alpha-1 Antitrypsin 1972 Hepatitis C Screening [...] this encounter Medical Devices Implanted Type Area Auto Roller Device Identifier Shelf Expiration Date Model / Serial / Lot Arthrex Biocomposite Swivelocl Suture [place] Double Loaded Implanted:Qty: 1 on 09/14/2018 by Nisha Delgado DO at OR [facility] Right: Shoulder [employer] 07/07/2020 AR-2324BCT -2 / / [id number] Prox Tenodesis Implant Syst - [id number] Implanted:Qty: 1 on 09/14/2018 by Nisha Delgado DO at OR [facility] Right: Shoulder [employer] 05/08/2023 AR-2290 / / [id number] Lens Intraoc 19.5 - [id number] - [id number] Implanted:Qty: 1 on 11/16/2020 by Papito Barrera MD at OR [facility] Right: Eye [employer]USCH [employer] LOMB 06/07/2025 [id number] / [id number] / [id number] Lens Intraoc 19.5 - [id number] - [id number] Implanted:Qty: 1 on 11/30/2020 by Papito Barrera MD at OR [facility] Left: Eye BAUSCH & LOMB 07/07/2025 [id number] / [id number] / [id number] documented as of this encounter Advance Directives [...] and were consensually agreed upon. Care Teams Road Boss Relationship Specialty Start Date End Date oTbi Villanueva MD [address] [place] [address] PCP - General Internal Medicine 03/29/22 documented as of this encounter
--- OUTSIDE RECORDS SUMMARY | 2023-09-30 03:18 | External Medical Summary | Summary of Care ---
Author Name Unknown Organization [facility] Address [address] [place] [address] Phone [phone] Care Team Providers Care Cost Accounting Analyst Name Role Phone Tobi Villanueva MD Primary Care Provider [phone] Reason for Visit * Reason Comments Follow Up 6 month return Encounter Details Date Type Department Care Team (Latest Contact Info) Description 07/07/2023 1:20 PM EDT Office Visit [facility] [address] [place] [address] Tobi Villanueva MD [address] [place] [address] COPD, group A, by GOLD 2017 classification (HCC)*; Smoking; GENERAL OSTEOARTHROSIS; Spinal stenosis of lumbar region, unspecified whether neurogenic claudication present; Lumbar herniated disc; Opioid dependence with opioid-induced disorder (HCC); Gait difficulty; Screen for colon cancer Allergies No known active allergiesdocumented as of this encounter (statuses as of 07/07/2023) Medications Medication Sig Dispensed Refills Start Date [...] for 21 days. 49 Tablet 0 07/07/2023 Active Nicotine 14 MG/24HR Transdermal Patch 24 Hour (Nicoderm CQ) Place 1 Patch over 24 hours topically on the skin in the morning. On upper body/outer arm, change once a day for two weeks.. 28 Patch 3 01/03/2023 4 Discontinued documented as of this encounter (statuses as of 07/07/2023) Active Problems Problem Noted Date Diagnosed Date Smoking 01/03/2023 COPD, group A, by GOLD 2017 classification 05/20 Overview: Per COPD GOLD Classification Opioid dependence with opioid-induced disorder 0 03/29/2022 Degeneration of lumbar intervertebral disc 09/15 Lumbar canal stenosis 09/15/2017 Chronic seasonal allergic rhinitis due to pollen 06/04/2017 GENERAL OSTEOARTHROSIS 09/23/2001 Lumbar herniated disc documented as of this encounter (statuses as of 07/07/2023) Resolved Problems Problem Noted Date Diagnosed Date Resolved Date Hyperlipidemia 05/06/2022 05/06/2022 Chronic obstructive pulmonar y disease with (acute) exacerbation 05/06/2022 07/03/2023 Overview: acute Food insecurity 04/22/2022 02/20/2023 Overview: Per [facility] Protocol Opioid abuse 06/28/2020 03/29/2022 Chronic rhinitis 09/23/2001 06/04/2017 documented as of this encounter (statuses as of 07/07/2023) Immunizations Name Administration Dates Next Due COVID-19 [...] Sign Reading Time Taken Comments Blood Pressure 122/70 07/07/2023 1:29 PM EDT Pulse 82 07/07/2023 1:29 PM EDT Temperature 35.9 C (96.6 F) 07/07/2023 1:29 PM ED T Respiratory Rate 16 07/07/2023 1:29 PM EDT Oxygen Saturation 90% 07/07/2023 1:29 PM EDT Inhaled Oxygen Concentration - - Weight 73.4 kg (161 lb 12.8 oz) 07/07/2023 1:29 PM EDT Height 172.7 cm (5' 8") 07/07/2023 1:29 PM EDT Body Mass Index 24.6 07/07/2023 1:29 PM EDT documented in this encounter Patient Instructions * Patient Instructions* Tobi Villanueva MD - 07/07/2023 1:44 PM EDT Will fax electric scooter order to [facility] And trial chantix 0.5 mg daily for one week and then 0.5 mg twice daily for a few wks And update me in 3 wks to get more medication Cut down smoking documented in this encounter Progress Notes * Tobi Villanueva MD - 07/07/2023 1:36 PM EDT Subjective Dean Preston is a 68 year old male. Chief Complaint Patient presents with Follow Up 6 month return HPI: Here for routine check up Agreed with raymond COPD - taking trelegy Still smoking half pack Emphasized smoking cessation - will try chantix Low O2 level Denies CP, leg swelling, palpitation Occ cough, SOB on exertion Chronic pain, gait difficulty , known back issue Unstable on walking, severe pain persistent Asking for electric scooter - will fax order to [facility] Opioid dependence On suboxone PMH: Patient Active Problem List Diagnosis Code GENERAL OSTEOARTHROSIS M15.9 Lumbar herniated disc M51.26 Chronic seasonal allergic rhinitis due to pollen J30.1 Degeneration of lumbar intervertebral disc M51.36 Lumbar canal stenosis M48.061 Opioid dependence with opioid-induced disorder ([facility]) F11.29 COPD, group A, by GOLD 2017 classification (HCC) J44.9 Smoking F17.200 Current Outpatient Medications Medication Sig Dispense Refill [...] Ellipta 200-62.5-25 MCG/ACT Aerosol Powder Breath Activated (Rrozltgeadd-Buicfcagiqdx-Ozffewevyx) Inhale 1 Puff by mouth in the morning. 60 Blister Dosing Unit 5 Levalbuterol HCl 1.25 MG/3ML Inhalation Nebulization Solution (Xopenex) Inhale 1 Ampule via nebulizer every 6 hours as needed for Wheezing. 90 mL 11 Albuterol Sulfate HFA 108 (90 Base) MCG/ACT Inhalation Aerosol Solution INHALE 2 PUFFS BY MOUTH EVERY 6 HOURS NEEDED FOR SHORTNESS OF BREATH, COUGH 18 g 3 Varenicline Tartrate 0.5 MG Oral Tablet (Chantix) Take 1 Tablet by mouth daily for 7 days, THEN 1 Tablet 2 times a day for 21 days. 49 Tablet 0 No current facility-administered medications for this visit. Past Medical History: Diagnosis Date Chronic obstructive pulmonary disease with (acute) exacerbation (HCC) acute HLD (hyperlipidemia) Lumbar herniated disc Past Surgical History: Procedure Laterality Date ARTHO,LINDSEY,W/ROTATOR CUFF Right 09/14/2018 ARTHROSCOPY SHOULDER ROTATOR CUFF performed by Nisha Delgado DO at OR [facility] COLONOSCOPY, DIAGNOSTIC (RECTUM) 07/28/2013 normal, repeat 10 yr recall/COLONOSCOPY FLEXIBLE PROXIMAL DIAGNOSTIC performed by Yanni Stewart DO at ENDOSCOPY [facility] L-/S-SPINE PARAVERTEBRAL FACET INJ,1 LEVEL 03/26/2018 L-/S-SPINE PARAVERTEBRAL FACET INJ, 1 LEVEL performed by Rashad Akhtar DO at OR [facility] L-/S-SPINE PARAVERTEBRL FACET INJ,2 LEVELS 03/26/2018 L-/S-SPINE PARAVERTEBRAL FACET INJ, 2 LEVELS performed by Rashad Akhtar DO at OR [facility] LUMBAR HEMILAMINECTOMY Right 09/23/2017 LAMINOTOMY DECOMPRESSION NERVE ROOT LUMBAR performed by Danish Santos MD at OR [facility] REMOVE CATARACT, INSERT LENS PROSTH Right 11/16/2020 right EXTRACAPSULAR CATARACT REMOVAL WITH INTRAOCULAR LENS performed by Papito Barrera MD at OR [facility] REMOVE CATARACT, INSERT LENS PROSTH Left 11/30/2020 left EXTRACAPSULAR CATARACT REMOVAL WITH INTRAOCULAR LENS performed by Papito Barrera MD at OR [facility] SACROILIAC JOINT INJECT W/GUIDANCE 02/09/2018 INJECTION SACROILIAC JOINT performed by Rashad Akhtar DO at OR [facility] SHOULDER ARTHROSCOPY, BICEPS TENODESIS Right 09/14/2018 ARTHROSCOPY SHOULDER BICEP TENODESIS performed by Nisha Delgado DO at OR [facility] SHOULDER ARTHROSCOPY/DECOMPRESSION Right 09/14/2018 ARTHROSCOPY SHOULDER SUBACROMIAL DECOMPRESSION performed by Nisha Delgado DO at OR [facility] SHOULDER SURGERY PROCEDURE NEC Bilateral Review of patient's allergies indicates: No Known Allergies No family history on file. No family status information on file. Social History Socioeconomic History Marital status: Spouse name: Not on file Number of children: Not on file Years of education: Not on file Highest education level: Not on file Occupational History Not on file Tobacco Use Smoking status: Some Days Current packs/day: 0.25 Average packs/day: 0.3 packs/day for 40.0 years (10.0 ttl pk-yrs) Types: Cigarettes Passive exposure: Past Smokeless tobacco: Never Tobacco comments: Now only 3 cigarettes per day Vaping Use Vaping Use: Never used Substance and Sexual Activity Alcohol use: No Drug use: No Sexual activity: Not on file Other Topics Concern Not on file Social History Narrative Not on file Social Determinants of Health Financial Resource Strain: Not on file Food Insecurity: Patient Declined (05/08/2023) Hunger Vital Sign Worried About Running Out of Food in the Last Year: Patient declined Ran Out of Food in the Last Year: Patient declined Transportation Needs: Not on file Physical Activity: Not on file Stress: Not on file Social Connections: Not on file Intimate Partner Violence: Not on file Housing Stability: Not on file Review of Systems Constitutional: Positive for activity change (declining , legs weakness, pain back, knee pain) and fatigue. Negative for appetite change, chills, diaphoresis, fever and unexpected weight change. HENT: Negative for congestion. Eyes: Negative for visual disturbance (last week visit with eye doctor). Respiratory: Positive for cough and shortness of breath (on exertion). Negative for chest tightnessand wheezing. Cardiovascular: Negative for chest pain, palpitations and leg swelling. Gastrointestinal: Negative for abdominal distention and abdominal pain. Genitourinary: Negative for frequency. Musculoskeletal: Positive for arthralgias, back pain, gait problem, myalgias and neck pain. Negative for joint swelling. Allergic/Immunologic: Negative for environmental allergies. Neurological: Positive for weakness (legs) and numbness (legs). Psychiatric/Behavioral: Positive for dysphoric mood and sleep disturbance. Negative for agitation and behavioral problems. The patient is nervous/anxious. Objective BP 122/70 | Pulse 82 | Temp 35.9 C (96.6 F) (Temporal Artery) | Resp 16 | Ht 1.727 m (5' 8") | Wt 73.4 kg (161 lb 12.8 oz) | SpO2 90% | BMI 24.60 kg/m | BSA 1.88 m Physical Exam Constitutional: General: He is not in acute distress. Appearance: Normal appearance. He is not ill-appearing, toxic-appearing or diaphoretic. HENT: Head: Normocephalic and atraumatic. Nose: Nose normal. Eyes: Extraocular Movements: Extraocular movements intact. Cardiovascular: Rate and Rhythm: Normal rate and regular rhythm. Pulmonary: Effort: Pulmonary effort is normal. No respiratory distress. Breath sounds: No stridor. Rhonchi (B/L) present. No wheezing or rales. Comments: B/L decreased BS Chest: Chest wall: No tenderness. Musculoskeletal: General: Tenderness present. Cervical back: Tenderness present. Right lower leg: No edema. Left lower leg: No edema. Neurological: General: No focal deficit present. Mental Status: He is alert and oriented to person, place, and time. Cranial Nerves: No cranial nerve deficit. Psychiatric: Mood and Affect: Mood normal. Behavior: Behavior normal. ASSESSMENT/PLAN: COPD, group A, by GOLD 2017 classification (HCC) (Primary) Smoking GENERAL OSTEOARTHROSIS - DURABLE MEDICAL EQUIPMENT Spinal stenosis of lumbar region, unspecified whether neurogenic claudication present - DURABLE MEDICAL EQUIPMENT Lumbar herniated disc - DURABLE MEDICAL EQUIPMENT Opioid dependence with opioid-induced disorder (HCC) Gait difficulty - DURABLE MEDICAL EQUIPMENT Screen for colon cancer - COLOGUARD Other orders - Varenicline Tartrate 0.5 MG Oral Tablet (Chantix); Take 1 Tablet by mouth daily for 7 days, THEN 1 Tablet 2 times a day for 21 days. Follow-up: Return in about 6 months (around 01/06/2024). | Check-out note: DME order to [facility] Patient Instructions Will fax electric scooter order to [facility] And trial chantix 0.5 mg daily for one week and then 0.5 mg twice daily for a few wks And update me in 3 wks to get more medication Cut down smoking Tobi Villanueva MD documented in this encounter Nursing Notes * Hyacinth Rueda LPN - 07/07/2023 1:29 PM EDT Dean Preston is a 68 year old male who presents today for Chief Complaint Patient presents with Follow Up 6 month return documented in this encounter Plan of Treatment Upcoming Encounters Date Type Department Care Team (Late st Contact Info) Description 01/06/2024 2:40 PM EDT Office Visit [facility] [address] [place] [address] Tobi Villanueva MD [address] [place] [address] 05/12/2024 1:00 PM EST Nurse Only Ancillary Department, [place] [address] [place] [address] [place] [facility] [address] [place] [address] Scheduled Orders Name Type Priority Associated Diagnoses Orde r Schedule COLOGUARD Lab Unrestricted Lab Screen for colon cancer Ordered: 07/07/2023 Scheduled Procedures Name Priority Associated Diagnoses Date/Ti me COLONOSCOPY FLEXIBLE PROXIMA L DIAGNOSTIC Recall Special screening for malignant neoplasms, colon Health Maintenance Due Date Last Done Comments DISCUSS TOBACCO CESSATION (REFER TO SMARTSET #9881) 1955 Alpha-1 Antitrypsin 1972 Hepatitis C Screening 1972 Cologuard 07/06/1999 Fecal Occult Blood Test 07/06/1999 Sigmoidoscopy 07/06/1999 *COPD SEVERITY VERIFIED BY PFT 05/09/2022 COVID-19 Vaccine ( season) 2022 02/23/2021, 08/05/2020, 07/08/2020 Colonoscopy 07/29/2023 07/28/2013, 07/28/2013 Colorectal Cancer Screening 07/29/2023 Depression Screening 05/07/2024 05/08/2023 O2 ASSESSMENT COMPLETED IN PAST YEAR FOR COPD 07/06/2024 07/07/2023 Lipid Panel 04/23/2027 04/23/2022, 09/08/2017 DTaP,Tdap,and Td [...] this encounter Medical Devices Implanted Type Area In Store Banker Device Identifier Shelf Expiration Date Model / Serial / Lot Arthrex Biocomposite Swivelocl Suture [place] Double Loaded Implanted:Qty: 1 on 09/14/2018 by Nisha Delgado, at OR [facility] Right: Shoulder [employer] 07/07/2020 AR-2324BCT -2 / / [id number] Prox Tenodesis Implant Syst - [id number] Implanted:Qty: 1 on 09/14/2018 by Nisha Delgado DO at OR [facility] Right: Shoulder [employer] 05/08/2023 AR-[id number] / / [id number] Lens Intraoc 19.5 - [id number] - [id number] Implanted:Qty: 1 on 11/16/2020 by Papito Barrera MD at OR [facility] Right: Eye [employer] 06/07/2025 [id number] / [id number] / [id number] Lens Intraoc 19.5 - [id number] - [id number] Implanted:Qty: 1 on 11/30/2020 by Papito Barrera MD at OR [facility] Left: Eye [employer]OM[employer] 07/07/2025 [id number] / [id number] / [id number] documented as of this encounter Visit Diagnoses Diagnosis COPD, group A, by GOLD 2017 classification (HCC)- Primary Smoking Tobacco use disorder GENERAL OSTEOARTHROSIS Generalized osteoarthrosis, unspecified site Spinal stenosis of lumbar region, unspecified whether neurogenic claudication present Lumbar herniated disc Displacement of lumbar intervertebral disc without myelopathy Opioid dependence with opioid-induced disorder (HCC) Unspecified drug-induced mental disorder Gait difficulty Abnormality of gait Screen for colon cancer Special screening for malignant neoplasms, colon documented in this encounter Advance Directives Latest [...] and were consensually agreed upon. Care Teams Cost Accounting Analyst Relationship Specialty Start Date End Date Tobi Villanueva MD [address] [place] [id number] PCP - General Internal Medicine 03/29/22 documented as of this encounter
--- OUTSIDE RECORDS SUMMARY | 2023-09-30 03:18 | External Medical Summary | Summary of Care ---
Author Name Unknown Organization [facility] Address [address] [place] [address] Phone [phone] Care Team Providers Care Data Coordinator Name Role Phone Tobi Villanueva MD Primary Care Provider [phone] Encounter Details Date Type Department Care Team (Late st Contact Info) Description 09/02/2023 Refill [facility] [address] [place] [address] Tobi Villanueva MD [address] [place] [address] Allergies No known active allergiesdocumented as of this encounter (statuses as of 09/04/2023) Medications Medication Sig Dispensed Refills Start Date [...] directed on continue pacl=k 180 Tablet 1 09/04/2023 Active Varenicline Tartrate(Continue) 1 MG Oral Tablet Take as directed on continue pacl=k 60 Tablet 2 07/31/2023 Discontinue d(Refill) documented as of this encounter (statuses as of 09/04/2023) Active Problems Problem Noted Date Diagnosed Date Smoking 01/03/2023 COPD, group A, by GOLD 2017 classification 05/20 Overview: Per COPD GOLD Classification Opioid dependence with opioid-induced disorder 0 03/29/2022 Degeneration of lumbar intervertebral disc 09/15 Lumbar canal stenosis 09/15/2017 Chronic seasonal allergic rhinitis due to pollen 06/04/2017 GENERAL OSTEOARTHROSIS 09/23/2001 Lumbar herniated disc documented as of this encounter (statuses as of 09/04/2023) Resolved Problems Problem Noted Date Diagnosed Date Resolved Date Hyperlipidemia 05/06/2022 05/06/2022 Chronic obstructive pulmonar y disease with (acute) exacerbation 05/06/2022 07/03/2023 Overview: acute Food insecurity 04/22/2022 02/20/2023 Overview: Per [facility] Protocol Opioid abuse 06/28/2020 03/29/2022 Chronic rhinitis 09/23/2001 06/04/2017 documented as of this encounter (statuses as of 09/04/2023) Immunizations Name Administration Dates Next Due COVID-19 [...] 18 years and over) Not on file 02/29/202 4 Are you (or your family) melonie [...] Telephone Encounter - Tobi Villanueva MD - 09/04/2023 6:35 AM EDTSigned Prescriptions: Disp Refills Varenicline Tartrate(Continue) 1 MG Oral T*180 Ta*1 Sig: Take as directed on continue pacl=kAuthorizing Provider: TOBI VILLANUEVA documented in this encounter Plan of Treatment Upcoming Encounters Date Type Department Care Team (Late st Contact Info) Description 01/06/2024 2:40 PM EDT Office Visit [place] [address] [facility] [place] [address] [facility] [address] [facility] [address] 05/12/2024 1:00 PM EST Nurse Only Ancillary Department, [place] [address] [place] [address] [place], [facility] [address] [place] [facility] [place] [address] Scheduled Procedures Name Priority Associated Diagnoses Date/Ti me COLONOSCOPY FLEXIBLE PROXIMA L DIAGNOSTIC Recall Special screening for malignant neoplasms, colon Health Maintenance Due Date Last Done Comments DISCUSS TOBACCO CESSATION (REFER TO SMARTSET #4036) 1955 Alpha-1 Antitrypsin 1972 Hepatitis C Screening [...] this encounter Medical Devices Implanted Type Area Laminating Press Operator Device Identifier Shelf Expiration Date Model / Serial / Lot Arthrex Biocomposite Swivelocl Suture [place] Double Loaded Implanted:Qty: 1 on 09/14/2018 by Nisha Delgado DO at OR [facility] Right: Shoulder [employer] 07/07/2020 AR-2324BCT -2 / / [id number] Prox Tenodesis Implant Syst - [id number] Implanted:Qty: 1 on 09/14/2018 by Nisha Delgado DO at OR [facility] Right: Shoulder [employer] 05/08/2023 AR-2290 / / [id number] Lens Intraoc 19.5 - [id number] - [id number] Implanted:Qty: 1 on 11/16/2020 by Papito Barrera MD at OR [facility] Right: Eye [employer] 06/07/2025 [id number] / [id number] / [id number] Lens Intraoc 19.5 - [id number] - [id number] Implanted:Qty: 1 on 11/30/2020 by Papito Barrera MD at OR [facility] Left: Eye [employer] 07/07/2025 [id number] / [id number] / [id number] documented as of this encounter Advance Directives [...] and were consensually agreed upon. Care Teams Data Coordinator Relationship Specialty Start Date End Date Tobi Villanueva MD [address] [place] [phone] PCP - General Internal Medicine 03/29/22 documented as of this encounter
--- OUTSIDE RECORDS SUMMARY | 2023-09-30 03:18 | External Medical Summary | Summary of Care ---
Author Name Unknown Organization [facility] Address [address] [place] [address] Phone [phone] Care Team Providers Care Surgical Nurse Practitioner Name Role Phone Tobi Villanueva MD Primary Care Provider [phone] Reason for Visit * Reason Onset Date Comments Referral 05/09/2023 Encounter Details Date Type Department Care Team (Late st Contact Info) Description 05/09/2023 Telephone [facility] [address] [place] [address] Tobi Villanueva MD [address] [place] [address] Referral Allergies No known active allergiesdocumented as of this encounter (statuses as of 05/09/2023) Medications Medication Sig Dispensed Refills Start Date [...] this encounter (statuses as of 05/09/2023) Immunizations Name Administration Dates Next Due COVID-19 [...] EST Noted * Telephone Encounter - Yue Gramajo RN - 05/09/2023 9:22 AM EST Reason for Call: Patient seen for AWV 05/08/2023. Requesting more tubing for nebulizer. He uses [facility]. Referral for DME placed Contact: In Clinic Contact Type: Referral(s) Placed Outcome: See above Face to face time spent with Patient (minutes): 10 Total Time including non face to face (minutes): 10 documented in this encounter Plan of Treatment Upcoming Encounters Date Type Department Care Team (Late st Contact Info) Description 07/07/2023 1:20 PM EDT Office Visit [facility] [place] [address] [place] [facility] [place] [id number] Tobi Villanueva MD [address] [place] [address] 05/12/2024 1:00 PM EST Nurse Only Ancillary Department, [place] [address] [facility] [place] [phone] [place] [facility] [address] [place], [place] [phone] Scheduled Procedures Name Priority Associated Diagnoses Date/Ti me COLONOSCOPY FLEXIBLE PROXIMA L DIAGNOSTIC Recall Special screening for malignant neoplasms, colon Health Maintenance Due Date Last Done Comments DISCUSS TOBACCO CESSATION (REFER TO SMARTSET #0310) 1955 Alpha-1 Antitrypsin 1972 Hepatitis C Screening [...] this encounter Medical Devices Implanted Type Area Hostess Host Device Identifier Shelf Expiration Date Model / Serial / Lot Arthrex Biocomposite Swivelocl Suture [place] Double Loaded Implanted:Qty: 1 on 09/14/2018 by Nisha Delgado DO at OR [facility] Right: Shoulder [employer] 07/07/2020 AR-2324BCT -2 / / [id number] Prox Tenodesis Implant Syst - [id number] Implanted:Qty: 1 on 09/14/2018 by Nisha Delgado DO at OR [facility] Right: Shoulder [employer] 05/08/2023 AR-2290 / / [id number] Lens Intraoc 19.5 - [id number] - [id number] Implanted:Qty: 1 on 11/16/2020 by Papito Barrera MD at OR [facility] Right: Eye [employer] 06/07/2025 [id number] / [id number] / [id number] Lens Intraoc 19.5 - [id number] - [id number] Implanted:Qty: 1 on 11/30/2020 by Papito Barrera MD at OR [facility] Left: Eye [employer]OM[employer] 07/07/2025 [id number] / [id number] / [id number] documented as of this encounter Visit Diagnoses [...] and were consensually agreed upon. Care Teams Surgical Nurse Practitioner Relationship Specialty Start Date End Date Tobi Villanueva MD [address] [facility] [place] [address] PCP - General Internal Medicine 03/29/22 documented as of this encounter
--- OUTSIDE RECORDS SUMMARY | 2023-09-30 03:18 | External Medical Summary | Summary of Care ---
Author Name Unknown Organization [facility] Address [address] [place] [address] Phone [phone] Care Team Providers Care Venetian Blind Washer Name Role Phone Tobi Villanueva MD Primary Care Provider Reason for Visit * Reason Comments eRx-Medication Refill Encounter Details Date Type Department Care Team ([facility] st Contact Info) Description 05/05/2023 Refill [facility] [address] [place] [address] Tobi Villanueva MD [address] [place] [address] Allergies No known active allergiesdocumented as of this encounter (statuses as of 05/05/2023) Medications Medication Sig Dispensed Refills Start Date [...] two weeks.. 28 Patch 3 01/03/2023 Active Levalbuterol HCl 1.25 MG/3ML Inhalation Nebulization Solution (Xopenex) Inhale 1 Ampule via nebulizer every 6 hours as needed for Wheezing. 90 mL 11 01/03/2023 Active Albuterol Sulfate HFA 108 (90 Base) MCG/ACT Inhalation Aerosol Solution INHALE 2 PUFFS BY MOUTH EVERY 6 HOURS NEEDED FOR SHORTNESS OF BREATH, COUGH 18 g 3 05/05/2023 Active Albuterol Sulfate HFA 108 (90 Base) MCG/ACT Inhalation Aerosol Solution INHALE 2 PUFFS BY MOUTH EVERY 6 HOURS NEEDED (SOB COUGH). 18 g 3 12/27/2022 Discontinued documented as of this encounter (statuses as of 05/05/2023) Active Problems Problem Noted Date Diagnosed Date [...] as of this encounter (statuses as of 05/05/2023) Resolved Problems Problem Noted Date Diagnosed Date Resolved Date Hyperlipidemia 05/06/2022 05/06/2022 Food insecurity 04/22/2022 02/20/2023 Overview: Per [facility] Protocol Opioid abuse 06/28/2020 03/29/2022 Chronic rhinitis 09/23/2001 06/04/2017 documented as of this encounter (statuses as of 05/05/2023) Immunizations Name Administration Dates Next Due COVID-19 mRNA, LNP-s, No Pre serve, 2-Dose Series (Moderna) 08/05/2020,07/08/2020 COVID-19, mRNA, LNP-s, PF, B ooster, 100mcg/0.5mg (Moderna) 02/23/2021 Pneumococcal Conjugate Vacc, 13 Valent (Prevnar) 09/21/2019 Pneumococcal Polysaccharide PPV23 (Pneumovax) Seasonal Influenza, PF, 6 M & above, IM , (FluLaval or Fluzone) 01/01/2018 Seasonal Influenza, Quadrivalent Hd (Fluzone Hd) 12/23/2021 Seasonal Influenza, Quadrivalent, No Preserve, I M [...] encounter Miscellaneous Notes * Telephone Encounter - Robin Zendejas [facility] - 05/05/2023 4:14 PM ESTSigned Prescriptions: Disp Refills Albuterol Sulfate HFA 108 (90 Base) MCG/AC*18 g 3 Sig: INHALE 2 PUFFS BY MOUTH EVERY 6 HOURS NEEDED FOR SHORTNESS OF BREATH, COUGHAuthorizing Provider: Jez VILLANUEVA User: ROBIN ZENDEJAS Electronically signed by Robin Zendejas [facility] at 05/05/2023 4:14 PM EST documented in this encounter Plan of Treatment Upcoming Encounters Date Type Department Care Team (Late st Contact Info) Description 05/08/2023 2:00 PM EST Nurse Only Ancillary Department, [place] [address] [place] [place] [address] [place], Nurse [facility] [address] [facility] [place] [id number] 07/07/2023 1:20 PM EDT Office [facility] [place] [address] [facility] [phone] Tobi Villanueva MD [address] [facility] [place] [id number] Scheduled Procedures Name Priority Associated Diagnoses Date/Ti me COLONOSCOPY FLEXIBLE PROXIMA L DIAGNOSTIC Recall Special screening for malignant neoplasms, colon Health Maintenance Due Date Last Done Comments DISCUSS TOBACCO CESSATION (REFER TO SMARTSET #9913) 1955 Alpha-1 Antitrypsin 1972 Hepatitis C Screening 1972 Cologuard 07/06/1999 Fecal Occult Blood Test 07/06/1999 Sigmoidoscopy 07/06/1999 *COPD SEVERITY VERIFIED BY PFT 05/09/2022 COVID-19 Vaccine ( season) 2022 02/23/2021, 08/05/2020, 07/08/2020 Influenza Vaccine (FLU shot) (#1) 2022 12/23/2021, 12/17/2019, 12/26/2018, Additional history exists Colonoscopy 07/29/2023 07/28/2013, 07/28/2013 Colorectal Cancer Screening 07/29/2023 O2 ASSESSMENT COMPLETED IN PAST YEAR FOR COPD 01/04/2024 01/03/2023 Depression Screening 04/10/2024 04/10/2023 Diabetes Screening 04/23/2025 04/23/2022, 0 06/28/2020, 09/14/2018, Additional history exists Lipid Panel 04/23/2027 04/23/2022, 09/08/2017 DTaP,Tdap,and Td [...] this encounter Medical Devices Implanted Type Area Oil Field Tester Device Identifier Shelf Expiration Date Model / Serial / Lot Arthrex Biocomposite Swivelocl Suture [place] Double Loaded Implanted:Qty: 1 on 09/14/2018 by Nisha Delgado DO at OR [facility] Right: Shoulder [employer] 07/07/2020 AR-2324BCT -2 / / [id number] Prox Tenodesis Implant Syst - [id number] Implanted:Qty: 1 on 09/14/2018 by Nisha Delgado DO at OR [facility] Right: Shoulder [employer] 05/08/2023 [id number] / / [id number] Lens Intraoc 19.5 - [id number] - [id number] Implanted:Qty: 1 on 11/16/2020 by Papito Barrera MD at OR [facility] Right: Eye [employer] 06/07/2025 [id number] / [id number] / [id number] Lens Intraoc 19.5 - [id number] - [id number] Implanted:Qty: 1 on 11/30/2020 by Papito Barrera MD at OR [facility] Left: Eye [employer]OMB 07/07/2025 [id number] / [id number] / [id number] documented as of this encounter Advance Directives [...] and were consensually agreed upon. Care Teams Venetian Blind Washer Relationship Specialty Start Date End Date Tobi Villanueva MD [address] [place] [facility] [place] [address] PCP - General Internal Medicine 03/29/22 documented as of this encounter
--- OUTSIDE RECORDS SUMMARY | 2023-09-30 03:18 | External Medical Summary | Summary of Care ---
Author Name Unknown Organization [facility] Address [address] [place] [address] Phone [phone] Care Team Providers Care Harness Builder Name Role Phone Tobi Villanueva MD Primary Care Provider [phone] Reason for Visit * Reason Onset Date Comments Referral 05/09/2023 Encounter Details Date Type Department Care Team (Late st Contact Info) Description 05/09/2023 Telephone [facility] [address] [place] [address] Tobi Villanueva MD [address] [place] [address] Referral Allergies No known active [...] Requesting more tubing for nebulizer. He uses [facility]. Referral for DME placed Contact: In Clinic Contact Type: Referral(s) Placed Outcome: See above Face to face time spent with Patient (minutes): 10 Total Time including non face to face (minutes): 10 documented in this encounter Plan of Treatment Upcoming Encounters Date Type Department Care Team (Late st Contact Info) Description 07/07/2023 1:20 PM EDT Office Visit [facility], [place] [address] [place] [facility] [place] [id number] Tobi Villanueva MD [address] [place] [address] 05/12/2024 1:00 PM EST Nurse Only Ancillary Department, [place] [address] [facility] [place] [id number] [place] Nurse [facility] [address] [place], [place] [phone] Scheduled Procedures Name Priority Associated Diagnoses Date/Ti me COLONOSCOPY FLEXIBLE PROXIMA L DIAGNOSTIC Recall Special screening for malignant neoplasms, colon Health Maintenance Due Date Last Done Comments DISCUSS TOBACCO CESSATION (REFER TO SMARTSET #0779) 1955 Alpha-1 Antitrypsin 1972 Hepatitis C Screening [...] this encounter Medical Devices Implanted Type Area Shot Blast Equipment Operator Device Identifier Shelf Expiration Date Model / Serial / Lot Arthrex Biocomposite Swivelocl Suture [place] Double Loaded Implanted:Qty: 1 on 09/14/2018 by Nisha Delgado DO at OR [facility] Right: Shoulder [employer] 07/07/2020 AR-2324BCT -2 / / [id number] Prox Tenodesis Implant Syst - [id number] Implanted:Qty: 1 on 09/14/2018 by Nisha Delgado DO at OR [facility] Right: Shoulder [employer] 05/08/2023 AR-2290 / / [id number] Lens Intraoc 19.5 - [id number] - [id number] Implanted:Qty: 1 on 11/16/2020 by Papito Barrera MD at OR [facility] Right: Eye [employer]OM[employer] 06/07/2025 [id number] / [id number] / [id number] Lens Intraoc 19.5 - [id number] - [id number] Implanted:Qty: 1 on 11/30/2020 by Papito Barrera MD at OR [facility] Left: Eye [employer]OM[employer] 07/07/2025 [id number] / [id number] / [id number] documented as of this encounter Visit Diagnoses [...] and were consensually agreed upon. Care Teams Harness Builder Relationship Specialty Start Date End Date Tobi Villanueva MD [address] [facility] [place] [phone] PCP - General Internal Medicine 03/29/22 documented as of this encounter
--- OUTSIDE RECORDS SUMMARY | 2023-09-30 03:18 | External Medical Summary | Summary of Care ---
Author Name Unknown Organization [facility] Address [address] [place] [address] Phone [phone] Care Team Providers Care Manager Of Business Name Role Phone Tobi Villanueva MD Primary Care Provider [phone] Reason for Visit * Reason Onset Date Comments Medication Problem 09/05/2023 Varenicline Encounter Details Date Type Department Care Team ([facility] st Contact Info) Description 09/05/2023 Telephone [facility] [address] [place] [address] Tobi Villanueva MD [address] [place] [address] Medication Problem (Varenicline) Allergies No known active allergiesdocumented as of this encounter (statuses as of 09/05/2023) Medications Medication Sig Dispensed Refills Start Date [...] on continue pacl=k 180 Tablet 1 09/05/2023 Active Varenicline Tartrate(Continue) 1 MG Oral Tablet Take as directed on continue pacl=k 180 Tablet 1 09/04/2023 Discontinue d(Refill) documented as of this encounter (statuses as of 09/05/2023) Active Problems Problem Noted Date Diagnosed Date Smoking 01/03/2023 COPD, group A, by GOLD 2017 classification 05/20 Overview: Per COPD GOLD Classification Opioid dependence with opioid-induced disorder 0 03/29/2022 Degeneration of lumbar intervertebral disc 09/15 Lumbar canal stenosis 09/15/2017 Chronic seasonal allergic rhinitis due to pollen 06/04/2017 GENERAL OSTEOARTHROSIS 09/23/2001 Lumbar herniated disc documented as of this encounter (statuses as of 09/05/2023) Resolved Problems Problem Noted Date Diagnosed Date Resolved Date Hyperlipidemia 05/06/2022 05/06/2022 Chronic obstructive pulmonar y disease with (acute) exacerbation 05/06/2022 07/03/2023 Overview: acute Food insecurity 04/22/2022 02/20/2023 Overview: Per [facility] Protocol Opioid abuse 06/28/2020 03/29/2022 Chronic rhinitis 09/23/2001 06/04/2017 documented as of this encounter (statuses as of 09/05/2023) Immunizations Name Administration Dates Next Due COVID-19 [...] Telephone Encounter - Tobi Villanueva MD - 09/05/2023 3:45 PM EDT Sent out * Telephone Encounter - Jeanne Alonzo LPN - 09/05/2023 3:31 PM EDT Varenicline tartrate order needs clarified on how it's to be taken. Insurance won't except "as continuous pack" Thanks than resend RX to [facility] Justin. Did you pend patient's preferred pharmacy and medication before forwarding?yes Pharmacy: [id number] Pending Prescriptions: Disp Refills Varenicline Tartrate(Continue) 1 MG Oral *180 Ta*1 Sig: Take as directed on continue pacl=k Last Visit: 07/07/2023 (in office), Visit date not found (telemedicine) Next Visit: 01/06/2024 If no future appointments scheduled, and last appointment is greater than a year ago, please schedule patient for a follow-up appointment Last date the medication was ordered: 09/04/2023 Is this request for a controlled substance?No Urine Drug Screen:No results found for this or any previous visit. Patient Phone Numbers Labs: Lab Results Component Value Date/Time CREAT 0.8 04/23/2022 09:56 AM CREAT 0.9 09/07/2018 01:06 PM POTASSIUM 4.0 04/23/2022 09:56 AM POTASSIUM 3.9 09/07/2018 01:06 PM LDLCALC 112 04/23/2022 09:56 AM LDLCALC 147 (H) 09/08/2017 01:59 PM ALT 19 04/23/2022 09:56 AM ALT 24 09/07/2018 01:06 PM HGBA1C 5.9 09/17/2017 01:04 PM documented in this encounter Plan of Treatment Upcoming Encounters Date Type Department Care Team (Late st Contact Info) Description 01/06/2024 2:40 PM EDT Office Visit [facility], [place] [address] [place] [phone] Tobi Villanueva MD [address] [place] [address] 05/12/2024 1:00 PM EST Nurse Only Ancillary Department, [place] [address] [place] [address] [place], Nurse [facility] [address] [place] [address] Scheduled Procedures Name Priority Associated Diagnoses Date/Ti me COLONOSCOPY FLEXIBLE PROXIMA L DIAGNOSTIC Recall Special screening for malignant neoplasms, colon Health Maintenance Due Date Last Done Comments DISCUSS TOBACCO CESSATION (REFER TO SMARTSET #9658) 1955 Alpha-1 Antitrypsin 1972 Hepatitis C Screening [...] this encounter Medical Devices Implanted Type Area Cpr Instructor Device Identifier Shelf Expiration Date Model / Serial / Lot Arthrex Biocomposite Swivelocl Suture [place] Double Loaded Implanted:Qty: 1 on 09/14/2018 by Nisha Delgado DO at OR [facility] Right: Shoulder [employer] 07/07/2020 AR-2324BCT -2 / / [id number] Prox Tenodesis Implant Syst - [id number] Implanted:Qty: 1 on 09/14/2018 by Nisha Delgado DO at OR [facility] Right: Shoulder [employer] 05/08/2023 AR-2290 / / [id number] Lens Intraoc 19.5 - [id number] - [id number] Implanted:Qty: 1 on 11/16/2020 by Papito Barrera MD at OR [facility] Right: Eye [employer]OMB 06/07/2025 [id number] / [id number] / [id number] Lens Intraoc 19.5 - [id number] - [id number] Implanted:Qty: 1 on 11/30/2020 by Papito Barrera MD at OR [facility] Left: Eye [employer]OM[employer] 07/07/2025 [id number] / [id number] / [id number] documented as of this encounter Advance Directives [...] and were consensually agreed upon. Care Teams Manager Of Business Relationship Specialty Start Date End Date Tobi Villanueva MD [address] [place] [address] PCP - General Internal Medicine 03/29/22 documented as of this encounter
--- NOTE | 2023-09-30 07:00 | Orthopedic Consultation ---
Date of Consultation September 30, 2023 Assessment & Plan (1) Closed left hip fracture: The patient is a 68 year old male who sustained a left hip fracture from a ground level fall. The patients treatment options of conservative versus surgical intervention were discussed. Since the patient was an ambulatory prior to the injury and to avoid the risks of bed sores, pulmonary complications, and to give the best chance for ambulation, I recommended surgery. The patient understands the risks of surgery, which include but are not limited to: bleeding, infection, re-operation, damage to nerves and arteries, continued pain, failure of the hardware, mal-union, non-union, DVT, and . In addition the patient is aware of the 20-30% morbidity associated with hip fracture for up to 1 year following a hip fracture. The patient has elected to proceed with surgery and the informed consent was signed. The patient understands all of these instructions and explanations, all of their questions have been satisfactorily addressed. Placed on the add-on schedule for later today. Patient has been NPO after midnight. The patient will be NWB. TEDs and foot pumps to RLE. Antibiotics s iron worker to OR. Present on Admission?: Yes History of Present Illness Reason for Consultation: L hip fracture Requesting Physician: Naresh Barnes MD Attending Physician: Allison Floyd MD History of Present Illness 68 year old male tripped while walking injuring his left hip. Rates his pain 10/10. Went to the ER and x-rays and CT preformed and found to have left hip fracture. He was admitted to the hospitalist service. I was consulted for further evaluation and treatment of the left hip fracture. Allergies Allergy/AdvReac Type Severity Reaction Status Date / Time No Known Allergies Allergy Unknown Verified 04/21/22 01:45 Home Medications Medication Instructions Recorded Confirmed Type buprenorphine 8 mg-naloxone 2 mg 1 tab sublingual TID 04/21/22 09/29/23 History sublingual tablet naproxen 500 mg tablet 500 mg PO BID PRN Pain 04/21/22 09/29/23 History albuterol sulfate 90 mcg/actuation 2 puff inhalation QIDR PRN 04/22/22 09/29/23 Rx aerosol inhaler (Ventolin HFA) shortness of breath or wheezing #8.5 grams levalbuterol HCl 1.25 mg/0.5 mL 1.25 mg (0.5 mL) inhalation Q8H 04/22/22 09/29/23 Rx solution for nebulization PRN shortness of breath or wheezing #30 ea fluticasone fur. 200 mcg-umeclid 1 inh inhalation QAM 09/29/23 09/29/23 History 62.5 mcg-vilant 25 mcg inhalat.powder (Trelegy Ellipta) Patient History Medical History Opioid dependence COPD (chronic obstructive pulmonary disease) Multiple rib fractures Surgical History Hx of lumbosacral spine surgery H/O rotator cuff surgery Family History (Updated 09/29/23 @ 19:30 by Jessica Denise PA-C) Other Diabetes Heart disease Social History Smoking Status: Current every day smoker Tobacco Type: Cigarettes Second Hand Exposure: No; Do You Dip or Chew Tobacco: No; Hx Alcohol Use: No Hx Substance Use: No Preferred Language: Kosovan Communication Ability: Effective Mold Cooler Required: No Beliefs That Will Affect Care: None Current Living Situation: Alone Feels Safe at Home: Yes Safety Concerns: Feels Safe At This Time Assistive Devices: Denture - Upper, Denture - Lower and Glasses Review of Systems Review of Systems: All systems reviewed & are unremarkable except as noted in HPI & below Physical Exam Physical Exam: LLE: 2+ DP pulse, sensation to Light touch intact distally, Motor gastroc soleus, Tib ant, EHL 5/5. Calf soft & non-tender. + log roll. Results & Data Vital Signs (Past 12 Hours) Vital Signs Temp Pulse Pulse Pulse Resp BP Pulse Ox 09/30/23 05:00 09/30/23 01:17 09/29/23 21:20 36.8 C 82 18 130/79 92 09/29/23 21:17 09/29/23 20:15 73 09/29/23 19:49 72 18 134/66 95 Pulse Ox O2 Del Method O2 Del Method 09/30/23 05:00 92 Room Air 09/30/23 01:17 93 Room Air 09/29/23 21:20 Room Air 09/29/23 21:17 92 Room Air 09/29/23 20:15 09/29/23 19:49 Laboratory Results Laboratory Results WBC 9.03 K/ul (4.8-10.8) 09/29/23 16:05 RBC 5.46 M/uL (4.70-6.10) 09/29/23 16:05 Hgb 15.3 g/dl (14.0-18.0) 09/29/23 16:05 Hct 47.3 % (42.0-52.0) 09/29/23 16:05 MCV 86.6 fL (80.0-100.0) 09/29/23 16:05 MCH 28.0 pg (25.0-34.0) 09/29/23 16:05 MCHC 32.3 g/dL (32.0-36.0) 09/29/23 16:05 RDW Std Deviation 45.1 fL (36.4-46.3) 09/29/23 16:05 RDW Coeff of Ml 14.4 % (11.5-14.5) 09/29/23 16:05 Plt Count 247 K/uL (130-400) 09/29/23 16:05 MPV 11.1 fL (9.4-12.4) 09/29/23 16:05 Immature Gran % (Auto) 0.3 % 09/29/23 16:05 Neut % (Auto) 64.8 % 09/29/23 16:05 Lymph % (Auto) 24.0 % 09/29/23 16:05 [place] % (Auto) 9.4 % 09/29/23 16:05 Eos % (Auto) 1.1 % 09/29/23 16:05 Baso % (Auto) 0.4 % 09/29/23 16:05 Neut # (Auto) 5.84 K/uL (1.40-6.50) 09/29/23 16:05 Lymph # (Auto) 2.17 K/uL (1.20-3.40) 09/29/23 16:05 [place] # (Auto) 0.85 K/uL (0.11-0.59) H 09/29/23 16:05 Eos # (Auto) 0.10 K/uL (0.00-0.50) 09/29/23 16:05 Baso # (Auto) 0.04 K/uL (0.00-0.20) 09/29/23 16:05 Immature Gran # (Auto) 0.03 K/uL (0.01-0.20) 09/29/23 16:05 Sodium 136 mmol/L (136-145) 09/29/23 16:05 Potassium 4.0 mmol/L (3.5-5.1) 09/29/23 16:05 Chloride 101 mmol/L (98-107) 09/29/23 16:05 Carbon Dioxide 27 mmol/L (21-32) 09/29/23 16:05 Anion Gap 8 (3-11) 09/29/23 16:05 BUN 13 mg/dl (6-23) 09/29/23 16:05 Creatinine 0.93 mg/dl (0.6-1.4) 09/29/23 16:05 Est Cr Clr Drug Dosing 75.0 ml/min 09/29/23 16:05 Est GFR ( Amer) 96.7 ml/min 09/29/23 16:05 Est GFR (Non-Af Amer) 83.5 ml/min 09/29/23 16:05 BUN/Creatinine Ratio 14.0 (10-20) 09/29/23 16:05 Glucose 119 mg/dl (70-99(Fasting)) H 09/29/23 16:05 Calcium 10.0 mg/dl (8.6-10.3) 09/29/23 16:05 Impressions Hip/Pelvis X-Ray 09/29/23 15:56 XR hip LT 2V w pelvis HISTORY: 68 years-old Male Left hip pain after fall acute left hip pain status post fall COMPARISON: 07/31/2015 TECHNIQUE: AP view of the pelvis with 2 views of the left hip FINDINGS: Mild osteoarthritis of the hips. No acute fracture or dislocation. Unremarkable soft tissues. IMPRESSION: No acute fracture or dislocation ACT 112: Negative or not required by law. The above report was generated using voice recognition software. It may contain grammatical, syntax or spelling errors. Electronically signed by: Robin Salas M.D. 09/29/2023 4:[address] 09/29/23 16:21 CT pelvis w/IV con only HISTORY: 68 years-old Male Hip/pubic rami fx, L hip pain acute left-sided hip pain COMPARISON: Radiographs of same day, pelvis radiographs 07/31/2015 TECHNIQUE: Multiple axial CT images of the pelvis were obtained with IV contrast. A dose lowering technique was used consistent with the principals of KARINA. . FINDINGS: There is severe atherosclerosis of the aorta and iliac arteries. There is a 3 cm segment of high-grade stenosis/occlusion involving the proximal to mid aspect of the right common iliac artery which demonstrates fusiform dilation measuring up to 1.8 cm. There is distal reconstitution of flow within the iliac bifurcation. Prostatomegaly. Urinary bladder wall thickening with partial distention. Colonic diverticulosis. Moderate fecal retention. Normal appendix. No free fluid. Demineralized appearance of the bones. Moderate to severe lower lumbar facet arthrosis. Mild to moderate degeneration of the SI joints. Mild osteoarthritis of the femoral acetabular joints. No acute displaced fracture, dislocation or avascular necrosis. There is however acute nondisplaced left femoral neck fracture remaining which is predominantly transcervical and best seen on the coronal images. IMPRESSION: 1. Radiographically occult subtle acute nondisplaced transcervical left femoral fracture. 2. No additional acute fracture or dislocation. 3. 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 ACT 112: Negative or not required by law. The above report was generated using voice recognition software. It may contain grammatical, syntax or spelling errors. Electronically signed by: Robin Salas M.D. 09/29/2023 5:50 PM
--- NOTE | 2023-09-30 07:14 | XRay Report ---
XR chest 1V portable HISTORY: 68 years-old Male pre-op eval preoperative exam COMPARISON: 04/21/2022 TECHNIQUE: AP view of the chest FINDINGS: Cardiomediastinal and hilar silhouettes are within normal limits. Atherosclerosis of the aorta. No pn eumothorax or pleural effusion. Chronic coarsening of the interstitium with severe emphysema. Bones a ppear grossly intact. IMPRESSION: Emphysema without acute process. ACT 112: Negative or not required by law. The above report was generated using voice recognition software. It may contain grammatical, syntax o r spelling errors. Electronically signed by: Robin Salas M.D. 09/30/2023 7:13 AM
[2023-09-30] MEDS: UMECLIDINIUM/VILANTEROL 62.5/25MCG 7 PUFFS/INHALER INH SCH (08:02)
[2023-09-30] MEDS: FLUTICASONE FUROATE 200MCG 14 PUFFS/INHALER INH SCH (08:02)
[2023-09-30 08:48] LABS: Hematocrit (blood only) 40.1 % (42.0-52.0); Hemoglobin 13.5 g/dl (14.0-18.0); Mean Corpuscular Hemoglobin 28.6 pg (25.0-34.0); Mean Corpuscular Hgb Conc 33.7 g/dL (32.0-36.0); Mean Platelet Volume 11.2 fL (9.4-12.4); Platelet Count 196 K/uL (130-400); RDW Coefficient of Variation 14.3 % (11.5-14.5); RDW Standard Deviation 44.4 fL (36.4-46.3); Red Blood Count 4.72 M/uL (4.70-6.10); White Blood Count 8.39 K/ul (4.8-10.8)
[2023-09-30] MEDS ORDERED: NON-FORMULARY MEDICATION (Fluticasone-Umeclidin-Vilanter [Trelegy Ellipta] 200-62.5-25 mcg INH SCH (09:00)
[2023-09-30 09:13] LABS: BUN Creatinine Ratio 16.5 (10-20); Est GFR (Non-African American) 88.9 ml/min; Potassium 3.7 mmol/L (3.5-5.1)
[2023-09-30] MEDS: oxyCODONE HCL IR 5 MG TAB (IMMEDIATE RELEASE) PO PRN (09:39)
--- NOTE | 2023-09-30 11:47 | Electrocardiogram Report ---
Test Reason : Blood Pressure : / mmHG Vent. Rate : 071 BPM Atrial Rate : 071 BPM P-R Int : 166 ms QRS Dur : 096 ms QT Int : 378 ms P-R-T Axes : 055 046 064 degrees QTc Int : 410 ms Normal sinus rhythm Normal ECG When compared with ECG of 21-APR-2022 01:12, Premature supraventricular complexes are no longer Present Confirmed by Malcolm Sanchez ([id number]) on 09/30/2023 11:47:16 AM Referred By: NO PCP Confirmed By:Malcolm Sanchez
--- NOTE | 2023-09-30 11:55 | Anesthesiology Consultation ---
Date of Service September 30, 2023 Assessment & Plan Chart Review Chart Review: Acceptable Risk for Surgery and Patient NOT seen in Pre Admission Testing ASA ASA2 Proposed Anesthesia Anesthesia Type: General Risk / Benefits Reviewed With: PT / POA / Parent / Guardian, Accepts Plan and Informed Consent Obtained History Surgery Operation Date: 09/30/23 07:55 Proposed Procedures p Left Hip Open Reduction Internal Fixation - Guillermo Dusty Barnes MD Height/Weight Height: 5 ft 9 in Weight: 71.5 kg Allergies Allergy/AdvReac Type Severity Reaction Status Date / Time No Known Allergies Allergy Unknown Verified 04/21/22 01:45 Medications Home Medications Medication Instructions Recorded Confirmed Last Taken buprenorphine 8 mg-naloxone 2 mg 1 tab sublingual TID 04/21/22 09/29/23 04/20/22 sublingual tablet naproxen 500 mg tablet 500 mg PO BID PRN Pain 04/21/22 09/29/23 Unknown albuterol sulfate 90 mcg/actuation 2 puff inhalation QIDR PRN 04/22/22 09/29/23 Unknown aerosol inhaler (Ventolin HFA) shortness of breath or wheezing #8.5 grams levalbuterol HCl 1.25 mg/0.5 mL 1.25 mg (0.5 mL) inhalation Q8H 04/22/22 09/29/23 Unknown solution for nebulization PRN shortness of breath or wheezing #30 ea fluticasone fur. 200 mcg-umeclid 1 inh inhalation QAM 09/29/23 09/29/23 Unknown 62.5 mcg-vilant 25 mcg inhalat.powder (Trelegy Ellipta) Active Medications Generic Name Dose Route Start Last Admin Trade Name Freq PRN Reason Stop Dose Admin Acetaminophen 1,000 mg 09/29/23 22:00 09/30/23 05:25 Acetaminophen 500 Mg Tab PO 10/29/23 21:59 1,000 mg Q8 FABIOLA Administration Buprenorphine/Naloxone 1 tab 09/29/23 21:17 09/30/23 08:01 Buprenorphine/Naloxone 8/2 Mg Tab SL 10/29/23 21:16 1 tab TID FABIOLA Administration Fluticasone Furoate 1 puffs 09/30/23 09:00 09/30/23 08:02 Fluticasone Furoate 200mcg 14 Puffs/Inhaler INH 10/30/23 08:59 1 puffs DAILY FABIOLA Administration Hydromorphone HCl 0.5 mg 09/29/23 21:39 09/30/23 07:09 Hydromorphone Inj 0.5 Mg/0.5 Ml Syr IV 10/13/23 21:38 0.5 mg Q3H PRN Administration Severe Pain (Scale 7, 8, 9,10) Sodium Chloride 1,000 mls @ 80 mls/hr 09/29/23 21:17 09/30/23 11:44 Nss IV 10/29/23 21:16 0 mls/hr .[id number] FABIOLA Infusion Oxycodone HCl 5 - 10 mg 09/30/23 09:31 09/30/23 09:39 Oxycodone Hcl Ir 5 Mg Tab (Immediate Release) PO 10/14/23 09:30 10 mg Q4H PRN Administration Pain Umeclidinium/Vilanterol 1 puffs 09/30/23 09:00 09/30/23 08:02 Umeclidinium/Vilanterol 62.5/25mcg 7 Puffs/Inhaler INH 10/30/23 08:59 1 puffs DAILY FABIOLA Administration NPO Date Last Intake of Fluids: 09/29/23 Time Last Intake of Fluids: 23:59 Date Last Intake of Solids: 09/29/23 Time Last Intake of Solids: 23:59 Past Medical History Medical History Opioid dependence COPD (chronic obstructive pulmonary disease) Multiple rib fractures Exercise / Class Metabolic Activity II 4-5 Yardwork/Stairs/Walk up hill Past Family History Family History Other Diabetes Heart disease Past Surgical History Surgical History Hx of lumbosacral spine surgery H/O rotator cuff surgery Past Anesthesia History No Hx of Anesthesia Complications and No Family Hx of Anesthesia Complications History of PONV No Hx of PONV and No Hx of Motion Sickness Social History Smoking Status: Current every day smoker tobacco type: cigarettes Do You Dip or Chew Tobacco: No Hx Alcohol Use: No Hx Substance Use: No substance use type: does not use Review of Systems denies fever/cough/ colds/ chest pain/ SOB/ SALOMON denies SALOMON Physical Exam Vital Signs Last Vital Signs Temp 36.3 C L 09/30/23 07:03 Pulse 58 L 09/30/23 07:03 Resp 16 09/30/23 07:03 BP 115/63 09/30/23 07:03 Pulse Ox 91 09/30/23 07:03 O2 Del Method Room Air 09/30/23 07:23 ENMT Mouth: no TMJ abnormality and no dentition abnormality Thyromental Distance: > or= 3.5 Finger Breadths Mallampati Class: II Neck neck extension not limited Respiratory normal respiratory effort; no respiratory distress Auscultation: lungs clear to auscultation bilaterally Cardiovascular Rate/Rhythm: regular rate and regular rhythm Neurologic moves all extremities Psychiatric Orientation: alert and oriented x 3 Testing Laboratory Results 09/30/23 07:16 09/30/23 07:16
[2023-09-30] MEDS ORDERED: ONDANSETRON INJ 2 MG/ML 2 ML VIAL IV PRN ×2 (12:10→15:37)
[2023-09-30] MEDS ORDERED: ePHEDrine sulfate 50 MG/ML AMP IV PRN (12:10)
[2023-09-30] MEDS ORDERED: ATROPINE SULFATE 0.1 MG/ML 10ML SYR IV PRN (12:10)
[2023-09-30] MEDS ORDERED: ONDANSETRON INJ 2 MG/ML 2 ML VIAL ONE (12:12)
[2023-09-30] MEDS ORDERED: DEXAMETHASONE SOD INJ 4 MG/ML VIAL ONE (12:12)
[2023-09-30] MEDS ORDERED: PROPOFOL IV EMULSION 10 MG/ML 20 ML VIAL IV ONE (12:12)
[2023-09-30] MEDS ORDERED: LIDOCAINE 2% 2 ML VIAL/AMP(20MG/ML) INFIL ONE (12:12)
[2023-09-30] MEDS ORDERED: MIDAZOLAM HCL 1 MG/ML 2ML VIAL ONE (12:13)
[2023-09-30] MEDS ORDERED: fentaNYL citrate PF 100 MCG/2 ML VIAL ONE ×2 (12:13→14:11)
[2023-09-30] MEDS ORDERED: ACETAMINOPHEN 1000 MG/100 ML IV IV ONE (12:35)
--- NOTE | 2023-09-30 12:52 | Hospitalist Progress Note ---
Date of Service September 30, 2023 Assessment & Plan (1) Fall: (2) Closed left hip fracture: (3) Opioid dependence: (4) COPD (chronic obstructive pulmonary disease): (5) Tobacco use: Plan 68 year old male who sustained left hip fracture after a mechanical fall and planned for OR today by ortho. CT as below. CT pelvis 1. Radiographically occult subtle acute nondisplaced transcervical left femoral fracture. 2. No additional acute fracture or dislocation. 3. 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 Closed left hip fracture- seen by ortho. Plan for left hip ORIF for today noted. DVT ppx on hold. NPO for the same. Continue pain regiment, bowel regimen Opioid dependence- on suboxone COPD- no exacerbation. Not on oxygen. On trelegy Tobacco abuse- smokes 8-10 cigarettes/day. recommended quitting. Declined nicoderm patch Right common iliac artery aneurysmal dilatation- seen in CT- details above. Admitting team spoke with vascular and cleared for surgery. OP follow up with vascular surgery. DVT ppx- SCD. chemoppx on hold for OR today. Resume from tomorrow Dispo- OR today. Time spent- approx 35 mins Admission and Anticipated Discharge Date Admission Date: September 29, 2023 Subjective Patient was seen and examined at bedside. States he is in severe pain and iv dilaudid does not seem to be helping at all. He states his suboxone works better than the iv dilaudid. He is agreeable to trial of oxy. He is awaiting OR today. No N/V/CP, SOB, fever or chills. Review of Systems Review of Systems: All systems reviewed & are unremarkable except as noted in Subjective Physical Exam Physical Exam: General: Lying comfortably in bed, not in acute distress, on room air HEENT: KEMAL, MMM Chest: Clear breath sounds bilaterally, no wheezes or crackles CVS: Regular rate and rhythm, normal heart sounds, no murmur Abdomen: Soft, non tender, not distended, normal bowel sounds Neuro: Awake, alert, oriented, conversing well Extremities: LLE shortended. No edema Results & Data Results & Data Vital Signs (Past 12 Hours) Vital Signs Temp Pulse Resp BP Pulse Ox Pulse Ox O2 Del Method 09/30/23 11:56 36.9 C 62 18 121/65 90 Room Air 09/30/23 07:23 Room Air 09/30/23 07:03 36.3 C L 58 L 16 115/63 91 Room Air 09/30/23 05:00 92 09/30/23 01:17 93 O2 Del Method 09/30/23 11:56 09/30/23 07:23 09/30/23 07:03 09/30/23 05:00 Room Air 09/30/23 01:17 Room Air Laboratory Results Short CBC 09/29/23 09/30/23 Range/Units 16:05 07:16 WBC 9.03 8.39 (4.8-10.8) K/ul Hgb 15.3 13.5 L (14.0-18.0) g/dl Hct 47.3 40.1 L (42.0-52.0) % Plt Count 247 196 (130-400) K/uL BMP 09/29/23 09/30/23 16:05 07:16 Sodium 136 138 Potassium 4.0 3.7 Chloride 101 105 Carbon Dioxide 27 28 BUN 13 14 Creatinine 0.93 0.85 Glucose 119 H 94 Calcium 10.0 9.0
[2023-09-30] MEDS: ceFAZolin 2000MG 2,000 MG/15 ML SYR IV SCH (13:07)
[2023-09-30] MEDS ORDERED: PHENYLEPHRINE 100MCG/ML 10ML SYR IV ONE (13:18)
[2023-09-30] MEDS ORDERED: ROCURONIUM BROMIDE 10 MG/ML 5 ML VIAL IV ONE (13:19)
[2023-09-30] MEDS ORDERED: SUGAMMADEX SODIUM 200 MG/2 ML VIAL IV ONE (13:32)
[2023-09-30] MEDS ORDERED: KETAMINE HCL 10MG/ML SYR ONE (13:32)
[2023-09-30] MEDS: BUPIVACAINE 0.5 % 5 MG/1 ML MPF 30ML VIAL INFIL ONE (13:41)
[2023-09-30] MEDS ORDERED: TRANEXAMIC ACID / 0.7% NACL 1000MG/100ML BAG IV ONE (13:42)
[2023-09-30] MEDS: TRANEXAMIC ACID 100 MG/ML 10 ML VIAL IV ONE (13:44)
[2023-09-30] MEDS: LIDOCAINE 1%/EPINEPHRINE 1:100,000 50 ML VIAL ONE (14:29)
--- NOTE | 2023-09-30 14:37 | Post Operative Brief Note ---
Immediate Post Op Note Date of Surgery September 30, 2023 Pre & Post Diagnosis Operation Date: 09/30/23 07:55 Pre-Op Diagnosis: Closed Left Hip Fracture Post-Op Diagnosis: Closed Left Hip Fracture I identified the patient and participated in the time-out.: Yes Procedure Operation Date: 09/30/23 07:55 Actual Procedures p Left Hip Open Reduction Internal Fixation(Left) - Guillermo Barnes MD Surgeon Guillermo Barnes MD Car Sweeper A MD Armin Estimated Blood Loss 50 Findings Consistent with Post-Op Diagnosis Fluids 1000 cc Anesthesia Type General Complications none
--- NOTE | 2023-09-30 14:37 | Operative Report ---
Post Operative Report Pre & Post Diagnosis Operation Date: 09/30/23 07:55 Pre-Op Diagnosis: Closed Left Hip Fracture Post-Op Diagnosis: Closed Left Hip Fracture I identified the patient and participated in the time-out.: Yes Procedure Operation Date: 09/30/23 07:55 Actual Procedures p Left Hip Open Reduction Internal Fixation(Left) - Guillermo Barnes MD Surgeon Guillermo Barnes MD Pipe Line Repairer Dusty Funez MD Estimated Blood Loss 50 Findings See Below Non-displaced left femoral neck fracture Fluids 1000 cc Specimens n/a Anesthesia Type General Complications none Indications The patient is a 68 year old male who sustained a left hip fracture from a ground level fall. The patients treatment options of conservative versus surgical intervention were discussed. Since the patient was an ambulatory prior to the injury and to avoid the risks of bed sores, pulmonary complications, and to give the best chance for ambulation, I recommended surgery. The patient understands the risks of surgery, which include but are not limited to: bleeding, infection, re-operation, damage to nerves and arteries, continued pain, failure of the hardware, mal-union, non-union, DVT, and . In addition the patient is aware of the 20-30% morbidity associated with hip fracture for up to 1 year following a hip fracture. The patient understands all of these instructions and explanations, all of their questions have been satisfactorily addressed. The patient has elected to proceed with surgery and the informed consent was signed. Description of Procedure IMPLANTS: 1) FNS Plate 1 hole (SYNTHES). 2) [place] FNS 90 mm (SYNTHES) 3) Anti-rotation screw 90 mm (SYNTHES) 4) 5.0 Ti Locking screw 42 mm (SYNTHES) Procedure The patient was taken to the Operating Room and placed in the supine position on the fracture table after general anesthesia was administered. A multidisciplinary time-out was performed identifying my initials on the left lower limb as the correct and operative limb. Prior to the incision being made, 2 g intravenous Ancef was given. Fluoroscopy was brought in to ensure adequate x-rays images could be obtained. No reduction was necessary as the femoral neck fracture was non-displaced and remained in its alignment with placement of the patient on the fracture table. Once this was confirmed with Fluro, the left lower extremity was prepped in the standard fashion. The trochanter was marked as was the planned incision. The incision was injected with a 50:50 mixture of 1% Lidocaine with epinephrine and 0.5% Marcaine plain for a total of 15cc. The planned incision was carried down through the Tensor Fascia Melinda to expose the greater trochanter and the starting position. Using Fluro a starting guide wire was placed proximal to the lesser trochanter and centered along the femoral neck. This was measured and the cannulated was used in the standard fashion. The [place] and plate were then inserted over the guide wire in the standard fashion. The anti-rotation screw was prepped with the aiming guide using the appropriate drill in the standard fashion followed by placement of the anti-rotation screw. Then using the aiming guide the distal locking screw was prepped with the aiming guide using the appropriate drill in the standard fashion followed by placement of the locking screw. Final x-rays were obtained showing anatomic alignment with fracture and hardware in good position, TAD less than 25 mm. The wounds were copiously irrigated. The Tensor Fascia Melinda was closed with 0 Vicryl. The subcutaneous tissue was closed with 3-0 Vicryl. The skin was closed with ZipLine and shield. The incision was covered with 4x4s, ABD, and foam tape. The patient was transfer to their hospital bed and taken to the PACU in stable condition. The sponge and needle counts were correct. Post-op Instructions: The patient was re-admitted to Hospitalist service on the Med/Surg floor. The patient will be WBAT with a walker. The patient will be seen by PT/OT. Their labs will be checked in the am. DVT prophylaxis will include 81 mg ASA BID for 6 weeks, Teds for 3 weeks, SCDs while in the hospital. I attest to the content of the Intraoperative Record and any orders documented therein. Any exceptions are noted below.
--- NOTE | 2023-09-30 14:46 | Fluoroscopy Report ---
FL hip LT 2-3V CLINICAL HISTORY: LEFT HIP ORIF COMPARISON STUDY: None. FLUOROSCOPY TIME: 50 seconds. FLUOROSCOPY IMAGES: 2 Ka,r: 5.6 mGy FINDINGS: Status post internal fixation of the left femoral neck fracture with a dynamic hip screw. T he hardware appears intact. The alignment is anatomic. IMPRESSION: Fluoroscopic assistance as above. ACT 112: Negative or not required by law. Electronically signed by: Alex Dumas M.D. 09/30/2023 2:45 PM
[2023-09-30] MEDS: HYDROmorphone INJ 2 MG/ML SYR/VIAL IV PRN (14:54)
--- NOTE | 2023-09-30 14:56 | Operative Report ---
Post Operative Report Pre & Post Diagnosis Operation Date: 09/30/23 07:55 Pre-Op Diagnosis: Closed Left Hip Fracture Post-Op Diagnosis: Closed Left Hip Fracture I identified the patient and participated in the time-out.: Yes Procedure Operation Date: 09/30/23 07:55 Actual Procedures p Left Hip Open Reduction Internal Fixation(Left) - Guillermo Barnes MD Surgeon Guillermo Barnes MD Road Machine Runner A MD Armin Estimated Blood Loss 50 Findings Consistent with Post-Op Diagnosis Same as postoperative diagnosis. Specimens None Description of Procedure Please see detailed operative note. I attest to the content of the Intraoperative Record and any orders documented therein. Any exceptions are noted below.
--- NOTE | 2023-09-30 15:32 | Anesthesiology Progress Note ---
Date of Service September 30, 2023 Anesthesia Post Procedure Vital Signs Vital Signs: Temp Pulse Pulse Pulse Resp BP BP 09/30/23 15:30 97.5 F L 84 21 145/79 H 09/30/23 15:20 86 15 144/64 H 09/30/23 15:10 82 14 144/73 H 09/30/23 15:00 86 22 158/91 H 09/30/23 14:54 97.2 F L 83 20 163/78 H 09/30/23 11:56 98.4 F 62 18 121/65 09/30/23 07:23 09/30/23 07:03 97.3 F L 58 L 16 115/63 09/30/23 05:00 09/30/23 01:17 09/29/23 21:20 98.2 F 82 18 130/79 09/29/23 21:17 09/29/23 20:15 73 09/29/23 19:49 72 18 134/66 09/29/23 18:03 63 23 137/103 H 09/29/23 16:20 79 09/29/23 16:04 78 15 132/76 09/29/23 15:50 98.4 F 79 18 150/92 H Pulse Ox Pulse Ox O2 Del Method O2 Del Method O2 Flow Rate 09/30/23 15:30 94 Nasal Cannula 2 09/30/23 15:20 95 Nasal Cannula 2 09/30/23 15:10 92 Nasal Cannula 2 09/30/23 15:00 94 Nasal Cannula 3 09/30/23 14:54 94 Nasal Cannula 4 09/30/23 11:56 90 Room Air 09/30/23 07:23 Room Air 09/30/23 07:03 91 Room Air 09/30/23 05:00 92 Room Air 09/30/23 01:17 93 Room Air 09/29/23 21:20 92 Room Air 09/29/23 21:17 92 Room Air 09/29/23 20:15 09/29/23 19:49 95 09/29/23 18:03 95 Room Air 09/29/23 16:20 09/29/23 16:04 96 Room Air 09/29/23 15:50 94 Room Air Pain Intensity Left Hip: Pain Intensity: 8 Transfer of Care Handoff Completed per policy Notes Mental Status: alert / awake / arousable and participated in evaluation Patient Amnestic to Procedure: Yes Nausea / Vomiting: adequately controlled Pain: adequately controlled Airway Patency, RR, SpO2: stable & adequate BP & HR: stable & adequate Hydration State: stable & adequate Anesthetic Complications: no major complications apparent and Pt Satisfied with anesthetic care
[2023-09-30] MEDS ORDERED: bisacodyL 10 MG SUPP PR PRN (15:37)
[2023-09-30] MEDS ORDERED: NALOXONE HCL 0.4 MG/1 ML VIAL/CARP IV PRN (15:37)
[2023-09-30] MEDS ORDERED: METOCLOPRAMIDE HCL INJ 5 MG/ML 2 ML VIAL IV PRN (15:37)
[2023-09-30] MEDS ORDERED: MAGNESIUM HYDROXIDE SUSP 30 ML UDC PO PRN (15:37)
[2023-09-30] MEDS: SODIUM CHLORIDE 0.9% 1,000 ML IV SCH (15:51)
[2023-09-30] MEDS: DOCUSATE SODIUM 100 MG CAP PO SCH (20:20)
[2023-09-30] MEDS: SENNA 8.6 MG TAB PO SCH (20:21)
[2023-10-01] MEDS: MULTIVITAMIN TAB PO SCH (07:56)
[2023-10-01 08:03] LABS: Hematocrit (blood only) 36.4 % (42.0-52.0); Hemoglobin 11.9 g/dl (14.0-18.0); Mean Corpuscular Hemoglobin 28.7 pg (25.0-34.0); Mean Corpuscular Hgb Conc 32.7 g/dL (32.0-36.0); Mean Corpuscular Volume 87.7 fL (80.0-100.0); Mean Platelet Volume 11.3 fL (9.4-12.4); Platelet Count 163 K/uL (130-400); RDW Coefficient of Variation 14.5 % (11.5-14.5); RDW Standard Deviation 46.5 fL (36.4-46.3); Red Blood Count 4.15 M/uL (4.70-6.10); White Blood Count 12.51 K/ul (4.8-10.8)
[2023-10-01 08:15] LABS: BUN Creatinine Ratio 17.7 (10-20); Calcium 8.5 mg/dl (8.6-10.3); Creatinine Clr Calc Pharmacy 88.3 ml/min; Est GFR (African American) 106.2 ml/min; Est GFR (Non-African American) 91.6 ml/min; Potassium 3.9 mmol/L (3.5-5.1)
--- NOTE | 2023-10-01 08:17 | Orthopedic Progress Note ---
Date of Service October 01, 2023 Assessment & Plan (1) Closed left hip fracture: Plan: POD #1 s/p ORIF left hip fracture, doing as well as expected. Resume diet. WBAT with walker. OOB to chair. Continue pain control. Check labs tomorrow. DVT prophylaxis: TEDs 3 weeks, foot pumps while in hospital, ASA 81 mg BID for 6 weeks. PT/OT. D/C planning. Continue care per primary service Admission and Anticipated Discharge Date Admission Date: September 29, 2023 Subjective Feeling much better. Was able to get up and use walker overnight. Physical Exam Physical Exam: LLE: 2+ DP pulse, sensation to Light touch intact distally, Motor gastroc s oleus, Tib ant, EHL 5/5. Calf soft & non-tender. Dressing clean, dry, intact. Results & Data Vital Signs (Past 12 Hours) Vital Signs Temp Pulse Pulse Resp BP Pulse Ox Pulse Ox 10/01/23 07:58 36.5 C 58 L 20 128/54 L 92 10/01/23 04:29 93 10/01/23 04:28 94 10/01/23 03:33 36.3 C L 66 16 121/55 L 95 09/30/23 22:11 94 09/30/23 22:10 36.8 C 74 18 125/64 90 O2 Del Method O2 Del Method O2 Flow Rate 10/01/23 07:58 Room Air 10/01/23 04:29 Room Air 10/01/23 04:28 Room Air 10/01/23 03:33 Nasal Cannula 1 09/30/23 22:11 Nasal Cannula 1 09/30/23 22:10 Room Air Laboratory Results Laboratory Results WBC 12.51 K/ul (4.8-10.8) H 10/01/23 07:20 RBC 4.15 M/uL (4.70-6.10) L 10/01/23 07:20 Hgb 11.9 g/dl (14.0-18.0) L 10/01/23 07:20 Hct 36.4 % (42.0-52.0) L 10/01/23 07:20 MCV 87.7 fL (80.0-100.0) 10/01/23 07:20 MCH 28.7 pg (25.0-34.0) 10/01/23 07:20 MCHC 32.7 g/dL (32.0-36.0) 10/01/23 07:20 RDW Std Deviation 46.5 fL (36.4-46.3) H 10/01/23 07:20 RDW Coeff of Ml 14.5 % (11.5-14.5) 10/01/23 07:20 Plt Count 163 K/uL (130-400) 10/01/23 07:20 MPV 11.3 fL (9.4-12.4) 10/01/23 07:20 Immature Gran % (Auto) 0.3 % 09/29/23 16:05 Neut % (Auto) 64.8 % 09/29/23 16:05 Lymph % (Auto) 24.0 % 09/29/23 16:05 [place] % (Auto) 9.4 % 09/29/23 16:05 Eos % (Auto) 1.1 % 09/29/23 16:05 Baso % (Auto) 0.4 % 09/29/23 16:05 Neut # (Auto) 5.84 K/uL (1.40-6.50) 09/29/23 16:05 Lymph # (Auto) 2.17 K/uL (1.20-3.40) 09/29/23 16:05 [place] # (Auto) 0.85 K/uL (0.11-0.59) H 09/29/23 16:05 Eos # (Auto) 0.10 K/uL (0.00-0.50) 09/29/23 16:05 Baso # (Auto) 0.04 K/uL (0.00-0.20) 09/29/23 16:05 Immature Gran # (Auto) 0.03 K/uL (0.01-0.20) 09/29/23 16:05 Sodium 139 mmol/L (136-145) 10/01/23 07:20 Potassium 3.9 mmol/L (3.5-5.1) 10/01/23 07:20 Chloride 107 mmol/L (98-107) 10/01/23 07:20 Carbon Dioxide 28 mmol/L (21-32) 10/01/23 07:20 Anion Gap 4 (3-11) 10/01/23 07:20 BUN 14 mg/dl (6-23) 10/01/23 07:20 Creatinine 0.79 mg/dl (0.6-1.4) 10/01/23 07:20 Est Cr Clr Drug Dosing 88.3 ml/min 10/01/23 07:20 Est GFR ( Amer) 106.2 ml/min 10/01/23 07:20 Est GFR (Non-Af Amer) 91.6 ml/min 10/01/23 07:20 BUN/Creatinine Ratio 17.7 (10-20) 10/01/23 07:20 Glucose 124 mg/dl (70-99(Fasting)) H 10/01/23 07:20 Calcium 8.5 mg/dl (8.6-10.3) L 10/01/23 07:20 Impressions Hip/Pelvis X-Ray 09/29/23 15:56 XR hip LT 2V w pelvis HISTORY: 68 years-old Male Left hip pain after fall acute left hip pain status post fall COMPARISON: 07/31/2015 TECHNIQUE: AP view of the pelvis with 2 views of the left hip FINDINGS: Mild osteoarthritis of the hips. No acute fracture or dislocation. Unremarkable soft tissues. IMPRESSION: No acute fracture or dislocation ACT 112: Negative or not required by law. The above report was generated using voice recognition software. It may contain grammatical, syntax or spelling errors. Electronically signed by: Robin Salas M.D. 09/29/2023 4:[address] 09/29/23 16:21 CT pelvis w/IV con only HISTORY: 68 years-old Male Hip/pubic rami fx, L hip pain acute left-sided hip pain COMPARISON: Radiographs of same day, pelvis radiographs 07/31/2015 TECHNIQUE: Multiple axial CT images of the pelvis were obtained with IV contrast. A dose lowering technique was used consistent with the principals of KARINA. . FINDINGS: There is severe atherosclerosis of the aorta and iliac arteries. There is a 3 cm segment of high-grade stenosis/occlusion involving the proximal to mid aspect of the right common iliac artery which demonstrates fusiform dilation measuring up to 1.8 cm. There is distal reconstitution of flow within the iliac bifurcation. Prostatomegaly. Urinary bladder wall thickening with partial distention. Colonic diverticulosis. Moderate fecal retention. Normal appendix. No free fluid. Demineralized appearance of the bones. Moderate to severe lower lumbar facet arthrosis. Mild to moderate degeneration of the SI joints. Mild osteoarthritis of the femoral acetabular joints. No acute displaced fracture, dislocation or avascular necrosis. There is however acute nondisplaced left femoral neck fracture remaining which is predominantly transcervical and best seen on the coronal images. IMPRESSION: 1. Radiographically occult subtle acute nondisplaced transcervical left femoral fracture. 2. No additional acute fracture or dislocation. 3. 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 ACT 112: Negative or not required by law. The above report was generated using voice recognition software. It may contain grammatical, syntax or spelling errors. Hip X-Ray 09/30/23 00:00 FL hip LT 2-3V CLINICAL HISTORY: LEFT HIP ORIF COMPARISON STUDY: None. FLUOROSCOPY TIME: 50 seconds. FLUOROSCOPY IMAGES: 2 Ka,r: 5.6 mGy FINDINGS: Status post internal fixation of the left femoral neck fracture with a dynamic hip screw. The hardware appears intact. The alignment is anatomic. IMPRESSION: Fluoroscopic assistance as above. ACT 112: Negative or not required by law. Electronically signed by: Alex Dumas M.D. 09/30/2023 2:45 PM
[2023-10-01] MEDS: ALBUTEROL HFA 8 GM INHALER INH PRN (12:57)
--- NOTE | 2023-10-01 14:35 | Hospitalist Progress Note ---
Date of Service October 01, 2023 Assessment & Plan (1) Fall: (2) Closed left hip fracture: (3) Opioid dependence: (4) COPD (chronic obstructive pulmonary disease): (5) Tobacco use: Plan 68 year old male who sustained left hip fracture after a mechanical fall and planned for OR today by ortho. CT as below. CT pelvis 1. Radiographically occult subtle acute nondisplaced transcervical left femoral fracture. 2. No additional acute fracture or dislocation. 3. 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 Closed left hip fracture s/p ORIF left hip by Dr Barnes 09/29- seen by ortho. Recommendations noted. Started on sc lovenox inhouse for DVT ppx. Continue pain regiment, bowel regimen Opioid dependence- on suboxone COPD- no exacerbation. Not on oxygen. On trelegy Tobacco abuse- smokes 8-10 cigarettes/day. recommended quitting. Declined nicoderm patch Right common iliac artery aneurysmal dilatation- seen in CT- details above. Admitting team spoke with vascular and cleared for surgery. OP follow up with vascular surgery. DVT ppx- sc lovenox Dispo- PT OT eval. Will need rehab. Stable. Time spent- approx 35 mins Admission and Anticipated Discharge Date Admission Date: September 29, 2023 Subjective Patient was seen and examined at bedside. He states still with significant pain but better than yesterday. Worked with physical therapy and it was painful. He is looking forward to going to [facility] tomorrow. No fever, chills, CP, SOB, N/V. Review of Systems Review of Systems: All systems reviewed & are unremarkable except as noted in Subjective Physical Exam Physical Exam: General: Lying comfortably in bed, not in acute distress, on room air HEENT: KEMAL, MMM Chest: Clear breath sounds bilaterally, no wheezes or crackles CVS: Regular rate and rhythm, normal heart sounds, no murmur Abdomen: Soft, non tender, not distended, normal bowel sounds Neuro: Awake, alert, oriented, conversing well Extremities: Left hip incision site covered with dressing Results & Data Results & Data Vital Signs (Past 12 Hours) Vital Signs Temp Pulse Pulse Resp BP Pulse Ox Pulse Ox 10/01/23 12:59 70 16 93 10/01/23 11:45 36.5 C 66 20 122/68 92 10/01/23 08:40 10/01/23 08:40 92 10/01/23 07:58 36.5 C 58 L 20 128/54 L 92 10/01/23 04:29 93 10/01/23 04:28 94 10/01/23 03:33 36.3 C L 66 16 121/55 L 95 O2 Del Method O2 Del Method O2 Flow Rate 10/01/23 12:59 Room Air 10/01/23 11:45 Room Air 10/01/23 08:40 Room Air 10/01/23 08:40 Room Air 10/01/23 07:58 Room Air 10/01/23 04:29 Room Air 10/01/23 04:28 Room Air 10/01/23 03:33 Nasal Cannula 1 Laboratory Results Short CBC 10/01/23 Range/Units 07:20 WBC 12.51 H (4.8-10.8) K/ul Hgb 11.9 L (14.0-18.0) g/dl Hct 36.4 L (42.0-52.0) % Plt Count 163 (130-400) K/uL BMP 10/01/23 07:20 Sodium 139 Potassium 3.9 Chloride 107 Carbon Dioxide 28 BUN 14 Creatinine 0.79 Glucose 124 H Calcium 8.5 L
[2023-10-01] MEDS ORDERED: ENOXAPARIN INJ 40 MG/0.4 ML SYR SQ SCH (14:45)
[2023-10-01] MEDS: ENOXAPARIN INJ 40 MG/0.4 ML SYR SQ SCH (15:14)
[2023-10-02 06:58] LABS: Hematocrit (blood only) 34.8 % (42.0-52.0); Hemoglobin 11.4 g/dl (14.0-18.0); Mean Corpuscular Hemoglobin 28.3 pg (25.0-34.0); Mean Corpuscular Hgb Conc 32.8 g/dL (32.0-36.0); Mean Corpuscular Volume 86.4 fL (80.0-100.0); Mean Platelet Volume 11.7 fL (9.4-12.4); Platelet Count 182 K/uL (130-400); RDW Coefficient of Variation 14.7 % (11.5-14.5); Red Blood Count 4.03 M/uL (4.70-6.10); White Blood Count 10.11 K/ul (4.8-10.8)
[2023-10-02 07:29] LABS: BUN Creatinine Ratio 13.8 (10-20); Calcium 8.3 mg/dl (8.6-10.3); Creatinine Clr Calc Pharmacy 87.1 ml/min; Est GFR (African American) 105.6 ml/min; Est GFR (Non-African American) 91.1 ml/min; Potassium 3.7 mmol/L (3.5-5.1)
--- NOTE | 2023-10-02 08:29 | Orthopedic Progress Note ---
Date of Service October 02, 2023 Assessment & Plan (1) Closed left hip fracture: Plan: The patient was educated regarding today's findings. His left hip dressing was changed today. Continue PT. Weight-bear as tolerated. Continue Lovenox for anticoagulation. Awaiting determination from his [facility] Continue ice application for pain control. Admission and Anticipated Discharge Date Admission Date: September 29, 2023 Subjective This 68-year-old male is seen today in his room. He is 2 days status post left hip ORIF. He is doing well this morning. He states his pain is controlled. He is currently eating breakfast. He denies any chest pain, shortness of breath, nausea, vomiting, or abdominal pain. No numbness or tingling. He has been out of bed to go to the bathroom as well as walk to the hallway. Physical Exam Physical Exam: General: Well-developed, well-nourished, middle-aged male, in no acute distress. Laying in bed. Alert and oriented. Skin: Warm and dry with good turgor. No rashes. Postsurgical dressing is in place on the left hip. Upon removal, his Zipline is in place. Wound edges are well-approximated. There is scant dried blood on his inner dressings. No active bleeding. Expected postoperative edema. Minimal ecchymosis. Musculoskeletal: Left hip evaluation reveals no obvious deformity. He has minimal discomfort with logrolling of the hip as well as passive flexion and extension of the hip. He has active flexion and extension of the knee and ankle without discomfort. Neurologic: Gross sensation is intact across the left leg by soft touch. Peripheral pulses are 2+. Results & Data Vital Signs (Past 12 Hours) Vital Signs Temp Pulse Resp BP Pulse Ox O2 Del Method 10/02/23 07:18 36.6 C 59 L 16 106/59 L 96 Room Air 10/01/23 20:34 72 19 93 Room Air Laboratory Results CBC obtained today shows a white count of 10.1. H&H of 11.4 and 34.8. Platelets 182,000. Sodium 140, potassium 3.7, chloride 106. BUN 11 and creatinine 0.8. Glucose this morning is 94. (1) Closed left hip fracture Encounter type: subsequent encounter Fracture healing: with routine healing Qualified Code(s): S72.002D - Fracture of unspecified part of neck of left femur, subsequent encounter for closed fracture with routine healing
[2023-10-02] MEDS: bisacodyL 10 MG SUPP PR STA (11:45)
[2023-10-02] MEDS: POLYETHYLENE (MIRALAX) 17 GM PACK PO ONE (12:45)
--- NOTE | 2023-10-02 15:56 | Hospitalist Progress Note ---
Date of Service October 02, 2023 Assessment & Plan (1) Fall: (2) Closed left hip fracture: (3) Opioid dependence: (4) COPD (chronic obstructive pulmonary disease): (5) Tobacco use: Plan 68 year old male who sustained left hip fracture after a mechanical fall and planned for OR today by ortho. CT as below. CT pelvis 1. Radiographically occult subtle acute nondisplaced transcervical left femoral fracture. 2. No additional acute fracture or dislocation. 3. 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 Closed left hip fracture s/p ORIF left hip by Dr Barnes 09/29- seen by ortho. Recommendations noted. Started on sc lovenox inhouse for DVT ppx. Continue pain regiment, bowel regimen. ASA 81 mg bid to complete 6 weeks dvt px on discharge. TEDs for DVT Px. P2P declined, pt agreeable to other options, CM aware, working on placement. Opioid dependence- on suboxone COPD- no exacerbation. Not on oxygen. On trelegy Tobacco abuse- smokes 8-10 cigarettes/day. recommended quitting. Declined nicoderm patch Right common iliac artery aneurysmal dilatation- seen in CT- details above. Admitting team spoke with vascular and cleared for surgery. OP follow up with vascular surgery. DVT ppx- sc lovenox Dispo- PT OT eval. Will need rehab. Stable. Time spent- approx 55 mins Admission and Anticipated Discharge Date Admission Date: September 29, 2023 Subjective Patient was seen and examined at bedside. Patient was lying in bed, on room air, NAD. He reports ongoing pain at operative site but fairly under control with pain medication. Reports working with physical therapy is painful. He denies any fever or chills or shortness of breath or chest pain or nausea or vomiting. He reports eating okay and moving bowels 3 days ago. Bowel regimen added. Physical Exam Physical Exam: General: Lying comfortably in bed, not in acute distress, on room air HEENT: KEMAL, MMM Chest: Clear breath sounds bilaterally, no wheezes or crackles CVS: Regular rate and rhythm, normal heart sounds, no murmur Abdomen: Soft, non tender, not distended, normal bowel sounds Neuro: Awake, alert, oriented, conversing well Extremities: Left hip incision site covered with dressing Results & Data Results & Data Vital Signs (Past 12 Hours) Vital Signs Temp Pulse Resp BP BP Pulse Ox O2 Del Method 10/02/23 15:23 36.7 C 74 18 120/60 94 Room Air 10/02/23 12:50 77 16 92 Room Air 10/02/23 08:45 Room Air 10/02/23 07:18 36.6 C 59 L 16 106/59 L 96 Room Air (2) Closed left hip fracture Encounter type: subsequent encounter Fracture healing: with routine healing Qualified Code(s): S72.002D - Fracture of unspecified part of neck of left femur, subsequent encounter for closed fracture with routine healing
--- NOTE | 2023-10-03 09:50 | Orthopedic Progress Note ---
Date of Service October 03, 2023 Assessment & Plan (1) Closed left hip fracture: Plan: The patient was educated regarding today's findings. His hip dressing was changed to a Silverlon dressing by me. This can stay in place until he is seen in the office in 2 weeks. He may shower over top of the Silverlon. Continue with ice, participation in PT, and Lovenox for anticoagulation. Awaiting insurance authorization for placement. We will continue to follow through the weekend until he receives placement. Admission and Anticipated Discharge Date Admission Date: September 29, 2023 Supervising Physician Co-Signing Physician Notes I, Dr. Barnes, saw and examined the patient. I discussed the management with my PA. I reviewed my PAs note and agree with the documented findings and attest to completing the substantive portion of medical decision making and plan of care I developed. Subjective This 68-year-old male is seen today in his room. He is 3 days status post ORIF of the left hip. He states the hip is still painful. He is currently laying in bed and has finished his breakfast. He denies any shortness of breath, chest pain, nausea, or vomiting. He has been out of bed and participated in physical therapy. He is hoping to be discharged to a rehab facility today. Physical Exam Physical Exam: General: Well-developed, well-nourished, middle-aged male, in no acute distress. Laying in bed. Alert and oriented. Skin: Warm and dry with good turgor. No rashes. Postsurgical dressing is in place on the left hip. Upon removal, his Zipline is in place. Wound edges are well-approximated. There is no blood on his inner dressings. No active bleeding. Expected postoperative edema. Minimal ecchymosis. Musculoskeletal: Left hip evaluation reveals no obvious deformity. He has considerable discomfort with logrolling of the hip as well as passive flexion and extension of the hip. He has active flexion and extension of the knee and ankle with hip discomfort. Neurologic: Gross sensation is intact across the left leg by soft touch. Peripheral pulses are 2+. Results & Data Vital Signs (Past 12 Hours) Vital Signs Temp Pulse Resp BP Pulse Ox O2 Del Method 10/03/23 07:46 36.8 C 64 17 112/68 92 Room Air (1) Closed left hip fracture Encounter type: subsequent encounter Fracture healing: with routine healing Qualified Code(s): S72.002D - Fracture of unspecified part of neck of left femur, subsequent encounter for closed fracture with routine healing
--- NOTE | 2023-10-03 16:27 | Hospitalist Progress Note ---
Date of Service October 03, 2023 Assessment & Plan (1) Fall: (2) Closed left hip fracture: (3) Opioid dependence: (4) COPD (chronic obstructive pulmonary disease): (5) Tobacco use: Plan 68 year old male who sustained left hip fracture after a mechanical fall and planned for OR today by ortho. CT as below. CT pelvis 1. Radiographically occult subtle acute nondisplaced transcervical left femoral fracture. 2. No additional acute fracture or dislocation. 3. 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 Closed left hip fracture s/p ORIF left hip by Dr Barnes 09/29- seen by ortho. Recommendations noted. Started on sc lovenox inhouse for DVT ppx. Continue pain regiment, bowel regimen. ASA 81 mg bid to complete 6 weeks dvt px on discharge. TEDs for DVT Px. Pt would like to be dc'd [facility]. Opioid dependence- on suboxone COPD- no exacerbation. Not on oxygen. On trelegy Tobacco abuse- smokes 8-10 cigarettes/day. recommended quitting. Declined nicoderm patch Right common iliac artery aneurysmal dilatation- seen in CT- details above. Admitting team spoke with vascular and cleared for surgery. OP follow up with vascular surgery. DVT ppx- sc lovenox Dispo- PT OT eval. to [facility]. Time spent- approx 50 mins Admission and Anticipated Discharge Date Admission Date: September 29, 2023 Subjective Patient was seen and examined at bedside. Patient was lying in bed, on room air, NAD. He reports ongoing pain at operative site but fairly under control with pain medication. Reports working with physical therapy is painful. He denies any fever or chills or shortness of breath or chest pain or nausea or vomiting. He reports eating okay and moving bowels ok. cw Bowel regimen. Physical Exam Physical Exam: General: Lying comfortably in bed, not in acute distress, on room air HEENT: KEMAL, MMM Chest: Clear breath sounds bilaterally, no wheezes or crackles CVS: Regular rate and rhythm, normal heart sounds, no murmur Abdomen: Soft, non tender, not distended, normal bowel sounds Neuro: Awake, alert, oriented, conversing well Extremities: Left hip incision site covered with dressing Results & Data Results & Data Vital Signs (Past 12 Hours) Vital Signs Temp Pulse Pulse Resp BP BP Pulse Ox 10/03/23 15:23 36.7 C 63 18 147/71 H 94 10/03/23 11:36 36.6 C 75 18 136/62 96 10/03/23 07:46 36.8 C 64 17 112/68 92 O2 Del Method 10/03/23 15:23 Room Air 10/03/23 11:36 Room Air 10/03/23 07:46 Room Air (2) Closed left hip fracture Encounter type: subsequent encounter Fracture healing: with routine healing Qualified Code(s): S72.002D - Fracture of unspecified part of neck of left femur, subsequent encounter for closed fracture with routine healing
[2023-10-03] MEDS: DICLOFENAC SOD 1% GEL 100 GM TUBE EXT PRN (21:56)
--- NOTE | 2023-10-04 10:37 | Discharge Summary ---
Date of Service October 04, 2023 Admission HPI Per Admitting Provider This is a 68-year-old male with PMH of COPD, ongoing tobacco use, history of opioid dependence on Suboxone and other medical problems listed below who presents to ED for left hip pain after fall. Was helping a friend do outdoor work and was walking down her driveway with a steep incline and tripped when he got to the bottom, landing on his left side. Denies any head trauma or loss of consciousness. Persistent left-sided hip pain on the anterior side. History of opioid abuse years ago but has been maintained on Suboxone. Follows with [facility] for this. Denies any recent illness. No fever, chills, lightheadedness, chest pain, shortness of breath, nausea, vomiting, abdominal pain, dysuria, diarrhea or constipation. Admission Exam Per Admitting Provider General Appearance: WD/WN, vitals as above, NAD, sitting up in bed, pleasant, conversing easily Head: normocephalic, atraumatic Eyes: normal inspection, PERRL, conjunctivae normal, anicteric sclerae ENT: external ear and nose normal, oropharynx normal Neck: normal visual inspection, trachea midline, no thyromegaly Respiratory: normal respiratory effort, lungs clear to auscultation, no wheeze, rales, rhonchi. No accessory muscle use Cardiovascular: regular rate, rhythm, normal peripheral pulses, no BLE edema. Vessels: no JVD Chest: normal inspection of chest Abdomen/GI: normal bowel sounds, soft, nontender, no hepatosplenomegaly Extremities/Musculoskeletal: LLE shortened. TTP on anterior aspect of L hip extending laterally. NVI distally on LLE. No cyanosis or clubbing, extremities motor strength 5/5 Neurologic: PERRL, EOMI, accommodation nl, no face palsy, no dysarthria, CN's II-XI intact bilaterally and moves all extremities Psychiatric: A+Ox3, euthymic affect Skin: no rashes, normal color, warm/dry Principal Diagnosis Left hip s/p ORIF Discharge Exam General: Lying comfortably in bed, not in acute distress, on room air HEENT: KEMAL, MMM Chest: Clear breath sounds bilaterally, no wheezes or crackles CVS: Regular rate and rhythm, normal heart sounds, no murmur Abdomen: Soft, non tender, not distended, normal bowel sounds Neuro: Awake, alert, oriented, conversing well Extremities: Left hip incision site covered with dressing Discharge Data Allergies Allergy/AdvReac Type Severity Reaction Status Date / Time No Known Allergies Allergy Unknown Verified 04/21/22 01:45 Consultations 09/29/23 19:11 ED Decision to Admit Stat 09/29/23 19:24 Consult Orthopedic Surgery Routine 09/29/23 21:17 Consult Anesthesiology Routine Procedures Performed Operation Date: 09/30/23 07:55 Actual Procedures p Left Hip Open Reduction Internal Fixation(Left) - Guillermo Dusty Barnes MD Ordered Studies 09/29/23 16:21 CT pelvis w/IV con only Urgent 09/30/23 FL hip LT 2-3V Routine Hospital Course (1) Fall: (2) Closed left hip fracture: (3) Opioid dependence: (4) COPD (chronic obstructive pulmonary disease): (5) Tobacco use: Plan 68 year old male who sustained left hip fracture after a mechanical fall and planned for OR today by ortho. CT as below. CT pelvis 1. Radiographically occult subtle acute nondisplaced transcervical left femoral fracture. 2. No additional acute fracture or dislocation. 3. 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 Closed left hip fracture s/p ORIF left hip by Dr Barnes 09/29- seen by ortho. Recommendations noted. Started on sc lovenox inhouse for DVT ppx. Continue pain regiment, bowel regimen. ASA 81 mg bid to complete 6 weeks dvt px on discharge. TEDs for DVT Px. Pt to f/u w ortho in 1-2 weeks of discharge. Opioid dependence- on suboxone COPD- no exacerbation. Not on oxygen. On trelegy Tobacco abuse- smokes 8-10 cigarettes/day. recommended quitting. Declined nicoderm patch Right common iliac artery aneurysmal dilatation- seen in CT- details above. Admitting team spoke with vascular and cleared for surgery. OP follow up with vascular surgery. Pt has been made aware. DVT ppx- sc lovenox Dispo- PT OT eval. to [facility]. Following instructions were communicated to the patient at the point of discharge: Follow-up with your primary care physician within a week time and likely you will need labs CBC/CMP/magnesium/phosphorus. Follow-up with orthopedics in about 1 to 2 weeks upon discharge. you are being discharged on baby aspirin twice a day for total of 6 weeks after the surgery. Also utilize LETI stockings for total of 3 weeks after surgery. Continue with incentive spirometer until your mobility gets better. Recommend that you quit tobacco and alcohol use. It is very important for your bone health. For your right common iliac artery aneurysmal dilatation, you will need outpatient vascular surgery follow-up. Coordinate with the PCP office to set up the referral. Take your medications as prescribed. Please make sure that you are able to get your medications today by calling your pharmacy before you leave the hospital so that your treatment continuity is not broken. Home Health Attestation I certify that this patient is under my care and that I, or a physicians operations administrative assistant working with me, had a face to-face encounter that meets the home health maol-lc-syol encounter requirements with this patient. The encounter with the patient was in whole, or in part, for the following medical condition, which is the primary reason for home health care (list medical condition): I certify that, based on my findings, the following services are medically necessary home health services: My clinical findings support the need for the above services because: Further, I certify that my clinical findings support that this patient is homebound (i.e. absences from home require considerable and taxing effort and are for medical reasons or scientology services or infrequently or of short duration when for other reasons) because: Certification for Home Health Services: Based on the above findings, I certify that this patient is confined to the home and needs intermittent intermediate care, physical therapy and/or speech therapy or continues to need occupational therapy. The patient is under my care, and I have initiated the establishment of the plan of care. This patient will be followed by a physician who will periodically review the plan of care. Total Time Total Time Spent Total Time Spent (In Minutes): 45 Discharge Plan Discharge Items Patient Disposition: Transfer [facility] Reason For Visit: L HIP FRACTURE Discharge Diagnosis: Left hip s/p ORIF Condition on Discharge: Good Activity: Per Instructions section Lifting: Wait until after follow-up appointment Bathing: Keep incision dry Bathing Comment: may shower over the Silverlon dressing Sexual Activity: Wait until after follow-up appointment Exercise/Sports: Wait until after follow-up appointment Weightbearing: Full weightbearing Weightbearing Comment: with walker Non-emergency contact: Surgeon Call non-emergency contact if: you have any medication questions, your symptoms worsen, your pain is not controlled, your temperature is above 101, your wound has increased redness and your wound has increased drainage Follow-up/Referrals: Petros Sauceda PA-C [Physician Men'S Designer] - 10/14/23 2:00 pm PCP,NO [Primary Care Provider] - Diet: Regular Addtl Attending Provider Instructions: Follow-up with your primary care physician within a week time and likely you will need labs CBC/CMP/magnesium/phosphorus. Follow-up with orthopedics in about 1 to 2 weeks upon discharge. you are being discharged on baby aspirin twice a day for total of 6 weeks after the surgery. Also utilize LETI stockings for total of 3 weeks after surgery. Continue with incentive spirometer until your mobility gets better. Recommend that you quit tobacco and alcohol use. It is very important for your bone health. For your right common iliac artery aneurysmal dilatation, you will need outpatient vascular surgery follow-up. Coordinate with the PCP office to set up the referral. Take your medications as prescribed. Please make sure that you are able to get your medications today by calling your pharmacy before you leave the hospital so that your treatment continuity is not broken. Addtl Wood Molder Provider Instructions: Orthopedic Instructions: - You may weight-bear as tolerated on your left leg with the assistance of a walker at all times. - No hip precautions are necessary. - May do full range of motion of all lower extremity joints in his left lower extremity. - Physical therapy and/or occupational therapy. - Keep Silverlon dressing in place. Keep it clean and dry until your first postoperative appointment at 2 weeks. - LETI stockings on during the day, off at night for 3 weeks after surgery. - Aspirin 81 mg twice daily for 6 weeks after surgery. This is for DVT prophylaxis. - Ice to left hip as needed for pain and swelling. - Elevate left lower extremity as needed for pain and swelling. - Follow-up with Dr. Barnes/[facility] orthopedics at 2 weeks postop for staple removal and dressing change. - Pain medication as prescribed. You may use Tylenol for mild pain 1000 mg every 8 hours. Narcotic pain medication as needed. - If constipated may need Colace 100 mg twice daily ([id number]) while on pain medication. This is a stool softener. If unable to go may need something like Senokot or Dulcolax. Both are [id number]. - Call [phone] with any increased pain, swelling, fevers, chills or drainage from your incision. Pending Studies at Discharge: No Stand-Alone Forms: My [facility] Skilled Items Patient informed of condition?: Yes DNR: No Discharge Level of Care: Skilled Communicable Disease: No Discharge Prognosis: Stable Lines: None Urinary Catheter: No Medications and DC Order Prescriptions: New oxycodone 5 mg tablet 5 mg PO Q6H PRN (Reason: pain) Qty: 12 0RF Rx Instructions: initial script diclofenac sodium [Voltaren Arthritis Pain] 1 % Gel 2 g EXT Q6H PRN (Reason: joint pain) Qty: 100 0RF aspirin 81 mg tablet,delayed release (DR/EC) 81 mg PO BID 38 Days Qty: 76 0RF Continued buprenorphine-naloxone 8-2 mg tablet, sublingual 1 tab SUBLINGUAL TID albuterol sulfate [Ventolin HFA] 90 mcg/actuation Hfa Aerosol Inhaler 2 puff inhalation QIDR PRN (Reason: shortness of breath or wheezing) Qty: 8.5 0RF levalbuterol HCl 1.25 mg/0.5 mL Solution For Nebulization 1.25 mg inhalation Q8H PRN (Reason: shortness of breath or wheezing) Qty: 30 0RF Rx Instructions: For moderate to severe shortness of breath and wheezing Trelegy Ellipta 200-62.5-25 mcg blister with device 1 inh INHALATION QAM Held naproxen 500 mg Tablet 500 mg PO BID PRN (Reason: Pain) Hold Instructions: Resume on 10/25/23. Discharge Orders: Discharge Order (Routine); Ordered 10/04/23 Ordered By: Phil Chery Admission Data Admit Date/Time: 09/29/23 19:24 Attending Provider: Phil Chery Admit Provider: Allison Floyd Primary Care Provider: PCP,NO Other Providers: Allison Floyd; Guillermo Barnes; Nino Kohli; [facility]; [place] Other Interventions: Discharge Summary Assessment (RN) Last Done: 10/04/23 10:06
--- NOTE | 2023-10-04 12:28 | Orthopedic Progress Note ---
Date of Service October 04, 2023 Assessment & Plan (1) Closed left hip fracture: Plan: The patient was educated regarding today's findings. He can leave the Silverlon dressing in place. He may shower over it. Continue with physical therapy. Follow-up in the office with me on October 13 for Zipline removal. He was reassured that his hip pain should get better with time, especially over the next few days. I find no evidence for infection. Continue with his aspirin twice daily for DVT prophylaxis. Call the [facility] orthopedics and sports medicine office with any other concerns. Admission and Anticipated Discharge Date Admission Date: September 29, 2023 Subjective This 68-year-old male seen today in his room. He is 4 days status post left hip ORIF. The patient will be departing for center care later this morning. He is currently eating breakfast. He denies any current hip pain at this time. He states the pain does increase with attempts at motion of the hip. No new complaints. Physical Exam Physical Exam: General: Well-developed, well-nourished, middle-aged male, in no acute distress. Eating his breakfast. Alert and oriented. Skin: Warm and dry with good turgor. No significant edema or ecchymosis present at the left hip. His Silverlon dressing is in place and is dry. Musculoskeletal: The patient has intact motor function of his left knee, ankle, and toes. Passive and active motion of his left hip causes increased pain. He is also tender with palpation around the surgical site. Neurologic: Gross sensation is intact across the left leg by soft touch. Peripheral pulses are 2+. Results & Data Vital Signs (Past 12 Hours) Vital Signs Temp Pulse Resp BP Pulse Ox O2 Del Method 10/04/23 07:05 36.6 C 62 14 127/70 94 Room Air (1) Closed left hip fracture Encounter type: subsequent encounter Fracture healing: with routine healing Qualified Code(s): S72.002D - Fracture of unspecified part of neck of left femur, subsequent encounter for closed fracture with routine healing
== END 2023-10-04 11:32 | DRG 481 ==
LOC: ED 15:46 → SUATTDRO 19:24 → 3W 19:24

== ENCOUNTER 2024-10-22 13:53 | Inpatient (IN) ==
[2024-10-22] MEDS: DIPHTHER/TETAN/PERTUS Vaccine (Tdap, Adol/Adult) 0.5mL IM ONE (14:51)
[2024-10-22] MEDS: SODIUM CHLORIDE 0.9% 1,000 ML IV SCH ×2 (14:51→17:56)
[2024-10-22] MEDS: ACETAMINOPHEN 1,000 MG/100 ML VIAL IV STA (14:51)
[2024-10-22 14:56] LABS: Hematocrit (blood only) 41.8 % (42.0-52.0); Hemoglobin 13.5 g/dl (14.0-18.0); Immature Granulocytes # (auto) 0.02 K/uL (0.01-0.20); Immature Granulocytes % (auto) 0.2 %; Mean Corpuscular Hemoglobin 27.5 pg (25.0-34.0); Mean Corpuscular Volume 85.1 fL (80.0-100.0); Platelet Count 224 K/uL (130-400); RDW Standard Deviation 46.9 fL (36.4-46.3); Red Blood Count 4.91 M/uL (4.70-6.10); White Blood Count 8.58 K/ul (4.8-10.8)
--- NOTE | 2024-10-22 15:08 | XRay Report ---
XR chest 1V portable CLINICAL HISTORY: Trauma COMPARISON STUDY: 09/29/2023 FINDINGS: Heart size and pulmonary vasculature are normal. No consolidation or pleural effusion. No p neumothorax. No grossly displaced rib fracture seen. IMPRESSION: No acute findings. ACT 112: Negative or not required by law. Electronically signed by: Yovanny Velazquez M.D. 10/22/2024 3:07 PM
[2024-10-22] MEDS: OPTIRAY 320 100ml IV ONE (15:15)
--- NOTE | 2024-10-22 15:17 | Emergency Department Note ---
Impression & Plan Slurred speech, Weakness, Falling, Rhabdomyolysis ED Provider Note NAME: KAVITHA HUDSON AGE: 69 SEX: M : 1955 ARRIVES VIA: Ambulance INFORMANT: [Patient][nursing] ED PROVIDER(S): [Casey Valles MD] CHIEF COMPLAINT: Trauma HISTORY OF PRESENT ILLNESS: Patient is a 69-year-old male who was found on the floor of his home. The patient has been falling frequently. He is covered in scrapes and bruises. The patient is a very poor historian, as to how long he has been on the floor is unclear. Currently, he hurts everywhere from falling, he is not short of breath. There is no chest pain. He denies current alcohol abuse. PMHx/PSHx/Social Hx: See Below PHYSICAL EXAM: Primary Survey Airway: Intact Breathing: Breath sounds equal bilaterally. No respiratory distress Circulation: Skin warm, capillary refill less than 2 seconds Disability: Pupils equal and reactive to light Motor Function: Moves all extremities. Sensory: No deficits Secondary Survey GEN: Well developed and well-nourished HEAD: There are multiple abrasions about the head and face. EYES: Pupils round and reactive to light, conjunctiva clear, extraocular movements intact ENT: No fluid in external acoustic canals, nares patent, oropharynx clear NECK: Midline trachea, no cervical spine tenderness HEART: Regular rate and rhythm LUNGS: Clear to auscultation bilaterally CHEST: Chest wall non-tender, no bruising/deformity ABD: No contusions, soft, non-tender, no distention PELVIS: Stable to rock BACK: No step offs or deformities, T-L spine non tender EXT: Moving all extremities well, no gross deformities. Multiple abrasions and contusions to all 4 extremities. NEURO: Seems slow to respond to questioning. Moves all extremities. Speech is slurred. No extremity drift or cerebellar dysfunction. DIFFERENTIAL DIAGNOSIS: Intracranial injury, cervical spine injury, intrathoracic or intra-abdominal trauma, alcohol abuse, medication abuse, electrolyte balance, rhabdomyolysis, stroke, among others. EMERGENCY DEPARTMENT PROCEDURES: C-spine clinically cleared at 1600, once the CT imaging returned. MEDICAL DECISION MAKING: There is no leukocytosis or worrisome anemia. There is a normal platelet count. No coagulopathy. VBG does not show acidosis or CO2 retention. There is no renal failure or significant electrolyte abnormality. There were some subtle liver enzyme elevations. The ammonia level was not elevated. Total CK was high at over 6000, consistent with rhabdomyolysis and the patient's prolonged downtime. No evidence for pancreatitis. ECG showed a sinus rhythm, no ST elevation. Cardiac enzyme testing x 1 was not consistent with acute cardiac injury. Alcohol level was undetectable. Urinalysis and urine tox results are pending. Chest x-ray does not show pneumonia or CHF. No acute traumatic process by chest x-ray. Brain CT showed no acute bleed or mass effect. C-spine CT showed no acute fracture. Thoracic and lumbar spine CTs showed some older changes, no acute traumatic injury. Chest and abdominal CT scans did not show any intra-abdominal or intrathoracic traumatic process. The patient was given IV Tylenol for pain. He was given an Adacel booster IM. He received 2 L of IV saline for hydration. The patient has some slurring of his speech. He has been falling. Certainly, CVA or even medication/alcohol abuse could be responsible for his presentation. He is clearly not a TNK candidate as he has been falling and, the timeline here is completely unknown. He likely has been having issues for days. I did speak with the patient. He is going to be hospitalized for further workup and care. He would benefit from a full neurologic workup such as MRI. He requires further hydration to clear his rhabdomyolysis. He may require strengthening and rehab to ensure stability/safety. I did speak with case management, the on-call hospitalist was consulted. Prior/Outside records/notes reviewed: Today's EMS notes describing his presentation and transport to this hospital. ECG per my interpretation: Indication was trauma. The ECG shows a normal sinus rhythm with a rate of 77. There is no ST elevation, no PVCs. The QTc is 443. Continuous Cardiac Monitoring per my interpretation: An order was placed for continuous cardiac monitoring. The monitor shows a rate of 82 with normal sinus rhythm. Imaging/x-ray results per my interpretation: Chest x-ray shows some chronic change, there is no obvious rib injury or pneumothorax. Chronic Medical/Social conditions affecting care: Advanced age. Care/Management discussed with: Case management, the on-call hospice. Level of care consideration(s): After review of the information above and other included data: --I believe the patient requires escalation of care to admission Critical Care Note: I have personally spent 48 minutes of critical care time in the direct management of this patient. This includes bedside care, interpretation of diagnostic studies, and testing, discussion with consultants, patient, and family members, and other required patient management activities. This 48 minutes is in excess of all separately billable procedures. DISPOSITION: Admission Past Med/Surg History Problem List (Updated 10/22/24 @ 17:17 by Casey Valles MD) Rhabdomyolysis (Acute) Falling (Acute) Weakness (Acute) Slurred speech (Acute) Tobacco use Fall (Acute) Closed left hip fracture (Acute) Medical History Opioid dependence COPD (chronic obstructive pulmonary disease) Multiple rib fractures Surgical History Hx of lumbosacral spine surgery H/O rotator cuff surgery Family History Other Diabetes Heart disease Social History Smoking Status: Current every day smoker Tobacco Type: Cigarettes Second Hand Exposure: No; Do You Dip or Chew Tobacco: No; Hx Alcohol Use: No Hx Substance Use: No Preferred Language: Pashto Communication Ability: Effective Air Conditioning Equipment Mechanic Required: No Beliefs That Will Affect Care: Spiritual Current Living Situation: Alone Feels Safe at Home: Yes Assistive Devices: Cane Allergies Allergies Allergy/AdvReac Type Severity Reaction Status Date / Time No Known Allergies Allergy Unknown Verified 04/21/22 01:45 Home Meds Home Medications Medication Instructions Recorded Confirmed buprenorphine 8 mg-naloxone 2 mg 1 tab sublingual TID 04/21/22 09/29/23 sublingual tablet naproxen 500 mg tablet 500 mg PO BID PRN Pain 04/21/22 09/29/23 fluticasone fur. 200 mcg-umeclid 1 inh inhalation QAM 09/29/23 09/29/23 62.5 mcg-vilant 25 mcg inhalat.powder (Trelegy Ellipta) Previous Rx's Medication Instructions Recorded albuterol sulfate 90 mcg/actuation 2 puff inhalation QIDR PRN 04/22/22 aerosol inhaler (Ventolin HFA) shortness of breath or wheezing #8.5 grams levalbuterol HCl 1.25 mg/0.5 mL 1.25 mg (0.5 mL) inhalation Q8H 04/22/22 solution for nebulization PRN shortness of breath or wheezing #30 ea diclofenac sodium 1 % topical gel 2 g EXT Q6H PRN joint pain #100 10/04/23 (Voltaren Arthritis Pain) grams cyclobenzaprine 10 mg tablet 10 mg PO TID PRN muscle spasm #12 11/17/23 tabs Results & Data (ED) Vital Signs Vital Signs - 24 hr 10/22/24 14:19 10/22/24 14:24 10/22/24 14:29 Temperature 37.1 C Temperature Source Oral Pulse Rate 78 80 Pulse Rate [Apical] Pulse Rate from SpO2 Sensor Respiratory Rate 20 Respiratory Effort / Characteristics Non-Labored Spontaneous Respiratory Depth Normal Respiratory Pattern Regular Blood Pressure 132/80 Blood Pressure [Right Arm] Blood Pressure Mean 97 Blood Pressure Mean [Right Arm] Blood Pressure Position Lying Blood Pressure Position [Right Arm] Pulse Oximetry 94 94 Oxygen Delivery Method Room Air Room Air Oxygen Flow Rate Sepsis Recent Fever Within 48 Hours No Sepsis New/Unexplained Change in Mental Status N/A Sepsis Action Taken by Nursing No Action Required 10/22/24 14:36 10/22/24 14:36 10/22/24 14:46 Temperature 37.1 C Temperature Source Pulse Rate 79 Pulse Rate [Apical] 82 Pulse Rate from SpO2 Sensor Respiratory Rate 17 18 Respiratory Effort / Characteristics Non-Labored Spontaneous Respiratory Depth Normal Respiratory Pattern Regular Blood Pressure 120/76 Blood Pressure [Right Arm] 120/76 Blood Pressure Mean Blood Pressure Mean [Right Arm] 90 Blood Pressure Position Blood Pressure Position [Right Arm] Lying Pulse Oximetry 94 94 93 Oxygen Delivery Method Room Air Room Air Room Air Oxygen Flow Rate 0 Sepsis Recent Fever Within 48 Hours Sepsis New/Unexplained Change in Mental Status Sepsis Action Taken by Nursing 10/22/24 15:18 10/22/24 15:18 10/22/24 15:31 Temperature Temperature Source Pulse Rate 70 Pulse Rate [Apical] Pulse Rate from SpO2 Sensor 70 Respiratory Rate 19 Respiratory Effort / Characteristics Respiratory Depth Respiratory Pattern Blood Pressure 134/66 128/67 Blood Pressure [Right Arm] Blood Pressure Mean 90 80 Blood Pressure Mean [Right Arm] Blood Pressure Position Blood Pressure Position [Right Arm] Pulse Oximetry 95 Oxygen Delivery Method Oxygen Flow Rate Sepsis Recent Fever Within 48 Hours Sepsis New/Unexplained Change in Mental Status Sepsis Action Taken by Nursing 10/22/24 15:33 10/22/24 15:58 10/22/24 15:58 Temperature Temperature Source Pulse Rate 93 H Pulse Rate [Apical] 41 L 45 L Pulse Rate from SpO2 Sensor 36 L Respiratory Rate 18 16 19 Respiratory Effort / Characteristics Respiratory Depth Respiratory Pattern Blood Pressure Blood Pressure [Right Arm] 120/61 120/61 Blood Pressure Mean Blood Pressure Mean [Right Arm] 80 80 Blood Pressure Position Blood Pressure Position [Right Arm] Pulse Oximetry 73 L 97 97 Oxygen Delivery Method Room Air Room Air Oxygen Flow Rate Sepsis Recent Fever Within 48 Hours Sepsis New/Unexplained Change in Mental Status Sepsis Action Taken by Nursing 10/22/24 16:00 10/22/24 16:01 10/22/24 16:12 Temperature Temperature Source Pulse Rate 81 Pulse Rate [Apical] 46 L Pulse Rate from SpO2 Sensor Respiratory Rate 17 14 Respiratory Effort / Characteristics Respiratory Depth Respiratory Pattern Blood Pressure 125/72 Blood Pressure [Right Arm] 103/57 L Blood Pressure Mean 102 Blood Pressure Mean [Right Arm] 72 Blood Pressure Position Blood Pressure Position [Right Arm] Pulse Oximetry 97 Oxygen Delivery Method Room Air Oxygen Flow Rate Sepsis Recent Fever Within 48 Hours Sepsis New/Unexplained Change in Mental Status Sepsis Action Taken by Nursing 10/22/24 16:15 10/22/24 16:19 Temperature Temperature Source Pulse Rate 88 Pulse Rate [Apical] Pulse Rate from SpO2 Sensor Respiratory Rate 22 Respiratory Effort / Characteristics Respiratory Depth Respiratory Pattern Blood Pressure 128/72 Blood Pressure [Right Arm] Blood Pressure Mean 84 Blood Pressure Mean [Right Arm] Blood Pressure Position Blood Pressure Position [Right Arm] Pulse Oximetry 92 Oxygen Delivery Method Room Air Oxygen Flow Rate Sepsis Recent Fever Within 48 Hours Sepsis New/Unexplained Change in Mental Status Sepsis Action Taken by Half-Way Medications Current Medication List: was personally reviewed by me Laboratory Data Attestation: I reviewed the patient's lab results. 10/22/24 14:15 10/22/24 14:15 Lab Results 10/22/24 10/22/24 10/22/24 Range/Units 14:15 14:23 14:42 WBC 8.58 (4.8-10.8) K/ul RBC 4.91 (4.70-6.10) M/uL Hgb 13.5 L (14.0-18.0) g/dl POC Hgb 14.3 (14.0-18.0) g/dl Hct 41.8 L (42.0-52.0) % POC Hct 42 (42-52) % MCV 85.1 (80.0-100.0) fL MCH 27.5 (25.0-34.0) pg MCHC 32.3 (32.0-36.0) g/dL RDW Std Deviation 46.9 H (36.4-46.3) fL RDW Coeff of Ml 15.2 H (11.5-14.5) % Plt Count 224 (130-400) K/uL MPV 10.8 (9.4-12.4) fL Immature Gran % (Auto) 0.2 % Neut % (Auto) 63.5 % Lymph % (Auto) 24.5 % [place] % (Auto) 10.3 % Eos % (Auto) 1.0 % Baso % (Auto) 0.5 % Neut # (Auto) 5.45 (1.40-6.50) K/uL Lymph # (Auto) 2.10 (1.20-3.40) K/uL [place] # (Auto) 0.88 H (0.11-0.59) K/uL Eos # (Auto) 0.09 (0.00-0.50) K/uL Baso # (Auto) 0.04 (0.00-0.20) K/uL Immature Gran # (Auto) 0.02 (0.01-0.20) K/uL PT 11.4 (9.0-12.0) Seconds INR 1.1 (0.9-1.1) APTT 28 (21-31) Seconds PTT Ratio 1.0 VBG pH (7.36-7.41) VBG pCO2 (38-50) mmHg VBG pO2 mmHg VBG HCO3 mmol/L VBG O2 Saturation % VBG Base Excess mEq/L POC Sodium 144 (135-144) mmol/L Sodium 144 (136-145) mmol/L POC Potassium 3.6 (3.3-5.0) mmol/L Potassium 3.7 (3.5-5.1) mmol/L POC Chloride 110 (101-112) mmol/L Chloride 110 H (98-107) mmol/L Carbon Dioxide 24 (21-32) mmol/L POC Total CO2 21 L (24-31) mmol/L Anion Gap 10 (3-11) POC Anion Gap 18.0 (16-25) mmol/L POC BUN 15 (7-18) mg/dl BUN 15 (6-23) mg/dl Creatinine 1.01 (0.6-1.4) mg/dl POC Creatinine 1.0 (0.6-1.3) mg/dl Est Cr Clr Drug Dosing 64.3 ml/min eGFR 80.01 BUN/Creatinine Ratio 14.9 (10-20) Glucose 82 (70-99(Fasting)) mg/dl POC Glucose (other) 86 (70-99) mg/dl Calcium 9.2 (8.6-10.3) mg/dl POC Ioniz Calcium Kun 1.14 (1.12-1.32) mmol/l Total Bilirubin 1.1 H (0.2-1.0) mg/dl AST 138 H (13-39) U/L ALT 29 (7-52) U/L Alkaline Phosphatase 71 (34-104) U/L Ammonia (18-72) umol/L Total Creatine Kinase 6273 H (30-223) U/L Troponin I High Sens 15.4 (0-20) pg/ml Total Protein 7.2 (6.0-8.3) gm/dl Albumin 3.8 (3.4-5.0) gm/dl Globulin 3.4 (2.5-4.0) gm/dl Albumin/Globulin Ratio 1.1 (0.9-2) Lipase < 3 L (11-82) U/L Ethyl Alcohol mg/dL < 10.0 (<10.0) mg/dl 10/22/24 Range/Units 16:29 WBC (4.8-10.8) K/ul RBC (4.70-6.10) M/uL Hgb (14.0-18.0) g/dl POC Hgb (14.0-18.0) g/dl Hct (42.0-52.0) % POC Hct (42-52) % MCV (80.0-100.0) fL MCH (25.0-34.0) pg MCHC (32.0-36.0) g/dL RDW Std Deviation (36.4-46.3) fL RDW Coeff of Ml (11.5-14.5) % Plt Count (130-400) K/uL MPV (9.4-12.4) fL Immature Gran % (Auto) % Neut % (Auto) % Lymph % (Auto) % [place] % (Auto) % Eos % (Auto) % Baso % (Auto) % Neut # (Auto) (1.40-6.50) K/uL Lymph # (Auto) (1.20-3.40) K/uL [place] # (Auto) (0.11-0.59) K/uL Eos # (Auto) (0.00-0.50) K/uL Baso # (Auto) (0.00-0.20) K/uL Immature Gran # (Auto) (0.01-0.20) K/uL PT (9.0-12.0) Seconds INR (0.9-1.1) APTT (21-31) Seconds PTT Ratio VBG pH 7.40 (7.36-7.41) VBG pCO2 38 (38-50) mmHg VBG pO2 49 mmHg VBG HCO3 24 mmol/L VBG O2 Saturation 79.6 % VBG Base Excess -1.1 mEq/L POC Sodium (135-144) mmol/L Sodium (136-145) mmol/L POC Potassium (3.3-5.0) mmol/L Potassium (3.5-5.1) mmol/L POC Chloride (101-112) mmol/L Chloride (98-107) mmol/L Carbon Dioxide (21-32) mmol/L POC Total CO2 (24-31) mmol/L Anion Gap (3-11) POC Anion Gap (16-25) mmol/L POC BUN (7-18) mg/dl BUN (6-23) mg/dl Creatinine (0.6-1.4) mg/dl POC Creatinine (0.6-1.3) mg/dl Est Cr Clr Drug Dosing ml/min eGFR BUN/Creatinine Ratio (10-20) Glucose (70-99(Fasting)) mg/dl POC Glucose (other) (70-99) mg/dl Calcium (8.6-10.3) mg/dl POC Ioniz Calcium Kun (1.12-1.32) mmol/l Total Bilirubin (0.2-1.0) mg/dl AST (13-39) U/L ALT (7-52) U/L Alkaline Phosphatase (34-104) U/L Ammonia 24.0 (18-72) umol/L Total Creatine Kinase (30-223) U/L Troponin I High Sens (0-20) pg/ml Total Protein (6.0-8.3) gm/dl Albumin (3.4-5.0) gm/dl Globulin (2.5-4.0) gm/dl Albumin/Globulin Ratio (0.9-2) Lipase (11-82) U/L Ethyl Alcohol mg/dL (<10.0) mg/dl Administered Medications Discontinued Medications Diphtheria/Pertussis/Tetanus Vacc (Diphther/Tetan/Pertus Vaccine (Tdap, Adol/Adult) 0.5ml) 0.5 ml IM .ONCE ONE Stop: 10/22/24 14:39 Last Admin: 10/22/24 14:51 Dose: 0.5 ml Documented By: TNK Sodium Chloride (Nss) 1,000 mls @ 999 mls/hr IV .Q1H1M FABIOLA Stop: 10/22/24 15:45 Last Infusion: 10/22/24 16:15 Dose: Infused Documented By: Admin: 10/22/24 14:51 Dose: 999 mls/hr Documented By: TNK Acetaminophen (Ofirmev) 1,000 mg in 100 mls @ 400 mls/hr IV NOW STA Stop: 10/22/24 14:52 Last Infusion: 10/22/24 16:15 Dose: Infused Documented By: Admin: 10/22/24 14:51 Dose: 400 mls/hr Documented By: TNK Sodium Chloride (Nss) 1,000 mls @ 999 mls/hr IV .Q1H1M ONE Stop: 10/22/24 16:55 Last Admin: 10/22/24 16:15 Dose: 999 mls/hr Documented By: LILIA Ioversol (Optiray 320 100ml) 94 ml IV ONCE ONE Stop: 10/22/24 15:16 Last Admin: 10/22/24 15:15 Dose: 94 ml Documented By: RUSSELL Imaging Data Radiologist's Impression: Abdomen/Pelvis CT 10/22/24 14:[address] WITH CONTRAST; CT ABDOMEN AND PELVIS WITH IV CONTRAST ONLY HISTORY: Acute trauma Trauma TECHNIQUE: Multiaxial CT images of the chest, abdomen and pelvis were performed following the IV administration of 94 cc of Optiray. A dose lowering technique was utilized adhering to the principles of ALARA. COMPARISON: CT lumbar and thoracic spine studies of same day, CTA chest to April 21, 2022, CT pelvis 09/29/2023. FINDINGS: CT CHEST: Unremarkable thyroid. Mild lymphadenopathy includes an 11 mm subcarinal lymph node on image 126 which is unchanged and likely benign. Heart is normal in size. Moderate to extensive coronary artery calcifications. Mild fusiform dilation of the ascending thoracic aorta measures 4.1 x 4.1 cm, unchanged. No dissection. Mild dilation of the pulmonary artery may represent pulmonary arterial hypertension. Severe pulmonary emphysema. A few scattered solid pulmonary nodules measuring up to 4 mm are unchanged. No pneumothorax, pleural effusion or pulmonary edema. Central airways are patent. Unremarkable soft tissues. Degenerative changes of the shoulders and spine. Mild inferior endplate compression of the T6 vertebral body without retropulsion or paravertebral edema has progressed from the [address] ABDOMEN/PELVIS: No pneumatosis or pneumoperitoneum. Unremarkable spleen, moderately atrophic pancreas, gallbladder and adrenal glands. Liver is within normal limits. Patency of the hepatic and portal veins. Kidneys are within normal limits. No hydronephrosis. Urinary bladder wall thickening with partial distention. Prostatomegaly. Extensive atherosclerosis of the abdominal aorta. High-grade stenosis/occlusion involves the proximal aspect of the right common femoral artery with distal reconstitution just proximal to the bifurcation, unchanged. No lymphadenopathy. No bowel obstruction or bowel wall thickening. Moderate colonic fecal retention. Colonic diverticulosis without acute diverticulitis. Normal appendix. Asymmetric enlargement of the right clarifier operator internus is new from prior. No significant adjacent inflammatory stranding. Degenerative changes of the spine. Left proximal femoral ORIF changes. No acute pelvic fracture identified. There is minimal superior endplate compression involving the L1 and L4 vertebral bodies, likely chronic. IMPRESSION: 1. No definite acute posttraumatic intrathoracic, intra-abdominal or intrapelvic abnormality identified. 2. Severe pulmonary emphysema with stable subcentimeter solid pulmonary nodules measuring up to 4 mm. 3. Incidental note is made of asymmetric enlargement of the right obturator internus muscle, possibly an acute muscle strain/intramuscular hematoma. 4. No acute pelvic fracture. 5. Minimal inferior endplate compression at T6 without retropulsion has progressed from the 2022 comparison, likely chronic. ACT 112: Negative or not required by law. Electronically signed by: Robin Salas M.D. 10/22/2024 4:[address] 10/22/24 14:[address] WITH CONTRAST; CT ABDOMEN AND PELVIS WITH IV CONTRAST ONLY HISTORY: Acute trauma Trauma TECHNIQUE: Multiaxial CT images of the chest, abdomen and pelvis were performed following the IV administration of 94 cc of Optiray. A dose lowering technique was utilized adhering to the principles of ALARA. COMPARISON: CT lumbar and thoracic spine studies of same day, CTA chest to April 21, 2022, CT pelvis 09/29/2023. FINDINGS: CT CHEST: Unremarkable thyroid. Mild lymphadenopathy includes an 11 mm subcarinal lymph node on image 126 which is unchanged and likely benign. Heart is normal in size. Moderate to extensive coronary artery calcifications. Mild fusiform dilation of the ascending thoracic aorta measures 4.1 x 4.1 cm, unchanged. No dissection. Mild dilation of the pulmonary artery may represent pulmonary arterial hypertension. Severe pulmonary emphysema. A few scattered solid pulmonary nodules measuring up to 4 mm are unchanged. No pneumothorax, pleural effusion or pulmonary edema. Central airways are patent. Unremarkable soft tissues. Degenerative changes of the shoulders and spine. Mild inferior endplate compression of the T6 vertebral body without retropulsion or paravertebral edema has progressed from the [address] ABDOMEN/PELVIS: No pneumatosis or pneumoperitoneum. Unremarkable spleen, moderately atrophic pancreas, gallbladder and adrenal glands. Liver is within normal limits. Patency of the hepatic and portal veins. Kidneys are within normal limits. No hydronephrosis. Urinary bladder wall thickening with partial distention. Prostatomegaly. Extensive atherosclerosis of the abdominal aorta. High-grade stenosis/occlusion involves the proximal aspect of the right common femoral artery with distal reconstitution just proximal to the bifurcation, unchanged. No lymphadenopathy. No bowel obstruction or bowel wall thickening. Moderate colonic fecal retention. Colonic diverticulosis without acute diverticulitis. Normal appendix. Asymmetric enlargement of the right clarifier operator internus is new from prior. No significant adjacent inflammatory stranding. Degenerative changes of the spine. Left proximal femoral ORIF changes. No acute pelvic fracture identified. There is minimal superior endplate compression involving the L1 and L4 vertebral bodies, likely chronic. IMPRESSION: 1. No definite acute posttraumatic intrathoracic, intra-abdominal or intrapelvic abnormality identified. 2. Severe pulmonary emphysema with stable subcentimeter solid pulmonary nodules measuring up to 4 mm. 3. Incidental note is made of asymmetric enlargement of the right obturator internus muscle, possibly an acute muscle strain/intramuscular hematoma. 4. No acute pelvic fracture. 5. Minimal inferior endplate compression at T6 without retropulsion has progressed from the 2022 comparison, likely chronic. ACT 112: Negative or not required by law. Electronically signed by: Robin Salas M.D. 10/22/2024 4:00 PM Chest X-Ray 10/22/24 14:34 XR chest 1V portable CLINICAL HISTORY: Trauma COMPARISON STUDY: 09/29/2023 FINDINGS: Heart size and pulmonary vasculature are normal. No consolidation or pleural effusion. No pneumothorax. No grossly displaced rib fracture seen. IMPRESSION: No acute findings. ACT 112: Negative or not required by law. Electronically signed by: Yovanny Velazquez M.D. 10/22/2024 3:[address] 10/22/24 14:34 CT head/brain wo con CLINICAL HISTORY: Trauma. TECHNIQUE: Multiple axial CT images of the head were obtained without contrast. A dose lowering technique was utilized adhering to the principles of ALARA. COMPARISON: None FINDINGS: No intracranial hemorrhage seen. No mass effect, midline shift, or hydrocephalus. There are small old lacunar infarctions at the basal ganglia. No skull fracture seen. Visualized paranasal sinuses and mastoid air cells are clear. IMPRESSION: No acute findings. ACT 112: Negative or not required by law. The above report was generated using voice recognition software. It may contain grammatical, syntax or spelling errors. Electronically signed by: Yovanny Velazquez M.D. 10/22/2024 3:[address] 10/22/24 14:34 CT lumbar spine w con CLINICAL HISTORY: Trauma COMPARISON STUDY: Chest CT of 04/21/2022 FINDINGS: There are moderate degenerative changes at the lower lumbar spine. There is interval mild height loss at the superior endplate of the L1 vertebral body. No other lumbar spine fracture or subluxation seen. IMPRESSION: Interval mild height loss at the L1 vertebral body of uncertain chronicity. It does not have definitely acute features. No other lumbar spine fracture seen. ACT 112: Negative or not required by law. Electronically signed by: Yovanny Velazquez M.D. 10/22/2024 3:[address] 10/22/24 14:34 CT thoracic spine w con CLINICAL HISTORY: trauma COMPARISON STUDY: Chest CT 04/21/2022 FINDINGS: There is osteopenia. There are mild diffuse degenerative changes. There is interval mild height loss at the T6 vertebral body. No other interval fracture or subluxation seen at the thoracic spine. There is stable mild height loss at multiple lower thoracic vertebral bodies. IMPRESSION: Interval mild height loss at the T6 vertebral body of uncertain chronicity. It does not have definitely acute features. Otherwise no acute fracture or subluxation seen at the thoracic spine. ACT 112: Negative or not required by law. Electronically signed by: Yovanny Velazquez M.D. 10/22/2024 3:[address] 10/22/24 14:35 CT cervical spine wo con CLINICAL HISTORY: 69 years-old Male with Trauma. Acute neck trauma COMPARISON: Chest CT same day TECHNIQUE: Multiple axial CT images of the cervical spine were obtained without contrast. A dose lowering technique was utilized adhering to the principles of ALARA. FINDINGS: Vertebral severe multilevel facet arthrosis. Moderate intervertebral disc space narrowing at C5-C6 and C6-C7. Grade 1 anterolisthesis C7 on T1 appears chronic. No acute fracture or subluxation identified. The cervical soft tissues appear unremarkable. . Atherosclerosis of the carotid bulbs. Pulmonary emphysema is noted. IMPRESSION: No acute fracture or subluxation. ACT 112: Negative or not required by law. The above report was generated using voice recognition software. It may contain grammatical, syntax or spelling errors. Electronically signed by: Robin Salas M.D. 10/22/2024 3:47 PM Discharge Plan Visit Data Chief Complaint: Trauma Stated Complaint: Lethargic ED Provider: Casey Valles Discharge Problem: Slurred speech, Weakness, Falling, Rhabdomyolysis Patient Disposition: Admitted As Inpatient Condition: Fair Forms Stand Alone Forms: My [facility] Personal Web Systems Prescriptions Prescriptions: No Action naproxen 500 mg Tablet 500 mg PO BID PRN (Reason: Pain) Hold Instructions: Resume on 10/25/23. buprenorphine-naloxone 8-2 mg tablet, sublingual 1 tab SUBLINGUAL TID albuterol sulfate [Ventolin HFA] 90 mcg/actuation Hfa Aerosol Inhaler 2 puff inhalation QIDR PRN (Reason: shortness of breath or wheezing) Qty: 8.5 0RF levalbuterol HCl 1.25 mg/0.5 mL Solution For Nebulization 1.25 mg inhalation Q8H PRN (Reason: shortness of breath or wheezing) Qty: 30 0RF Rx Instructions: For moderate to severe shortness of breath and wheezing Trelegy Ellipta 200-62.5-25 mcg blister with device 1 inh INHALATION QAM diclofenac sodium [Voltaren Arthritis Pain] 1 % Gel 2 g EXT Q6H PRN (Reason: joint pain) Qty: 100 0RF cyclobenzaprine 10 mg tablet 10 mg PO TID PRN (Reason: muscle spasm) Qty: 12 0RF Referrals Referrals: Fred San MD [Primary Care Provider] - Discharge Problem: Rhabdomyolysis Qualifiers: Rhabdomyolysis type: traumatic Encounter type: initial encounter Qualified Code(s): T79.6XXA - Traumatic ischemia of muscle, initial encounter
[2024-10-22 15:21] LABS: Anion Gap 10 (3-11); Blood Urea Nitrogen 15 mg/dl (6-23); Calcium 9.2 mg/dl (8.6-10.3); Carbon Dioxide 24 mmol/L (21-32); Chloride 110 mmol/L (98-107); Creatinine Clr Calc Pharmacy 64.3 ml/min; Glucose 82 mg/dl (70-99(Fasting)); Potassium 3.7 mmol/L (3.5-5.1); Sodium 144 mmol/L (136-145)
[2024-10-22 15:29] LABS: INR 1.1 (0.9-1.1); Partial Thromboplastin Time 28 Seconds (21-31); Prothrombin Time 11.4 Seconds (9.0-12.0)
[2024-10-22 15:47] LABS: Alanine Aminotransferase 29 U/L (7-52); Albumin Globulin Ratio 1.1 (0.9-2); Alkaline Phosphatase 71 U/L (34-104); Bilirubin,Total 1.1 mg/dl (0.2-1.0); Creatine Kinase 6273 U/L (30-223); Globulin 3.4 gm/dl (2.5-4.0); Lipase < 3 U/L (11-82); Total Protein 7.2 gm/dl (6.0-8.3)
--- NOTE | 2024-10-22 15:49 | CT Scan Report ---
CT cervical spine wo con CLINICAL HISTORY: 69 years-old Male with Trauma. Acute neck trauma COMPARISON: Chest CT same day TECHNIQUE: Multiple axial CT images of the cervical spine were obtained without contrast. A dose low ering technique was utilized adhering to the principles of ALARA. FINDINGS: Vertebral severe multilevel facet arthrosis. Moderate intervertebral disc space narrowing a t C5-C6 and C6-C7. Grade 1 anterolisthesis C7 on T1 appears chronic. No acute fracture or subluxation identified. The cervical soft tissues appear unremarkable. . Atherosclerosis of the carotid bulbs. Pulmonary emph ysema is noted. IMPRESSION: No acute fracture or subluxation. ACT 112: Negative or not required by law. The above report was generated using voice recognition software. It may contain grammatical, syntax o r spelling errors. Electronically signed by: Robin Salas M.D. 10/22/2024 3:47 PM
--- NOTE | 2024-10-22 15:52 | CT Scan Report ---
CT head/brain wo con CLINICAL HISTORY: Trauma. TECHNIQUE: Multiple axial CT images of the head were obtained without contrast. A dose lowering tech nique was utilized adhering to the principles of ALARA. COMPARISON: None FINDINGS: No intracranial hemorrhage seen. No mass effect, midline shift, or hydrocephalus. There are small old lacunar infarctions at the basal ganglia. No skull fracture seen. Visualized paranasal sin uses and mastoid air cells are clear. IMPRESSION: No acute findings. ACT 112: Negative or not required by law. The above report was generated using voice recognition software. It may contain grammatical, syntax o r spelling errors. Electronically signed by: Yovanny Velazquez M.D. 10/22/2024 3:51 PM
--- NOTE | 2024-10-22 15:57 | CT Scan Report ---
CT lumbar spine w con CLINICAL HISTORY: Trauma COMPARISON STUDY: Chest CT of 04/21/2022 FINDINGS: There are moderate degenerative changes at the lower lumbar spine. There is interval mild h eight loss at the superior endplate of the L1 vertebral body. No other lumbar spine fracture or sublu xation seen. IMPRESSION: Interval mild height loss at the L1 vertebral body of uncertain chronicity. It does not have definitely acute features. No other lumbar spine fracture seen. ACT 112: Negative or not required by law. Electronically signed by: Yovanny Velazquez M.D. 10/22/2024 3:55 PM
--- NOTE | 2024-10-22 16:00 | CT Scan Report ---
CT thoracic spine w con CLINICAL HISTORY: trauma COMPARISON STUDY: Chest CT 04/21/2022 FINDINGS: There is osteopenia. There are mild diffuse degenerative changes. There is interval mild he ight loss at the T6 vertebral body. No other interval fracture or subluxation seen at the thoracic sp ine. There is stable mild height loss at multiple lower thoracic vertebral bodies. IMPRESSION: Interval mild height loss at the T6 vertebral body of uncertain chronicity. It does not have definitely acute features. Otherwise no acute fracture or subluxation seen at the thoracic spine . ACT 112: Negative or not required by law. Electronically signed by: Yovanny Velazquez M.D. 10/22/2024 3:58 PM
--- NOTE | 2024-10-22 16:01 | CT Scan Report ---
CHEST CT WITH CONTRAST; CT ABDOMEN AND PELVIS WITH IV CONTRAST ONLY HISTORY: Acute trauma Trauma TECHNIQUE: Multiaxial CT images of the chest, abdomen and pelvis were performed following the IV admi nistration of 94 cc of Optiray. A dose lowering technique was utilized adhering to the principles o f ALARA. COMPARISON: CT lumbar and thoracic spine studies of same day, CTA chest to April 21, 2022, CT pel vis 09/29/2023. FINDINGS: CT CHEST: Unremarkable thyroid. Mild lymphadenopathy includes an 11 mm subcarinal lymph node on image 126 which is unchanged and likely benign. Heart is normal in size. Moderate to extensive coronary ar alicia calcifications. Mild fusiform dilation of the ascending thoracic aorta measures 4.1 x 4.1 cm, un changed. No dissection. Mild dilation of the pulmonary artery may represent pulmonary arterial hypert ension. Severe pulmonary emphysema. A few scattered solid pulmonary nodules measuring up to 4 mm are unchange d. No pneumothorax, pleural effusion or pulmonary edema. Central airways are patent. Unremarkable sof t tissues. Degenerative changes of the shoulders and spine. Mild inferior endplate compression of the T6 vertebral body without retropulsion or paravertebral edema has progressed from the [address] ABDOMEN/PELVIS: No pneumatosis or pneumoperitoneum. Unremarkable spleen, moderately atrophic pancr eas, gallbladder and adrenal glands. Liver is within normal limits. Patency of the hepatic and portal veins. Kidneys are within normal limits. No hydronephrosis. Urinary bladder wall thickening with par tial distention. Prostatomegaly. Extensive atherosclerosis of the abdominal aorta. High-grade stenosi s/occlusion involves the proximal aspect of the right common femoral artery with distal reconstitutio n just proximal to the bifurcation, unchanged. No lymphadenopathy. No bowel obstruction or bowel wall thickening. Moderate colonic fecal retention. Colonic diverticulos is without acute diverticulitis. Normal appendix. 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 No significant adjacent inflammatory stranding. Degenerative changes of the spi ne. Left proximal femoral ORIF changes. No acute pelvic fracture identified. There is minimal superio r endplate compression involving the L1 and L4 vertebral bodies, likely chronic. IMPRESSION: 1. No definite acute posttraumatic intrathoracic, intra-abdominal or intrapelvic abnormality identifi ed. 2. Severe pulmonary emphysema with stable subcentimeter solid pulmonary nodules measuring up to 4 mm. 3. Incidental note is made of asymmetric enlargement of the right obturator internus muscle, possibly an acute muscle strain/intramuscular hematoma. 4. No acute pelvic fracture. 5. Minimal inferior endplate compression at T6 without retropulsion has progressed from the 2022 comp arison, likely chronic. ACT 112: Negative or not required by law. Electronically signed by: Robin Salas M.D. 10/22/2024 4:00 PM
--- NOTE | 2024-10-22 16:04 | Electrocardiogram Report ---
Test Reason : Blood Pressure : */* mmHG Vent. Rate : 77 BPM Atrial Rate : 77 BPM P-R Int : 164 ms QRS Dur : 94 ms QT Int : 392 ms P-R-T Axes : 59 55 67 degrees QTcB Int : 443 ms Normal sinus rhythm Normal ECG When compared with ECG of 29-Sep-2023 19:47, No significant change was found Confirmed by Reza Orantes ([id number]) on 10/22/2024 4:03:57 PM Referred By: REFERRED SELF Confirmed By: Reza Orantes
[2024-10-22] MEDS: SODIUM CHLORIDE 0.9% 1,000 ML IV ONE (16:15)
--- NOTE | 2024-10-22 16:30 | History & Physical Report ---
Date of Service October 22, 2024 Assessment & Plan (1) Rhabdomyolysis: (2) Falling: (3) Weakness: (4) Opioid dependence: (5) COPD (chronic obstructive pulmonary disease): (6) Tobacco use: Plan: Patient is 69 year old male with PMH COPD, ongoing tobacco use, history of opioid dependence on Suboxone and other medical problems listed below presented to ER found on ground today. #Rhabdomyolysis #Fall #AMS. DDx: metabolic encephalopathy #Generalized weakness #Multiple Abrasions Patient found on floor today. Patient with unclear history and unclear when had fall. Patient with multiple abrasions to extremities and head and appears to have been crawling on floor for a while CK: 6273, BUN: 15, Cr:1.0. No leukocytosis, VBG unremarkable, UA +blood but otherwise not consistent with UTI CT Head: no acute findings CT C-spine: no acute fracture CT T-spine: Interval mild height loss at the T6 vertebral body of uncertain chronicity. It does not have definitely acute features. Otherwise no acute fracture or subluxation seen at the thoracic spine CT Chest/CT Abd/pelvis: 1. No definite acute posttraumatic intrathoracic, intra-abdominal or intrapelvic abnormality identified. 2. Severe pulmonary emphysema with stable subcentimeter solid pulmonary nodules measuring up to 4 mm. 3. Incidental note is made of asymmetric enlargement of the right obturator internus muscle, possibly an acute muscle strain/intramuscular hematoma. 4. No acute pelvic fracture. CXR: no acute findings CT L-spine:Interval mild height loss at the L1 vertebral body of uncertain chronicity. It does not have definitely acute features. No other lumbar spine fracture seen. Ethylene glycol level pending In ER given 2L NSS, Tdap Continue IVF CBC, CMP, CK in am #Suspected ETOH Use Reported by neighbor that pt drinking ETOH. Denies to this provider ETOH <10 in ER today T. bili: 1.1, AST: 138, ALT: 29, alk phos: 71 ETOH withdrawal monitoring at this time Start thiamine, folic acid, multivitamin #H/O opioid dependence On Suboxone Urine drug today is negative ?If pt down on floor longer than stated and not been taking his Suboxone Plan to resume Suboxone #COPD No sign exacerbation at this time Continue home inhalers #Tobacco use: Nicotine patch DVT Prophylaxis SCDs for now given findings of possible hematoma right obturator internus muscle on CT scan Admit telemetry Full Code as per discussion with pt Follows with Dr Villanueva for routine care Pt was seen and care coordinated with Dr Philippe. See addendum I spent a total of 72 minutes reviewing notes, outpatient records, labs, medication, coordinating, documenting and providing care for this patient exclud ing time spent in the performance of separately billed services and excluding time spent by another provider/QHP. History of Present Illness Chief Complaint: found on ground Primary Care Provider: Fred San MD Patient is 69 year old male with PMH COPD, ongoing tobacco use, history of opioid dependence on Suboxone and other medical problems listed below presented to ER found on ground today. History obtained from outpatient chart review and limited history obtained from patient secondary to mental status. Patient initially reports that this morning he was standing in his kitchen to get breakfast at 10 AM when he felt like his legs got weak causing him to fall. He denies hitting his head. When asked about the abrasions on his scalp he said he fell in kitchen last night. Patient initially reported today was his only fall and denied any other recent falls. It is unclear when patient fell. He states that he crawled through his house trying to get up. Reports scraped himself on his carpet. Reports walks with cane at baseline. States has chronic nonproductive cough and denies worsening. Patient reports last ETOH drink was 6 months ago. He has told other ER staff that he drinks daily. Neighbor was reportedly concerned patient ETOH consumption. Currently patient asking for his buprenorphine and reports bilateral arm aching. Report from EMS that neighbor called EMS today for check on patient. Denies fever/chills, diaphoresis, N/V/D/C, PAPPAS, dizziness, syncope, vision changes, neck pain, back pain, lower extremity pain, CP, SOB, sore throat, rhinorrhea, abdominal pain, paresthesias, extremity edema, other rashes, urinary symptoms. Denies recreational drug use. Allergies Allergy/AdvReac Type Severity Reaction Status Date / Time No Known Allergies Allergy Unknown Verified 04/21/22 01:45 Home Medications Medication Instructions Recorded Confirmed Type buprenorphine 8 mg-naloxone 2 mg 1 tab sublingual TID 04/21/22 10/22/24 History sublingual tablet albuterol sulfate 90 mcg/actuation 2 puff inhalation QIDR PRN 04/22/22 10/22/24 Rx aerosol inhaler (Ventolin HFA) shortness of breath or wheezing #8.5 grams levalbuterol HCl 1.25 mg/0.5 mL 1.25 mg (0.5 mL) inhalation Q8H 04/22/22 10/22/24 Rx solution for nebulization PRN shortness of breath or wheezing #30 ea fluticasone fur. 200 mcg-umeclid 1 inh inhalation QAM 09/29/23 10/22/24 History 62.5 mcg-vilant 25 mcg inhalat.powder (Trelegy Ellipta) diclofenac sodium 1 % topical gel 2 g EXT Q6H PRN joint pain #100 10/04/23 10/22/24 Rx (Voltaren Arthritis Pain) grams Past Med/Surg History Problem List Rhabdomyolysis (Acute) Falling (Acute) Weakness (Acute) Slurred speech (Acute) Tobacco use Fall (Acute) Closed left hip fracture (Acute) Medical History Opioid dependence COPD (chronic obstructive pulmonary disease) Multiple rib fractures Surgical History Hx of lumbosacral spine surgery H/O rotator cuff surgery Family History Other Diabetes Heart disease Social History Smoking Status: Current every day smoker Tobacco Type: Cigarettes Second Hand Exposure: No; Do You Dip or Chew Tobacco: No; Tobacco Cessation Education Requested by Patient: No Hx Alcohol Use: Yes Hx Substance Use: Yes Preferred Language: [place] Island[place] Communication Ability: Effective Product Marketing Director Required: Yes Beliefs That Will Affect Care: None Current Living Situation: Alone Other Information That Helps Us Care for You: No Feels Safe at Home: Yes Safety Concerns: Feels Safe At This Time Assistive Devices: Cane Review of Systems Review of Systems: All systems reviewed & are unremarkable except as noted in HPI & below Physical Exam Physical Exam: General: no acute distress, disheveled elderly male, WDWN Head: normocephalic, +ecchymosis and abrasions scattered to scalp Eyes: PERRL, EOM's intact, conjunctiva non-injected, anicteric ENT: normal inspection external ears, nose, mucous membranes dry Neck: supple, trachea midline, non-tender Lungs: clear, no respiratory distress, no wheezing/rhonchi/rales CV: RRR, no murmur, no pretibial edema Abd: normal BS, soft, non-tender Ext: no cyanosis, no calf tenderness Neuro: Alert, oriented to person, place. slow to answer questions. knows month and year, no focal deficits noted Skin: warm, dry, +abrasions to head, shoulder, arms, bilateral knees and feet and toes Results & Data Results & Data Vital Signs (Past 12 Hours) Vital Signs Temp Pulse Pulse Resp BP BP Pulse Ox 10/22/24 16:00 46 L 17 103/57 L 97 10/22/24 15:58 45 L 19 120/61 97 10/22/24 15:58 41 L 16 120/61 97 10/22/24 14:46 93 10/22/24 14:36 82 18 120/76 94 10/22/24 14:36 37.1 C 79 17 120/76 94 10/22/24 14:29 94 10/22/24 14:24 37.1 C 80 20 132/80 94 10/22/24 14:19 78 O2 Del Method O2 Flow Rate 10/22/24 16:00 Room Air 10/22/24 15:58 Room Air 10/22/24 15:58 Room Air 10/22/24 14:46 Room Air 10/22/24 14:36 Room Air 10/22/24 14:36 Room Air 0 10/22/24 14:29 Room Air 10/22/24 14:24 Room Air 10/22/24 14:19 Laboratory Results Short CBC 10/22/24 Range/Units 14:15 WBC 8.58 (4.8-10.8) K/ul Hgb 13.5 L (14.0-18.0) g/dl Hct 41.8 L (42.0-52.0) % Plt Count 224 (130-400) K/uL BMP 10/22/24 14:15 Sodium 144 Potassium 3.7 Chloride 110 H Carbon Dioxide 24 BUN 15 Creatinine 1.01 Glucose 82 Calcium 9.2 Cardiac Enzymes 10/22/24 Range/Units 14:15 Total Creatine Kinase 6273 H (30-223) U/L Liver Function 10/22/24 Range/Units 14:15 Total Bilirubin 1.1 H (0.2-1.0) mg/dl AST 138 H (13-39) U/L ALT 29 (7-52) U/L Alkaline Phosphatase 71 (34-104) U/L Albumin 3.8 (3.4-5.0) gm/dl Urine 10/22/24 Range/Units 17:17 Urine Color [place] Urine Appearance Clear (Clear) Urine pH 5.5 (4.5-7.5) Ur Specific [place] > 1.045 H (1.000-1.030) Urine Protein Trace H (Negative) Urine Glucose (UA) Negative (Negative) Diagnostic Findings Abdomen/Pelvis CT 10/22/24 14:[address] WITH CONTRAST; CT ABDOMEN AND PELVIS WITH IV CONTRAST ONLY HISTORY: Acute trauma Trauma TECHNIQUE: Multiaxial CT images of the chest, abdomen and pelvis were performed following the IV administration of 94 cc of Optiray. A dose lowering technique was utilized adhering to the principles of ALARA. COMPARISON: CT lumbar and thoracic spine studies of same day, CTA chest to April 21, 2022, CT pelvis 09/29/2023. FINDINGS: CT CHEST: Unremarkable thyroid. Mild lymphadenopathy includes an 11 mm subcarinal lymph node on image 126 which is unchanged and likely benign. Heart is normal in size. Moderate to extensive coronary artery calcifications. Mild fusiform dilation of the ascending thoracic aorta measures 4.1 x 4.1 cm, unchanged. No dissection. Mild dilation of the pulmonary artery may represent pulmonary arterial hypertension. Severe pulmonary emphysema. A few scattered solid pulmonary nodules measuring up to 4 mm are unchanged. No pneumothorax, pleural effusion or pulmonary edema. Central airways are patent. Unremarkable soft tissues. Degenerative changes of the shoulders and spine. Mild inferior endplate compression of the T6 vertebral body without retropulsion or paravertebral edema has progressed from the [address] ABDOMEN/PELVIS: No pneumatosis or pneumoperitoneum. Unremarkable spleen, moderately atrophic pancreas, gallbladder and adrenal glands. Liver is within normal limits. Patency of the hepatic and portal veins. Kidneys are within normal limits. No hydronephrosis. Urinary bladder wall thickening with partial distention. Prostatomegaly. Extensive atherosclerosis of the abdominal aorta. High-grade stenosis/occlusion involves the proximal aspect of the right common femoral artery with distal reconstitution just proximal to the bifurcation, unchanged. No lymphadenopathy. No bowel obstruction or bowel wall thickening. Moderate colonic fecal retention. Colonic diverticulosis without acute diverticulitis. Normal appendix. Asymmetric enlargement of the right emergency operator internus is new from prior. No significant adjacent inflammatory stranding. Degenerative changes of the spine. Left proxima l femoral ORIF changes. No acute pelvic fracture identified. There is minimal superior endplate compression involving the L1 and L4 vertebral bodies, likely chronic. IMPRESSION: 1. No definite acute posttraumatic intrathoracic, intra-abdominal or intrapelvic abnormality identified. 2. Severe pulmonary emphysema with stable subcentimeter solid pulmonary nodules measuring up to 4 mm. 3. Incidental note is made of asymmetric enlargement of the right obturator internus muscle, possibly an acute muscle strain/intramuscular hematoma. 4. No acute pelvic fracture. 5. Minimal inferior endplate compression at T6 without retropulsion has progressed from the 2022 comparison, likely chronic. ACT 112: Negative or not required by law. Electronically signed by: Robin Salas M.D. 10/22/2024 4:[address] 10/22/24 14:[address] WITH CONTRAST; CT ABDOMEN AND PELVIS WITH IV CONTRAST ONLY HISTORY: Acute trauma Trauma TECHNIQUE: Multiaxial CT images of the chest, abdomen and pelvis were performed following the IV administration of 94 cc of Optiray. A dose lowering technique was utilized adhering to the principles of ALARA. COMPARISON: CT lumbar and thoracic spine studies of same day, CTA chest to April 21, 2022, CT pelvis 09/29/2023. FINDINGS: CT CHEST: Unremarkable thyroid. Mild lymphadenopathy includes an 11 mm subcarina l lymph node on image 126 which is unchanged and likely benign. Heart is normal in size. Moderate to extensive coronary artery calcifications. Mild fusiform dilation of the ascending thoracic aorta measures 4.1 x 4.1 cm, unchanged. No dissection. Mild dilation of the pulmonary artery may represent pulmonary arterial hypertension. Severe pulmonary emphysema. A few scattered solid pulmonary nodules measuring up to 4 mm are unchanged. No pneumothorax, pleural effusion or pulmonary edema. Central airways are patent. Unremarkable soft tissues. Degenerative changes of the shoulders and spine. Mild inferior endplate compression of the T6 vertebral body without retropulsion or paravertebral edema has progressed from the [address] ABDOMEN/PELVIS: No pneumatosis or pneumoperitoneum. Unremarkable spleen, moderately atrophic pancreas, gallbladder and adrenal glands. Liver is within normal limits. Patency of the hepatic and portal veins. Kidneys are within normal limits. No hydronephrosis. Urinary bladder wall thickening with partial distention. Prostatomegaly. Extensive atherosclerosis of the abdominal aorta. High-grade stenosis/occlusion involves the proximal aspect of the right common femoral artery with distal reconstitution just proximal to the bifurcation, unchanged. No lymphadenopathy. No bowel obstruction or bowel wall thickening. Moderate colonic fecal retention. Colonic diverticulosis without acute diverticulitis. Normal appendix. Asymmetric enlargement of the right emergency operator internus is new from prior. No significant adjacent inflammatory stranding. Degenerative changes of the spine. Left proximal femoral ORIF changes. No acute pelvic fracture identified. There is minimal superior endplate compression involving the L1 and L4 vertebral bodies, likely chronic. IMPRESSION: 1. No definite acute posttraumatic intrathoracic, intra-abdominal or intrapelvic abnormality identified. 2. Severe pulmonary emphysema with stable subcentimeter solid pulmonary nodules measuring up to 4 mm. 3. Incidental note is made of asymmetric enlargement of the right obturator internus muscle, possibly an acute muscle strain/intramuscular hematoma. 4. No acute pelvic fracture. 5. Minimal inferior endplate compression at T6 without retropulsion has progressed from the 2022 comparison, likely chronic. ACT 112: Negative or not required by law. Electronically signed by: Robin Salas M.D. 10/22/2024 4:00 PM Chest X-Ray 10/22/24 14:34 XR chest 1V portable CLINICAL HISTORY: Trauma COMPARISON STUDY: 09/29/2023 FINDINGS: Heart size and pulmonary vasculature are normal. No consolidation or pleural effusion. No pneumothorax. No grossly displaced rib fracture seen. IMPRESSION: No acute findings. ACT 112: Negative or not required by law. Electronically signed by: Yovanny Velazquez M.D. 10/22/2024 3:[address] 10/22/24 14:34 CT head/brain wo con CLINICAL HISTORY: Trauma. TECHNIQUE: Multiple axial CT images of the head were obtained without contrast. A dose lowering technique was utilized adhering to the principles of ALARA. COMPARISON: None FINDINGS: No intracranial hemorrhage seen. No mass effect, midline shift, or hydrocephalus. There are small old lacunar infarctions at the basal ganglia. No skull fracture seen. Visualized paranasal sinuses and mastoid air cells are clear. IMPRESSION: No acute findings. ACT 112: Negative or not required by law. The above report was generated using voice recognition software. It may contain grammatical, syntax or spelling errors. Electronically signed by: Yovanny Velazquez M.D. 10/22/2024 3:[address] 10/22/24 14:34 CT lumbar spine w con CLINICAL HISTORY: Trauma COMPARISON STUDY: Chest CT of 04/21/2022 FINDINGS: There are moderate degenerative changes at the lower lumbar spine. There is interval mild height loss at the superior endplate of the L1 vertebral body. No other lumbar spine fracture or subluxation seen. IMPRESSION: Interval mild height loss at the L1 vertebral body of uncertain chronicity. It does not have definitely acute features. No other lumbar spine fracture seen. ACT 112: Negative or not required by law. Electronically signed by: Yovanny Velazquez M.D. 10/22/2024 3:[address] 10/22/24 14:34 CT thoracic spine w con CLINICAL HISTORY: trauma COMPARISON STUDY: Chest CT 04/21/2022 FINDINGS: There is osteopenia. There are mild diffuse degenerative changes. There is interval mild height loss at the T6 vertebral body. No other interval fracture or subluxation seen at the thoracic spine. There is stable mild height loss at multiple lower thoracic vertebral bodies. IMPRESSION: Interval mild height loss at the T6 vertebral body of uncertain chronicity. It does not have definitely acute features. Otherwise no acute fracture or subluxation seen at the thoracic spine. ACT 112: Negative or not required by law. Electronically signed by: Yovanny Velazquez M.D. 10/22/2024 3:[address] 10/22/24 14:35 CT cervical spine wo con CLINICAL HISTORY: 69 years-old Male with Trauma. Acute neck trauma COMPARISON: Chest CT same day TECHNIQUE: Multiple axial CT images of the cervical spine were obtained without contrast. A dose lowering technique was utilized adhering to the principles of ALARA. FINDINGS: Vertebral severe multilevel facet arthrosis. Moderate intervertebral disc space narrowing at C5-C6 and C6-C7. Grade 1 anterolisthesis C7 on T1 appears chronic. No acute fracture or subluxation identified. The cervical soft tissues appear unremarkable. . Atherosclerosis of the carotid bulbs. Pulmonary emphysema is noted. IMPRESSION: No acute fracture or subluxation. ACT 112: Negative or not required by law. The above report was generated using voice recognition software. It may contain grammatical, syntax or spelling errors. Electronically signed by: Robin Salas M.D. 10/22/2024 3:47 PM ECG Additional Comments: Sinus rhythm, rate 77, no significant ST changes per my interpretation Supervising Physician Co-Signing Physician Notes Patient seen and examined at bedside. Very poor historian. States he drinks alot of beer nightly at home. Asking for suboxone. Per EMS was called for safety check, found down. On exam, patient disorriented, mild slurring of speech, very unkempt, ecchymoses on head, arms and legs. Creatinine 1.01 elevated from baseline. Very elevated AST in relation to ALT strongly suggestive of alcohol use. CK elevation consistent with rhabdomyolysis. Drug screen negative for opioids despite active Suboxone prescription. Right obturator hematoma noted on imaging. Patient found down at home presenting with rhabdomyolsis, likely alcohol abuse, failure to thrive. No lateralizing symptoms to suggest stroke albeit patient very poor historian. Concerning that urine is negative for suboxone, suggests either diversion vs. alteration for a number of days. Treat mild rhabdomyolysis with fluids. Send out buprenorphine level for urine. In meantime, will restart suboxone as could be contributor to altered mental status given abrupt stop as patient has been consistently on it for opioid use disorder. Thiamine, folic acid ordered, check B12 and TSH for metabolic encephalopathy. AWSS score monitoring in setting of likely alcohol use, patient denies hx of DT in past. Monitor Hgb in setting of hematoma. Oxycodone prn for pain on top of chronic suboxone therapy. 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 PT/OT ordered. Wound care ordered. I have seen and discussed the case with the collaborating advanced practitioner. I agree with the above H&P. I have reviewed and confirmed the patients medical history, the findings on physical examination, and the patients diagnosis and treatment plan with Jana Martinez PA-C and agree with the information documented. I spent a total of 40 minutes coordinating, documenting, and providing care for this patient excluding time spent in the performance of separately billed services. All of the aforementioned completed outside of collaborating with the assigned advanced practitioner for a full treatment plan. I have reviewed the advanced practitioner's documentation, and I agree with, and take responsibility for the plan of care (1) Rhabdomyolysis Encounter type: initial encounter Rhabdomyolysis type: traumatic Qualified Code(s): T79.6XXA - Traumatic ischemia of muscle, initial encounter
[2024-10-22 16:43] LABS: Base Excess VBG -1.1 mEq/L; HCO3 VBG 24 mmol/L; Oxygen Saturation VBG 79.6 %; PCO2 VBG 38 mmHg (38-50); PO2 VBG 49 mmHg; pH VBG 7.40 (7.36-7.41)
[2024-10-22 18:22] LABS: Appearance Urine Clear (Clear); Bacteria Urine Automated None Seen (None Seen); Cast Urine Automated 0-2 /lpf (0-2); Epithelial Cell Urine Auto 0-2 /hpf (0-2); Glucose Urine UA Negative (Negative); RBC Urine Automated >20 /hpf (0-2); WBC Urine Automated 0-5 /hpf (0-5)
[2024-10-22 18:50] LABS: Amphetamines+Metham, Urine Neg (Neg); MDMA (Ecstacy), Urine Neg (Neg); Marijuana, Urine Neg (Neg)
[2024-10-22] MEDS ORDERED: POLYETHYLENE (MIRALAX) 17 GM PACK PO PRN (18:57)
[2024-10-22] MEDS ORDERED: ALBUT/IPRATROP 3MG/0.5MG NEB 3 ML VIAL NEB PRN (18:57)
[2024-10-22] MEDS ORDERED: MAGNESIUM HYDROXIDE SUSP 30 ML UDC PO PRN (18:57)
[2024-10-22] MEDS ORDERED: ONDANSETRON INJ 2 MG/ML 2 ML VIAL IV PRN (18:57)
[2024-10-22] MEDS: BUPRENORPHINE/NALOXONE 8/2 MG TAB SL SCH (20:54)
[2024-10-22 21:39] LABS: Thyroid Stimulating Hormone 1.014 uIu/ml (0.300-4.500)
[2024-10-22] MEDS: THIAMINE HCL 500 MG in SODIUM CHLORIDE 0.9% 50 ML IV STA (21:51)
[2024-10-23 06:39] LABS: Hematocrit (blood only) 37.0 % (42.0-52.0); Hemoglobin 12.1 g/dl (14.0-18.0); Mean Corpuscular Hemoglobin 28.0 pg (25.0-34.0); Mean Corpuscular Volume 85.6 fL (80.0-100.0); Platelet Count 182 K/uL (130-400); RDW Standard Deviation 47.2 fL (36.4-46.3); Red Blood Count 4.32 M/uL (4.70-6.10); White Blood Count 6.13 K/ul (4.8-10.8)
[2024-10-23 07:02] LABS: Anion Gap 6.0 (3-11); Blood Urea Nitrogen 10.0 mg/dl (6-23); Calcium 8.3 mg/dl (8.6-10.3); Carbon Dioxide 25.0 mmol/L (21-32); Chloride 112.0 mmol/L (98-107); Creatinine Clr Calc Pharmacy 79.1 ml/min; Glucose 88.0 mg/dl (70-99(Fasting)); Potassium 3.6 mmol/L (3.5-5.1); Sodium 143.0 mmol/L (136-145)
[2024-10-23 07:37] LABS: Alanine Aminotransferase 24.0 U/L (7-52); Albumin Globulin Ratio 1.0 (0.9-2); Alkaline Phosphatase 58.0 U/L (34-104); Bilirubin,Total 0.9 mg/dl (0.2-1.0); Creatine Kinase 3771.0 U/L (30-223); Globulin 3.0 gm/dl (2.5-4.0); Total Protein 6.1 gm/dl (6.0-8.3)
[2024-10-23] MEDS ORDERED: NON-FORMULARY MEDICATION (Fluticasone-Umeclidin-Vilanter [Trelegy Ellipta] 200-62.5-25 mcg INH SCH (09:00)
[2024-10-23] MEDS: FOLIC ACID 1 MG TAB PO SCH (09:12)
[2024-10-23] MEDS: FLUTICASONE FUROATE 200MCG 14 PUFFS/INHALER INH SCH (09:12)
[2024-10-23] MEDS: UMECLIDINIUM/VILANTEROL 62.5/25MCG 7 PUFFS/INHALER INH SCH (09:12)
[2024-10-23] MEDS: MULTIVITAMIN TAB PO SCH (09:12)
[2024-10-23] MEDS: THIAMINE HCL 100 MG TAB PO SCH (09:12)
[2024-10-23] MEDS: CYANOCOBALAMIN 1000 MCG/ML VIAL IM STA (09:16)
[2024-10-23] MEDS: REMOVE NICODERM PATCH SCH (09:24)
[2024-10-23] MEDS: NICOTINE 21 MG/24 HR TDSY TD SCH (09:48)
--- NOTE | 2024-10-23 11:21 | Hospitalist Progress Note ---
Date of Service October 23, 2024 Assessment & Plan (1) Rhabdomyolysis: Plan: Patient is 69 year old male with PMH COPD, ongoing tobacco use, history of opioid dependence on Suboxone presented to ER with altered mental status. Patient was found on the ground today, with unclear history and unclear when had fallen. Patient with multiple abrasions to extremities and head and appeared to have been crawling on floor for a while. No evidence of leukocytosis, VBG unremarkable, UA +blood but otherwise not consistent with UTI. #Elevated CK 2/2 fall #Metabolic encephalopathy #Generalized weakness #Multiple Abrasions * CK 6273 on admission with stable renal functioning, BUN: 15, Cr:1.0. * Imaging without acute fracture, sublux, findings * CT Chest/CT Abd/pelvis-> Incidental note is made of asymmetric enlargement of the right obturator internus muscle, possibly an acute muscle strain/intramuscular hematoma * UDS neg, Ethylene glycol level pending * Continue IVF and trend CK daily * Possible d/c tomorrow- will need PT eval * Abrasions to head, face, arms, chest- will keep clean, no wound care required at this time #Suspected ETOH Use #Normocytic anemia * ETOH <10 in ER; continue ETOH withdrawal protocol * Seizure precautions per [facility] protocol * Normocytic anemia likely from chronic ETOH abuse- trend with AM labs * Start thiamine, folic acid, multivitamin; stable liver functioning T. bili: 1.1, AST: 138, ALT: 29, alk phos: 71 * B12 low 173; replaced today * TSH normal #H/O opioid dependence * Urine drug today is negative * Continue Suboxone per home routine #COPD #Tobacco use * NAD; oxy sats stable on RA * CT chest showing severe pulmonary emphysema with stable subcentimeter solid pulmonary nodules measuring up to 4 mm; follow-up outpatient * Continue home inhalers * Nicotine patch DVT Prophylaxis: SCDs for now given findings of possible hematoma right obturator internus muscle on CT scan Admit telemetry Full Code as per discussion with pt Follows with Dr Villanueva for routine care Pt was seen and care coordinated with Dr Philippe. See addendum I spent a total of 40 minutes reviewing notes, outpatient records, labs, medication, coordinating, documenting and providing care for this patient excluding time spent in the performance of separately billed services and excluding time spent by another provider/QHP. (2) Falling: (3) Weakness: (4) Opioid dependence: (5) COPD (chronic obstructive pulmonary disease): (6) Tobacco use: Admission and Anticipated Discharge Date Admission Date: October 22, 2024 Supervising Physician Co-Signing Physician Notes Patient seen and examined at bedside. Patient doing ok today. States he feels better overall. On exam, cachexia and sarcopenia noted, mild nystagmus on exam, appears malnourished. CK downtrending appropriately. B12 173. Patient presenting with failure to thrive at home, deconditioning, rhabdomyolysis, likely Wernickes encephalopathy. IM B12 given for low B12. 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 If mentation not better tomorrow will consider MR of brain. I have seen and discussed the case with the collaborating advanced practitioner. I agree with the above H&P. I have reviewed and confirmed the patients medical history, the findings on physical examination, and the patients diagnosis and treatment plan with Lety HENRY and agree with the information documented. I spent a total of 25 minutes coordinating, documenting, and providing care for this patient excluding time spent in the performance of separately billed services. All of the aforementioned completed outside of collaborating with the assigned advanced practitioner for a full treatment plan. I have reviewed the advanced practitioner's documentation, and I agree with, and take responsibility for the plan of care Subjective Patient seen and examined at bedside. Reports feeling a little better than when he came into the hospital. Reporting headache and left elbow pain. Receiving Suboxone per home routine, as per nursing, patient is asking for regularly. Den ies chest pain, lightheadedness, dizziness, N/V/D, headache, numbness, tingling. Review of Systems Review of Systems: All systems reviewed & are unremarkable except as noted in Subjective Physical Exam Physical Exam: VITALS: Reviewed. WEIGHT/BMI reviewed. GEN: Healthy appearing, well-developed, NAD. PSYCH: Good Judgment. AOx3. Normal memory, mood, and affect. HEENT -Head: NC/AT; -Eyes: PERRL, EOMI. No discharge or redn ess; -Ears: External ears are normal. Normal TMs. -Nose: Normal nares. -Mouth and throat: MMM. Normal gums, muc david, palate,. Good dentition. NECK: Supple, with no masses. CV: RRR, no m/r/g. LUNGS: CTAB, no w/r/c. ABD: Soft, NT/ND, NBS, no masses or organomegaly. : N/A SKIN: Warm, well perfused. No skin rashes or abnormal lesions. MSK: No deformities, Normal gait. EXT: No clubbing, cyanosis, or edema. NEURO: Ambulating with no limitations. Normal muscle strength and tone. No focal deficits. Results & Data Results & Data Vital Signs (Past 12 Hours) Vital Signs Temp Pulse Pulse Resp BP Pulse Ox O2 Del Method 10/23/24 08:00 57 L 10/23/24 07:48 36.7 C 64 20 137/74 96 Room Air 10/23/24 07:17 Room Air 10/23/24 04:27 66 10/23/24 04:13 36.4 C L 63 16 126/71 96 Room Air 10/22/24 23:57 36.4 C L 60 17 114/67 95 Room Air Laboratory Results Short CBC 10/22/24 10/23/24 Range/Units 14:15 06:16 WBC 8.58 6.13 (4.8-10.8) K/ul Hgb 13.5 L 12.1 L (14.0-18.0) g/dl Hct 41.8 L 37.0 L (42.0-52.0) % Plt Count 224 182 (130-400) K/uL BMP 10/22/24 10/23/24 14:15 06:16 Sodium 144 143 Potassium 3.7 3.6 Chloride 110 H 112 H Carbon Dioxide 24 25 BUN 15 10 Creatinine 1.01 0.82 Glucose 82 88 Calcium 9.2 8.3 L Cardiac Enzymes 10/22/24 10/23/24 Range/Units 14:15 06:16 Total Creatine Kinase 6273 H 3771 H (30-223) U/L Liver Function 10/22/24 10/23/24 Range/Units 14:15 06:16 Total Bilirubin 1.1 H 0.9 (0.2-1.0) mg/dl AST 138 H 97 H (13-39) U/L ALT 29 24 (7-52) U/L Alkaline Phosphatase 71 58 (34-104) U/L Albumin 3.8 3.1 L (3.4-5.0) gm/dl Urine 10/22/24 Range/Units 17:17 Urine Color [place] Urine Appearance Clear (Clear) Urine pH 5.5 (4.5-7.5) Ur Specific [place] > 1.045 H (1.000-1.030) Urine Protein Trace H (Negative) Urine Glucose (UA) Negative (Negative) (1) Rhabdomyolysis Encounter type: initial encounter Rhabdomyolysis type: traumatic Qualified Code(s): T79.6XXA - Traumatic ischemia of muscle, initial encounter
--- NOTE | 2024-10-23 13:51 | Electrocardiogram Report ---
Test Reason : Blood Pressure : */* mmHG Vent. Rate : 67 BPM Atrial Rate : 67 BPM P-R Int : 158 ms QRS Dur : 84 ms QT Int : 386 ms P-R-T Axes : 77 62 68 degrees QTcB Int : 407 ms Normal sinus rhythm Normal ECG When compared with ECG of 22-Oct-2024 14:15, No significant change was found Confirmed by Tyler Tee ([id number]) on 10/23/2024 1:51:10 PM Referred By: REFERRED SELF Confirmed By: Tyler Tee
[2024-10-23] MEDS: LACTATED RINGER'S 1,000 ML IV SCH (17:11)
--- NOTE | 2024-10-24 07:43 | Hospitalist Progress Note ---
Date of Service October 24, 2024 Assessment & Plan (1) Rhabdomyolysis: Plan: Patient is 69 year old male with PMH COPD, ongoing tobacco use, history of opioid dependence on Suboxone presented to ER with altered mental status. Patient was found on the ground today, with unclear history and unclear when had fallen. Patient with multiple abrasions to extremities and head and appeared to have been crawling on floor for a while. No evidence of leukocytosis, VBG unremarkable, UA +blood but otherwise not consistent with UTI. #Elevated CK 2/2 fall #Metabolic encephalopathy #Generalized weakness #Multiple Abrasions * Abrasions to head, face, arms, chest- will keep clean, no wound care required at this time * CK 6273 on admission with stable renal functioning, BUN: 15, Cr:1.0. * Has received IVF since admission, will d/c fluids today, CK now 1442-> will trend CK daily * Imaging without acute fracture, sublux findings * CT Chest/CT Abd/pelvis-> Incidental note is made of asymmetric enlargement of the right obturator internus muscle, possibly an acute muscle strain/intramuscular hematoma * UDS neg, Ethylene glycol level still pending * OT eval today- concern for impaired ADL functioning once home; recommend continued OT services while inpatient; CM to assist with poss d/c to rehab * PT eval needed #Suspected ETOH Use #Normocytic anemia * ETOH <10 in ER; continue ETOH withdrawal protocol * Seizure precautions per [facility] protocol * Normocytic anemia likely from chronic ETOH abuse- trend with AM labs * Start thiamine, folic acid, multivitamin; stable liver functioning T. bili: 1.1, AST: 138, ALT: 29, alk phos: 71 * B12 low 173; replaced this admission * TSH normal #H/O opioid dependence * Urine drug today is negative * Continue Suboxone per home routine #COPD #Tobacco use * NAD; oxy sats stable on RA * CT chest showing severe pulmonary emphysema with stable subcentimeter solid pulmonary nodules measuring up to 4 mm; follow-up outpatient * Continue home inhalers * Nicotine patch DVT Prophylaxis: SCDs for now given findings of possible hematoma right obturator internus muscle on CT scan Admit telemetry Full Code as per discussion with pt Follows with Dr Villanueva for routine care Pt was seen and care coordinated with Dr Philippe. See addendum I spent a total of 40 minutes reviewing notes, outpatient records, labs, medication, coordinating, documenting and providing care for this patient excluding time spent in the performance of separately billed services and excluding time spent by another provider/QHP. (2) Falling: (3) Weakness: (4) Opioid dependence: (5) COPD (chronic obstructive pulmonary disease): (6) Tobacco use: Admission and Anticipated Discharge Date Admission Date: October 22, 2024 Supervising Physician Co-Signing Physician Notes Patient seen and examined at bedside. Doing well today, states arms still hurt. On exam, trace arm edema noted bilaterally. CK downtrended to 1442 with fluids. Creatinine stable. Patient will require SNF placement per PT/OT evaluations. Medically stable for discharge, awaiting placement. I have seen and discussed the case with the collaborating advanced practitioner. I agree with the above H&P. I have reviewed and confirmed the patients medical history, the findings on physical examination, and the patients diagnosis and treatment plan with Lety HENRY and agree with the information documented. I spent a total of 20 minutes coordinating, documenting, and providing care for this patient excluding time spent in the performance of separately billed services. All of the aforementioned completed outside of collaborating with the assigned advanced practitioner for a full treatment plan. I have reviewed the advanced practitioner's documentation, and I agree with, and take responsibility for the plan of care Subjective Patient seen and examined at bedside. He reports pain to the left arm and bilateral shoulders, but feels this is improving since yesterday. Range of motion has improved. Tolerating a full, regular diet and po liquids. He reports ambulating with assistive device at home and has his home cane with him at bedside. Agreeable to discharge when able. Review of Systems Review of Systems: All systems reviewed & are unremarkable except as noted in Subjective Physical Exam Physical Exam: VITALS: Reviewed. WEIGHT/BMI reviewed. GEN: Well-developed, NAD. PSYCH: Good Judgment. AOx3. Normal memory, mood, and affect. HEENT -Head: NC/AT; -Eyes: PERRL, EOMI. No discharge or redn ess; -Ears: External ears are normal. -Nose: Normal nares. -Mouth and throat: MMM. Normal gums, muc david, palate,. Good dentition. NECK: Supple, with no masses. CV: RRR, no m/r/g. LUNGS: CTAB, no w/r/c. ABD: Soft, NT/ND, NBS, no masses or organomegaly. : N/A SKIN: Warm, well perfused. Multiple abrasions to face, forehead, BUE. MSK: No deformities, Normal gait. EXT: No clubbing, cyanosis. Can flex LUE to 45 degrees with some difficulty NEURO: CN II-XII grossly intact. Normal muscle strength and tone. No focal deficits. Results & Data Results & Data Vital Signs (Past 12 Hours) Vital Signs Temp Pulse Resp BP BP Pulse Ox O2 Del Method 10/24/24 07:12 36.5 C 70 16 131/77 92 Room Air 10/24/24 03:52 36.7 C 66 18 133/68 97 Room Air 10/23/24 21:28 36.7 C 70 14 113/61 95 Room Air 10/23/24 21:21 Room Air Laboratory Results Short CBC 10/24/24 Range/Units 08:10 WBC 6.03 (4.8-10.8) K/ul Hgb 11.7 L (14.0-18.0) g/dl Hct 35.2 L (42.0-52.0) % Plt Count 170 (130-400) K/uL BMP 10/24/24 08:10 Sodium 137 Potassium 3.3 L Chloride 104 Carbon Dioxide 27 BUN 5 L Creatinine 0.66 Glucose 99 Calcium 8.1 L Cardiac Enzymes 10/24/24 Range/Units 08:10 Total Creatine Kinase 1442 H (30-223) U/L (1) Rhabdomyolysis Encounter type: initial encounter Rhabdomyolysis type: traumatic Qualified Code(s): T79.6XXA - Traumatic ischemia of muscle, initial encounter
[2024-10-24 09:05] LABS: Hematocrit (blood only) 35.2 % (42.0-52.0); Hemoglobin 11.7 g/dl (14.0-18.0); Mean Corpuscular Hemoglobin 28.1 pg (25.0-34.0); Mean Corpuscular Volume 84.4 fL (80.0-100.0); Platelet Count 170 K/uL (130-400); RDW Standard Deviation 44.8 fL (36.4-46.3); Red Blood Count 4.17 M/uL (4.70-6.10); White Blood Count 6.03 K/ul (4.8-10.8)
[2024-10-24 09:21] LABS: Anion Gap 6.0 (3-11); Blood Urea Nitrogen 5.0 mg/dl (6-23); Calcium 8.1 mg/dl (8.6-10.3); Carbon Dioxide 27.0 mmol/L (21-32); Chloride 104.0 mmol/L (98-107); Creatine Kinase 1442.0 U/L (30-223); Creatinine Clr Calc Pharmacy 98.3 ml/min; Glucose 99.0 mg/dl (70-99(Fasting)); Potassium 3.3 mmol/L (3.5-5.1); Sodium 137.0 mmol/L (136-145)
[2024-10-24] MEDS: ACETAMINOPHEN 325 MG TAB PO PRN (17:56)
[2024-10-25 07:36] LABS: Hematocrit (blood only) 34.1 % (42.0-52.0); Hemoglobin 11.8 g/dl (14.0-18.0); Mean Corpuscular Hemoglobin 28.7 pg (25.0-34.0); Mean Corpuscular Volume 83.0 fL (80.0-100.0); Platelet Count 165 K/uL (130-400); RDW Standard Deviation 43.5 fL (36.4-46.3); Red Blood Count 4.11 M/uL (4.70-6.10); White Blood Count 5.49 K/ul (4.8-10.8)
[2024-10-25 07:56] LABS: Anion Gap 5.0 (3-11); Blood Urea Nitrogen 7.0 mg/dl (6-23); Calcium 8.2 mg/dl (8.6-10.3); Carbon Dioxide 29.0 mmol/L (21-32); Chloride 102.0 mmol/L (98-107); Creatinine Clr Calc Pharmacy 90.1 ml/min; Glucose 112.0 mg/dl (70-99(Fasting)); Potassium 3.6 mmol/L (3.5-5.1); Sodium 136.0 mmol/L (136-145)
--- NOTE | 2024-10-25 14:41 | Hospitalist Progress Note ---
Date of Service October 25, 2024 Assessment & Plan (1) Rhabdomyolysis: (2) Fall: (3) Opioid dependence: (4) COPD (chronic obstructive pulmonary disease): (5) Tobacco use: Plan 69 year old male with PMH significant for COPD, ongoing tobacco use, history of opioid dependence on Suboxone who presented to the ED on 10/22/24 with altered mental status after a fall and is admitted for rhabdomyolysis. Rhabdomyolysis secondary to fall Altered mental status, resolved Patient does not recall any details of the fall Admitting labs including CBC, PT/INR, VBG, CMP grossly unremarkable aside from elevated CK and AST consistent with rhabdo Trauma imaging all negative for injury Urine drug screen negative Ethylene glycol level still pending CK appropriately downtrended x2 PT and OT consults recommending rehab at dc CM following for referrals Suspected ETOH Use Reported concern of alcohol use from neighbor per EMS ETOH <10 on admission Continue thiamine and folic acid B12 low 173; replaced this admission H/O opioid dependence Admitting urine drug screen negative Continue Suboxone per home routine COPD Tobacco use CT chest showing severe pulmonary emphysema with stable subcentimeter solid pulmonary nodules measuring up to 4 mm - follow up outpatient Continue home inhalers Nicotine patch Abnormal CT finding CTAP revealed incidental asymmetric enlargement of the right obturator internus muscle, possibly an acute muscle strain/intramuscular hematoma Follow up outpatient DVT Prophylaxis: SCDs Code Status: FULL CODE PCP: Fred San Disposition: anticipate dc to rehab in 1-2 days pending acceptance Patient seen in collaboration with Dr Philippe. Please see addendum. I spent a total of 50 minutes coordinating, documenting and providing care for this patient excluding time spent in the performance of separately billed services or time spent by another provider/QHP. Admission and Anticipated Discharge Date Admission Date: October 22, 2024 Supervising Physician Co-Signing Physician Notes Patient seen at bedside. Doing well today overall. Patient will require SNF placement per PT/OT evaluations. Medically stable for discharge, awaiting placement. I have seen and discussed the case with the collaborating advanced practitioner. I agree with the above H&P. I have reviewed and confirmed the patients medical history, the findings on physical examination, and the patients diagnosis and treatment plan with Lety HENRY and agree with the information documented. I spent a total of 10 minutes coordinating, documenting, and providing care for this patient excluding time spent in the performance of separately billed services. All of the aforementioned completed outside of collaborating with the assigned advanced practitioner for a full treatment plan. I have reviewed the advanced practitioner's documentation, and I agree with, and take responsibility for the plan of care Subjective Patient seen sitting up in bed Reports pain in his arms Denies chest pain, SOB, abdominal pain, N/V/D Agreeable to rehab stay at tx Review of Systems Review of Systems: All systems reviewed & are unremarkable except as noted in Subjective Physical Exam Physical Exam: General/Psych: WD/WN, sitting up in bed, NAD, conversing easily Head: normocephalic, atraumatic Eyes: normal inspection, PERRL, conjunctivae pink ENT: external ear and nose normal, oropharynx normal Neck: normal visual inspection, trachea midline Respiratory: normal respiratory effort, lungs clear to auscultation, no wheeze/rales/rhonchi, no accessory muscle use Cardiovascular: regular rate and rhythm, no murmur/rub/gallop, no JVD Extremities: no cyanosis or clubbing, normal peripheral pulses, no BLE edema Abdomen/GI: normal bowel sounds, soft, nontender Neurologic/MSK: A+Ox3, moves all extremities Skin: no rashes, normal color, warm and dry; generalized abrasions and bruising Results & Data Results & Data Vital Signs (Past 12 Hours) Vital Signs Temp Pulse Pulse Resp BP Pulse Ox O2 Del Method 10/25/24 07:30 Room Air 10/25/24 07:25 36.5 C 64 12 100/60 94 Room Air 10/25/24 04:08 36.6 C 66 18 108/66 94 Room Air Laboratory Results Short CBC 10/25/24 Range/Units 07:06 WBC 5.49 (4.8-10.8) K/ul Hgb 11.8 L (14.0-18.0) g/dl Hct 34.1 L (42.0-52.0) % Plt Count 165 (130-400) K/uL BMP 10/25/24 07:06 Sodium 136 Potassium 3.6 Chloride 102 Carbon Dioxide 29 BUN 7 Creatinine 0.72 Glucose 112 H Calcium 8.2 L I have independently reviewed and interpreted patient's labs including CBC and BMP Medications Administered Current Inpatient Medications Acetaminophen (Acetaminophen 325 Mg Tab) 650 mg PO Q4H PRN PRN Reason: Pain or Fever Stop: 11/21/24 18:56 Last Admin: 10/24/24 17:56 Dose: 650 mg Albuterol (Albut/Ipratrop 3mg/0.5mg Neb 3 Ml Vial) 3 ml NEB QIDR PRN; Protocol PRN Reason: Shortness Of Breath Or Wheezing Stop: 11/21/24 18:56 Buprenorphine/Naloxone (Buprenorphine/Naloxone 8/2 Mg Tab) 1 tab SL TID [facility] Stop: 11/21/24 20:59 Last Admin: 10/25/24 14:00 Dose: 1 tab Fluticasone Furoate (Fluticasone Furoate 200mcg 14 Puffs/Inhaler) 1 puffs INH DAILY [facility] Stop: 11/22/24 08:59 Last Admin: 10/25/24 08:43 Dose: 1 puffs Folic Acid (Folic Acid 1 Mg Tab) 1 mg PO QAM [facility] Stop: 11/22/24 08:59 Last Admin: 10/25/24 08:43 Dose: 1 mg Miscellaneous (Remove Nicoderm Patch) 1 each N/A DAILY@0859 [facility] Stop: 11/22/24 08:58 Last Admin: 10/25/24 08:42 Dose: 1 each Multivitamins (Multivitamin Tab) 1 tab PO QAM [facility] Stop: 11/22/24 08:59 Last Admin: 10/25/24 08:43 Dose: 1 tab Nicotine (Nicotine 21 Mg/24 Hr Tdsy) 1 patch TD QAM [facility] Stop: 11/22/24 08:59 Last Admin: 10/25/24 08:43 Dose: 1 patch Ondansetron HCl (Ondansetron Inj 2 Mg/Ml 2 Ml Vial) 4 mg IV Q6H PRN PRN Reason: Nausea Stop: 11/21/24 18:56 Oxycodone HCl (Oxycodone Hcl Ir 5 Mg Tab (Immediate Release)) 5 mg PO Q6H PRN PRN Reason: Severe Pain (Scale 7, 8, 9,10) Stop: 11/05/24 18:56 Last Admin: 10/25/24 04:10 Dose: 5 mg Polyethylene Glycol (Polyethylene (Miralax) 17 Gm Pack) 17 gm PO DAILY PRN PRN Reason: Constipation Stop: 11/21/24 18:56 Thiamine HCl (Thiamine Hcl 100 Mg Tab) 100 mg PO QAM [facility] Stop: 11/22/24 08:59 Last Admin: 10/25/24 08:43 Dose: 100 mg Umeclidinium/Vilanterol (Umeclidinium/Vilanterol 62.5/25mcg 7 Puffs/Inhaler) 1 puffs INH DAILY [facility] Stop: 11/22/24 08:59 Last Admin: 10/25/24 08:43 Dose: 1 puffs (1) Rhabdomyolysis Encounter type: initial encounter Rhabdomyolysis type: traumatic Qualified Code(s): T79.6XXA - Traumatic ischemia of muscle, initial encounter
[2024-10-26 07:54] LABS: Hematocrit (blood only) 38.2 % (42.0-52.0); Hemoglobin 12.7 g/dl (14.0-18.0); Mean Corpuscular Hemoglobin 27.5 pg (25.0-34.0); Mean Corpuscular Volume 82.9 fL (80.0-100.0); Platelet Count 198 K/uL (130-400); RDW Standard Deviation 43.4 fL (36.4-46.3); Red Blood Count 4.61 M/uL (4.70-6.10); White Blood Count 7.42 K/ul (4.8-10.8)
[2024-10-26 08:13] LABS: Anion Gap 6.0 (3-11); Blood Urea Nitrogen 10.0 mg/dl (6-23); Calcium 8.5 mg/dl (8.6-10.3); Carbon Dioxide 28.0 mmol/L (21-32); Chloride 99.0 mmol/L (98-107); Creatinine Clr Calc Pharmacy 98.3 ml/min; Glucose 108.0 mg/dl (70-99(Fasting)); Potassium 3.8 mmol/L (3.5-5.1); Sodium 133.0 mmol/L (136-145)
--- NOTE | 2024-10-26 12:17 | Hospitalist Progress Note ---
Date of Service October 26, 2024 Assessment & Plan (1) Rhabdomyolysis: (2) Fall: (3) Opioid dependence: (4) COPD (chronic obstructive pulmonary disease): (5) Tobacco use: Plan 69 year old male with PMH significant for COPD, ongoing tobacco use, history of opioid dependence on Suboxone who presented to the ED on 10/22/24 with altered mental status after a fall and is admitted for rhabdomyolysis. Rhabdomyolysis secondary to fall Altered mental status, resolved Patient does not recall any details of the fall Admitting labs including CBC, PT/INR, VBG, CMP grossly unremarkable aside from elevated CK and AST consistent with rhabdo Trauma imaging all negative for injury Urine drug screen negative Ethylene glycol level still pending CK appropriately downtrended x2 PT and OT consults recommending rehab at dc CM following for referrals Suspected ETOH Use Reported concern of alcohol use from neighbor per EMS ETOH <10 on admission Continue thiamine and folic acid B12 low 173; replaced this admission H/O opioid dependence Admitting urine drug screen negative Continue Suboxone per home routine COPD Tobacco use CT chest showing severe pulmonary emphysema with stable subcentimeter solid pulmonary nodules measuring up to 4 mm - follow up outpatient Continue home inhalers Nicotine patch Abnormal CT finding CTAP revealed incidental asymmetric enlargement of the right obturator internus muscle, possibly an acute muscle strain/intramuscular hematoma - follow up outpatient DVT Prophylaxis: SCDs Code Status: FULL CODE PCP: Fred San Disposition: anticipate dc to rehab in 1-2 days pending acceptance Patient seen in collaboration with Dr Daniel. Please see addendum. I spent a total of 35 minutes coordinating, documenting and providing care for this patient excluding time spent in the performance of separately billed services or time spent by another provider/QHP. Admission and Anticipated Discharge Date Admission Date: October 22, 2024 Supervising Physician Co-Signing Physician Notes Patient is seen and examined at bedside. States having bilateral upper extremity pain which is slowly improving. Offers no other complaints today. On exam patient is thin, frail, elderly, no apparent distress, normocephalic, multiple abrasions on forehead, upper extremities, EOMI, normal breath sounds, clear to auscultation, S1-S2, no murmur, no pedal edema, abdomen soft, nontender, normal bowel sounds, alert, awake, oriented, grossly no focal deficits. Patient is currently being treated for traumatic rhabdomyolysis, suspected alcohol use. CK levels improved. Continue PT OT, fall precautions. Will recheck CK levels tomorrow along with renal function. Continue current management. Waiting for placement. I personally interviewed and examined the patient at bedside. I have reviewed the advanced practitioner's documentation on the date of service referred in note and agree with plan. Patient's care is coordinated with Lety HENRY. Please refer to the documentation above for details of patient's presentation and for discussion of other issues. I spent a total [id number] coordinating, documenting, and providing care for this patient excluding time spent in the performance of separately billed services or time spent by another provider/QHP. Subjective Patient seen sitting up in bed Reports pain in his arms Denies chest pain, SOB, abdominal pain, N/V/D Review of Systems Review of Systems: All systems reviewed & are unremarkable except as noted in Subjective Physical Exam Physical Exam: General/Psych: WD/WN, sitting up in bed, NAD, drowsy Head: normocephalic, atraumatic Eyes: normal inspection, PERRL, conjunctivae pink ENT: external ear and nose normal, oropharynx normal Neck: normal visual inspection, trachea midline Respiratory: normal respiratory effort, lungs clear to auscultation, no wheeze/rales/rhonchi, no accessory muscle use Cardiovascular: regular rate and rhythm, no murmur/rub/gallop, no JVD Extremities: no cyanosis or clubbing, normal peripheral pulses, no BLE edema Abdomen/GI: normal bowel sounds, soft, nontender Neurologic/MSK: A+Ox3, moves all extremities Skin: no rashes, normal color, warm and dry; generalized abrasions and bruising Results & Data Results & Data Vital Signs (Past 12 Hours) Vital Signs Temp Pulse Resp BP Pulse Ox O2 Del Method 10/26/24 07:55 Room Air 10/26/24 07:26 36.7 C 76 16 122/66 96 Room Air Laboratory Results Short CBC 10/26/24 Range/Units 07:00 WBC 7.42 (4.8-10.8) K/ul Hgb 12.7 L (14.0-18.0) g/dl Hct 38.2 L (42.0-52.0) % Plt Count 198 (130-400) K/uL BMP 10/26/24 07:00 Sodium 133 L Potassium 3.8 Chloride 99 Carbon Dioxide 28 BUN 10 Creatinine 0.66 Glucose 108 H Calcium 8.5 L I have independently reviewed and interpreted patient's labs including CBC and BMP Medications Administered Current Inpatient Medications Acetaminophen (Acetaminophen 325 Mg Tab) 650 mg PO Q4H PRN PRN Reason: Pain or Fever Stop: 11/21/24 18:56 Last Admin: 10/24/24 17:56 Dose: 650 mg Albuterol (Albut/Ipratrop 3mg/0.5mg Neb 3 Ml Vial) 3 ml NEB QIDR PRN; Protocol PRN Reason: Shortness Of Breath Or Wheezing Stop: 11/21/24 18:56 Buprenorphine/Naloxone (Buprenorphine/Naloxone 8/2 Mg Tab) 1 tab SL TID [facility] Stop: 11/21/24 20:59 Last Admin: 10/26/24 08:00 Dose: 1 tab Fluticasone Furoate (Fluticasone Furoate 200mcg 14 Puffs/Inhaler) 1 puffs INH DAILY [facility] Stop: 11/22/24 08:59 Last Admin: 10/26/24 07:59 Dose: 1 puffs Folic Acid (Folic Acid 1 Mg Tab) 1 mg PO QAM [facility] Stop: 11/22/24 08:59 Last Admin: 10/26/24 07:58 Dose: 1 mg Miscellaneous (Remove Nicoderm Patch) 1 each N/A DAILY@0859 [facility] Stop: 11/22/24 08:58 Last Admin: 10/26/24 07:58 Dose: 1 each Multivitamins (Multivitamin Tab) 1 tab PO QAM [facility] Stop: 11/22/24 08:59 Last Admin: 10/26/24 07:58 Dose: 1 tab Nicotine (Nicotine 21 Mg/24 Hr Tdsy) 1 patch TD QAM [facility] Stop: 11/22/24 08:59 Last Admin: 10/26/24 07:58 Dose: 1 patch Ondansetron HCl (Ondansetron Inj 2 Mg/Ml 2 Ml Vial) 4 mg IV Q6H PRN PRN Reason: Nausea Stop: 11/21/24 18:56 Oxycodone HCl (Oxycodone Hcl Ir 5 Mg Tab (Immediate Release)) 5 mg PO Q6H PRN PRN Reason: Severe Pain (Scale 7, 8, 9,10) Stop: 11/05/24 18:56 Last Admin: 10/26/24 10:13 Dose: 5 mg Polyethylene Glycol (Polyethylene (Miralax) 17 Gm Pack) 17 gm PO DAILY PRN PRN Reason: Constipation Stop: 11/21/24 18:56 Thiamine HCl (Thiamine Hcl 100 Mg Tab) 100 mg PO QAM [facility] Stop: 11/22/24 08:59 Last Admin: 10/26/24 07:58 Dose: 100 mg Umeclidinium/Vilanterol (Umeclidinium/Vilanterol 62.5/25mcg 7 Puffs/Inhaler) 1 puffs INH DAILY [facility] Stop: 11/22/24 08:59 Last Admin: 10/26/24 07:59 Dose: 1 puffs (1) Rhabdomyolysis Encounter type: initial encounter Rhabdomyolysis type: traumatic Qualified Code(s): T79.6XXA - Traumatic ischemia of muscle, initial encounter
[2024-10-27 07:28] LABS: Hematocrit (blood only) 36.9 % (42.0-52.0); Hemoglobin 12.7 g/dl (14.0-18.0); Mean Corpuscular Hemoglobin 28.5 pg (25.0-34.0); Mean Corpuscular Volume 82.7 fL (80.0-100.0); Platelet Count 205 K/uL (130-400); RDW Standard Deviation 43.8 fL (36.4-46.3); Red Blood Count 4.46 M/uL (4.70-6.10); White Blood Count 6.18 K/ul (4.8-10.8)
[2024-10-27 07:41] LABS: Anion Gap 6.0 (3-11); Blood Urea Nitrogen 12.0 mg/dl (6-23); Calcium 8.6 mg/dl (8.6-10.3); Carbon Dioxide 29.0 mmol/L (21-32); Chloride 98.0 mmol/L (98-107); Creatine Kinase 151.0 U/L (30-223); Creatinine Clr Calc Pharmacy 102.9 ml/min; Glucose 102.0 mg/dl (70-99(Fasting)); Potassium 4.0 mmol/L (3.5-5.1); Sodium 133.0 mmol/L (136-145)
--- NOTE | 2024-10-27 13:15 | Hospitalist Progress Note ---
Date of Service October 27, 2024 Assessment & Plan (1) Rhabdomyolysis: (2) Fall: (3) Opioid dependence: (4) COPD (chronic obstructive pulmonary disease): (5) Tobacco use: Plan 69 year old male with PMH significant for COPD, ongoing tobacco use, history of opioid dependence on Suboxone who presented to the ED on 10/22/24 with altered mental status after a fall and is admitted for rhabdomyolysis. Rhabdomyolysis secondary to fall Altered mental status, resolved Patient does not recall any details of the fall Admitting labs including CBC, PT/INR, VBG, CMP grossly unremarkable aside from elevated CK and AST consistent with rhabdo Trauma imaging all negative for injury Urine drug screen negative Ethylene glycol level normal CK appropriately downtrended x2 and resolved PT and OT consults recommending rehab at dc - declined by [facility] but approved for SNF CM following for referrals Suspected ETOH Use Reported concern of alcohol use from neighbor per EMS ETOH <10 on admission Continue thiamine and folic acid B12 low 173; replaced this admission H/O opioid dependence Admitting urine drug screen negative Continue Suboxone per home routine COPD Tobacco use CT chest showing severe pulmonary emphysema with stable subcentimeter solid pulmonary nodules measuring up to 4 mm - follow up outpatient Continue home inhalers Nicotine patch Abnormal CT finding CTAP revealed incidental asymmetric enlargement of the right obturator internus muscle, possibly an acute muscle strain/intramuscular hematoma - follow up outpatient DVT Prophylaxis: SCDs Code Status: FULL CODE PCP: Fred San Disposition: medically cleared for dc pending SNF acceptance Patient seen in collaboration with Dr Daniel. Please see addendum. I spent a total of 35 minutes coordinating, documenting and providing care for this patient excluding time spent in the performance of separately billed services or time spent by another provider/QHP. Admission and Anticipated Discharge Date Admission Date: October 22, 2024 Supervising Physician Co-Signing Physician Notes Patient is seen and examined at bedside. Upper extremity soreness better today. No other complaints today. Denies any chest pain, dyspnea. Waiting for placement. On exam patient is thin, frail, elderly, no apparent distress, normocephalic, multiple abrasions on forehead, upper extremities, EOMI, normal breath sounds, clear to auscultation, S1-S2, no murmur, no pedal edema, abdomen soft, nontender, normal bowel sounds, alert, awake, oriented, grossly no focal deficits. Patient is currently being treated for traumatic rhabdomyolysis, suspected alcohol use. CK levels improved. Continue PT OT, fall precautions. CK levels normal on today's blood work. Continue current management. Waiting for placement. I personally interviewed and examined the patient at bedside. I have reviewed the advanced practitioner's documentation on the date of service referred in note and agree with plan. Patient's care is coordinated with Lety HENRY. Please refer to the documentation above for details of patient's presentation and for discussion of other issues. I spent a total [id number] coordinating, documenting, and providing care for this patient excluding time spent in the performance of separately billed services or time spent by another provider/QHP. Subjective Patient seen sitting up in bed Reports pain in his arms is improved Denies chest pain, SOB, abdominal pain, N/V/D Review of Systems Review of Systems: All systems reviewed & are unremarkable except as noted in Subjective Physical Exam Physical Exam: General/Psych: WD/WN, sitting up in bed, NAD, conversing easily Head: normocephalic, atraumatic Eyes: normal inspection, PERRL, conjunctivae pink ENT: external ear and nose normal, oropharynx normal Neck: normal visual inspection, trachea midline Respiratory: normal respiratory effort, lungs clear to auscultation, no wheeze/rales/rhonchi, no accessory muscle use Cardiovascular: regular rate and rhythm, no murmur/rub/gallop, no JVD Extremities: no cyanosis or clubbing, normal peripheral pulses, no BLE edema Abdomen/GI: normal bowel sounds, soft, nontender Neurologic/MSK: A+Ox3, moves all extremities Skin: no rashes, normal color, warm and dry; generalized abrasions and bruising Results & Data Results & Data Vital Signs (Past 12 Hours) Vital Signs Temp Pulse Resp BP BP Pulse Ox O2 Del Method 10/27/24 12:05 36.6 C 74 13 111/66 94 Room Air 10/27/24 07:46 36.6 C 68 13 114/69 92 Room Air 10/27/24 07:30 Room Air Laboratory Results Short CBC 10/27/24 Range/Units 06:48 WBC 6.18 (4.8-10.8) K/ul Hgb 12.7 L (14.0-18.0) g/dl Hct 36.9 L (42.0-52.0) % Plt Count 205 (130-400) K/uL BMP 10/27/24 06:48 Sodium 133 L Potassium 4.0 Chloride 98 Carbon Dioxide 29 BUN 12 Creatinine 0.63 Glucose 102 H Calcium 8.6 Cardiac Enzymes 10/27/24 Range/Units 06:48 Total Creatine Kinase 151 (30-223) U/L I have independently reviewed and interpreted patient's admitting labs including CBC, BMP, CK. Medications Administered Current Inpatient Medications Acetaminophen (Acetaminophen 325 Mg Tab) 650 mg PO Q4H PRN PRN Reason: Pain or Fever Stop: 11/21/24 18:56 Last Admin: 10/27/24 10:42 Dose: 650 mg Albuterol (Albut/Ipratrop 3mg/0.5mg Neb 3 Ml Vial) 3 ml NEB QIDR PRN; Protocol PRN Reason: Shortness Of Breath Or Wheezing Stop: 11/21/24 18:56 Buprenorphine/Naloxone (Buprenorphine/Naloxone 8/2 Mg Tab) 1 tab SL TID [facility] Stop: 11/21/24 20:59 Last Admin: 10/27/24 07:41 Dose: 1 tab Fluticasone Furoate (Fluticasone Furoate 200mcg 14 Puffs/Inhaler) 1 puffs INH DAILY [facility] Stop: 11/22/24 08:59 Last Admin: 10/27/24 07:39 Dose: 1 puffs Folic Acid (Folic Acid 1 Mg Tab) 1 mg PO QAM [facility] Stop: 11/22/24 08:59 Last Admin: 10/27/24 07:39 Dose: 1 mg Miscellaneous (Remove Nicoderm Patch) 1 each N/A DAILY@0859 [facility] Stop: 11/22/24 08:58 Last Admin: 10/27/24 07:39 Dose: 1 each Multivitamins (Multivitamin Tab) 1 tab PO QAM [facility] Stop: 11/22/24 08:59 Last Admin: 10/27/24 07:39 Dose: 1 tab Nicotine (Nicotine 21 Mg/24 Hr Tdsy) 1 patch TD QAM [facility] Stop: 11/22/24 08:59 Last Admin: 10/27/24 07:38 Dose: 1 patch Ondansetron HCl (Ondansetron Inj 2 Mg/Ml 2 Ml Vial) 4 mg IV Q6H PRN PRN Reason: Nausea Stop: 11/21/24 18:56 Oxycodone HCl (Oxycodone Hcl Ir 5 Mg Tab (Immediate Release)) 5 mg PO Q6H PRN PRN Reason: Severe Pain (Scale 7, 8, 9,10) Stop: 11/05/24 18:56 Last Admin: 10/27/24 05:19 Dose: 5 mg Polyethylene Glycol (Polyethylene (Miralax) 17 Gm Pack) 17 gm PO DAILY PRN PRN Reason: Constipation Stop: 11/21/24 18:56 Thiamine HCl (Thiamine Hcl 100 Mg Tab) 100 mg PO QAM [facility] Stop: 11/22/24 08:59 Last Admin: 10/27/24 07:39 Dose: 100 mg Umeclidinium/Vilanterol (Umeclidinium/Vilanterol 62.5/25mcg 7 Puffs/Inhaler) 1 puffs INH DAILY [facility] Stop: 11/22/24 08:59 Last Admin: 10/27/24 07:39 Dose: 1 puffs (1) Rhabdomyolysis Encounter type: initial encounter Rhabdomyolysis type: traumatic Qualified Code(s): T79.6XXA - Traumatic ischemia of muscle, initial encounter
[2024-10-28] MEDS: DOCUSATE SODIUM/SENNA 50/8.6MG TAB PO PRN (06:41)
--- NOTE | 2024-10-28 10:35 | XRay Report ---
XR elbow LT min 3V routine CLINICAL HISTORY: L elbow pain, near bicep insertion COMPARISON: None FINDINGS: There is a mild joint effusion. There is a small chronic appearing density adjacent to the coronoid process on the lateral view. No other acute fracture or dislocation seen. IMPRESSION: Small density adjacent to the coronoid process could be chronic, or could represent a tin y acute nondisplaced fracture. No other acute fracture seen. ACT 112: Negative or not required by law. Electronically signed by: Yovanny Velazquez M.D. 10/28/2024 10:34 AM
--- NOTE | 2024-10-28 10:39 | Hospitalist Progress Note ---
Date of Service October 28, 2024 Assessment & Plan (1) Rhabdomyolysis: (2) Fall: (3) Opioid dependence: (4) COPD (chronic obstructive pulmonary disease): (5) Tobacco use: Plan This is a 69 year old male with PMH significant for COPD, ongoing tobacco use, history of opioid dependence on Suboxone who presented to the ED on 10/22/24 with altered mental status after a fall and is admitted for rhabdomyolysis. Rhabdomyolysis secondary to fall Altered mental status, resolved Patient does not recall any details of the fall Admitting labs including CBC, PT/INR, VBG, CMP grossly unremarkable aside from elevated CK and AST consistent with rhabdo Trauma imaging all negative for injury Urine drug screen negative Ethylene glycol level normal CK appropriately downtrended x2 and resolved PT and OT consults recommending rehab at dc - declined by [facility] but approved for SNF, awaiting placement Left elbow pain General pain from fall improving but persistent L elbow pain - XR this AM with possible non-displaced fracture adjacent to coronoid process Discussed with ortho provider energy control officer, who reviewed imaging. Recommending CT elbow non-con for better evaluation. No activity restrictions or spint needed now Suspected ETOH Use Reported concern of alcohol use from neighbor per EMS ETOH <10 on admission Continue thiamine and folic acid B12 low 173; replaced this admission Cessation recommended H/O opioid dependence Admitting urine drug screen negative Continue Suboxone per home routine COPD Tobacco use CT chest showing severe pulmonary emphysema with stable subcentimeter solid pulmonary nodules measuring up to 4 mm - follow up outpatient Continue home inhalers Nicotine patch Abnormal CT finding CTAP revealed incidental asymmetric enlargement of the right obturator internus muscle, possibly an acute muscle strain/intramuscular hematoma - follow up outpatient DVT Prophylaxis: SCDs Code Status: FULL CODE PCP: Fred San Disposition: medically cleared for dc pending SNF acceptance Care coordinated with Dr Daniel. I spent a total of 50 minutes coordinating, documenting and providing care for this patient excluding time spent in the performance of separately billed services or time spent by another provider/QHP. Admission and Anticipated Discharge Date Admission Date: October 22, 2024 Supervising Physician Co-Signing Physician Notes Chart reviewed. Discussed care with advance practice provider. I have reviewed the advanced practitioner's documentation on the date of service referred in note and agree with plan. Patient's care is coordinated with Jessica Denise PA-C . Please refer to the documentation above for details of patient's presentation and for discussion of other issues. I spent a total of11 minutes coordinating, documenting, and providing care for this patient excluding time spent in the performance of separately billed services or time spent by another provider/QHP. Subjective Patient seen and evaluated in 383-1. Reports general pain from fall is improved; still having pain with L elbow f lexion. Denies chest pain, SOB, abdominal pain, N/V/D. Awaiting placement. Review of Systems Review of Systems: At least ten systems reviewed and negative except as noted in the HPI. Physical Exam Physical Exam: Gen: WD/WN, NAD, resting in bed comfortably, A&Ox3 HEENT: Normocephalic, atraumatic, mucous membranes moist Lung: Clear to Auscultation bilaterally Heart: Regular rate, regular rhythm Abdomen: Soft, NT, ND +BS x 4 Extremities: + L elbow TTP near antecubital fossa Skin: Warm, no rash, scattered ecchymosis on extremities Results & Data Results & Data Vital Signs (Past 12 Hours) Vital Signs Temp Pulse Resp BP BP Pulse Ox O2 Del Method 10/28/24 07:38 36.4 C L 67 16 128/65 94 Room Air 10/27/24 23:13 36.7 C 74 18 95/58 L 94 Room Air Diagnostic Findings Abdomen/Pelvis CT 10/22/24 14:[address] WITH CONTRAST; CT ABDOMEN AND PELVIS WITH IV CONTRAST ONLY HISTORY: Acute trauma Trauma TECHNIQUE: Multiaxial CT images of the chest, abdomen and pelvis were performed following the IV administration of 94 cc of Optiray. A dose lowering technique was utilized adhering to the principles of ALARA. COMPARISON: CT lumbar and thoracic spine studies of same day, CTA chest to April 21, 2022, CT pelvis 09/29/2023. FINDINGS: CT CHEST: Unremarkable thyroid. Mild lymphadenopathy includes an 11 mm subcarinal lymph node on image 126 which is unchanged and likely benign. Heart is normal in size. Moderate to extensive coronary artery calcifications. Mild fusiform dilation of the ascending thoracic aorta measures 4.1 x 4.1 cm, unchanged. No dissection. Mild dilation of the pulmonary artery may represent pulmonary arterial hypertension. Severe pulmonary emphysema. A few scattered solid pulmonary nodules measuring up to 4 mm are unchanged. No pneumothorax, pleural effusion or pulmonary edema. Central airways are patent. Unremarkable soft tissues. Degenerative changes of the shoulders and spine. Mild inferior endplate compression of the T6 vertebral body without retropulsion or paravertebral edema has progressed from the [address] ABDOMEN/PELVIS: No pneumatosis or pneumoperitoneum. Unremarkable spleen, moderately atrophic pancreas, gallbladder and adrenal glands. Liver is within normal limits. Patency of the hepatic and portal veins. Kidneys are within normal limits. No hydronephrosis. Urinary bladder wall thickening with partial d istention. Prostatomegaly. Extensive atherosclerosis of the abdominal aorta. High-grade stenosis/occlusion involves the proximal aspect of the right common femoral artery with distal reconstitution just proximal to the bifurcation, unchanged. No lymphadenopathy. No bowel obstruction or bowel wall thickening. Moderate colonic fecal retention. Colonic diverticulosis without acute diverticulitis. Normal appendix. Asymmetric enlargement of the right rotary soil stabilizer operator internus is new from prior. No significant adjacent inflammatory stranding. Degenerative changes of the spine. Left proximal femoral ORIF changes. No acute pelvic fracture identified. There is minimal superior endplate compression involving the L1 and L4 vertebral bodies, likely chronic. IMPRESSION: 1. No definite acute posttraumatic intrathoracic, intra-abdominal or intrapelvic abnormality identified. 2. Severe pulmonary emphysema with stable subcentimeter solid pulmonary nodules measuring up to 4 mm. 3. Incidental note is made of asymmetric enlargement of the right obturator internus muscle, possibly an acute muscle strain/intramuscular hematoma. 4. No acute pelvic fracture. 5. Minimal inferior endplate compression at T6 without retropulsion has progressed from the 2022 comparison, likely chronic. ACT 112: Negative or not required by law. Electronically signed by: Robin Salas M.D. 10/22/2024 4:[address] 10/22/24 14:[address] WITH CONTRAST; CT ABDOMEN AND PELVIS WITH IV CONTRAST ONLY HISTORY: Acute trauma Trauma TECHNIQUE: Multiaxial CT images of the chest, abdomen and pelvis were performed following the IV administration of 94 cc of Optiray. A dose lowering technique was utilized adhering to the principles of ALARA. COMPARISON: CT lumbar and thoracic spine studies of same day, CTA chest to April 21, 2022, CT pelvis 09/29/2023. FINDINGS: CT CHEST: Unremarkable thyroid. Mild lymphadenopathy includes an 11 mm subcarinal lymph node on image 126 which is unchanged and likely benign. Heart is normal in size. Moderate to extensive coronary artery calcifications. Mild fusiform dilation of the ascending thoracic aorta measures 4.1 x 4.1 cm, unchanged. No dissection. Mild dilation of the pulmonary artery may represent pulmonary arterial hypertension. Severe pulmonary emphysema. A few scattered solid pulmonary nodules measuring up to 4 mm are unchanged. No pneumothorax, pleural effusion or pulmonary edema. Central airways are patent. Unremarkable soft tissues. Degenerative changes of the shoulders and spine. Mild inferior endplate compression of the T6 vertebral body without retropulsion or paravertebral edema has progressed from the [address] ABDOMEN/PELVIS: No pneumatosis or pneumoperitoneum. Unremarkable spleen, m oderately atrophic pancreas, gallbladder and adrenal glands. Liver is within normal limits. Patency of the hepatic and portal veins. Kidneys are within normal limits. No hydronephrosis. Urinary bladder wall thickening with partial distention. Prostatomegaly. Extensive atherosclerosis of the abdominal aorta. High-grade stenosis/occlusion involves the proximal aspect of the right common femoral artery with distal reconstitution just proximal to the bifurcation, unchanged. No lymphadenopathy. No bowel obstruction or bowel wall thickening. Moderate colonic fecal retention. Colonic diverticulosis without acute diverticulitis. Normal appendix. Asymmetric enlargement of the right rotary soil stabilizer operator internus is new from prior. No significant adjacent inflammatory stranding. Degenerative changes of the spine. Left proximal femoral ORIF changes. No acute pelvic fracture identified. There is minimal superior endplate compression involving the L1 and L4 vertebral bodies, likely chronic. IMPRESSION: 1. No definite acute posttraumatic intrathoracic, intra-abdominal or intrapelvic abnormality identified. 2. Severe pulmonary emphysema with stable subcentimeter solid pulmonary nodules measuring up to 4 mm. 3. Incidental note is made of asymmetric enlargement of the right obturator internus muscle, possibly an acute muscle strain/intramuscular hematoma. 4. No acute pelvic fracture. 5. Minimal inferior endplate compression at T6 without retropulsion has progressed from the 2022 comparison, likely chronic. ACT 112: Negative or not required by law. Electronically signed by: Robin Salas M.D. 10/22/2024 4:00 PM Chest X-Ray 10/22/24 14:34 XR chest 1V portable CLINICAL HISTORY: Trauma COMPARISON STUDY: 09/29/2023 FINDINGS: Heart size and pulmonary vasculature are normal. No consolidation or pleural effusion. No pneumothorax. No grossly displaced rib fracture seen. IMPRESSION: No acute findings. ACT 112: Negative or not required by law. Electronically signed by: Yovanny Velazquez M.D. 10/22/2024 3:[address] 10/22/24 14:34 CT head/brain wo con CLINICAL HISTORY: Trauma. TECHNIQUE: Multiple axial CT images of the head were obtained without contrast. A dose lowering technique was utilized adhering to the principles of ALARA. COMPARISON: None FINDINGS: No intracranial hemorrhage seen. No mass effect, midline shift, or hydrocephalus. There are small old lacunar infarctions at the basal ganglia. No skull fracture seen. Visualized paranasal sinuses and mastoid air cells are clear. IMPRESSION: No acute findings. ACT 112: Negative or not required by law. The above report was generated using voice recognition software. It may contain grammatical, syntax or spelling errors. Electronically signed by: Yovanny Velazquez M.D. 10/22/2024 3:[address] 10/22/24 14:34 CT lumbar spine w con CLINICAL HISTORY: Trauma COMPARISON STUDY: Chest CT of 04/21/2022 FINDINGS: There are moderate degenerative changes at the lower lumbar spine. There is interval mild height loss at the superior endplate of the L1 vertebral body. No other lumbar spine fracture or subluxation seen. IMPRESSION: Interval mild height loss at the L1 vertebral body of uncertain chronicity. It does not have definitely acute features. No other lumbar spine fracture seen. ACT 112: Negative or not required by law. Electronically signed by: Yovanny Velazquez M.D. 10/22/2024 3:[address] 10/22/24 14:34 CT thoracic spine w con CLINICAL HISTORY: trauma COMPARISON STUDY: Chest CT 04/21/2022 FINDINGS: There is osteopenia. There are mild diffuse degenerative changes. There is interval mild height loss at the T6 vertebral body. No other interval fracture or subluxation seen at the thoracic spine. There is stable mild height loss at multiple lower thoracic vertebral bodies. IMPRESSION: Interval mild height loss at the T6 vertebral body of uncertain chronicity. It does not have definitely acute features. Otherwise no acute fracture or subluxation seen at the thoracic spine. ACT 112: Negative or not required by law. Electronically signed by: Yovanny Velazquez M.D. 10/22/2024 3:[address] 10/22/24 14:35 CT cervical spine wo con CLINICAL HISTORY: 69 years-old Male with Trauma. Acute neck trauma COMPARISON: Chest CT same day TECHNIQUE: Multiple axial CT images of the cervical spine were obtained without contrast. A dose lowering technique was utilized adhering to the principles of ALARA. FINDINGS: Vertebral severe multilevel facet arthrosis. Moderate intervertebral disc space narrowing at C5-C6 and C6-C7. Grade 1 anterolisthesis C7 on T1 appears chronic. No acute fracture or subluxation identified. The cervical soft tissues appear unremarkable. . Atherosclerosis of the carotid bulbs. Pulmonary emphysema is noted. IMPRESSION: No acute fracture or subluxation. ACT 112: Negative or not required by law. The above report was generated using voice recognition software. It may contain grammatical, syntax or spelling errors. Electronically signed by: Robin Salas M.D. 10/22/2024 3:47 PM Elbow X-Ray 10/28/24 10:03 XR elbow LT min 3V routine CLINICAL HISTORY: L elbow pain, near bicep insertion COMPARISON: None FINDINGS: There is a mild joint effusion. There is a small chronic appearing density adjacent to the coronoid process on the lateral view. No other acute fracture or dislocation seen. IMPRESSION: Small density adjacent to the coronoid process could be chronic, or could represent a tiny acute nondisplaced fracture. No other acute fracture seen. ACT 112: Negative or not required by law. Electronically signed by: Yovanny Velazquez M.D. 10/28/2024 10:34 AM (1) Rhabdomyolysis Encounter type: initial encounter Rhabdomyolysis type: traumatic Qualified Code(s): T79.6XXA - Traumatic ischemia of muscle, initial encounter
[2024-10-28 11:37] LABS: Buprenorphine, Ur Quant 467 ng/mL (<2); Confirmatory Facility DNR
--- NOTE | 2024-10-28 14:32 | CT Scan Report ---
LEFT ELBOW CT WITHOUT CONTRAST CLINICAL HISTORY: Better visualization of possible fracture . COMPARISON STUDY: Left elbow radiographs October 28, 2024 10:24 AM. TECHNIQUE: Axial images of the left elbow were obtained without IV contrast. Sagittal and coronal ref ormats were viewed. FINDINGS: This exam is mildly compromised given body positioning. Alignment of the left elbow is rena omic. There are no osseous lesions. No definite evidence for a joint effusion. There is a 8 mm ossifi c density with corticated margins adjacent to the coronoid process which corresponds to the finding o n radiographs performed earlier today. This is probably chronic. No definite acute fractures within t he left elbow are present. There is minimal left elbow osteophytosis. IMPRESSION: 1. 8 mm ossific density adjacent to the coronoid process of the proximal left ulna which corresponds to the finding on radiographs from earlier today. Given corticated margins, this is likely chronic an d favors an old injury. 2. No definite acute fractures within the left elbow. ACT 112: Negative or not required by law. Electronically signed by: Taiwo Carl M.D. 10/28/2024 2:31 PM
--- NOTE | 2024-10-29 12:23 | Hospitalist Progress Note ---
Date of Service October 29, 2024 Assessment & Plan (1) Rhabdomyolysis: (2) Fall: (3) Opioid dependence: (4) COPD (chronic obstructive pulmonary disease): (5) Tobacco use: Plan This is a 69 year old male with PMH significant for COPD, ongoing tobacco use, history of opioid dependence on Suboxone who presented to the ED on 10/22/24 with altered mental status after a fall and is admitted for rhabdomyolysis. Rhabdomyolysis secondary to fall Altered mental status, resolved Patient does not recall any details of the fall Admitting labs including CBC, PT/INR, VBG, CMP grossly unremarkable aside from elevated CK and AST consistent with rhabdo Trauma imaging all negative for injury Urine drug screen negative Ethylene glycol level normal CK appropriately downtrended x2 and resolved PT and OT consults recommending rehab at dc - declined by [facility] but approved for SNF, awaiting placement [facility]K pain of BUE General pain from fall improving but still with bilateral pain with movement on exam Patient able to ambulate with walker, eat food and use BUE without issue, strength intact on exam Reviewed admission imaging - Degenerative changes of the shoulders and spine noted, no acute changes Possible fracture on elbow XR yesterday, ortho recommended CT for better visualization - felt to appear chronic, favor old injury H/o opioid dependence - on suboxone, receiving oxycodone PRN already for breakthrough pain Continue Voltaren gel, trial ice/ heat PRN Encourage ambulation to maintain conditioning Suspected ETOH Use Reported concern of alcohol use from neighbor per EMS ETOH <10 on admission Continue thiamine and folic acid B12 low 173; replaced this admission Cessation recommended H/O opioid dependence Admitting urine drug screen negative Continue Suboxone per home routine COPD Tobacco use CT chest showing severe pulmonary emphysema with stable subcentimeter solid pulmonary nodules measuring up to 4 mm - follow up outpatient Continue home inhalers Nicotine patch Abnormal CT finding CTAP revealed incidental asymmetric enlargement of the right obturator internus muscle, possibly an acute muscle strain/intramuscular hematoma - follow up outpatient DVT Prophylaxis: SCDs - will repeat AM labs and start DVT ppx if H/H stable Code Status: FULL CODE PCP: Fred San Disposition: medically cleared for dc pending SNF acceptance Care coordinated with Dr Daniel. I spent a total of 45 minutes coordinating, documenting and providing care for this patient excluding time spent in the performance of separately billed services or time spent by another provider/QHP. Admission and Anticipated Discharge Date Admission Date: October 22, 2024 Supervising Physician Co-Signing Physician Notes Chart reviewed. Discussed care with advance practice provider. I have reviewed the advanced practitioner's documentation on the date of service referred in note and agree with plan. Imaging studies showed no acute fractures. Patient's care is coordinated with Jessica Denise PA-C . Please refer to the documentation above for details of patient's presentation and for discussion of other issues. I spent a total of10 minutes coordinating, documenting, and providing care for this patient excluding time spent in the performance of separately billed services or time spent by another provider/QHP. Subjective Patient seen and evaluated in 383-1 Reports general pain from fall is improved; still having pain with movement of both arms. Able to ambulate with walker, using upper extremities Denies chest pain, SOB, abdominal pain, N/V/D Awaiting placement Review of Systems Review of Systems: At least ten systems reviewed and negative except as noted in the HPI. Physical Exam Physical Exam: Gen: WD/WN, NAD, resting in bed comfortably, A&Ox3 HEENT: Normocephalic, atraumatic, mucous membranes moist Lung: Clear to Auscultation bilaterally Heart: Regular rate, regular rhythm Abdomen: Soft, NT, ND +BS x 4 Extremities: Pain with movement BUE, strength intact, full ROM Skin: Warm, no rash, scattered ecchymosis on extremities Results & Data Results & Data Vital Signs (Past 12 Hours) Vital Signs Temp Pulse Pulse Resp BP Pulse Ox O2 Del Method 10/29/24 07:58 36.6 C 62 62 15 129/71 93 Room Air Diagnostic Findings Abdomen/Pelvis CT 10/22/24 14:[address] WITH CONTRAST; CT ABDOMEN AND PELVIS WITH IV CONTRAST ONLY HISTORY: Acute trauma Trauma TECHNIQUE: Multiaxial CT images of the chest, abdomen and pelvis were performed following the IV administration of 94 cc of Optiray. A dose lowering technique was utilized adhering to the principles of ALARA. COMPARISON: CT lumbar and thoracic spine studies of same day, CTA chest to April 21, 2022, CT pelvis 09/29/2023. FINDINGS: CT CHEST: Unremarkable thyroid. Mild lymphadenopathy includes an 11 mm subcarinal lymph node on image 126 which is unchanged and likely benign. Heart is normal in size. Moderate to extensive coronary artery calcifications. Mild fusiform dilation of the ascending thoracic aorta measures 4.1 x 4.1 cm, unchanged. No dissection. Mild dilation of the pulmonary artery may represent pulmonary arterial hypertension. Severe pulmonary emphysema. A few scattered solid pulmonary nodules measuring up to 4 mm are unchanged. No pneumothorax, pleural effusion or pulmonary edema. Central airways are patent. Unremarkable soft tissues. Degenerative changes of the shoulders and spine. Mild inferior endplate compression of the T6 vertebral body without retropulsion or paravertebral edema has progressed from the [address] ABDOMEN/PELVIS: No pneumatosis or pneumoperitoneum. Unremarkable spleen, moderately atrophic pancreas, gallbladder and adrenal glands. Liver is within normal limits. Patency of the hepatic and portal veins. Kidneys are within normal limits. No hydronephrosis. Urinary bladder wall thickening with partial distention. Prostatomegaly. Extensive atherosclerosis of the abdominal aorta. High-grade stenosis/occlusion involves the proximal aspect of the right common femoral artery with distal reconstitution just proximal to the bifurcation, unchanged. No lymphadenopathy. No bowel obstruction or bowel wall thickening. Moderate colonic fecal retention. Colonic diverticulosis without acute diverticulitis. Normal appendix. Asymmetric enlargement of the right receptionist/telephone operator internus is new from prior. No significant adjacent inflammatory stranding. Degenerative changes of the spine. Left proxima l femoral ORIF changes. No acute pelvic fracture identified. There is minimal superior endplate compression involving the L1 and L4 vertebral bodies, likely chronic. IMPRESSION: 1. No definite acute posttraumatic intrathoracic, intra-abdominal or intrapelvic abnormality identified. 2. Severe pulmonary emphysema with stable subcentimeter solid pulmonary nodules measuring up to 4 mm. 3. Incidental note is made of asymmetric enlargement of the right obturator internus muscle, possibly an acute muscle strain/intramuscular hematoma. 4. No acute pelvic fracture. 5. Minimal inferior endplate compression at T6 without retropulsion has progressed from the 2022 comparison, likely chronic. ACT 112: Negative or not required by law. Electronically signed by: Robin Salas M.D. 10/22/2024 4:[address] 10/22/24 14:[address] WITH CONTRAST; CT ABDOMEN AND PELVIS WITH IV CONTRAST ONLY HISTORY: Acute trauma Trauma TECHNIQUE: Multiaxial CT images of the chest, abdomen and pelvis were performed following the IV administration of 94 cc of Optiray. A dose lowering technique was utilized adhering to the principles of ALARA. COMPARISON: CT lumbar and thoracic spine studies of same day, CTA chest to April 21, 2022, CT pelvis 09/29/2023. FINDINGS: CT CHEST: Unremarkable thyroid. Mild lymphadenopathy includes an 11 mm subcarina l lymph node on image 126 which is unchanged and likely benign. Heart is normal in size. Moderate to extensive coronary artery calcifications. Mild fusiform dilation of the ascending thoracic aorta measures 4.1 x 4.1 cm, unchanged. No dissection. Mild dilation of the pulmonary artery may represent pulmonary arterial hypertension. Severe pulmonary emphysema. A few scattered solid pulmonary nodules measuring up to 4 mm are unchanged. No pneumothorax, pleural effusion or pulmonary edema. Central airways are patent. Unremarkable soft tissues. Degenerative changes of the shoulders and spine. Mild inferior endplate compression of the T6 vertebral body without retropulsion or paravertebral edema has progressed from the [address] ABDOMEN/PELVIS: No pneumatosis or pneumoperitoneum. Unremarkable spleen, moderately atrophic pancreas, gallbladder and adrenal glands. Liver is within normal limits. Patency of the hepatic and portal veins. Kidneys are within normal limits. No hydronephrosis. Urinary bladder wall thickening with partial distention. Prostatomegaly. Extensive atherosclerosis of the abdominal aorta. High-grade stenosis/occlusion involves the proximal aspect of the right common femoral artery with distal reconstitution just proximal to the bifurcation, unchanged. No lymphadenopathy. No bowel obstruction or bowel wall thickening. Moderate colonic fecal retention. Colonic diverticulosis without acute diverticulitis. Normal appendix. Asymmetric enlargement of the right receptionist/telephone operator internus is new from prior. No significant adjacent inflammatory stranding. Degenerative changes of the spine. Left proximal femoral ORIF changes. No acute pelvic fracture identified. There is minimal superior endplate compression involving the L1 and L4 vertebral bodies, likely chronic. IMPRESSION: 1. No definite acute posttraumatic intrathoracic, intra-abdominal or intrapelvic abnormality identified. 2. Severe pulmonary emphysema with stable subcentimeter solid pulmonary nodules measuring up to 4 mm. 3. Incidental note is made of asymmetric enlargement of the right obturator internus muscle, possibly an acute muscle strain/intramuscular hematoma. 4. No acute pelvic fracture. 5. Minimal inferior endplate compression at T6 without retropulsion has progressed from the 2022 comparison, likely chronic. ACT 112: Negative or not required by law. Electronically signed by: Robin Salas M.D. 10/22/2024 4:00 PM Chest X-Ray 10/22/24 14:34 XR chest 1V portable CLINICAL HISTORY: Trauma COMPARISON STUDY: 09/29/2023 FINDINGS: Heart size and pulmonary vasculature are normal. No consolidation or pleural effusion. No pneumothorax. No grossly displaced rib fracture seen. IMPRESSION: No acute findings. ACT 112: Negative or not required by law. Electronically signed by: Yovanny Velazquez M.D. 10/22/2024 3:[address] 10/22/24 14:34 CT head/brain wo con CLINICAL HISTORY: Trauma. TECHNIQUE: Multiple axial CT images of the head were obtained without contrast. A dose lowering technique was utilized adhering to the principles of ALARA. COMPARISON: None FINDINGS: No intracranial hemorrhage seen. No mass effect, midline shift, or hydrocephalus. There are small old lacunar infarctions at the basal ganglia. No skull fracture seen. Visualized paranasal sinuses and mastoid air cells are clear. IMPRESSION: No acute findings. ACT 112: Negative or not required by law. The above report was generated using voice recognition software. It may contain grammatical, syntax or spelling errors. Electronically signed by: Yovanny Velazquez M.D. 10/22/2024 3:[address] 10/22/24 14:34 CT lumbar spine w con CLINICAL HISTORY: Trauma COMPARISON STUDY: Chest CT of 04/21/2022 FINDINGS: There are moderate degenerative changes at the lower lumbar spine. There is interval mild height loss at the superior endplate of the L1 vertebral body. No other lumbar spine fracture or subluxation seen. IMPRESSION: Interval mild height loss at the L1 vertebral body of uncertain chronicity. It does not have definitely acute features. No other lumbar spine fracture seen. ACT 112: Negative or not required by law. Electronically signed by: Yovanny Velazquez M.D. 10/22/2024 3:[address] 10/22/24 14:34 CT thoracic spine w con CLINICAL HISTORY: trauma COMPARISON STUDY: Chest CT 04/21/2022 FINDINGS: There is osteopenia. There are mild diffuse degenerative changes. There is interval mild height loss at the T6 vertebral body. No other interval fracture or subluxation seen at the thoracic spine. There is stable mild height loss at multiple lower thoracic vertebral bodies. IMPRESSION: Interval mild height loss at the T6 vertebral body of uncertain chronicity. It does not have definitely acute features. Otherwise no acute fracture or subluxation seen at the thoracic spine. ACT 112: Negative or not required by law. Electronically signed by: Yovanny Velazquez M.D. 10/22/2024 3:[address] 10/22/24 14:35 CT cervical spine wo con CLINICAL HISTORY: 69 years-old Male with Trauma. Acute neck trauma COMPARISON: Chest CT same day TECHNIQUE: Multiple axial CT images of the cervical spine were obtained without contrast. A dose lowering technique was utilized adhering to the principles of ALARA. FINDINGS: Vertebral severe multilevel facet arthrosis. Moderate intervertebral disc space narrowing at C5-C6 and C6-C7. Grade 1 anterolisthesis C7 on T1 appears chronic. No acute fracture or subluxation identified. The cervical soft tissues appear unremarkable. . Atherosclerosis of the carotid bulbs. Pulmonary emphysema is noted. IMPRESSION: No acute fracture or subluxation. ACT 112: Negative or not required by law. The above report was generated using voice recognition software. It may contain grammatical, syntax or spelling errors. Electronically signed by: Robin Salas M.D. 10/22/2024 3:47 PM Elbow X-Ray 10/28/24 10:03 XR elbow LT min 3V routine CLINICAL HISTORY: L elbow pain, near bicep insertion COMPARISON: None FINDINGS: There is a mild joint effusion. There is a small chronic appearing density adjacent to the coronoid process on the lateral view. No other acute fracture or dislocation seen. IMPRESSION: Small density adjacent to the coronoid process could be chronic, or could represent a tiny acute nondisplaced fracture. No other acute fracture seen. ACT 112: Negative or not required by law. Electronically signed by: Yovanny Velazquez M.D. 10/28/2024 10:[address] 10/28/24 11:[address] WITHOUT CONTRAST CLINICAL HISTORY: Better visualization of possible fracture . COMPARISON STUDY: Left elbow radiographs October 28, 2024 10:24 AM. TECHNIQUE: Axial images of the left elbow were obtained without IV contrast. Sagittal and coronal reformats were viewed. FINDINGS: This exam is mildly compromised given body positioning. Alignment of the left elbow is anatomic. There are no osseous lesions. No definite evidence for a joint effusion. There is a 8 mm ossific density with corticated margins adjacent to the coronoid process which corresponds to the finding on radiographs performed earlier today. This is probably chronic. No definite acute fractures within the left elbow are present. There is minimal left elbow osteophytosis. IMPRESSION: 1. 8 mm ossific density adjacent to the coronoid process of the proximal left ulna which corresponds to the finding on radiographs from earlier today. Given corticated margins, this is likely chronic and favors an old injury. 2. No definite acute fractures within the left elbow. ACT 112: Negative or not required by law. Electronically signed by: Taiwo Carl M.D. 10/28/2024 2:31 PM (1) Rhabdomyolysis Encounter type: initial encounter Rhabdomyolysis type: traumatic Qualified Code(s): T79.6XXA - Traumatic ischemia of muscle, initial encounter
[2024-10-30 07:20] LABS: Hematocrit (blood only) 39.8 % (42.0-52.0); Hemoglobin 13.5 g/dl (14.0-18.0); Mean Corpuscular Hemoglobin 28.4 pg (25.0-34.0); Mean Corpuscular Volume 83.8 fL (80.0-100.0); Platelet Count 303 K/uL (130-400); RDW Standard Deviation 43.8 fL (36.4-46.3); Red Blood Count 4.75 M/uL (4.70-6.10); White Blood Count 9.19 K/ul (4.8-10.8)
[2024-10-30 07:42] LABS: Anion Gap 8.0 (3-11); Blood Urea Nitrogen 13.0 mg/dl (6-23); Calcium 9.1 mg/dl (8.6-10.3); Carbon Dioxide 27.0 mmol/L (21-32); Chloride 99.0 mmol/L (98-107); Creatinine Clr Calc Pharmacy 99.8 ml/min; Glucose 110.0 mg/dl (70-99(Fasting)); Potassium 4.5 mmol/L (3.5-5.1); Sodium 134.0 mmol/L (136-145)
--- NOTE | 2024-10-30 10:22 | Hospitalist Progress Note ---
Date of Service October 30, 2024 Assessment & Plan (1) Rhabdomyolysis: (2) Fall: (3) Opioid dependence: (4) COPD (chronic obstructive pulmonary disease): (5) Tobacco use: Plan This is a 69 year old male with PMH significant for COPD, ongoing tobacco use, history of opioid dependence on Suboxone who presented to the ED on 10/22/24 with altered mental status after a fall and is admitted for rhabdomyolysis. Rhabdomyolysis secondary to fall Altered mental status, resolved Patient does not recall any details of the fall Admitting labs including CBC, PT/INR, VBG, CMP grossly unremarkable aside from elevated CK and AST consistent with rhabdo Trauma imaging all negative for injury Urine drug screen negative CK appropriately downtrended x2 and resolved PT and OT consults recommending rehab at dc - declined by [facility] but approved for SNF, awaiting placement MSK pain of BUE General pain from fall improving but still with bilateral pain with movement on exam Patient able to ambulate with walker, eat food and use BUE without issue, strength intact on exam Reviewed admission imaging - Degenerative changes of the shoulders and spine noted, no acute changes Possible fracture on elbow XR yesterday, ortho recommended CT for better visualization - felt to appear chronic, favor old injury H/o opioid dependence - on Suboxone TID. In attempt to decrease PRN oxy use, scheduled Tylenol, encouraged Voltaren gel use, heat PRN Encourage ambulation to maintain conditioning Suspected ETOH Use Reported concern of alcohol use from neighbor per EMS ETOH <10 on admission Continue thiamine and folic acid B12 low 173; replaced this admission Cessation recommended H/O opioid dependence Admitting urine drug screen negative Continue Suboxone per home routine COPD Tobacco use CT chest showing severe pulmonary emphysema with stable subcentimeter solid pulmonary nodules measuring up to 4 mm - follow up outpatient Continue home inhalers Nicotine patch Abnormal CT finding CTAP revealed incidental asymmetric enlargement of the right obturator internus muscle, possibly an acute muscle strain/intramuscular hematoma - follow up outpatient Hgb stable at 13.5, non-tender DVT Prophylaxis:SQ heparin Code Status: FULL CODE PCP: Fred San Disposition: medically cleared for dc pending SNF acceptance Care coordinated with Dr Daniel. I spent a total of 35 minutes coordinating, documenting and providing care for this patient excluding time spent in the performance of separately billed services or time spent by another provider/QHP. Admission and Anticipated Discharge Date Admission Date: October 22, 2024 Supervising Physician Co-Signing Physician Notes Chart reviewed. Discussed care with advance practice provider. Agree with minimizing narcotic medication use. I have reviewed the advanced practitioner's documentation on the date of service referred in note and agree with plan. Patient's care is coordinated with Jessica Denise PA-C . Please refer to the documentation above for details of patient's presentation and for discussion of other issues. I spent a total of14 minutes coordinating, documenting, and providing care for this patient excluding time spent in the performance of separately billed services or time spent by another provider/QHP. Subjective Patient seen and evaluated in 387-2 Feeling improved today - general discomfort improved. BUE still with chronic stiffness, improved when using heat or squeezing a towel, trial of Voltaren gel Ambulating with walker Denies chest pain, SOB, abdominal pain, N/V/D Awaiting placement Review of Systems Review of Systems: At least ten systems reviewed and negative except as noted in the HPI. Physical Exam Physical Exam: Gen: WD/WN, NAD, sitting up in bedside chair, A&Ox3, poor insight HEENT: Normocephalic, atraumatic, mucous membranes moist Lung: Clear to Auscultation bilaterally Heart: Regular rate, regular rhythm Abdomen: Soft, NT, ND +BS x 4 Extremities: Pain with movement BUE, strength intact, full ROM Skin: Warm, no rash, scattered ecchymosis on extremities Results & Data Results & Data Vital Signs (Past 12 Hours) Vital Signs Temp Pulse Resp BP Pulse Ox O2 Del Method 10/30/24 07:58 36.7 C 72 18 147/69 H 94 Room Air 10/29/24 23:03 36.7 C 64 18 146/70 H 94 Room Air Laboratory Results Short CBC 10/30/24 Range/Units 06:41 WBC 9.19 (4.8-10.8) K/ul Hgb 13.5 L (14.0-18.0) g/dl Hct 39.8 L (42.0-52.0) % Plt Count 303 (130-400) K/uL BMP 10/30/24 06:41 Sodium 134 L Potassium 4.5 Chloride 99 Carbon Dioxide 27 BUN 13 Creatinine 0.65 Glucose 110 H Calcium 9.1 Diagnostic Findings Abdomen/Pelvis CT 10/22/24 14:[address] WITH CONTRAST; CT ABDOMEN AND PELVIS WITH IV CONTRAST ONLY HISTORY: Acute trauma Trauma TECHNIQUE: Multiaxial CT images of the chest, abdomen and pelvis were performed following the IV administration of 94 cc of Optiray. A dose lowering technique was utilized adhering to the principles of ALARA. COMPARISON: CT lumbar and thoracic spine studies of same day, CTA chest to April 21, 2022, CT pelvis 09/29/2023. FINDINGS: CT CHEST: Unremarkable thyroid. Mild lymphadenopathy includes an 11 mm subcarinal lymph node on image 126 which is unchanged and likely benign. Heart is normal in size. Moderate to extensive coronary artery calcifications. Mild fusiform dilation of the ascending thoracic aorta measures 4.1 x 4.1 cm, unchanged. No dissection. Mild dilation of the pulmonary artery may represent pulmonary arterial hypertension. Severe pulmonary emphysema. A few scattered solid pulmonary nodules measuring up to 4 mm are unchanged. No pneumothorax, pleural effusion or pulmonary edema. Central airways are patent. Unremarkable soft tissues. Degenerative changes of the shoulders and spine. Mild inferior endplate compression of the T6 vertebral body without retropulsion or paravertebral edema has progressed from the [address] ABDOMEN/PELVIS: No pneumatosis or pneumoperitoneum. Unremarkable spleen, moderately atrophic pancreas, gallbladder and adrenal glands. Liver is within normal limits. Patency of the hepatic and portal veins. Kidneys are within normal limits. No hydronephrosis. Urinary bladder wall thickening with partial distention. Prostatomegaly. Extensive atherosclerosis of the abdominal aorta. High-grade stenosis/occlusion involves the proximal aspect of the right common femoral artery with distal reconstitution just proximal to the bifurcation, unchanged. No lymphadenopathy. No bowel obstruction or bowel wall thickening. Moderate colonic fecal retention. Colonic diverticulosis without acute diverticulitis. Normal appendix. Asymmetric enlargement of the right trolley car operator internus is new from prior. No significant adjacent inflammatory stranding. Degenerative changes of the spine. Left proximal femoral ORIF changes. No acute pelvic fracture identified. There is minimal superior endplate compression involving the L1 and L4 vertebral bodies, likely chronic. IMPRESSION: 1. No definite acute posttraumatic intrathoracic, intra-abdominal or intrapelvic abnormality identified. 2. Severe pulmonary emphysema with stable subcentimeter solid pulmonary nodules measuring up to 4 mm. 3. Incidental note is made of asymmetric enlargement of the right obturator internus muscle, possibly an acute muscle strain/intramuscular hematoma. 4. No acute pelvic fracture. 5. Minimal inferior endplate compression at T6 without retropulsion has progressed from the 2022 comparison, likely chronic. ACT 112: Negative or not required by law. Electronically signed by: Robin Salas M.D. 10/22/2024 4:[address] 10/22/24 14:[address] WITH CONTRAST; CT ABDOMEN AND PELVIS WITH IV CONTRAST ONLY HISTORY: Acute trauma Trauma TECHNIQUE: Multiaxial CT images of the chest, abdomen and pelvis were performed following the IV administration of 94 cc of Optiray. A dose lowering technique was utilized adhering to the principles of ALARA. COMPARISON: CT lumbar and thoracic spine studies of same day, CTA chest to April 21, 2022, CT pelvis 09/29/2023. FINDINGS: CT CHEST: Unremarkable thyroid. Mild lymphadenopathy includes an 11 mm subcarinal lymph node on image 126 which is unchanged and likely benign. Heart is normal in size. Moderate to extensive coronary artery calcifications. Mild fusiform dilation of the ascending thoracic aorta measures 4.1 x 4.1 cm, unchanged. No dissection. Mild dilation of the pulmonary artery may represent pulmonary arterial hypertension. Severe pulmonary emphysema. A few scattered solid pulmonary nodules measuring up to 4 mm are unchanged. No pneumothorax, pleural effusion or pulmonary edema. Central airways are patent. Unremarkable soft tissues. Degenerative changes of the shoulders and spine. Mild inferior endplate compression of the T6 vertebral body without retropulsion or paravertebral edema has progressed from the [address] ABDOMEN/PELVIS: No pneumatosis or pneumoperitoneum. Unremarkable spleen, moderately atrophic pancreas, gallbladder and adrenal glands. Liver is within normal limits. Patency of the hepatic and portal veins. Kidneys are within normal limits. No hydronephrosis. Urinary bladder wall thickening with partial distention. Prostatomegaly. Extensive atherosclerosis of the abdominal aorta. High-grade stenosis/occlusion involves the proximal aspect of the right common femoral artery with distal reconstitution just proximal to the bifurcation, unchanged. No lymphadenopathy. No bowel obstruction or bowel wall thickening. Moderate colonic fecal retention. Colonic diverticulosis without acute diverticulitis. Normal appendix. Asymmetric enlargement of the right trolley car operator internus is new from prior. No significant adjacent inflammatory stranding. Degenerative changes of the spine. Left proximal femoral ORIF changes. No acute pelvic fracture identified. There is minimal superior endplate compression involving the L1 and L4 vertebral bodies, likely chronic. IMPRESSION: 1. No definite acute posttraumatic intrathoracic, intra-abdominal or intrapelvic abnormality identified. 2. Severe pulmonary emphysema with stable subcentimeter solid pulmonary nodules measuring up to 4 mm. 3. Incidental note is made of asymmetric enlargement of the right obturator internus muscle, possibly an acute muscle strain/intramuscular hematoma. 4. No acute pelvic fracture. 5. Minimal inferior endplate compression at T6 without retropulsion has progres sed from the 2022 comparison, likely chronic. ACT 112: Negative or not required by law. Electronically signed by: Robin Salas M.D. 10/22/2024 4:00 PM Chest X-Ray 10/22/24 14:34 XR chest 1V portable CLINICAL HISTORY: Trauma COMPARISON STUDY: 09/29/2023 FINDINGS: Heart size and pulmonary vasculature are normal. No consolidation or pleural effusion. No pneumothorax. No grossly displaced rib fracture seen. IMPRESSION: No acute findings. ACT 112: Negative or not required by law. Electronically signed by: Yovanny Velazquez M.D. 10/22/2024 3:[address] 10/22/24 14:34 CT head/brain wo con CLINICAL HISTORY: Trauma. TECHNIQUE: Multiple axial CT images of the head were obtained without contrast. A dose lowering technique was utilized adhering to the principles of ALARA. COMPARISON: None FINDINGS: No intracranial hemorrhage seen. No mass effect, midline shift, or hydrocephalus. There are small old lacunar infarctions at the basal ganglia. No skull fracture seen. Visualized paranasal sinuses and mastoid air cells are clear. IMPRESSION: No acute findings. ACT 112: Negative or not required by law. The above report was generated using voice recognition software. It may contain grammatical, syntax or spelling errors. Electronically signed by: Yovanny Velazquez M.D. 10/22/2024 3:[address] 10/22/24 14:34 CT lumbar spine w con CLINICAL HISTORY: Trauma COMPARISON STUDY: Chest CT of 04/21/2022 FINDINGS: There are moderate degenerative changes at the lower lumbar spine. There is interval mild height loss at the superior endplate of the L1 vertebral body. No other lumbar spine fracture or subluxation seen. IMPRESSION: Interval mild height loss at the L1 vertebral body of uncertain chronicity. It does not have definitely acute features. No other lumbar spine fracture seen. ACT 112: Negative or not required by law. Electronically signed by: Yovanny Velazquez M.D. 10/22/2024 3:[address] 10/22/24 14:34 CT thoracic spine w con CLINICAL HISTORY: trauma COMPARISON STUDY: Chest CT 04/21/2022 FINDINGS: There is osteopenia. There are mild diffuse degenerative changes. There is interval mild height loss at the T6 vertebral body. No other interval fracture or subluxation seen at the thoracic spine. There is stable mild height loss at multiple lower thoracic vertebral bodies. IMPRESSION: Interval mild height loss at the T6 vertebral body of uncertain chronicity. It does not have definitely acute features. Otherwise no acute fracture or subluxation seen at the thoracic spine. ACT 112: Negative or not required by law. Electronically signed by: Yovanny Velazquez M.D. 10/22/2024 3:[address] 10/22/24 14:35 CT cervical spine wo con CLINICAL HISTORY: 69 years-old Male with Trauma. Acute neck trauma COMPARISON: Chest CT same day TECHNIQUE: Multiple axial CT images of the cervical spine were obtained without contrast. A dose lowering technique was utilized adhering to the principles of ALARA. FINDINGS: Vertebral severe multilevel facet arthrosis. Moderate intervertebral disc space narrowing at C5-C6 and C6-C7. Grade 1 anterolisthesis C7 on T1 appears chronic. No acute fracture or subluxation identified. The cervical soft tissues appear unremarkable. . Atherosclerosis of the carotid bulbs. Pulmonary emphysema is noted. IMPRESSION: No acute fracture or subluxation. ACT 112: Negative or not required by law. The above report was generated using voice recognition software. It may contain grammatical, syntax or spelling errors. Electronically signed by: Robin Salas M.D. 10/22/2024 3:47 PM Elbow X-Ray 10/28/24 10:03 XR elbow LT min 3V routine CLINICAL HISTORY: L elbow pain, near bicep insertion COMPARISON: None FINDINGS: There is a mild joint effusion. There is a small chronic appearing density adjacent to the coronoid process on the lateral view. No other acute fracture or dislocation seen. IMPRESSION: Small density adjacent to the coronoid process could be chronic, or could represent a tiny acute nondisplaced fracture. No other acute fracture seen. ACT 112: Negative or not required by law. Electronically signed by: Yovanny Velazquez M.D. 10/28/2024 10:[address] 10/28/24 11:[address] WITHOUT CONTRAST CLINICAL HISTORY: Better visualization of possible fracture . COMPARISON STUDY: Left elbow radiographs October 28, 2024 10:24 AM. TECHNIQUE: Axial images of the left elbow were obtained without IV contrast. Sagittal and coronal reformats were viewed. FINDINGS: This exam is mildly compromised given body positioning. Alignment of the left elbow is anatomic. There are no osseous lesions. No definite evidence for a joint effusion. There is a 8 mm ossific density with corticated margins adjacent to the coronoid process which corresponds to the finding on radiographs performed earlier today. This is probably chronic. No definite acute fractures within the left elbow are present. There is minimal left elbow osteophytosis. IMPRESSION: 1. 8 mm ossific density adjacent to the coronoid process of the proximal left ulna which corresponds to the finding on radiographs from earlier today. Given corticated margins, this is likely chronic and favors an old injury. 2. No definite acute fractures within the left elbow. ACT 112: Negative or not required by law. Electronically signed by: Taiwo Carl M.D. 10/28/2024 2:31 PM (1) Rhabdomyolysis Encounter type: initial encounter Rhabdomyolysis type: traumatic Qualified Code(s): T79.6XXA - Traumatic ischemia of muscle, initial encounter
[2024-10-30] MEDS: ACETAMINOPHEN 500 MG TAB PO PRN (10:27)
[2024-10-30] MEDS: DICLOFENAC SOD 1% GEL 100 GM TUBE EXT PRN (21:08)
[2024-10-31 07:11] VITALS: RESP 16
--- NOTE | 2024-10-31 10:16 | Hospitalist Progress Note ---
Date of Service October 31, 2024 Assessment & Plan (1) Rhabdomyolysis: (2) Fall: (3) Opioid dependence: (4) COPD (chronic obstructive pulmonary disease): (5) Tobacco use: Plan This is a 69 year old male with PMH significant for COPD, ongoing tobacco use, history of opioid dependence on Suboxone who presented to the ED on 10/22/24 with altered mental status after a fall and is admitted for rhabdomyolysis. Rhabdomyolysis secondary to fall Altered mental status, resolved Patient does not recall any details of the fall Admitting labs including CBC, PT/INR, VBG, CMP grossly unremarkable aside from elevated CK and AST consistent with rhabdo Trauma imaging all negative for injury Urine drug screen negative CK appropriately downtrended x2 and resolved PT and OT consults recommending rehab at dc - declined by [facility] but approved for SNF, awaiting placement [facility]K pain of BUE General pain from fall improving but still with bilateral pain with movement on exam Patient able to ambulate with walker, eat food and use BUE without issue, strength intact on exam Reviewed admission imaging - Degenerative changes of the shoulders and spine noted, no acute changes Possible fracture on elbow XR yesterday, ortho recommended CT for better visualization - felt to appear chronic, favor old injury H/o opioid dependence - on Suboxone TID. In attempt to decrease PRN oxy use, scheduled Tylenol, encouraged Voltaren gel use, heat PRN Has not required oxycodone since AM 10/30 Encourage ambulation to maintain conditioning Suspected ETOH Use Reported concern of alcohol use from neighbor per EMS ETOH <10 on admission Continue thiamine and folic acid B12 low 173; replaced this admission Cessation recommended H/O opioid dependence Admitting urine drug screen negative Continue Suboxone per home routine COPD Tobacco use CT chest showing severe pulmonary emphysema with stable subcentimeter solid pulmonary nodules measuring up to 4 mm - follow up outpatient Continue home inhalers Nicotine patch Abnormal CT finding CTAP revealed incidental asymmetric enlargement of the right obturator internus muscle, possibly an acute muscle strain/intramuscular hematoma - follow up outpatient Hgb stable at 13.5, non-tender DVT Prophylaxis:SQ heparin Code Status: FULL CODE PCP: Fred San Disposition: medically cleared for dc pending SNF acceptance Updated sister. Care coordinated with Dr Daniel. I spent a total of 30 minutes coordinating, documenting and providing care for this patient excluding time spent in the performance of separately billed services or time spent by another provider/QHP. Admission and Anticipated Discharge Date Admission Date: October 22, 2024 Supervising Physician Co-Signing Physician Notes Chart reviewed. Discussed with with advance practice provider. Stable for discharge. Waiting for placement. I have reviewed the advanced practitioner's documentation on the date of service referred in note and agree with plan. Patient's care is coordinated with Jessica Denise PA-C . Please refer to the documentation above for details of patient's presentation and for discussion of other issues. I spent a total of15 minutes coordinating, documenting, and providing care for this patient excluding time spent in the performance of separately billed services or time spent by another provider/QHP. Subjective Patient seen and evaluated in 387-2 Feeling improved today - general discomfort improved. BUE still with chronic stiffness, improved when using heat or squeezing a towel as well as Voltaren gel Ambulating with walker Denies chest pain, SOB, abdominal pain, N/V/D Awaiting placement Review of Systems Review of Systems: At least ten systems reviewed and negative except as noted in the HPI. Physical Exam Physical Exam: Gen: WD/WN, NAD, resting in bed comfortably, A&Ox3, poor insight HEENT: Normocephalic, atraumatic, mucous membranes moist Lung: Clear to Auscultation bilaterally Heart: Regular rate, regular rhythm Abdomen: Soft, NT, ND +BS x 4 Extremities: Pain with movement BUE, strength intact, full ROM Skin: Warm, no rash, scattered ecchymosis on extremities Results & Data Results & Data Vital Signs (Past 12 Hours) Vital Signs Temp Pulse Resp BP Pulse Ox O2 Del Method 10/31/24 07:09 36.6 C 63 16 110/64 94 Room Air 10/30/24 22:47 36.8 C 81 18 115/75 93 Room Air (1) Rhabdomyolysis Encounter type: initial encounter Rhabdomyolysis type: traumatic Qualified Code(s): T79.6XXA - Traumatic ischemia of muscle, initial encounter
[2024-10-31] MEDS: HEPARIN SOD 5,000 UNIT/0.5 ML VIAL SQ SCH (19:20)
--- NOTE | 2024-11-01 12:11 | Hospitalist Progress Note ---
Date of Service November 01, 2024 Assessment & Plan (1) Fall: (2) Rhabdomyolysis: (3) Altered mental status: (4) Opioid dependence: (5) COPD (chronic obstructive pulmonary disease): (6) Tobacco use: Plan Pt is a 69y/o M with PMHx significant for COPD, ongoing tobacco use and history of opioid dependence on Suboxone who presented to the ED on 10/22/24 with altered mental status after a fall at home and was admitted for acute rhabdomyolysis which has since resolved s/p IVF. Currently awaiting placement, remains medically stable for DC once placement becomes available. 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 Pt does not recall any details of the fall Trauma imaging negative for any acute injuries Admitting labs including CBC, PT/INR, VBG and CMP grossly unremarkable aside from elevated CK and AST c/w rhabdomyolysis Urine drug screen unremarkable CK appropriately downtrended x 2 s/p IVF --> rhabdomyolysis resolved; AST also improved PT/OT recommending rehab on DC -Declined by [facility] but approved for SNF -Awaiting placement [somewhat difficult placement as pt on Suboxone and certain SNFs cannot prescribe this] #Altered mental status Likely 2/2 above Trauma imaging negative (as per above); no evidence of head injury Mentation improved --> appears to be back at baseline, AMS resolved #MSK pain of BUE s/p fall 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 General pain from fall improving but still with mild exertional BUE pain on exam Pt able to ambulate with walker, eat food and use BUE without issue plus strength intact on exam Reviewed admission imaging: degenerative changes of the shoulders and spine noted, no acute changes Possible fracture on L elbow XR on 10/28/24 -Ortho recommended L elbow CT for better visualization --> likely chronic, favors an old injury Has not required PRN oxy IR as of 10/30/24 Continue elise Tylenol; encouraged PRN Voltaren gel use, PRN heat/ice application Ambulation strongly encouraged to maintain conditioning #Suspected EtOH Use Reported concern of alcohol use from neighbor per EMS 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 ETOH <10 on admission Continue thiamine, folic acid supplementation Vit B12 low (173) --> supplementation provided with daily multivitamin EtOH cessation recommended #History of opioid dependence Admitting urine drug screen unremarkable Continue Suboxone per home routine #COPD #Tobacco use disorder #History of pulmonary nodules CT chest: severe pulmonary emphysema, stable subcentimeter solid pulmonary nodules measuring up to 4mm -OP f/u advised for pulmonary nodule monitoring Continue home inhalers, nicotine patch onboard #Abnormal CTAP finding CTAP: incidental asymmetric enlargement of the right obturator internus muscle, possibly an acute muscle strain/intramuscular hematoma -Hgb has remained stable, nontender on exam -OP f/u advised for monitoring DVT Prophylaxis: Pt declining SQ heparin; continue SCDs, strongly encouraged ambulation around the unit every few hrs Disposition: Medically stable for DC once SNF placement becomes available Patient seen in collaboration with Dr. Daniel. Please see addendum. I spent a total of 38 minutes coordinating, documenting, and providing care for this patient excluding time spent in the performance of separately billed services or time spent by another provider/QHP. This included personally revie wing all current laboratories and imaging studies, medical reconciliation, outpatient chart review and discussion with specialists. This chart was completed in part utilizing Speech Voice Recognition Software. Grammatical errors, random word insertions, pronoun errors, and incomplete sentences are an occasional consequence of this system due to software limitations, ambient noise, and hardware issues. Any formal questions or concerns about the content, text, or information contained within the body of this dictation should be directly addressed to the provider for clarification. Admission and Anticipated Discharge Date Admission Date: October 22, 2024 Supervising Physician Co-Signing Physician Notes Patient is seen and examined at bedside. Upper extremity pain improved. Offers no other complaints today. Waiting for placement. Will avoid as needed narcotics. On exam patient is thin, frail, elderly, no apparent distress, normocephalic, multiple abrasions on forehead, upper extremities, EOMI, normal breath sounds, clear to auscultation, S1-S2, no murmur, no pedal edema, abdomen soft, nontender, normal bowel sounds, alert, awake, oriented, grossly no focal deficits. Patient is currently being treated for traumatic rhabdomyolysis, suspected alcohol use. CK levels improved. Continue PT OT, fall precautions. CK levels normal on today's blood work. Continue current management. Waiting for placement/stable for discharge. I have reviewed the advanced practitioner's documentation on the date of service referred in note and agree with plan. Patient's care is coordinated with Roxanne Hernandes PA-C . Please refer to the documentation above for details of patient's presentation and for discussion of other issues. I spent a total of20 minutes coordinating, documenting, and providing care for this patient excluding time spent in the performance of separately billed services or time spent by another provider/QHP. Subjective Pt seen and evaluated in room 387-2. NAEO. Offers no major complaints. Refused SQ heparin this AM; encouraged him to ambulate around the unit, get moving out of bed. BUE still with some stiffness, unchanged from yesterday. Denies any chest pain, SOB, abd pain or urinary/bowel habit issues. Still awaiting placement. Review of Systems Review of Systems: At least ten systems reviewed and negative except as noted in the HPI. Physical Exam Physical Exam: General: Elderly M, NAD, sitting up in chair at bedside, A&Ox3, pleasant, conversing appropriately HEENT: Normocephalic, atraumatic, moist mucous membranes Respiratory: Normal respiratory effort, CTAB Cardiovascular: RRR, normal peripheral pulses, no BLE edema Abdomen/GI: Active bowel sounds, soft, nontender to palpation in all quadrants Extremities/MSK: No cyanosis or clubbing, actively moves all extremities, pain with BUE movement, scattered ecchymosis on extremities Neurologic: No overt focal deficits, CN's II-XI not formally tested but appear grossly intact bilaterally Results & Data Results & Data Vital Signs (Past 12 Hours) Vital Signs Temp Pulse Pulse Resp BP Pulse Ox O2 Del Method 11/01/24 07:39 Room Air 11/01/24 07:26 36.7 C 65 65 16 134/78 95 Room Air 11/01/24 07:11 36.7 C 62 16 146/75 H 93 Room Air (1) Fall Encounter type: initial encounter Qualified Code(s): W19.XXXA - Unspecified fall, initial encounter (2) Rhabdomyolysis Encounter type: initial encounter Rhabdomyolysis type: traumatic Qualified Code(s): T79.6XXA - Traumatic ischemia of muscle, initial encounter (3) Altered mental status Altered mental status type: unspecified Qualified Code(s): R41.82 - Altered mental status, unspecified (4) Opioid dependence Substance use status: uncomplicated Qualified Code(s): F11.20 - Opioid de pendence, uncomplicated (5) COPD (chronic obstructive pulmonary disease) COPD type: unspecified COPD Qualified Code(s): J44.9 - Chronic obstructive pulmonary disease, unspecified
[2024-11-01] MEDS: BACLOFEN 10 MG TAB PO STA (13:11)
[2024-11-01] MEDS: ACETAMINOPHEN 500 MG TAB PO SCH (14:39)
[2024-11-02 08:10] LABS: Hematocrit (blood only) 37.2 % (42.0-52.0); Hemoglobin 12.4 g/dl (14.0-18.0); Mean Corpuscular Hemoglobin 27.9 pg (25.0-34.0); Mean Corpuscular Volume 83.8 fL (80.0-100.0); Platelet Count 340 K/uL (130-400); RDW Standard Deviation 43.2 fL (36.4-46.3); Red Blood Count 4.44 M/uL (4.70-6.10); White Blood Count 7.47 K/ul (4.8-10.8)
[2024-11-02 08:32] LABS: Anion Gap 6.0 (3-11); Blood Urea Nitrogen 13.0 mg/dl (6-23); Calcium 9.2 mg/dl (8.6-10.3); Carbon Dioxide 29.0 mmol/L (21-32); Chloride 101.0 mmol/L (98-107); Creatinine Clr Calc Pharmacy 106.3 ml/min; Glucose 105.0 mg/dl (70-99(Fasting)); Potassium 4.1 mmol/L (3.5-5.1); Sodium 136.0 mmol/L (136-145)
--- NOTE | 2024-11-02 11:40 | Discharge Summary ---
Discharge Summary Date of Service November 02, 2024 Principal Dx & Hospital Course #1 = Principal Diagnosis (1) Fall: (2) Rhabdomyolysis: (3) Altered mental status: (4) Opioid dependence: (5) COPD (chronic obstructive pulmonary disease): (6) Tobacco use: Plan Pt is a 69y/o M with PMHx significant for COPD, ongoing tobacco use and history of opioid dependence on Suboxone who presented to the ED on 10/22/24 with altered mental status after a fall at home and was admitted for acute rhabdomyolysis which has resolved s/p IVF. 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 Pt does not recall any details of the fall Trauma imaging negative for any acute injuries Admitting labs including CBC, PT/INR, VBG and CMP grossly unremarkable aside from elevated CK and AST c/w rhabdomyolysis Urine drug screen unremarkable CK appropriately downtrended x 2 s/p IVF --> rhabdomyolysis resolved; AST also improved PT/OT recommending rehab on DC -Declined by [facility] but approved for SNF -Pt accepted to [facility], transport @ 16:30 today #Altered mental status, resolved Likely 2/2 above Trauma imaging negative (as per above); no evidence of head injury Mentation improved --> appears to be back at baseline, AMS resolved #MSK pain of BUE s/p fall 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, improved General pain from fall improving but still with mild exertional BUE pain on exam Pt able to ambulate with walker, eat food and use BUE without issue plus strength intact on exam Reviewed admission imaging: degenerative changes of the shoulders and spine noted, no acute changes Possible fracture on L elbow XR on 10/28/24 -Ortho recommended L elbow CT for better visualization --> likely chronic, favors an old injury Has not required PRN oxy IR as of 10/30/24 Pain improving with Tylenol, ambulation/therapy, PRN Voltaren application, PRN heat/ice application #Suspected EtOH Use Reported concern of alcohol use from neighbor per EMS 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 ETOH <10 on admission Continue thiamine, folic acid supplementation Vit B12 low (173) --> supplementation provided with daily multivitamin EtOH cessation recommended #History of opioid dependence Admitting urine drug screen unremarkable Continue Suboxone per home routine #COPD #Tobacco use disorder #History of pulmonary nodules CT chest: severe pulmonary emphysema, stable subcentimeter solid pulmonary nodules measuring up to 4mm -OP f/u advised for pulmonary nodule monitoring Continue home inhalers, nicotine patch onboard #Abnormal CTAP finding CTAP: incidental asymmetric enlargement of the right obturator internus muscle, possibly an acute muscle strain/intramuscular hematoma -Hgb has remained stable, nontender on exam -OP f/u advised for monitoring Disposition: Pt being DC to [facility] in stable condition with PCP f/u to be arranged Patient seen in collaboration with Dr. Daniel. Please see addendum. I spent a total of 45 minutes coordinating, documenting, and providing care for this patient excluding time spent in the performance of separately billed services or time spent by another provider/QHP. This included personally reviewing all current laboratories and imaging studies, medical reconciliation, outpatient chart review and discussion with specialists. This chart was completed in part utilizing Speech Voice Recognition Software. Grammatical errors, random word insertions, pronoun errors, and incomplete sentences are an occasional consequence of this system due to software limitations, ambient noise, and hardware issues. Any formal questions or concerns about the content, text, or information contained within the body of this dictation should be directly addressed to the provider for clarification. Notes For Next Care Provider Incidentally noted to have several pulmonary nodules - unchanged from prior imaging studies. Recommend OP monitoring with yearly imaging. Incidentally noted to have a possible acute muscle strain/intramuscular hematoma of the R obturator internus muscle. Asymptomatic, Hgb stable at 12.4 on day of discharge. Recommend repeat CBC at PCP follow-up appointment. Medication Changes From Visit Thiamine, folic acid, multivitamin supplementation Daily nicotine patch for smoking cessation Admission HPI Per Admitting Provider Patient is 69 year old male with PMH COPD, ongoing tobacco use, history of opioid dependence on Suboxone and other medical problems listed below presented to ER found on ground today. History obtained from outpatient chart review and limited history obtained from patient secondary to mental status. Patient initially reports that this morning he was standing in his kitchen to get breakfast at 10 AM when he felt like his legs got weak causing him to fall. He denies hitting his head. When asked about the abrasions on his scalp he said he fell in kitchen last night. Patient initially reported today was his only fall and denied any other recent falls. It is unclear when patient fell. He states that he crawled through his house trying to get up. Reports scraped himself on his carpet. Reports walks with cane at baseline. States has chronic nonproductive cough and denies worsening. Patient reports last ETOH drink was 6 months ago. He has told other ER staff that he drinks daily. Neighbor was reportedly concerned patient ETOH consumption. Currently patient asking for his buprenorphine and reports bilateral arm aching. Report from EMS that neighbor called EMS today for check on patient. Denies fever/chills, diaphoresis, N/V/D/C, PAPPAS, dizziness, syncope, vision changes, neck pain, back pain, lower extremity pain, CP, SOB, sore throat, rhinorrhea, abdominal pain, paresthesias, extremity edema, other rashes, urinary symptoms. Denies recreational drug use. Admission Exam Per Admitting Provider General: no acute distress, disheveled elderly male, WDWN Head: normocephalic, +ecchymosis and abrasions scattered to scalp Eyes: PERRL, EOM's intact, conjunctiva non-injected, anicteric ENT: normal inspection external ears, nose, mucous membranes dry Neck: supple, trachea midline, non-tender Lungs: clear, no respiratory distress, no wheezing/rhonchi/rales CV: RRR, no murmur, no pretibial edema Abd: normal BS, soft, non-tender Ext: no cyanosis, no calf tenderness Neuro: Alert, oriented to person, place. slow to answer questions. knows month and year, no focal deficits noted Skin: warm, dry, +abrasions to head, shoulder, arms, bilateral knees and feet and toes Discharge Exam General: Elderly M, NAD, sitting up in chair at bedside, A&Ox3, pleasant, conversing appropriately HEENT: Normocephalic, atraumatic, moist mucous membranes Respiratory: Normal respiratory effort, CTAB Cardiovascular: RRR, normal peripheral pulses, no BLE edema Abdomen/GI: Active bowel sounds, soft, nontender to palpation in all quadrants Extremities/MSK: No cyanosis or clubbing, actively moves all extremities, pain with BUE movement, scattered ecchymosis on extremities Neurologic: No overt focal deficits, CN's II-XI not formally tested but appear grossly intact bilaterally Updated Medication List Medication Instructions Recorded Confirmed Type buprenorphine 8 mg-naloxone 2 mg 1 tab sublingual TID 04/21/22 10/22/24 History sublingual tablet albuterol sulfate 90 mcg/actuation 2 puff inhalation QIDR PRN 04/22/22 10/22/24 Rx aerosol inhaler (Ventolin HFA) shortness of breath or wheezing #8.5 grams levalbuterol HCl 1.25 mg/0.5 mL 1.25 mg (0.5 mL) inhalation Q8H 04/22/22 10/22/24 Rx solution for nebulization PRN shortness of breath or wheezing #30 ea fluticasone fur. 200 mcg-umeclid 1 inh inhalation QAM 09/29/23 10/22/24 History 62.5 mcg-vilant 25 mcg inhalat.powder (Trelegy Ellipta) diclofenac sodium 1 % topical gel 2 g EXT Q6H PRN joint pain #100 10/04/23 10/22/24 Rx (Voltaren Arthritis Pain) grams folic acid 1 mg tablet 1 mg PO QAM #30 tabs 11/02/24 Rx multivitamin with folic acid 400 1 tab PO QAM #30 tabs 11/02/24 Rx mcg tablet (Daily-Junaid (with folic acid)) nicotine 21 mg/24 hr daily 1 patch transdermal QAM #14 ea 11/02/24 Rx transdermal patch (Nicoderm CQ) polyethylene glycol 3350 17 gram 17 g PO DAILY PRN constipation #14 11/02/24 Rx oral powder packet (Miralax) ea sennosides 8.6 mg-docusate sodium 2 tab PO DAILY PRN constipation 11/02/24 Rx 50 mg tablet (Senokot-S) #20 tabs thiamine HCl (vitamin B1) 100 mg 100 mg PO QAM #30 tabs 11/02/24 Rx tablet Hospital Stay Data Consultations 10/22/24 16:20 ED Decision to Admit Stat Diagnostic Imagining Performed 10/22/24 14:34 CT abd pelvis IV con only Stat CT chest diagnostic w con Stat CT head/brain wo con Stat CT lumbar spine w con Stat CT thoracic spine w con Stat 10/22/24 14:35 CT cervical spine wo con Stat 10/28/24 11:17 CT elbow LT wo con Routine Discharge Instructions Given to Patient (Per Discharging Provider) A primary care provider (PCP) hospital discharge follow-up appointment will be scheduled for you at [facility] to occur within the next 1-2 weeks following discharge from [facility]. You were incidentally found to have several pulmonary nodules on imaging during this admission. These appear stable when compared to your prior imaging studies from years prior. Nodules are areas that are denser than normal lung tissue and usually don't cause symptoms. Lung nodules often are discovered incidentally during imaging for other health conditions. Your PCP can arrange for repeat lung imaging studies for routine monitoring of these nodules. You were also incidentally found to have an acute muscle strain/intramuscular hematoma of the RIGHT obturator internus muscle. The right obturator internus muscle is a deep hip muscle located on the inner side of the pelvis. This injury likely occurred from your fall prior to arrival. An intramuscular hematoma is a collection of clotted blood that forms within a muscle, often due to injury or strain, causing pain, swelling, and bruising. It's a "collection of blood" that gets trapped inside the muscle tissue, and can feel like a firm, painful lump. Hematomas usually heal on their own. If you notice any hip pain, discomfort or issues with mobility, please make your PCP aware as these symptoms can be indicative of a nonhealing hematoma. In some cases, hematomas do need to be surgically drained if they are not healing on their own. Please take good care of yourself. It has been a pleasure taking care of you. If you have any questions regarding your recent hospitalization, please contact [facility] and request a [facility] @ [phone]. Total Time Total Time Spent Total Time Spent (In Minutes): 45 Supervising Physician Co-Signing Physician Notes Patient is seen and examined at bedside on day of discharge. No new complaints today. Plan to be discharged to rehab facility today. On exam patient is thin, frail, elderly, no apparent distress, normocephalic, multiple abrasions on forehead, upper extremities, EOMI, normal breath sounds, clear to auscultation, S1-S2, no murmur, no pedal edema, abdomen soft, nontender, normal bowel sounds, alert, awake, oriented, grossly no focal deficits. Patient is currently being treated for traumatic rhabdomyolysis, suspected alcohol use. CK levels normalized. Continue PT OT, fall precautions. Will plan to discharge to rehab facility today. I have reviewed the advanced practitioner's documentation on the date of service referred in note and agree with plan. Patient's care is coordinated with Roxanne Hernandes PA-C . Please refer to the documentation above for details of patient's presentation and for discussion of other issues. I spent a total of15 minutes coordinating, documenting, and providing care for this patient excluding time spent in the performance of separately billed services or time spent by another provider/QHP.
[2024-11-02 14:53] VITALS: BP 108/65; PULSE 70; TEMP 98.1; O2SAT 95
== END 2024-11-02 17:08 | DRG 557 ==
LOC: ED 13:53 → 2S 16:40 → SUATTDRO 16:40 → 2S 18:33 → 3N 10-23 21:22